=== PATIENT | male | born 1935 | race Caucasian/White ===

== ENCOUNTER → 2017-08-02 | Outpatient (CLI) | payer OTHER ==
[~2017-08-02] MED LIST: ALBUAER19 INH; AMIO200T4 PO; ASPCH81X PO; CARV12.52 PO; CHOL100027 PO; CITA10TA4 PO; CNT PO; CRG125 PO; LEVO25TA5 PO; LPT40 PO; LSX20 PO; PANT40TA PO; RANI300T PO; RQP25 PO; TIOTCAP INH; WARF1TAB PO
--- NOTE | 2017-08-03 05:58 | SPLIT NIGHT TECHNICIAN REPORT ---
[facility] Split Night Polysomnogram - Manager [employer] Report Study date: 08/02/2017 Referring Physician: Niki Duarte M.D. Name: PAMELA SILVA Savita [employer]: Paula Mccoy [facility] Date of : 1935 Height: 81 years, Height 5' 7" Sex: Male Weight: 201 lbs Age: 81 Neck Circum: 16 inches BMI: Medications: 31.48 Prilosec 20 mg, Lasix 20 mg, Coreg 25 mg, Demadex 100 mg, Celexa 10 mg, Requip 2 mg, Ventolin HFA 108 ( 90 Base), Synthroid 25 mcg, Coumadin 1 mg, Cordarone 200 mg, Vitamin D 3 2000 units, Lipitor 40 mg, Vitron-C, Anoro Ellipta 62.5-25 MCG, Tylenol 325 mg, Aspirin 81 mg Patient History 81 yr. old male here for a modified split night sleep study with ETC02. Split is to be done if AHI > 15. Patient stated he only sleeps 3-4 hours a night. According to the patient he has been awake since 0130 today. Patient complains of gasping for air, witnessed apneas and EDS. ESS14/24. Parameters Monitored NPSG: E1-M2, E2-M1, Fp1-M2, Fp2-M1, F3-M2, F4-M2, F4-M1, C3-M2, C4-M2, C4-M1, O1-M2, O2-M2, O2-M1, T3-M2, T4-M1, P3-M2, P4-M1, CHIN1, CHIN2, HR, EKG, Legs, PFLOW, SNOR, FLOW, CFLOW, Tidal Volume, THOR, ABDO, SpO2, PLTH, CPRESS, ETCO2 Wave, ETCO2, pH SLEEP SUMMARY DATA DIAGNOSTIC TREATMENT Lights Out: 9:16:09 PM NONE Lights On: 11:24:09 PM 5:30:39 AM Total Recording Time (TRT): 126.5 min. 350.5 min. Total Sleep Time (TST): 122.0 min. 317.0 min. NREM Time: 122.0 min. 266.0 min. REM Time: 0.0 min. 51.0 min. Sleep Period Time (SPT): 126.0 min. 350.5 min. Sleep Efficiency (SE): 96 % 90 % Sleep Latency: 0.5 min. NONE min. Arousal Index: 11.8 5.1 PAP Treatment Levels: 4, 5, 6, 7, 8/4, 9/5, 10/5, 11/5, 12/5, 13/5, 14/5, 15/6, 16/6, 17/7 * Optimal Pressure(s) SLEEP STAGING DATA DIAGNOSTIC TREATMENT Duration (min) TST % Duration (min) TST % Stage Wake: 4.5 min. -- 33.5 min. -- WASO: 5.5 min. -- 33.5 min. -- NREM: 122.0 min. 100 % 266.0 min. 84 % Stage N1: 12.5 min. 10 % 36.0 min. 11 % Stage N2: 75.0 min. 61 % 174.0 min. 55 % Stage N3: 34.5 min. 28 % 56.0 min. 18 % REM: 0.0 min. 0 % 51.0 min. 16 % POSITIONAL DATA Event Count Index Event Count Index Supine: 48 56 88 54.2 Supine NREM: 48 56.0 70 54.3 Supine REM: N/A N/A 18 54 Non-Supine: 18 15.3 68 18.6 Non-Supine NREM: 18 15.3 68 21.6 Non-Supine REM: N/A N/A 0 0.0 AROUSAL SUMMARY DATA: Event Count Index Event Count Index Apnea Arousals: 10 16.2 3 12.3 Hypopnea Arousals: 4 2.0 8 1.5 Snore Arousals: 2 1.0 8 1.5 PLM Arousals: 0 0.0 1 0.2 Non-Specific Arousals: 5 2.5 9 1.7 Total Arousals: 24 11.8 27 5.1 MYOCLONUS (PLM) Event Count Index Event Count Index PLM: 0 0.0 18 3.4 PLM AROUSAL: 0 0.0 1 0.2 PLM W/O AROUSAL 0 0.0 17 3.2 PLM W/RESP EVENT 0 0.0 0 0.0 MYOCLONUS (PLM) Event Count Index Event Count Index LM: 4 7.4 26 4.9 LM AROUSAL: 4 2.0 3 0.6 LM W/O AROUSAL LM W/RESP EVENT LM NON SPECIFIC 9 4.4 38 7.2 HEART RATE DATA DIAGNOSTIC TREATMENT Sleep (bpm): 63 62 REM (bpm): N/A 92 NREM (bpm): 91 93 Tachycardia Count: 0 0 Tachycardia Duration: 0.00 0 Bradycardia Count: 0 0 Bradycardia Duration: 0.00 0 DIAGNOSTIC PORTION TREATMENT PORTION RESPIRATORY DATA Event Count Index Event Count Index AHI: -- 32.4 -- 29.5 RDI: -- 32.4 -- 30 Obstructive Apnea: 2 1.0 3 0.6 Central Apnea: 18 8.8 62 11.7 Mixed Apnea: 13 6.4 0 0.0 Hypopnea: 33 16.2 91 17.2 RERA: 0 0.0 0 0.0 Total Apneas: 33 16.2 65 12.3 RESPIRATORY DATA REM NREM SLEEP REM NREM SLEEP Supine Position: Obstructive Apneas: N/A 2 2 3 0 3 Central Apneas: N/A 15 15 3 33 36 Mixed Apneas: N/A 13 13 0 0 0 Hypopneas: N/A 18 18 12 37 49 RERA N/A 0 0 0 0 0 Total Supine Events: N/A 48 48 18 70 88 Supine AHI: N/A 56.0 56 54 54.3 54.2 Supine RDI: N/A 56.0 56.0 54.0 54.3 54.2 REM NREM SLEEP REM NREM SLEEP Non-Supine Position: Obstructive Apneas: N/A 0 0 0 0 0 Central Apneas: N/A 3 3 0 26 26 Mixed Apneas: N/A 0 0 0 0 0 Hypopneas: N/A 15 15 0 42 42 RERA N/A 0 0 0 0 0 Total Supine Events: N/A 18 18 0 68 68 Supine AHI: N/A 15.3 15.3 0.0 21.6 18.6 Supine RDI: N/A 15.3 15.3 0.0 21.6 18.6 OXYGEN DESTAURATION DATA: Event Count Index Event Count Index REM Desaturations: N/A N/A 17 20.0 NREM Desaturations: 70 34.4 146 32.9 SNORE DATA DIAGNOSTIC TREATMENT Snore Time: 1.8 11:36:42 PM Snore TST%: 1 2 Snore Arousal Count: 2 8 Snore Arousal Index: 1.0 1.5 Desaturation Event Summary: Minimum %SpO2 Event Count Mean/Min/Max Duration(sec.) Desaturation Index % Time In Bed > 90 244 34.5 / 8.8 / 60.0 39.2 78.6 86 - 90 1 24.8 / 24.8 / 24.8 0.6 20.5 81 - 85 0 N/A 0.0 1.0 76 - 80 0 N/A 0.0 0.0 71 - 75 0 N/A 0.0 0.0 66 - 70 0 N/A 0.0 0.0 61 - 65 0 N/A 0.0 0.0 56 - 60 0 N/A 0.0 0.0 51 - 55 0 N/A 0.0 0.0 < 50 0 N/A 0.0 0.0 OXYGEN SATURATION DATA DIAGNOSTIC TREATMENT SpO2 Mean Sleep: 91 % 93 % SpO2 Mean REM: N/A % 92 % SpO2 Mean NREM: 91 % 93 % SpO2 Minimum Sleep: 81 % 84 % SpO2 Minimum REM: N/A % 85 % SpO2 Minimum NREM: 81 % 84 % Time Below 90% (TST): 21.8 24.2 Time Below 88% (TST): 10.0 4.8 Total REM NREM Awake <50% 0.0 min. 0.0 min. 0.0 min. 0.0 min. 51 - 60% 0.0 min. 0.0 min. 0.0 min. 0.0 min. 61 - 70% 0.0 min. 0.0 min. 0.0 min. 0.0 min. 71 - 80% 0.0 min. 0.0 min. 0.0 min. 0.0 min. 81 - 90% 101.9 min. 7.1 min. 87.7 min. 7.1 min. 91 - 100% 373.5 min. 43.9 min. 299.8 min. 29.9 min. Average 92 92 92 93 Minimum SpO2 81 85 81 81 Desaturation Event Index 30.7 20.0 33.4 23.7 # Desat. Events below 89% 101 9 85 7 Time(%) with Saturation below 89% 5.6 0.6 4.4 0.6 Time(min.) with Saturation below 89% 26.5 2.8 20.8 2.9 Recording [employer] Comments: Mr. Silva slept in the right, left, and supine positions. Cardiac arrhythmia noted throughout the study. No PLMs noted. No bruxism noted. Snoring was noted and scored as a 2 on a scale of 0 through 5. (0=no snoring, 5=snoring loud enough to be heard through a closed door or down the [address]) A 11:36 pm , Mr. Silva met specific Split-Night criteria during the diagnostic portion of this study. CPAP was initiated at +4 CMH2O room air and up-titrated to a level of + 7 CMH2O Cflex 1. At this time patient was switch to Bi-Level for central apneas. PAP initiated at an IPAP of +8 CMH2O and an EPAP of +4 CMH2O up-titrated to an optimal level of: IPAP +15 CMH2O, EPAP +6 CMH20 BiFlex with a rate of12 BPM. A medium Resmed Mirage quattro full face mask was used during the night. Mr. Silva stated, the mask wasn't too bad". The final report will be interpreted and signed by a sleep physician. The completed physician report will then be placed in the patient medical record. Therapy Event: Therapy (cm H20) 0 4 5 6 7 8/4 9/5 10/5 Total Time at Pressure (min.) 126.5 24.6 14.1 41.2 19.3 15.1 8.8 14.2 TST at Pressure (min.) 122.0 12.6 13.6 41.2 18.8 15.1 7.8 13.7 # Periods 1 1 1 1 1 1 1 1 Sleep Onset (min.) 0.5 0.0 0.0 0.0 0.0 0.0 0.0 0.0 REM Onset (min.) N/A N/A N/A N/A N/A 9.2 0.0 0.0 Sleep Efficiency % 96 51 96 100 97 100 88 96 Wakefulness (%) 3.6 48.7 3.5 0.0 2.6 0.0 11.4 3.5 Wakefulness (min.) 4.5 12.0 0.5 0.0 0.5 0.0 1.0 0.5 NREM 1 (%) 9.9 24.2 14.1 1.2 23.4 3.3 5.7 10.6 NREM 1 (min.) 12.5 6.0 2.0 0.5 4.5 0.5 0.5 1.5 NREM 2 (%) 59.3 27.1 82.3 49.0 74.0 61.1 0.0 34.3 NREM 2 (min.) 75.0 6.7 11.6 20.2 14.3 9.2 0.0 4.9 NREM 3 (%) 27.3 0.0 0.0 49.8 0.0 0.0 0.0 0.0 NREM 3 (min.) 34.5 0.0 0.0 20.5 0.0 0.0 0.0 0.0 REM (%) 0.0 0.0 0.0 0.0 0.0 35.6 82.9 51.6 REM (min.) 0.0 0.0 0.0 0.0 0.0 5.4 7.3 7.3 # Arousals 24 1 2 1 1 1 1 3 Arousal Index 11.8 4.8 8.8 1.5 3.2 4.0 7.7 13.1 # Snore 93 5 9 8 6 10 10 28 Snore Index 45.7 23.8 39.6 11.7 19.2 39.7 77.2 122.5 AHI 32.4 52.3 57.2 16.0 35.2 55.5 54.1 61.2 AHI Supine 56.0 53.8 61.8 N/A 60.4 55.5 54.1 56.4 AHI Non-Supine 15.3 0.0 53.7 16.0 6.8 N/A N/A 67.0 NREM AHI 32.4 52.3 57.2 16.0 35.2 61.6 0.0 65.9 REM AHI N/A N/A N/A N/A N/A 44.5 57.8 57.2 RDI 32.4 52.3 57.2 16.0 35.2 55.5 54.1 61.2 # Obstructive 2 0 0 0 0 0 2 1 # Central Ap 18 10 13 4 11 8 0 1 # Mixed 13 0 0 0 0 0 0 0 # Hypopneas 33 1 0 7 0 6 5 12 RERAS 0 0 0 0 0 0 0 0 Total Respiratory Events 66 11 13 11 11 14 7 14 Time Below SpO2 89.00% (min.) 14.4 0.0 0.5 0.0 0.2 1.1 1.3 1.6 Mean NREM SpO2 (%) 91 94 93 92 93 92 94 93 Mean REM SpO2 (%) N/A N/A N/A N/A N/A 91 91 92 Mean Sleep SpO2 (%) 91 94 93 92 93 92 91 92 Min NREM SpO2 (%) 81 90 87 89 88 86 94 86 Min REM SpO2 (%) N/A N/A N/A N/A N/A 86 85 85 Position Supine (min.) 51.4 12.3 5.8 0.0 9.9 15.1 7.8 7.4 Position Non-supine (min.) 70.7 0.4 7.8 41.2 8.8 0.0 0.0 6.3 LM Index Sleep 7.4 9.5 0.0 1.5 3.2 23.8 38.6 43.7 LM Index NREM 7.4 9.5 0.0 1.5 3.2 6.2 120.0 28.2 LM Index REM N/A N/A N/A N/A N/A 55.7 33.0 57.2 Mean Heart Rate (bpm) 63 63 63 61 62 61 63 65 Min Heart Rate (bpm) 49 60 60 60 59 59 59 60 Therapy (cm H20) 11/5 12/5 13/5 14/5 15/6 16/6 17/7 Total Time at Pressure (min.) 25.7 43.4 15.8 25.0 31.6 32.5 39.1 TST at Pressure (min.) 24.2 39.9 14.8 22.5 31.6 25.5 35.6 # Periods 1 1 1 1 1 1 1 Sleep Onset (min.) 0.0 0.0 0.0 0.0 0.0 0.0 0.0 REM Onset (min.) N/A N/A N/A N/A N/A 24.6 0.0 Sleep Efficiency % 94 91 93 90 100 78 91 Wakefulness (%) 5.8 8.1 6.3 10.0 0.0 21.5 9.0 Wakefulness (min.) 1.5 3.5 1.0 2.5 0.0 7.0 3.5 NREM 1 (%) 11.7 9.2 1.9 12.8 0.0 18.4 10.2 NREM 1 (min.) 3.0 4.0 0.3 3.2 0.0 6.0 4.0 NREM 2 (%) 82.5 53.9 91.8 77.2 43.3 20.0 21.8 NREM 2 (min.) 21.2 23.4 14.5 19.3 13.7 6.5 8.5 NREM 3 (%) 0.0 28.8 0.0 0.0 56.7 15.7 0.0 NREM 3 (min.) 0.0 12.5 0.0 0.0 17.9 5.1 0.0 REM (%) 0.0 0.0 0.0 0.0 0.0 24.4 59.1 REM (min.) 0.0 0.0 0.0 0.0 0.0 7.9 23.1 # Arousals 5 2 0 1 0 3 6 Arousal Index 12.4 3.0 0.0 2.7 0.0 7.1 10.1 # Snore 29 7 6 3 1 3 40 Snore Index 71.8 10.5 24.3 8.0 1.9 7.1 67.5 AHI 64.4 15.0 52.7 21.3 9.5 18.8 8.4 AHI Supine 51.0 54.0 52.7 35.1 N/A 51.8 30.5 AHI Non-Supine 66.7 3.9 N/A 20.2 9.5 3.4 7.1 NREM AHI 64.4 15.0 52.7 21.3 9.5 27.3 24.0 REM AHI N/A N/A N/A N/A N/A 0.0 0.0 RDI 64.4 15.0 52.7 21.3 9.5 18.8 8.4 # Obstructive 0 0 0 0 0 0 0 # Central Ap 13 0 0 0 0 0 2 # Mixed 0 0 0 0 0 0 0 # Hypopneas 13 10 13 8 5 8 3 RERAS 0 0 0 0 0 0 0 Total Respiratory Events 26 10 13 8 5 8 5 Time Below SpO2 89.00% (min.) 0.8 0.8 0.0 0.8 0.0 0.9 1.4 Mean NREM SpO2 (%) 93 92 92 93 93 93 93 Mean REM SpO2 (%) N/A N/A N/A N/A N/A 92 93 Mean Sleep SpO2 (%) 93 92 92 93 93 93 93 Min NREM SpO2 (%) 87 84 89 84 91 86 85 Min REM SpO2 (%) N/A N/A N/A N/A N/A 91 92 Position Supine (min.) 3.5 8.9 14.8 1.7 0.0 8.1 2.0 Position Non-supine (min.) 20.7 31.0 0.0 20.8 31.6 17.4 33.6 LM Index Sleep 2.5 4.5 0.0 10.7 0.0 11.8 10.1 LM Index NREM 2.5 4.5 0.0 10.7 0.0 10.2 0.0 LM Index REM N/A N/A N/A N/A N/A 15.1 15.6 Mean Heart Rate (bpm) 61 62 61 62 61 63 63 Min Heart Rate (bpm) 59 59 59 60 59 60 60
--- NOTE | 2017-08-03 15:46 | POLYSOMNOGRAPH REPORT ---
SPLIT NIGHT STUDY CLINICAL DATA: An 81-year-old male with a BMI of 31.5 referred by Niki Duarte for a modified split night study. He only sleeps 3-4 hours at night. He has been awake since 1:30 this morning prior to the sleep study. He awakens gasping for air with witnessed apneic episodes. His Vadito sleepiness score is 14/24. SLEEP ARCHITECTURE: For the diagnostic portion of the study, sleep period was 126 minutes. Total sleep time was 122 minutes, all non-REM sleep. Sleep latency was 0.5 minutes. Sleep efficiency was 96%. Sleep consisted of stage N1 10%, stage N2 61%, and stage N3 28%. For the treatment portion of the study, sleep period time was 350.5 minutes. Total sleep time was 317 minutes divided between 266 minutes of non-REM sleep and 51 minutes of REM sleep. Sleep onset latency was immediate. Sleep efficiency was 90%. Sleep consisted of stage N1 11%, stage N2 55%, stage N3 18%, and REM 16%. AROUSAL DATA: Prior to treatment, 24 arousals were recorded for an index of 11.8 per hour. During treatment, 27 arousals were recorded for an index of 5 per hour. PLM DATA: Prior to treatment, 9 limb movements during sleep were noted for an index of 4.4 per hour. During treatment, 38 limb movements were present for an index of 7.2 per hour. EKG: Heart rates ranged from 62 to 93 beats per minute. The patient appeared to have atrial fibrillation through the night with PVCs. RESPIRATORY DATA: Severe sleep apnea was documented prior to treatment. The AHI was 32.4. There were 2 obstructive, 18 central, and 13 mixed apneic episodes. There were 33 hypopneic episodes. The mean AHI during treatment was 29.5. There were 3 obstructive, 62 central apneic episodes and 91 hypopneic episodes. OXIMETRY DATA: Nocturnal hypoxemia was seen. Oxygen rajesh was 81% prior to treatment. Mean saturation for the treatment was 93%. TOPOGRAPHICAL SURVEYOR'S COMMENTS AND TREATMENT SUMMARY: The patient slept in the right, left, and supine positions. Snoring was mild, rated 2 on a scale of 1 through 5. At 11:36 p.m. he met split night criteria. He was started on CPAP and was titrated up to 7 cm of water pressure. At that point, he developed treatment onset central apneas/complex sleep apnea and was switched to BIPAP with a backup rate. He was initially started on BiPAP 8/4 and was eventually titrated up to an optimal pressure setting of BiPAP 17/7 with a backup rate of 12 breaths per minute. He used a medium ResMed Mirage Quattro full facemask. At his final pressure setting, he slept for 35.6 minutes with an AHI of 8.4. IMPRESSION: 1. 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 2. Atrial fibrillation, PVCs were seen throughout the night. RECOMMENDATIONS: The patient could be started on BIPAP with a backup rate. If he has an ejection fraction greater than 45% and does not tolerate BIPAP with a backup rate, ASV could be considered. Clinical correlation is needed. [facility]
== END | disposition home or self-care (01) ==
LOC: C.NEUR 20:00
PROVIDERS: ATTEND Internal Medicine
DX: G47.33 Obstructive sleep apnea (adult) (pediatric) (principal); I48.91 Unspecified atrial fibrillation

== ENCOUNTER 2017-08-16 13:37 | Inpatient (IN) | payer OTHER ==
[~2017-08-16] VITALS: Ht 170.2 cm; Wt 89.9 kg
--- NOTE | 2017-08-16 15:15 | EMERGENCY ROOM VISIT NOTE ---
History Report prepared by Jorge: Hermelinda Miller Under the Supervision of: Dr. Saman Gunn M.D. First contact with patient: 14:59 Chief Complaint: RESPIRATORY PROBLEMS Stated Complaint: CAN'T BREATHE Nursing Triage Summary: Pt presents to triage with c/o difficulty breathing. Pt states he is in a.fib. Denies dizziness or lightheadedness. Sent by Dr. Betancur. History of Present Illness The patient is an 81 year old white male with a past medical history of Afib, HTN, lung cancer, CAD, CHF, COPD, CKD, GERD, and Hyperthyroidism who presents to the ED with a cc of constant SOB that has been occurring for the past few months. He came in today because he spoke with his performance engineer who recommended he come in today. Negative nausea, vomiting, chest pain. His states he was previously seen for this in the hospital in 2012. The patient has AICD in place and denies feeling any recent shocks. He also has one stent that was placed in [place] in 2000. He also complains of some swelling in his ankles and believes he is retaining fluid. He also takes medications for cholesterol and is on Coumadin , and aspirin. He is considered to be in remission of his lung cancer, and has not had any treatment for about two years. Source of History: patient, spouse/significant other Onset: past few months Timing: constant Associated Symptoms: No chest pain, No nausea, No vomiting Note: leg swelling Review of Systems See HPI for pertinent positives and negatives. A total of ten systems were reviewed and were otherwise negative. Past Medical & Surgical Medical Problems: (1) Atrial fibrillation (2) CAD (coronary artery disease) (3) Carotid stenosis, bilateral (4) CKD (chronic kidney disease) stage 3, GFR 30-59 ml/min (5) COPD, moderate (6) CVA (cerebral vascular accident) (7) Dyslipidemia (8) GERD (gastroesophageal reflux disease) (9) HTN (hypertension) (10) Hypothyroidism (11) Implantation of cardiac pacemaker (12) Ischemic cardiomyopathy (13) Lung cancer (14) MGUS (monoclonal gammopathy of unknown significance) Surgical Problems: (1) History of appendectomy (2) History of total knee arthroplasty Family History no pertinent family history stated. Social History Smoking Status: Former Smoker Drug Use: none Marital Status: Housing Status: lives with significant other Occupation Status: retired Current/Historical Medications Scheduled Amiodarone HCl (Amiodarone HCl), 200 MG PO TID Aspirin (Aspirin Chewable), 81 MG PO QAM Atorvastatin (Lipitor), 40 MG PO DAILY Carvedilol (Coreg), 25 MG PO BIDM Cholecalciferol (Vitamin D 1000 Unit), 2,000 INTER.UNIT PO QAM Citalopram Hydrobromide (Citalopram Hydrobromide), 10 MG PO HS Furosemide (Lasix), 60 MG PO DAILY Iron-Vitamin C (Vitron-C), 1 TAB PO DAILY Levothyroxine Sodium (Levothyroxine Sodium), 25 MCG PO QAM Omeprazole (Prilosec), 20 MG PO BID Ropinirole (Requip), 2 MG PO TID Umeclidinium-Vilanterol (Anoro Ellipta 62.5-25 Mcg/INH), 1 PUFF INH DAILY Warfarin Sod (Jantoven), 2 MG PO QMON Warfarin Sod (Jantoven), 3 MG PO 6XWK Scheduled PRN Albuterol Hfa (Ventolin Hfa), 2 PUFF INH Q4 PRN for SOB/Wheezing Allergies Coded Allergies: Gluten (Verified Allergy, Intermediate, GI SYMPTOMS, 08/22/16) CELIAC DISEASE CI Pigment Blue 63 (Verified Allergy, Mild, SHORTNESS OF BREATH, 08/22/16) Naproxen (Verified Allergy, Mild, SWELLING OF HANDS, 08/22/16) Sumatriptan (Verified Allergy, Mild, SHORTNESS OF BREATH, 08/22/16) Pseudoephedrine (Verified Allergy, Unknown, MADE HIS DEFIB FIRE, 08/22/16) Physical Exam Vital Signs Date Time Temp Pulse Resp B/P (MAP) Pulse Ox O2 Delivery O2 Flow Rate FiO2 08/16/17 18:01 75 18 129/87 96 Room Air 08/16/17 17:30 80 18 157/113 99 Room Air 08/16/17 17:01 78 20 144/70 93 Room Air 08/16/17 16:00 70 14 123/71 99 Nebulizer 8.0 08/16/17 15:58 94 Room Air 08/16/17 15:53 70 08/16/17 13:47 36.3 80 22 117/71 95 Room Air Physical Exam GENERAL: Awake, alert, well-appearing, NAD HENT: Normocephalic, atraumatic. EYES: Normal conjunctiva. Sclera non-icteric. NECK: Supple. No nuchal rigidity. FROM. RESPIRATORY: CTAB, no rhonchi, crackles. Trace inspiratory and expiratory wheezing throughout. CARDIAC: RRR, no MRG ABDOMEN: Soft, NTND, BS+ MSK: No chest wall TTP. Device in his left chest. 1 to 2+ pretibial edema. NEURO: GCS 15, CN 2-12 intact, moves all 4s on command SKIN: No rash or jaundice noted. Medical Decision & Procedures ER Provider Diagnostic Interpretation: Radiology results as stated below per my review and radiologist interpretation: SINGLE VIEW CHEST CLINICAL HISTORY: Dyspnea. FINDINGS: An AP, portable, upright chest radiograph is compared to study dated 08/24/2016 and correlated with chest CT dated 05/03/2015. The examination is degraded by portable technique and patient rotation. A 3-lead cardiac AICD is unchanged in position and partially obscures the left chest. The heart is enlarged and there is atherosclerotic calcification of the thoracic aorta. The pulmonary vasculature is noncongested. A 4.7 cm opacity in the right midlung is unchanged from prior studies. This appears more confluent than on the 08/24/2016 examination. No additional foci of airspace consolidation are identified. There is no large pleural effusion or pneumothorax. The skeletal structures are osteopenic. Degenerative change is seen throughout the thoracic spine. IMPRESSION: 1. Cardiomegaly and AICD. There is no radiographic evidence of congestive failure. 2. A 4.7 cm opacity in the right midlung appears increasingly confluent as compared to previous. The appearance remains concerning for mass lesion. Follow-up with pulmonology is recommended. Electronically signed by: Amari Reyes M.D. 08/16/2017 3:52 PM Laboratory Results Test 08/16/17 15:55 08/16/17 17:00 Immature Granulocyte % (Auto) 1.1 % White Blood Count 9.04 K/uL (4.8-10.8) Red Blood Count 3.33 M/uL (4.7-6.1) Hemoglobin 10.3 g/dL (14.0-18.0) Hematocrit 31.4 % (42-52) Mean Corpuscular Volume 94.3 fL (80-100) Mean Corpuscular Hemoglobin 30.9 pg (25-34) Mean Corpuscular Hemoglobin Concent 32.8 g/dl (32-36) Platelet Count 159 K/uL (130-400) Mean Platelet Volume 10.1 fL (7.4-10.4) Neutrophils (%) (Auto) 64.3 % Lymphocytes (%) (Auto) 21.2 % Monocytes (%) (Auto) 9.3 % Eosinophils (%) (Auto) 3.7 % Basophils (%) (Auto) 0.4 % Neutrophils # (Auto) 5.81 K/uL (1.4-6.5) Lymphocytes # (Auto) 1.92 K/uL (1.2-3.4) Monocytes # (Auto) 0.84 K/uL (0.11-0.59) Eosinophils # (Auto) 0.33 K/uL (0-0.5) Basophils # (Auto) 0.04 K/uL (0-0.2) Immature Granulocyte # (Auto) 0.10 K/uL (0.00-0.02) Activated Partial Thromboplast Time 36.8 SECONDS (21.0-31.0) Partial Thromboplastin Ratio 1.4 Phosphorus Level 2.6 mg/dl (2.5-4.9) Magnesium Level 2.3 mg/dl (1.8-2.4) Total Bilirubin 0.9 mg/dl (0.2-1) Aspartate Amino Transf (AST/SGOT) 21 U/L (15-37) Alanine Aminotransferase (ALT/SGPT) 32 U/L (12-78) Alkaline Phosphatase 70 U/L (45-117) Troponin I 0.023 ng/ml (0-0.045) Pro-B-Type Natriuretic Peptide 2185 pg/ml (0-1800) Total Protein 7.2 gm/dl (6.4-8.2) Albumin 3.2 gm/dl (3.4-5.0) Globulin 4.0 gm/dl (2.5-4.0) Albumin/Globulin Ratio 0.8 (0.9-2) Urine Color YELLOW Urine Appearance CLEAR (CLEAR) Urine pH 7.0 (4.5-7.5) Urine Specific [place] 1.014 (1.000-1.030) Urine Protein NEG (NEG) Urine Glucose (UA) NEG (NEG) Urine Ketones NEG (NEG) Urine Occult Blood TRACE (NEG) Urine Nitrite NEG (NEG) Urine Bilirubin NEG (NEG) Urine Urobilinogen NEG (NEG) Urine Leukocyte Esterase NEG (NEG) Urine WBC (Auto) 1-5 /hpf (0-5) Urine RBC (Auto) 0-4 /hpf (0-4) Urine Hyaline Casts (Auto) 1-5 /lpf (0-5) Urine Epithelial Cells (Auto) 5-10 /lpf (0-5) Urine Bacteria (Auto) NEG (NEG) Laboratory results reviewed by me Medications Administered Medications (Trade) Dose Ordered Sig/Tj Route Start Time Stop Time Status Last Admin Dose Admin Albuterol/ Ipratropium (Duoneb) 3 ml ONE STAT INH 08/16/17 15:23 08/16/17 15:25 DC 08/16/17 15:57 3 ML Doxycycline Hyclate (Vibramycin Cap) 100 mg ONE ONCE PO 08/16/17 15:30 08/16/17 15:31 DC 08/16/17 15:57 100 MG ECG Indication: SOB/dyspnea Rate (beats per minute): 64 Rhythm: other (v paced ) Findings: T-wave inversion (T wave inversions in v 6, 3, AVL ), other (wide QRS , no sgarbossa criteria met ) Comparison ECG Date: August 22, 2016 Change: no significant change (fairly unchanged, formerly A-paced ) ED Course 1503: The patient was evaluated in room C12B. A complete history and physical exam was performed. 1708: I reevaluated the patient. He feels okay. 1712: Upon reexamination, the patient was resting comfortably. I discussed the test results and treatment plan with him. The patient will be evaluated for further management. Medical Decision The patient is an 81 year old white male with a past medical history of Afib, HTN, lung cancer, CAD, CHF, COPD, CKD, GERD, and Hyperthyroidism who presents to the ED with a cc of SOB that has been occurring for months. Differential diagnosis: Etiologies such as infections, reactive airway disease, pneumonia, pneumothorax , COPD, CHF, cardiac ischemia, pulmonary embolism, musculoskeletal, gastrointestinal, as well as others were entertained. Patient was seen and evaluated the bedside. Per the patient family member the patient was referred here for further evaluation of atrial fibrillation. Patient has complained of some URI type symptoms as well as a productive cough. Patient does complains mild shortness of breath. Patient states he does have a history of heart failure. Patient states his symptoms been ongoing for several weeks. Patient states that he recently had his AICD interrogated which showed possible atrial fibrillation. EKG today shows that the patient is in A. fib with a ventricularly paced rhythm. Patient is have T-wave inversions that appear chronic in nature. Patient did have blood work that was completed along with a chest x-ray. Patient also did have notable wheezing throughout on exam. Patient was given DuoNeb times as well as doxycycline instead of azithromycin for similar coverage without QT prolonging issues. Patient did have mild JYOTHI. Patient does have a baseline creatinine of 1.8 today is 2.3. BUN/creatinine is at baseline. Patient is a mildly elevated BNP but clinically the patient doesn' t look super volume overloaded. Patient does have some trace pretibial edema. Chest x-ray is read suspicious for new lung mass. Patient does have mild hypocalcemia. I did discuss the patient with the performance engineer who recommended further eval to be made NPO for possible cardioversion given persistent a fib. Therapeutic INR today. I discussed the patient the hospitalist who agreed to further evaluate and treat the patient. Medication Reconcilliation Current Medication List: was personally reviewed by me Blood Pressure Screening Patient's blood pressure: Normal blood pressure Blood pressure disposition: Did not require urgent referral Consults Time Called: 1709 Consulting Physician: Dr. Walsh, Cardiology Returned Call: [phone] He recommends admission and he will see the patient tomorrow. Additional Consults: Time Called: 1735 Consulted Physician: LUPILLO Correa Returned Call: [phone] Additional Comments: Discussed the patient's case. The patient will be evaluated for further treatment and disposition. Impression Primary Impression: Chronic systolic (congestive) heart failure Additional Impressions: Anemia COPD exacerbation JYOTHI (acute kidney injury) Scribe Attestation The scribe's documentation has been prepared under my direction and personally reviewed by me in its entirety. I confirm that the note above accurately reflects all work, treatment, procedures, and medical decision making performed by me. Departure Information Dispostion Being Evaluated By Hospitalist Referrals No Doctor, Assigned (PCP) Patient Instructions My [facility] Problem Qualifiers Additional Impressions: Anemia Anemia type: unspecified type Qualified Codes: D64.9 - Anemia, unspecified
[2017-08-16] MEDS ORDERED: ALBUT/IPRATROP 3MG/0.5MG NEB 3 ML VIAL INH STA (15:23)
[2017-08-16] MEDS ORDERED: DOXYCYCLINE HYCLATE 100 MG CAP PO ONE (15:30)
--- NOTE | 2017-08-16 15:53 | DIAGNOSTIC IMAGING REPORT ---
SINGLE VIEW CHEST CLINICAL HISTORY: Dyspnea. FINDINGS: An AP, portable, upright chest radiograph is compared to study dated 08/24/2016 and correlated with chest CT dated 05/03/2015. The examination is degraded by portable technique and patient rotation. A 3-lead cardiac AICD is unchanged in position and partially obscures the left chest. The heart is enlarged and there is atherosclerotic calcification of the thoracic aorta. The pulmonary vasculature is noncongested. A 4.7 cm opacity in the right midlung is unchanged from prior studies. This appears more confluent than on the 08/24/2016 examination. No additional foci of airspace consolidation are identified. There is no large pleural effusion or pneumothorax. The skeletal structures are osteopenic. Degenerative change is seen throughout the thoracic spine. IMPRESSION: 1. Cardiomegaly and AICD. There is no radiographic evidence of congestive failure. 2. A 4.7 cm opacity in the right midlung appears increasingly confluent as compared to previous. The appearance remains concerning for mass lesion. Follow-up with pulmonology is recommended. Electronically signed by: Amari Reyes M.D. 08/16/2017 3:52 PM Dictated Date/Time: 08/16/2017 3:49 PM
[2017-08-16] MEDS ORDERED: CRD200 PO (16:07)
[2017-08-16] MEDS ORDERED: CARV25TA PO (16:07)
[2017-08-16] MEDS ORDERED: ROPI2TAB6 PO (16:07)
[2017-08-16] MEDS ORDERED: WARF2TAB8 PO ×2 (16:07)
[2017-08-16] MEDS ORDERED: FURO-85 PO (16:07)
[2017-08-16] MEDS ORDERED: UMEC1AER INH (16:07)
[2017-08-16] MEDS ORDERED: FERRTAB18 PO (16:07)
[2017-08-16] MEDS ORDERED: VNTHFA/IN INH (16:07)
[2017-08-16] MEDS ORDERED: PRLSR20 PO (16:07)
[2017-08-16] MEDS ORDERED: LPT/40 PO (16:07)
[2017-08-16 16:09] LABS: BASO % 0.4 %; BASO ABS # 0.04 K/uL (0-0.2); COMPLETE YES; EOS % 3.7 %; HEMATOCRIT 31.4 % (42-52); IG% 1.1 %; LYMPH % 21.2 %; LYMPH ABS # 1.92 K/uL (1.2-3.4); MEAN CELL VOLUME 94.3 fL (80-100); MEAN CORPUSCULAR HEMOGLOBIN 30.9 pg (25-34); MEAN CORPUSCULAR HGB CONC 32.8 g/dl (32-36); MEAN PLATELET VOLUME 10.1 fL (7.4-10.4); MONO % 9.3 %; NEUT % 64.3 %; PLATELET COUNT 159 K/uL (130-400); RED BLOOD COUNT 3.33 M/uL (4.7-6.1); WHITE BLOOD COUNT 9.04 K/uL (4.8-10.8)
[2017-08-16 16:21] LABS: INR 2.5 (0.9-1.1); PARTIAL THROMBOPLASTIN RATIO 1.4; PROTHROMBIN TIME (PATIENT) 25.4 SECONDS (9.0-12.0)
[2017-08-16 16:28] LABS: BUN/CREATININE RATIO 10.9 (10-20); CALCIUM 8.3 mg/dl (8.5-10.1); CREATININE 2.35 mg/dl (0.60-1.40); MAGNESIUM 2.3 mg/dl (1.8-2.4); POTASSIUM 3.7 mmol/L (3.5-5.1)
[2017-08-16 16:34] LABS: ALB/GLOB RATIO 0.8 (0.9-2); PHOSPHORUS 2.6 mg/dl (2.5-4.9)
[2017-08-16 17:18] LABS: URINE APPEARANCE CLEAR (CLEAR); URINE BILIRUBIN NEG (NEG); URINE COLOR YELLOW; URINE NITRITE NEG (NEG); URINE SPECIFIC GRAVITY 1.014 (1.000-1.030); UROBILINOGEN NEG (NEG)
[2017-08-16 17:19] LABS: MANUAL MICROSCOPIC REQUIRED? NO; REVIEW REQ? NO
[2017-08-16] MEDS ORDERED: ONDANSETRON INJ 2 MG/ML 2 ML VIAL IV PRN (19:00)
[2017-08-16] MEDS ORDERED: ACETAMINOPHEN 325 MG TAB PO PRN (19:00)
[2017-08-16] MEDS ORDERED: NITROGLYCERIN 0.4 MG SL PER TAB CHARGE SL PRN (19:00)
[2017-08-16 19:12] LABS: INFLUENZA A PCR Neg for Influ A (NEG); INFLUENZA B PCR Neg for Influ B (NEG)
[2017-08-16 19:52] VITALS: BP 153/90; PULSE 73; TEMP 36.4; O2SAT 98; Ht 170.2 cm; Wt 89.9 kg
[2017-08-16] MEDS ORDERED: WARFARIN SOD 2 MG TAB PO SCH (21:00)
[2017-08-16] MEDS ORDERED: FUROSEMIDE INJ 20 MG in SYRINGE 0 ML IV ONE (21:00)
[2017-08-16] MEDS: ALBUT/IPRATROP 3MG/0.5MG NEB 3 ML VIAL INH SCH (21:23)
[2017-08-16 21:24] VITALS: PULSE 75; O2SAT 97
--- NOTE | 2017-08-16 21:44 | History and Physical ---
History & Physical Date & Time of Service: Aug 16, 2017 ~ 18:30 Chief Complaint: Shortness of Breath Primary Care Physician: Soren Loja M.D. History of Present Illness 81 year old male who presents to the ED with shortness of breath. Patient has been following closely with cardiology. He was seen in the clinic on 08/03 and was felt to be in acute CHF. His furosemide was changed to torsemide. He then was re-evaluated on 08/10 and underwent pacemaker interrogation that showed the patient was in atrial fibrillation. His amiodarone was increased and torsemide was changed back to furosemide. Patient reports no improvement in his symptoms. He reports shortness of breath with minimal exertion and sometimes at rest. He has noticed increased swelling around the ankles and abdominal distention. He reports a 4 pound weight gain in 3 days. He has orthopnea. He reports a cough productive for yellow sputum. He denies chest pain and palpitations. No lightheadedness, dizziness, diaphoresis, or syncope. No abdominal pain, nausea , vomiting, or diarrhea. He denies fever and chills. No urinary symptoms. In the ER, patient's labs and CXR are unremarkable for acute findings. Vitals are stable. He was given a DuoNeb and doxycycline. Past Medical/Surgical History Medical Problems: (1) Atrial fibrillation Status: Chronic (2) CAD (coronary artery disease) Permanent Comment: 2000 - PR, s/p angioplasty to LAD and diagonal and PCI to PDA 2011 - cath - 100% RPLB and 100% 1st diagonal Status: Chronic (3) Carotid stenosis, bilateral Status: Chronic (4) CKD (chronic kidney disease) stage 3, GFR 30-59 ml/min Status: Chronic (5) COPD, moderate Status: Chronic (6) CVA (cerebral vascular accident) Status: Chronic (7) Dyslipidemia Status: Chronic (8) GERD (gastroesophageal reflux disease) Status: Chronic (9) HTN (hypertension) Status: Chronic (10) Hypothyroidism Status: Chronic (11) Implantation of cardiac pacemaker Status: Resolved (12) Ischemic cardiomyopathy Permanent Comment: echo 08/09/17 - EF 44% Status: Chronic (13) Lung cancer Permanent Comment: s/p radiation Status: Chronic (14) MGUS (monoclonal gammopathy of unknown significance) Status: Chronic Surgical Problems: (1) History of appendectomy Status: Chronic (2) History of total knee arthroplasty Permanent Comment: R TKA Dr. Plunkett 05/05/2016 Status: Chronic Family History non contributory due to patient's advanced age Social History Smoking Status: Former Smoker Alcohol Use: none Marital Status: Housing status: lives with significant other Immunizations History of Influenza Vaccine: Yes Influenza Vaccine Date: Jul 13, 2017 History of Tetanus Vaccine?: Yes Tetanus Immunization Date: February 05, 2015 History of Pneumococcal: Yes Pneumococcal Date: Oct 02, 2014 History of Hepatitis B Vaccine: No Allergies Coded Allergies: Gluten (Verified Allergy, Intermediate, GI SYMPTOMS, 08/22/16) CELIAC DISEASE CI Pigment Blue 63 (Verified Allergy, Mild, SHORTNESS OF BREATH, 08/22/16) Naproxen (Verified Allergy, Mild, SWELLING OF HANDS, 08/22/16) Sumatriptan (Verified Allergy, Mild, SHORTNESS OF BREATH, 08/22/16) Pseudoephedrine (Verified Allergy, Unknown, MADE HIS DEFIB FIRE, 08/22/16) Home Medications Scheduled Amiodarone HCl (Amiodarone HCl), 200 MG PO TID Aspirin (Aspirin Chewable), 81 MG PO QAM Atorvastatin (Lipitor), 40 MG PO DAILY Carvedilol (Coreg), 25 MG PO BIDM Cholecalciferol (Vitamin D 1000 Unit), 2,000 INTER.UNIT PO QAM Citalopram Hydrobromide (Citalopram Hydrobromide), 10 MG PO HS Furosemide (Lasix), 60 MG PO DAILY Iron-Vitamin C (Vitron-C), 1 TAB PO DAILY Levothyroxine Sodium (Levothyroxine Sodium), 25 MCG PO QAM Omeprazole (Prilosec), 20 MG PO BID Ropinirole (Requip), 2 MG PO TID Umeclidinium-Vilanterol (Anoro Ellipta 62.5-25 Mcg/INH), 1 PUFF INH DAILY Warfarin Sod (Jantoven), 2 MG PO QMON Warfarin Sod (Jantoven), 3 MG PO 6XWK Scheduled PRN Albuterol Hfa (Ventolin Hfa), 2 PUFF INH Q4 PRN for SOB/Wheezing Review of Systems ROS per HPI, all other systems reviewed and negative Physical Exam Vital Signs Date Time Temp Pulse Resp B/P (MAP) Pulse Ox O2 Delivery O2 Flow Rate FiO2 08/16/17 19:52 36.4 73 24 153/90 98 Room Air 08/16/17 19:25 36.3 68 18 125/94 94 08/16/17 19:00 68 18 125/94 94 Room Air 08/16/17 18:01 75 18 129/87 96 Room Air 08/16/17 17:30 80 18 157/113 99 Room Air 08/16/17 17:01 78 20 144/70 93 Room Air 08/16/17 16:00 70 14 123/71 99 Nebulizer 8.0 08/16/17 15:58 94 Room Air 08/16/17 15:53 70 08/16/17 13:47 36.3 80 22 117/71 95 Room Air General Appearance: WD/WN, no apparent distress Head: normocephalic, atraumatic Eyes: normal inspection, EOMI, sclerae normal ENT: hearing grossly normal, + pertinent finding Neck: supple, no JVD, trachea midline Respiratory/Chest: no respiratory distress, + decreased breath sounds, + wheezing (expiratory throughout all lung multani) Cardiovascular: regular rate, rhythm, normal peripheral pulses, + pertinent finding Abdomen/GI: normal bowel sounds, non tender, soft, no organomegaly, + distended Extremities/Musculoskelatal: normal inspection, no calf tenderness, normal capillary refill Neurologic/Psych: no motor/sensory deficits, alert, normal mood/affect, oriented x 3 Skin: normal color, warm/dry Diagnostics Laboratory Results Results Past 24 Hours Test 08/16/17 15:55 08/16/17 17:00 08/16/17 18:19 Range/Units White Blood Count 9.04 4.8-10.8 K/uL Red Blood Count 3.33 4.7-6.1 M/uL Hemoglobin 10.3 14.0-18.0 g/dL Hematocrit 31.4 42-52 % Mean Corpuscular Volume 94.3 80-100 fL Mean Corpuscular Hemoglobin 30.9 25-34 pg Mean Corpuscular Hemoglobin Concent 32.8 32-36 g/dl Platelet Count 159 130-400 K/uL Mean Platelet Volume 10.1 7.4-10.4 fL Neutrophils (%) (Auto) 64.3 % Lymphocytes (%) (Auto) 21.2 % Monocytes (%) (Auto) 9.3 % Eosinophils (%) (Auto) 3.7 % Basophils (%) (Auto) 0.4 % Neutrophils # (Auto) 5.81 1.4-6.5 K/uL Lymphocytes # (Auto) 1.92 1.2-3.4 K/uL Monocytes # (Auto) 0.84 0.11-0.59 K/uL Eosinophils # (Auto) 0.33 0-0.5 K/uL Basophils # (Auto) 0.04 0-0.2 K/uL RDW Standard Deviation 53.6 36.4-46.3 fL RDW Coefficient of Variation 15.6 11.5-14.5 % Immature Granulocyte % (Auto) 1.1 % Immature Granulocyte # (Auto) 0.10 0.00-0.02 K/uL Prothrombin Time 25.4 9.0-12.0 SECONDS Prothromb Time International Ratio 2.5 0.9-1.1 Activated Partial Thromboplast Time 36.8 21.0-31.0 SECONDS Partial Thromboplastin Ratio 1.4 Sodium Level 135 136-145 mmol/L Potassium Level 3.7 3.5-5.1 mmol/L Chloride Level 102 98-107 mmol/L Carbon Dioxide Level 29 21-32 mmol/L Anion Gap 4.0 3-11 mmol/L Blood Urea Nitrogen 26 7-18 mg/dl Creatinine 2.35 0.60-1.40 mg/dl Est Creatinine Clear Calc Drug Dose 26.7 ml/min Estimated GFR () 29.0 Estimated GFR (Non- 25.0 BUN/Creatinine Ratio 10.9 10-20 Random Glucose 111 70-99 mg/dl Calcium Level 8.3 8.5-10.1 mg/dl Phosphorus Level 2.6 2.5-4.9 mg/dl Magnesium Level 2.3 1.8-2.4 mg/dl Total Bilirubin 0.9 0.2-1 mg/dl Aspartate Amino Transf (AST/SGOT) 21 15-37 U/L Alanine Aminotransferase (ALT/SGPT) 32 12-78 U/L Alkaline Phosphatase 70 45-117 U/L Troponin I 0.023 0-0.045 ng/ml Pro-B-Type Natriuretic Peptide 2185 0-1800 pg/ml Total Protein 7.2 6.4-8.2 gm/dl Albumin 3.2 3.4-5.0 gm/dl Globulin 4.0 2.5-4.0 gm/dl Albumin/Globulin Ratio 0.8 0.9-2 Urine Color YELLOW Urine Appearance CLEAR CLEAR Urine pH 7.0 4.5-7.5 Urine Specific [place] 1.014 1.000-1.030 Urine Protein NEG NEG Urine Glucose (UA) NEG NEG Urine Ketones NEG NEG Urine Occult Blood TRACE NEG Urine Nitrite NEG NEG Urine Bilirubin NEG NEG Urine Urobilinogen NEG NEG Urine Leukocyte Esterase NEG NEG Urine WBC (Auto) 1-5 0-5 /hpf Urine RBC (Auto) 0-4 0-4 /hpf Urine Hyaline Casts (Auto) 1-5 0-5 /lpf Urine Epithelial Cells (Auto) 5-10 0-5 /lpf Urine Bacteria (Auto) NEG NEG Influenza Type A (RT-PCR) Neg for Influ A NEG Influenza Type B (RT-PCR) Neg for Influ B NEG Diagnostic Radiology CXR IMPRESSION: 1. Cardiomegaly and AICD. There is no radiographic evidence of congestive failure. 2. A 4.7 cm opacity in the right midlung appears increasingly confluent as compared to previous. The appearance remains concerning for mass lesion. Follow-up with pulmonology is recommended. Impression Assessment and Plan SHORTNESS OF BREATH, MULTIFACTORIAL DUE TO ACUTE ON CHRONIC SYSTOLIC CHF MILD COPD EXACERBATION SYMPTOMATIC ATRIAL FIBRILLATION - admit to tele - patient presenting with increasing shortness of breath for the past several weeks; has been following with cardiology as an outpatient who has been treating the patient for acute on chronic CHF; pacemaker interrogation also showed that the patient was in atrial fibrillation most of the time so it was also thought that atrial fibrillation was contributing to patient's symptoms and cardioversion was discussed - patient also reports weight gain, ankle edema, and abdominal distention - will give patient Lasix 20mg IV x 1 tonight, reassess renal function and patient response in AM and dose further diuresis accordingly - daily weights, I/Os, low Na+ diet - echo 08/09/17 - EF 44% - case discussed with Dr Walsh by ED - NPO after midnight for possible cardioversion - on Coumadin, INR 2.5 - continue amiodarone and carvedilol - also has wheezing on exam; saturating well on room air - likely mild COPD exacerbation due to CHF however patient does report yellow sputum production - around the clock nebs, Prednisone 40mg x 5 days, empiric doxycycline CKD STAGE III - baseline creat runs in the high 1's - however most recent outpatient labs with diuresis adjustments has been running 2.2 - 2.6 - noted to be 2.3 today - continue to monitor renal function HYPOTHYROIDISM - continue levothyroxine RML LUNG OPACITY - history of lung cancer - follows with [facility] pulmonary for RUL nodule - RML lesion noted on CXR today; ? if new - pulmonary consult DVT PROPHYLAXIS - on Coumadin, INR 2.5 CODE STATUS - Patient is a full code as per my discussion with him. DISPO - In my clinical judgment this beneficiary meets acute admission criteria, established by [facility], that includes being hospitalized through two midnights. ADDENDUM: I have seen and examined the patient and agree with the assessment and plan above. [place], Advanced Directives Existing Living Will: No Existing Power of Shipping Room Helper: No VTE Prophylaxis VTE Risk Assessment Done? Y/N: Yes Risk Level: Moderate Given or contraindicated: Warfarin (Coumadin)
[2017-08-16] MEDS: AMIODARONE 200 MG TAB PO SCH (22:14)
[2017-08-16] MEDS: CITALOPRAM 20 MG TAB PO SCH (22:15)
[2017-08-16] MEDS: PANTOprazole SOD 40 MG TAB PO SCH (22:15)
[2017-08-16] MEDS: ROPINIROLE HCL 1 MG TAB PO SCH (22:16)
[2017-08-16] MEDS: DOXYCYCLINE HYCLATE 100 MG CAP PO SCH (22:17)
[2017-08-17] VITALS (15 sets, daily range): BP systolic 107–142; BP diastolic 48–80; PULSE 64–88; TEMP 36.4–36.8; O2SAT 92–98
[2017-08-17] MEDS: ALBUT/IPRATROP 3MG/0.5MG NEB 3 ML VIAL INH SCH ×4 (01:36→19:23)
[2017-08-17] MEDS: LEVOTHYROXINE 25 MCG TAB PO SCH (06:15)
[2017-08-17 07:52] LABS: HEMATOCRIT 31.6 % (42-52); MEAN CELL VOLUME 93.8 fL (80-100); MEAN CORPUSCULAR HEMOGLOBIN 31.2 pg (25-34); MEAN CORPUSCULAR HGB CONC 33.2 g/dl (32-36); MEAN PLATELET VOLUME 10.6 fL (7.4-10.4); PLATELET COUNT 152 K/uL (130-400); RED BLOOD COUNT 3.37 M/uL (4.7-6.1); WHITE BLOOD COUNT 7.66 K/uL (4.8-10.8)
[2017-08-17 07:59] LABS: INR 2.1 (0.9-1.1); PROTHROMBIN TIME (PATIENT) 21.5 SECONDS (9.0-12.0)
[2017-08-17 08:16] LABS: BUN/CREATININE RATIO 13.3 (10-20); CALCIUM 8.6 mg/dl (8.5-10.1); CREATININE 2.1 mg/dl (0.60-1.40); POTASSIUM 3.7 mmol/L (3.5-5.1)
[2017-08-17] MEDS ORDERED: NON-FORMULARY MEDICATION (Iron-Vitamin C (Vitron-C) 1 TAB) PO SCH (09:00)
[2017-08-17] MEDS: ASPIRIN 81 MG CHEW PO SCH (09:20)
[2017-08-17] MEDS: CARVEDILOL 25 MG TAB PO SCH ×2 (09:20→16:43)
[2017-08-17] MEDS: ROPINIROLE HCL 1 MG TAB PO SCH ×3 (09:21→20:57)
[2017-08-17] MEDS: AMIODARONE 200 MG TAB PO SCH ×3 (09:21→20:55)
[2017-08-17] MEDS: ATORVASTATIN 40 MG TAB PO SCH (09:21)
[2017-08-17] MEDS: DOXYCYCLINE HYCLATE 100 MG CAP PO SCH ×2 (09:21→20:55)
[2017-08-17] MEDS: PANTOprazole SOD 40 MG TAB PO SCH ×2 (09:21→20:55)
[2017-08-17] MEDS: CHOLECALCIFEROL 1000 INTER.UNIT TAB PO SCH (09:22)
[2017-08-17] MEDS ORDERED: POTASSIUM CHLORIDE 20 MEQ TABCR PO ONE (10:00)
--- NOTE | 2017-08-17 10:37 | CARDIOLOGY CONSULTATION ---
DATE OF CONSULTATION: 08/17/2017 DATE OF CONSULTATION: 08/17/2017 REFERRING: LUPILLO Correa. PRIMARY CARE PHYSICIAN: Dr. Loja. INDICATIONS: Clinical decline, class 3 heart failure, newly noted atrial fibrillation. HISTORY OF PRESENT ILLNESS: The patient is a complex 81-year-old male whose past medical history is notable for atherosclerotic coronary disease with prior myocardial infarction, LAD angioplasty and diagonal angioplasty 2000, ischemic cardiomyopathy with past ICD implantation and upgrade to biventricular pacer defibrillator 07/22/2012. 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 The patient presented now with increasing edema and shortness of breath for approximately 2-3 weeks' time, unresponsive to outpatient adjustments in medical therapies. Notes no fevers, chills or productive cough. Notes no headache or visual changes. He has been appropriately anticoagulated. Notes no recent neurologic issues, has been taking medications as prescribed. Pacer defibrillator interrogation demonstrates newly noted atrial fibrillation approximately 3 weeks duration. The patient previously had high rates of biventricular pacing now dropping into 70% rate with biventricular pacing since lapsing into atrial fibrillation. Due to worsening symptoms fluid retention greater than 4 pounds in 3 days, newly noted arrhythmia he was referred for hospitalization. Consideration for synchronized electrical cardioversion. ALLERGIES: NOTED TO BE DIPHENHYDRAMINE, PHENYLEPHRINE, TREXIMET, GLUTEN AND ALEVE. MEDICATIONS PRIOR TO HOSPITALIZATION: Amiodarone 200 mg 3 times per day, aspirin 81 mg a day, atorvastatin 40 daily, carvedilol 25 mg b.i.d., Cholecalciferol 2000 units q.a.m., citalopram 10 mg at bedtime, furosemide 60 mg p.o. daily, iron/Vitron C 1 tablet p.o. daily, levothyroxine 25 mcg q.a.m., omeprazole 20 mg b.i.d., Requip 2 mg t.i.d., warfarin 2 mg on Mondays, 3 mg all other days, Anoro Ellipta 1 puff every day. PAST MEDICAL HISTORY: In addition to above, notable for chronic obstructive lung disease, past cerebral vascular accident August 2016, dyslipidemia, gastroesophageal reflux, monoclonal gammopathy. PAST SURGICAL HISTORY: Complex and includes history of prior coronary interventions as described, history of pacer defibrillator implantation and upgrade with most recent upgrade July 2012 with device reaching low battery levels, past appendectomy and total knee arthroplasty 2016 on the right. FAMILY HISTORY: Noncontributory. SOCIAL HISTORY: The patient is a prior smoker, currently following sodium and fluid restrictions. PHYSICAL EXAMINATION: GENERAL: The patient is an age appropriate male. Denies any acute worsening. Did receive a single dose of IV furosemide last night with gentle diuresis. Weight down to 2 kilograms. HEAD, EYES, EARS, NOSE, AND THROAT EXAMINATION: Normocephalic, atraumatic. Nares without discharge. Throat was clear. NECK: Thick, no distinct jugular venous distention. LUNGS: Reveal diminished breath sounds diffusely. CARDIOVASCULAR EXAMINATION: Regular with paced rhythm. ABDOMEN: Soft with mild distention. EXTREMITIES: Reveal 1+ lower extremity edema. NEUROLOGIC: The patient is alert, answering questions appropriately. LABORATORY STUDIES: Sodium is 139, potassium is 3.7, chloride is 103, bicarb 27, BUN is 28, creatinine is 2.1. INR is 2.1. Albumin level is 3.2. Pacer defibrillator as described demonstrates atrial fibrillation with biventricular pacing with loss of AV synchrony. EKG reveals ventricular paced rhythm, rate of 82. Echocardiogram last performed on 08/09/2017 demonstrated moderate left ventricular hypertrophy with ejection fraction of 44% with large area of hypokinesis involving inferoposterior and inferoseptal chau consistent with prior studies. There is moderate mitral insufficiency, moderate left atrial enlargement with estimated systolic pulmonary artery pressure of 40 mmHg. IMPRESSION: The patient is an 81-year-old male with complex history of ischemic cardiomyopathy, chronic underlying pulmonary disease, past compensated heart failure class 3 with an implantable biventricular defibrillator, presents now noting recent clinical decline with signs and symptoms of volume overload and fluid retention despite IV and oral diuretic dosing. Has been referred for consideration for synchronized electrical cardioversion to assess if this improves functional capacity. PLAN: Keep patient n.p.o. Continue current oral medications. Will give additional supplement potassium today and attempt to refer for synchronized electrical cardioversion today. Review of all studies demonstrates chronic infiltrative process in the right lung with the patient anticipating CT scan of the chest today. On further evaluation will attempt to avoid interfering with plans for cardioversion. [facility]
--- NOTE | 2017-08-17 12:04 | DIAGNOSTIC IMAGING REPORT ---
(CHEST) THORAX WITHOUT CT DOSE: 505.28 mGy.cm CLINICAL HISTORY: 81 years-old Male with Right middle lobe mass. Increasing opacity of the right midlung seen on comparison chest radiograph TECHNIQUE: Multiaxial CT images of the chest were performed without contrast. A dose lowering technique was utilized adhering to the principles of ALARA. COMPARISON: Chest radiograph 08/16/2017, CT chest 05/03/2015. FINDINGS: No dominant thyroid nodule. Evaluation for adenopathy is limited without use of IV contrast. Mildly prominent mediastinal and hilar lymph nodes are seen. For example right peritracheal lymph node measures 1.3 x 1.0 cm. Subcortical lymph node measures 1.3 x 0.8 cm. There is mild to moderate multichamber cardiac enlargement. Left pectoral pacer is noted with leads appearing intact. Coronary arterial calcifications noted. There is moderate atherosclerosis of the aorta without aneurysm identified. Small right pleural effusion. No pneumothorax. Mild biapical pleural-parenchymal scarring. There are multiple solid and groundglass nodules bilaterally. For example, there is a 9 x 8 mm solid nodule of the right upper lobe with stranding groundglass attenuation, image 137 series 4. There is a 6 mm pleural-based solid nodule of the lingula seen on image 167 series 4 with 4 mm solid nodule of the left upper lobe seen on image 119 series 4. Groundglass nodules measuring up to 7 mm are noted bilaterally as seen on image 120 series 4 within the lingula. Mild dependent subsegmental bibasilar atelectasis. 6 mm solid nodule of the right lower lobe seen on image 241 series 4. There is an ovoid consolidation with groundglass opacities within the right upper lobe abutting the minor fissure as seen on image 123 series 4 correlating with finding seen on comparison chest radiograph, 4.5 x 2.8 cm (reversed halo sign). This is within the same location as a large consolidation on CT study 05/03/2015. There is adjacent mild pleural probable scarring. Central airways are patent. Moderate bronchial wall thickening bilaterally suggests bronchitis. No acute amount of the imaged upper abdomen. Cholelithiasis. Nonobstructing right-sided nephrolithiasis. Soft tissues are unremarkable. Bones appear intact. IMPRESSION: 1. Ovoid consolidation with central groundglass opacities involving the right upper lobe abutting the adjacent major fissure correlates with finding seen on comparison chest radiograph. This is present within the area of chronic consolidation seen on CT study 05/03/2015. Differential considerations would include congenic organizing pneumonia, sarcoidosis, atypical pneumonia or bronchogenic neoplasm. Follow-up recommended. 2. Small right pleural effusion. 3. Multifocal multilobar groundglass and solid nodules of the lungs bilaterally as above suggests infectious or inflammatory pneumonitis. Solid nodules measure up to 9 mm and groundglass nodules measure up to 7 mm. 4. Mildly prominent mediastinal adenopathy may be reactive. Please refer to below summary of Fleischner criteria recommendations for follow-up of incidental CT nodules (Torito Higginbotham, Guidelines for management of small pulmonary nodules detected on CT scans: A statement from the Fleischner Society, Radiology 237: [phone].) SOLID NODULES Solitary nodule size: <6 mm * Low risk patients: no follow-up needed * high risk patients: optional CT at 12 months Solitary nodule size: 6-8 mm * Low risk patients: follow-up at 6-12 months, then consider further follow-up at 18-24 months * high risk patients: initial follow-up CT at 6-12 months and then at 18-24 months if no change Solitary nodule size: >8 mm * either low or high risk patients - consider follow-up CT at 3 months, and/or CT-PET, and/or biopsy Multiple nodules size: <6 mm * Low risk patients: no routine follow-up * high risk patients: optional CT at 12 months Multiple nodules size: 6-8 mm * Low risk patients: follow-up at 3-6 months, then consider further follow-up at 18-24 months * high risk patients: follow-up at 3-6 months, then at 18-24 months if no change Multiple nodules size: >8 mm * Low risk patients: follow-up at 3-6 months, then consider further follow-up at 18-24 months * high risk patients: follow-up at 3-6 months, then at 18-24 months if no change Note: newly detected indeterminate nodule in persons 35 years of age or older. * Low risk patients: minimal or absent history of smoking and/or other known risk factors * high risk patients: history of smoking or of other known risk factors (e.g. first degree relative with lung cancer, or exposure to asbestos, radon, uranium) * if a nodule up to 8 mm is partly solid or is ground glass further follow-up is required after 24 months to exclude possible slow growing adenocarcinoma (CASANDRA) SUBSOLID NODULES Solitary pure ground-glass nodule * nodule size <6 mm - no CT follow-up required * nodule size >=6 mm - follow-up CT at 6-12 months, then every 2 years until 5 years Solitary part-solid nodule * nodule size <6 mm - no CT follow-up required * nodule size >=6 mm - follow-up CT at 3-6 months. If unchanged, and solid component remains <6 mm, then annual follow-up for 5 years Multiple subsolid nodules * nodule size <6 mm - follow-up CT at 3-6 months, consider further follow-up at 2 and 4 years if stable * nodule size >=6 mm - follow-up CT at 3-6 months, subsequent management based on the most suspicious nodule(s) The above report was generated using voice recognition software. It may contain grammatical, syntax or spelling errors. Electronically signed by: Eliceo Morales M.D. 08/17/2017 12:02 PM Dictated Date/Time: 08/17/2017 10:43 AM
[2017-08-17] MEDS ORDERED: PROPOFOL IV EMULSION 10 MG/ML 20 ML VIAL IV ONE (12:49)
[2017-08-17] MEDS ORDERED: LIDOCAINE HCL 2% 2 ML VIAL (20MG/ML) ONE (12:50)
--- NOTE | 2017-08-17 13:12 | Anesthesiology Progress Note ---
Anesthesia Post Op Note Date & Time Aug 17, 2017 at 13:12 Vital Signs Pain Intensity: 0 Vital Signs Past 12 Hours Date Time Temp Pulse Resp B/P (MAP) Pulse Ox O2 Delivery O2 Flow Rate FiO2 08/17/17 13:05 64 16 120/48 98 Nasal Cannula 15 08/17/17 13:00 84 16 128/57 97 Nasal Cannula 15 08/17/17 12:59 77 18 129/59 96 Nasal Cannula 15 08/17/17 12:01 36.5 87 16 115/69 (84) 95 Room Air 08/17/17 12:00 Room Air 08/17/17 08:00 94 Room Air 08/17/17 06:58 36.6 88 20 139/80 (99) 94 Room Air 08/17/17 06:27 81 16 95 Room Air 08/17/17 04:00 Room Air 08/17/17 03:54 36.8 82 22 132/70 (90) 94 Room Air 08/17/17 02:12 95 Room Air 08/17/17 01:36 80 16 95 Room Air Notes Mental Status: alert / awake / arousable, participated in evaluation Pt Amnestic to Procedure: Yes Nausea / Vomiting: adequately controlled Pain: adequately controlled Airway Patency, RR, SpO2: stable & adequate BP & HR: stable & adequate Hydration State: stable & adequate Anesthetic Complications: no major complications apparent
--- NOTE | 2017-08-17 13:55 | Pulmonary Consultation ---
History General Date of Service: Aug 17, 2017. Stated Complaint: JYOTHI HPI The patient is a 81 year old male who presents to [facility] with complaints of JYOTHI. The patient's primary care provider is Soren Loja M.D.. Mr. Silva is a 81-year-old male with past medical history of atrial fibrillation on Coumadin, hypertension, right upper lobe adenocarcinoma of lung , status post 3 rounds of radiation therapy, COPD (FEV1 unknown), CK D stage III , GERD and hypothyroidism who presents to the ER with complaints of worsening shortness of breath the last several months. Patient states that he is being followed at [facility] for COPD as well as lung cancer. He follows with Drs. Manriquez, hematology oncologist and Andre, hospice volunteer. He called chest pain coordinator who recommended that he come to the ER for further evaluation. He states symptoms started in late June. Per patient and a repeat CT of the chest was done and he was told that he had some residual scar tissue in right middle to upper lobe. He was treated with antibiotics and given a prednisone taper with some resolution of his symptoms. He was scheduled to have a repeat CT chest in September 2017. His last radiation therapy was over 2 years ago and he is considered to be in remission. Over the last few days patient has noticed that he is becoming increasing short of breath with minimal activity. His exercise tolerance is about a few steps within the house. He does admit to increased lower extremity edema and abdominal girth. He is compliant with medications and takes Lasix 60 mg daily. He denies any chest pain, orthopnea, paroxysmal nocturnal dyspnea, palpitations, lightheadedness or dizziness. He does admit to increased cough with mostly whitish productive sputum. He does endorse infrequent specks of blood within sputum. He denies any rhinitis or postnasal drip. He has GERD and takes a PPI. From a respiratory standpoint he takes ANORO ELLIPTA 62.5-25 micrograms 1 puff daily and albuterol HFA 2 puffs every 4 hours when necessary. On review of patient's outpatient chart. He has seen Dr. Welch for severe obstructive sleep apnea. On 08/02/2017 during CPAP titration, he developed central apneas that result with BiPAP 17/7 with a backup respiratory rate of 12. last echocardiogram was done on 08/09/2017 and showed moderate left ventricular hypertrophy with ejection fraction of 44%. There was a large area of hypokinesis involving inferoposterior and inferoseptal chau consistent that was seen on prior studies. There was also moderate mitral insufficiency, moderate left atrial enlargement with estimated systolic pulmonary artery pressure of 40 mmHg. Vital signs on arrival to ER showed a temperature of 36.3, pulse 80, respiratory rate 22, blood pressure 117/71 and saturating 95% on room air. Laboratory data showed white blood cell count of 9, hemoglobin of 10.3, hematocrit 31.4 and platelet count of 159. Chemistry significant for sodium 135 , BUN of 26, creatinine 2.35. ProBNP 2185. Troponin 0.023. Influenza A and B PCR negative. INR 2.5, PTT 25 and PTT 36.8. Chest x-ray of the chest shows right upper lobe lobe opacity measuring about 4.[address] of the chest done to further evaluate lesion shows that it is in the same region of previous consolidation seen on CT from April 2015. Per radiology there appears to be some probable scarring. Of note there also appears multilobar groundglass and solid nodules bilaterally. Historian: patient, spouse Onset: last week Severity: moderate Complaint Status: improved Review of Systems Constitutional: reports: as stated in HPI Eyes: reports: as stated in HPI ENT: reports: as stated in HPI Cardiovascular: reports: as stated in HPI Respiratory: reports: as stated in HPI Gastrointestinal: reports: as stated in HPI Genitourinary - Male: reports: as stated in HPI Musculoskeletal: reports: as stated in HPI Integumentary: reports: as stated in HPI Neurologic: reports: as stated in HPI Psychiatric: reports: as stated in HPI Endocrine: as stated in HPI Hematologic / Lymphatic: as stated in HPI All Other Symptoms All Other Systems: Reviewed and Negative Past Medical History Past Medical History: PAST MEDICAL HISTORY: In addition to above, notable for chronic obstructive lung disease, past cerebral vascular accident August 2016, dyslipidemia, gastroesophageal reflux, monoclonal gammopathy. Past Surgical History: Pacer defibrillator implantation and upgrade with most recent upgrade July 2012 Appendectomy Right total knee arthroplasty 2016 Family History Social History The patient is a prior smoker. Hx Tobacco Use In Past Year?: No Smoking Status: Former Smoker Marital status: Housing status: lives with significant other Immunizations History of Influenza Vaccine: Yes Influenza Vaccine Date: Jul 13, 2017 History of Tetanus Vaccine?: Yes Tetanus Immunization Date: February 05, 2015 History of Pneumococcal: Yes Pneumococcal Date: Oct 02, 2014 History of Hepatitis B Vaccine: No Allergies Coded Allergies: Gluten (Verified Allergy, Intermediate, GI SYMPTOMS, 08/22/16) CELIAC DISEASE CI Pigment Blue 63 (Verified Allergy, Mild, SHORTNESS OF BREATH, 08/22/16) Naproxen (Verified Allergy, Mild, SWELLING OF HANDS, 08/22/16) Sumatriptan (Verified Allergy, Mild, SHORTNESS OF BREATH, 08/22/16) Pseudoephedrine (Verified Allergy, Unknown, MADE HIS DEFIB FIRE, 08/22/16) Current Medications Reported Home Medications Medications Dose Route/Sig Max Daily Dose Days Date Category Dose Instructions Anoro Ellipta 62.5-25 Mcg/INH (Umeclidinium-Vilanterol) 1 Aer Aer 1 Puff INH DAILY 08/16/17 Reported Vitron-C (Iron-Vitamin C) 1 Tab Tab 1 Tab PO DAILY 08/16/17 Reported Requip (Ropinirole HCl) 2 Mg Tab 2 Mg PO TID 08/16/17 Reported Coreg (Carvedilol) 25 Mg Tab 25 Mg PO BIDM 08/16/17 Reported Prilosec (Omeprazole) 20 Mg Capcr 20 Mg PO BID 08/16/17 Reported Amiodarone HCl 200 Mg Tab 200 Mg PO TID 08/16/17 Reported Jantoven (Warfarin Sodium) 2 Mg Tab 3 Mg PO 6XWK 08/16/17 Reported TAKE 3 MG ALL DAYS BUT MON. Jantoven (Warfarin Sodium) 2 Mg Tab 2 Mg PO QMON 08/16/17 Reported Lasix (Furosemide) 20 Mg Tab 60 Mg PO DAILY 08/16/17 Reported TAKE 3, 20 MG TABS Ventolin Hfa (Albuterol) 200 Puffs/15135 Mcg Aers 2 Puff INH Q4 PRN 08/16/17 Reported Lipitor (Atorvastatin) 40 Mg Tab 40 Mg PO DAILY 08/16/17 Reported Aspirin Chewable (Aspirin) 81 Mg Chew 81 Mg PO QAM 03/21/14 Reported Vitamin D 1000 Unit (Cholecalciferol) 1,000 Unit Cap 2,000 Inter.unit PO QAM 03/21/14 Reported Levothyroxine Sodium 25 Mcg Tab 25 Mcg PO QAM 03/21/14 Reported Citalopram Hydrobromide 10 Mg Tab 10 Mg PO HS 03/21/14 Reported Physical Physical Exam Vital Signs: Date Time Temp Pulse Resp B/P (MAP) Pulse Ox O2 Delivery O2 Flow Rate FiO2 08/17/17 12:01 36.5 87 16 115/69 (84) 95 Room Air 08/17/17 12:00 Room Air 08/17/17 08:00 94 Room Air 08/17/17 06:58 36.6 88 20 139/80 (99) 94 Room Air 08/17/17 06:27 81 16 95 Room Air 08/17/17 04:00 Room Air 08/17/17 03:54 36.8 82 22 132/70 (90) 94 Room Air 08/17/17 02:12 95 Room Air 08/17/17 01:36 80 16 95 Room Air 08/17/17 00:05 Room Air 08/16/17 21:24 75 16 97 Room Air 08/16/17 19:52 36.4 73 24 153/90 98 Room Air 08/16/17 19:25 36.3 68 18 125/94 94 08/16/17 19:00 68 18 125/94 94 Room Air 08/16/17 18:01 75 18 129/87 96 Room Air 08/16/17 17:30 80 18 157/113 99 Room Air 08/16/17 17:01 78 20 144/70 93 Room Air 08/16/17 16:00 70 14 123/71 99 Nebulizer 8.0 08/16/17 15:58 94 Room Air 08/16/17 15:53 70 08/16/17 13:47 36.3 80 22 117/71 95 Room Air General Appearance: WD/WN, NO APPARENT DISTRESS Head: NORMOCEPHALIC, ATRAUMATIC Eyes: NO DISCHARGE, EOMI, SCLERAE NORMAL, CONJUNCTIVAE NORMAL ENT: NORMAL MOUTH EXAM, NORMAL THROAT EXAM Neck: NORMAL RANGE OF MOTION, NO TENDERNESS, TRACHEA MIDLINE Respiratory: other (crackles at bases) Cardiovasular: irregular rate, abnormal rhythm Abdomen: NON TENDER, NORMAL BOWEL SOUNDS, NO REBOUND Back: NORMAL INSPECTION, NO MIDLINE TENDERNESS, NO CVA TENDERNESS Upper Extremities: NO EDEMA, NO DEFORMITY, NORMAL ROM, other (no cyanosis, no clubbing) Lower Extremities: NO DEFORMITY, NORMAL ROM, other (trace edema bilateral lower extremities) Neuro: ALERT, ORIENTED x 3, NORMAL MOTOR EXAM, NORMAL SPEECH Psychiatric: NORMAL AFFECT, NO SUICIDAL IDEATION, CONTRACTS FOR SAFETY Diagnostics Labs Results Past 24 Hours Test 08/16/17 15:55 08/16/17 17:00 08/16/17 18:19 08/17/17 07:19 Range/Units White Blood Count 9.04 7.66 4.8-10.8 K/uL Red Blood Count 3.33 3.37 4.7-6.1 M/uL Hemoglobin 10.3 10.5 14.0-18.0 g/dL Hematocrit 31.4 31.6 42-52 % Mean Corpuscular Volume 94.3 93.8 80-100 fL Mean Corpuscular Hemoglobin 30.9 31.2 25-34 pg Mean Corpuscular Hemoglobin Concent 32.8 33.2 32-36 g/dl Platelet Count 159 152 130-400 K/uL Mean Platelet Volume 10.1 10.6 7.4-10.4 fL Neutrophils (%) (Auto) 64.3 % Lymphocytes (%) (Auto) 21.2 % Monocytes (%) (Auto) 9.3 % Eosinophils (%) (Auto) 3.7 % Basophils (%) (Auto) 0.4 % Neutrophils # (Auto) 5.81 1.4-6.5 K/uL Lymphocytes # (Auto) 1.92 1.2-3.4 K/uL Monocytes # (Auto) 0.84 0.11-0.59 K/uL Eosinophils # (Auto) 0.33 0-0.5 K/uL Basophils # (Auto) 0.04 0-0.2 K/uL RDW Standard Deviation 53.6 52.0 36.4-46.3 fL RDW Coefficient of Variation 15.6 15.2 11.5-14.5 % Immature Granulocyte % (Auto) 1.1 % Immature Granulocyte # (Auto) 0.10 0.00-0.02 K/uL Prothrombin Time 25.4 21.5 9.0-12.0 SECONDS Prothromb Time International Ratio 2.5 2.1 0.9-1.1 Activated Partial Thromboplast Time 36.8 21.0-31.0 SECONDS Partial Thromboplastin Ratio 1.4 Sodium Level 135 139 136-145 mmol/L Potassium Level 3.7 3.7 3.5-5.1 mmol/L Chloride Level 102 103 98-107 mmol/L Carbon Dioxide Level 29 27 21-32 mmol/L Anion Gap 4.0 9.0 3-11 mmol/L Blood Urea Nitrogen 26 28 7-18 mg/dl Creatinine 2.35 2.10 0.60-1.40 mg/dl Est Creatinine Clear Calc Drug Dose 26.7 29.3 ml/min Estimated GFR () 29.0 33.2 Estimated GFR (Non- 25.0 28.7 BUN/Creatinine Ratio 10.9 13.3 10-20 Random Glucose 111 141 70-99 mg/dl Calcium Level 8.3 8.6 8.5-10.1 mg/dl Phosphorus Level 2.6 2.5-4.9 mg/dl Magnesium Level 2.3 1.8-2.4 mg/dl Total Bilirubin 0.9 0.2-1 mg/dl Aspartate Amino Transf (AST/SGOT) 21 15-37 U/L Alanine Aminotransferase (ALT/SGPT) 32 12-78 U/L Alkaline Phosphatase 70 45-117 U/L Troponin I 0.023 0-0.045 ng/ml Pro-B-Type Natriuretic Peptide 2185 0-1800 pg/ml Total Protein 7.2 6.4-8.2 gm/dl Albumin 3.2 3.4-5.0 gm/dl Globulin 4.0 2.5-4.0 gm/dl Albumin/Globulin Ratio 0.8 0.9-2 Urine Color YELLOW Urine Appearance CLEAR CLEAR Urine pH 7.0 4.5-7.5 Urine Specific [place] 1.014 1.000-1.030 Urine Protein NEG NEG Urine Glucose (UA) NEG NEG Urine Ketones NEG NEG Urine Occult Blood TRACE NEG Urine Nitrite NEG NEG Urine Bilirubin NEG NEG Urine Urobilinogen NEG NEG Urine Leukocyte Esterase NEG NEG Urine WBC (Auto) 1-5 0-5 /hpf Urine RBC (Auto) 0-4 0-4 /hpf Urine Hyaline Casts (Auto) 1-5 0-5 /lpf Urine Epithelial Cells (Auto) 5-10 0-5 /lpf Urine Bacteria (Auto) NEG NEG Influenza Type A (RT-PCR) Neg for Influ A NEG Influenza Type B (RT-PCR) Neg for Influ B NEG Diagnostic Radiology (CHEST) THORAX WITHOUT CT DOSE: 505.28 mGy.cm CLINICAL HISTORY: 81 years-old Male with Right middle lobe mass. Increasing opacity of the right midlung seen on comparison chest radiograph TECHNIQUE: Multiaxial CT images of the chest were performed without contrast. A dose lowering technique was utilized adhering to the principles of ALARA. COMPARISON: Chest radiograph 08/16/2017, CT chest 05/03/2015. FINDINGS: No dominant thyroid nodule. Evaluation for adenopathy is limited without use of IV contrast. Mildly prominent mediastinal and hilar lymph nodes are seen. For example right peritracheal lymph node measures 1.3 x 1.0 cm. Subcortical lymph node measures 1.3 x 0.8 cm. There is mild to moderate multichamber cardiac enlargement. Left pectoral pacer is noted with leads appearing intact. Coronary arterial calcifications noted. There is moderate atherosclerosis of the aorta without aneurysm identified. Small right pleural effusion. No pneumothorax. Mild biapical pleural-parenchymal scarring. There are multiple solid and groundglass nodules bilaterally. For example, there is a 9 x 8 mm solid nodule of the right upper lobe with stranding groundglass attenuation, image 137 series 4. There is a 6 mm pleural-based solid nodule of the lingula seen on image 167 series 4 with 4 mm solid nodule of the left upper lobe seen on image 119 series 4. Groundglass nodules measuring up to 7 mm are noted bilaterally. SINGLE VIEW CHEST CLINICAL HISTORY: Dyspnea. FINDINGS: An AP, portable, upright chest radiograph is compared to study dated 08/24/2016 and correlated with chest CT dated 05/03/2015. The examination is degraded by portable technique and patient rotation. A 3-lead cardiac AICD is unchanged in position and partially obscures the left chest. The heart is enlarged and there is atherosclerotic calcification of the thoracic aorta. The pulmonary vasculature is noncongested. A 4.7 cm opacity in the right midlung is unchanged from prior studies. This appears more confluent than on the 08/24/2016 examination. No additional foci of airspace consolidation are identified. There is no large pleural effusion or pneumothorax. The skeletal structures are osteopenic. Degenerative change is seen throughout the thoracic spine. IMPRESSION: 1. Cardiomegaly and AICD. There is no radiographic evidence of congestive failure. 2. A 4.7 cm opacity in the right midlung appears increasingly confluent as compared to previous. The appearance remains concerning for mass lesion. Follow-up with pulmonology is recommended. EKG EKG from 08/17/2017 EKG with ventricular rate of 82 beats a minute QTC is 628 ms Ventricular-paced rhythm with occasional Premature ventricular complexes Vent. rate has increased BY 18 BPM Abnormal ECG Impression Assessment and Plan Multiple pulmonary nodules History of right upper lobe lung adenocarcinoma in remission Ischemic cardiomyopathy Dyspnea with cough COPD Acute on chronic kidney injury Mr. Silva is a 81-year-old male with history of right upper lobe adenocarcinoma status post radiation therapy who presents with several month history of worsening cough and shortness of breath. Patient also has extensive cardiac history. Notably has increased fluid overload and dyspnea on exertion. Likely secondary to ischemic cardiomyopathy and acute on chronic kidney injury. Chest x-ray of the chest shows right upper lobe lobe opacity measuring about 4.[address] of the chest done to further evaluate lesion shows that it is in the same region of previous consolidation seen on CT from April 2015. Per radiology there appears to be some probable scarring, likely in the same area of radiation therapy. Of note there also appears multilobar groundglass and solid nodules bilaterally. This likely represents an infectious versus inflammatory etiology. Recommendations At the current time I would recommend to treat this patient for community- acquired pneumonia with broad-spectrum antibiotics. He is currently on doxycycline which I feel should suffice as he does have a prolonged QT intervals on EKG. He is currently scheduled to undergo cardioversion with this afternoon. Continue with Anoro Ellipta 1 puff daily and Duonebs q4-6h Continue with prednisone 40 mg daily and taper. Sent sputum cultures and pro-calcitonin level. Recommend the patient have repeat CT chest in 6-8 weeks post hospital discharge for interval resolution of pulmonary nodules. Continue with coumadin for DVT ppx and anticoagulation. Lastly, obtain pulmonary and hematology/oncology records from [facility]. I appreciate the consult. Please contact me if you have any further question or concerns.
--- NOTE | 2017-08-17 14:11 | [facility] Post Operative Brief Note ---
Immediate Operative Summary Operative Date Aug 17, 2017. Pre-Operative Diagnosis Persistent symptomatic atrial fibrillation Post-Operative Diagnosis Persistent atrial fibrillation status post successful external direct-current cardioversion Procedure(s) Performed External direct-current cardioversion Surgeon Dr. Seth Conroy Oil Burner Surgeon(s) none Estimated Blood Loss none Findings Successful external direct-current cardioversion with 200 J. Specimens None Anesthesia Conscious sedation provided by anesthesiologist Complication(s) None Disposition Stained Glass Artist holding area
--- NOTE | 2017-08-17 15:35 | Progress Note ---
Medicine Progress Note Date & Time of Visit: Aug 17, 2017 at 15:34 . Subjective Cardioversion performed today. No chest pain. Occasional nonproductive cough. Dyspnea improved. No nausea or vomiting. Voiding without difficulty. . Objective Last 8 Hrs Date Time Temp Pulse Resp B/P (MAP) Pulse Ox O2 Delivery O2 Flow Rate FiO2 08/17/17 13:42 36.6 64 16 118/64 (82) 94 Room Air 08/17/17 13:30 63 16 117/44 (68) 97 Room Air 08/17/17 13:25 64 16 114/48 (70) 93 Room Air 08/17/17 13:20 62 16 114/43 (66) 96 Room Air 08/17/17 13:15 62 18 122/41 (68) 98 Nasal Cannula 15 08/17/17 13:10 63 18 107/49 (68) 97 Nasal Cannula 15 08/17/17 13:05 64 16 120/48 98 Nasal Cannula 15 08/17/17 13:00 84 16 128/57 97 Nasal Cannula 15 08/17/17 12:59 77 18 129/59 96 Nasal Cannula 15 08/17/17 12:01 36.5 87 16 115/69 (84) 95 Room Air 08/17/17 12:00 Room Air 08/17/17 08:00 94 Room Air Physical Exam: General- no distress Neck- + JVD Lungs- diffuse mild wheezing; no resp distress Heart- RRR, no gallop appreciated Abdomen- + BS, soft, nontender Extremities- 1+ pretibial edema ; no calf tenderness Skin- warm & dry Neuro- alert . Laboratory Results: Last 24 Hours Test 08/16/17 15:55 08/16/17 17:00 08/16/17 18:19 08/17/17 07:19 White Blood Count 9.04 K/uL 7.66 K/uL Red Blood Count 3.33 M/uL 3.37 M/uL Hemoglobin 10.3 g/dL 10.5 g/dL Hematocrit 31.4 % 31.6 % Mean Corpuscular Volume 94.3 fL 93.8 fL Mean Corpuscular Hemoglobin 30.9 pg 31.2 pg Mean Corpuscular Hemoglobin Concent 32.8 g/dl 33.2 g/dl Platelet Count 159 K/uL 152 K/uL Mean Platelet Volume 10.1 fL 10.6 fL Neutrophils (%) (Auto) 64.3 % Lymphocytes (%) (Auto) 21.2 % Monocytes (%) (Auto) 9.3 % Eosinophils (%) (Auto) 3.7 % Basophils (%) (Auto) 0.4 % Neutrophils # (Auto) 5.81 K/uL Lymphocytes # (Auto) 1.92 K/uL Monocytes # (Auto) 0.84 K/uL Eosinophils # (Auto) 0.33 K/uL Basophils # (Auto) 0.04 K/uL RDW Standard Deviation 53.6 fL 52.0 fL RDW Coefficient of Variation 15.6 % 15.2 % Immature Granulocyte % (Auto) 1.1 % Immature Granulocyte # (Auto) 0.10 K/uL Prothrombin Time 25.4 SECONDS 21.5 SECONDS Prothromb Time International Ratio 2.5 2.1 Activated Partial Thromboplast Time 36.8 SECONDS Partial Thromboplastin Ratio 1.4 Sodium Level 135 mmol/L 139 mmol/L Potassium Level 3.7 mmol/L 3.7 mmol/L Chloride Level 102 mmol/L 103 mmol/L Carbon Dioxide Level 29 mmol/L 27 mmol/L Anion Gap 4.0 mmol/L 9.0 mmol/L Blood Urea Nitrogen 26 mg/dl 28 mg/dl Creatinine 2.35 mg/dl 2.10 mg/dl Est Creatinine Clear Calc Drug Dose 26.7 ml/min 29.3 ml/min Estimated GFR () 29.0 33.2 Estimated GFR (Non- 25.0 28.7 BUN/Creatinine Ratio 10.9 13.3 Random Glucose 111 mg/dl 141 mg/dl Calcium Level 8.3 mg/dl 8.6 mg/dl Phosphorus Level 2.6 mg/dl Magnesium Level 2.3 mg/dl Total Bilirubin 0.9 mg/dl Aspartate Amino Transf (AST/SGOT) 21 U/L Alanine Aminotransferase (ALT/SGPT) 32 U/L Alkaline Phosphatase 70 U/L Troponin I 0.023 ng/ml Pro-B-Type Natriuretic Peptide 2185 pg/ml Total Protein 7.2 gm/dl Albumin 3.2 gm/dl Globulin 4.0 gm/dl Albumin/Globulin Ratio 0.8 Urine Color YELLOW Urine Appearance CLEAR Urine pH 7.0 Urine Specific [place] 1.014 Urine Protein NEG Urine Glucose (UA) NEG Urine Ketones NEG Urine Occult Blood TRACE Urine Nitrite NEG Urine Bilirubin NEG Urine Urobilinogen NEG Urine Leukocyte Esterase NEG Urine WBC (Auto) 1-5 /hpf Urine RBC (Auto) 0-4 /hpf Urine Hyaline Casts (Auto) 1-5 /lpf Urine Epithelial Cells (Auto) 5-10 /lpf Urine Bacteria (Auto) NEG Influenza Type A (RT-PCR) Neg for Influ A Influenza Type B (RT-PCR) Neg for Influ B Test 08/17/17 14:03 Procalcitonin < 0.05 ng/ml Thyroid Stimulating Hormone (TSH) 0.384 uIu/ml Assessment & Plan CHF Acute on chronic left ventricular systolic heart failure. Echo 08/09/17 showed segmental wall motion abnormalities with overall LVEF of 44 %. No EKTA or ARB due to CKD. Continue carvedilol. Titrate diuretics. ATRIAL FIBRILLATION May have been contributing to worsening CHF. Cardioversion performed today. Continue amiodarone, carvedilol, warfarin. CAD No anginal symptoms. Continue aspirin, carvedilol, atorvastatin. COPD Exacerbation due to possible pneumonia. Seen in consultation by Pulmonary. Doxycycline, steroids, bronchodilators recommended. POSSIBLE PNEUMONIA CT demonstrated bilateral multifocal multilobar groundglass and solid nodules. Rx for possible pneumonia with doxy. Will need pulmonary follow-up. HISTORY LUNG CA History of adenocarcinoma of lung, s/p XRT. RUL density noted on CT 2014; persistent density in same region at this time. Will need pulmonary follow-up. CKD IV Serum creatinine this morning = 2.1. Follow. VTE PROPHYLAXIS Continue warfarin. Ambulate. DISPOSITION Expected discharge to home. Family Medicine follow-up with Dr. Loja. Cardiology follow-up with Carmine Betancur PA-C. Follow-up with Pulmonary Medicine. . Current Inpatient Medications: Current Inpatient Medications Medications (Trade) Dose Ordered Sig/Tj Route Start Time Stop Time Status Last Admin Dose Admin Acetaminophen (Tylenol Tab) 650 mg Q4H PRN PO 08/16/17 19:00 09/15/17 18:59 Ondansetron HCl (Zofran Inj) 4 mg Q6H PRN IV 08/16/17 19:00 09/15/17 18:59 Nitroglycerin (Nitrostat Tab) 0.4 mg UD PRN SL 08/16/17 19:00 09/15/17 18:59 Albuterol/ Ipratropium (Duoneb) 3 ml Q6R INH 08/16/17 21:00 09/15/17 20:59 08/17/17 06:27 3 ML Prednisone (PredniSONE TAB) 40 mg DAILY PO 08/16/17 21:00 08/20/17 09:01 08/17/17 09:21 40 MG Doxycycline Hyclate (Vibramycin Cap) 100 mg BID PO 08/16/17 21:00 08/23/17 20:59 08/17/17 09:21 100 MG Amiodarone HCl (Cordarone Tab) 200 mg TID PO 08/16/17 21:00 09/15/17 20:59 08/17/17 14:08 200 MG Aspirin (Aspirin Chew) 81 mg QAM PO 08/17/17 09:00 09/16/17 08:59 08/17/17 09:20 81 MG Atorvastatin Calcium (Lipitor Tab) 40 mg DAILY PO 08/17/17 09:00 09/16/17 08:59 08/17/17 09:21 40 MG Carvedilol (Coreg Tab) 25 mg BIDM PO 08/17/17 07:30 09/16/17 07:59 08/17/17 09:20 25 MG Cholecalciferol (Vitamin D Tab) 2,000 inter.unit QAM PO 08/17/17 09:00 09/16/17 08:59 08/17/17 09:22 2,000 INTER.UNIT Levothyroxine Sodium (Synthroid Tab) 25 mcg DAILYBB PO 08/17/17 06:00 09/16/17 05:59 08/17/17 06:15 25 MCG Ropinirole HCl (Requip Tab) 2 mg TID PO 08/16/17 21:00 09/15/17 20:59 08/17/17 14:08 2 MG Warfarin Sodium (Coumadin Tab) 2 mg Mo@1600 PO 08/16/17 21:00 09/15/17 20:59 08/16/17 22:13 2 MG Warfarin Sodium (Coumadin Tab) 3 mg SuTuWeThFrSa@1600 PO 08/17/17 16:00 09/16/17 15:59 Citalopram Hydrobromide (celeXA TAB) 10 mg HS PO 08/16/17 21:00 09/15/17 20:59 08/16/17 22:15 10 MG Pantoprazole Sodium (Protonix Tab) 40 mg BID PO 08/16/17 21:00 09/15/17 20:59 08/17/17 09:21 40 MG Miscellaneous Information (Order Awaiting Action) 1 ea QS N/A 08/17/17 00:00 09/16/17 00:00
[2017-08-17] MEDS: WARFARIN SOD 3 MG TAB PO SCH (16:43)
--- NOTE | 2017-08-17 17:17 | CARDIOVERSION ---
DATE OF OPERATION: 08/17/2017 INDICATION: Persistent symptomatic atrial fibrillation. PROCEDURE: Elective external direct current cardioversion. PROCEDURAL SUMMARY: The patient was brought to the cardiac catheterization lab in the fasting state. Conscious sedation provided by the anesthesia service with propofol. Please separate report for details. Defibrillator pads were placed in anterior and posterior positions. When adequate sedation was achieved, the defibrillator was synced to the QRS complex. The defibrillator was then charged to 200 joules. A single 200-joule shock was delivered. The patient was successfully converted from atrial fibrillation to sinus rhythm and biventricular pacing. ICD interrogation post cardioversion demonstrated normal device function. The patient tolerated the procedure well. Neurologically intact post procedure. No complications. CONCLUSION: Successful external direct current cardioversion from atrial fibrillation to normal sinus rhythm with 200 joules. I attest to the content of the Intraoperative Record and any orders documented therein. Any exception s are noted below.
[2017-08-17] MEDS: CITALOPRAM 20 MG TAB PO SCH (20:55)
[2017-08-18] VITALS (12 sets, daily range): BP systolic 115–172; BP diastolic 61–75; PULSE 60–83; TEMP 36.2–36.6; O2SAT 92–97
[2017-08-18] MEDS: ALBUT/IPRATROP 3MG/0.5MG NEB 3 ML VIAL INH SCH ×4 (01:55→17:06)
[2017-08-18] MEDS: LEVOTHYROXINE 25 MCG TAB PO SCH (05:39)
[2017-08-18 05:52] LABS: INR 1.9 (0.9-1.1); PROTHROMBIN TIME (PATIENT) 20.1 SECONDS (9.0-12.0)
[2017-08-18 06:08] LABS: BUN/CREATININE RATIO 15.9 (10-20); CALCIUM 8.7 mg/dl (8.5-10.1); CREATININE 2.49 mg/dl (0.60-1.40); POTASSIUM 3.7 mmol/L (3.5-5.1)
[2017-08-18] MEDS: DOXYCYCLINE HYCLATE 100 MG CAP PO SCH ×2 (08:12→19:40)
[2017-08-18] MEDS: ATORVASTATIN 40 MG TAB PO SCH (08:12)
[2017-08-18] MEDS: CARVEDILOL 25 MG TAB PO SCH ×2 (08:12→16:04)
[2017-08-18] MEDS: AMIODARONE 200 MG TAB PO SCH ×3 (08:12→19:39)
[2017-08-18] MEDS: ASPIRIN 81 MG CHEW PO SCH (08:12)
[2017-08-18] MEDS: CHOLECALCIFEROL 1000 INTER.UNIT TAB PO SCH (08:13)
[2017-08-18] MEDS: ROPINIROLE HCL 1 MG TAB PO SCH ×3 (08:13→19:39)
[2017-08-18] MEDS ORDERED: COUGH DROP (SUGAR FREE) LOZ 24 LOZ/1 BOX ONE (08:26)
[2017-08-18] MEDS ORDERED: NURSING VERBAL MED ORDER ONE (09:00)
[2017-08-18] MEDS: PANTOprazole SOD 40 MG TAB PO SCH ×2 (09:19→19:40)
--- NOTE | 2017-08-18 11:33 | CARDIOLOGY PROGRESS NOTE ---
DATE: 08/18/2017 DATE: 08/18/2017 The patient seen and examined. Chart, medications, telemetry reviewed. SUBJECTIVE: The patient feels improved this morning. Underwent successful synchronized electrical cardioversion yesterday afternoon with return to sinus rhythm. Denies any chest pain, worsening shortness of breath, orthopnea. Notes no dizziness or lightheadedness. Has been out of bed to chair. OBJECTIVE: VITAL SIGNS: Heart rate 67, blood pressure is 145/61, O2 saturations 93% on room air. HEAD, EYES, EARS, NOSE, AND THROAT: Normocephalic, atraumatic. Nares without discharge. Throat was clear. NECK: Supple without thyromegaly or lymphadenopathy. LUNGS: Clear to auscultation with mildly diminished breath sounds. CARDIOVASCULAR: Regular with a grade 1/6 systolic murmur. There is no diastolic murmur. ABDOMEN: Soft. EXTREMITIES: Without cyanosis or clubbing. There is trivial pedal edema only. Pacer defibrillator sites without tenderness. LABORATORY DATA: Sodium is 138, potassium 3.7, chloride is 103, bicarb is 27, BUN is 40, creatinine is 2.49 and white cell count 7.6, hemoglobin is 10.5, INR is 1.9. IMPRESSION: An 81-year-old male admitted with clinical decline in the setting of known ischemic cardiomyopathy, prior biventricular pacemaker with decline in overall functional capacity and degree of biventricular pacing with lapse into atrial fibrillation. He has now undergone successful synchronized cardioversion and returned to sinus rhythm. RECOMMENDATIONS: Would resume usual prehospital medications including furosemide 60 mg per day. Continue increased dose of amiodarone at 200 mg 3 times per day and continue anticoagulation. The [facility] with patient to have lab work drawn at that time.
--- NOTE | 2017-08-18 15:32 | Progress Note ---
Medicine Progress Note Date & Time of Visit: Aug 18, 2017 at 15:32 . Subjective Feeling better this morning. Decrease cough, decreased shortness of breath. No fever. No anginal symptoms. No nausea or vomiting. No diarrhea. No urinary symptoms. Arrangements were being made for discharge to home, but more short of breath this afternoon and discharge was canceled. . Objective Last 8 Hrs Date Time Temp Pulse Resp B/P (MAP) Pulse Ox O2 Delivery O2 Flow Rate FiO2 08/18/17 12:00 Room Air 08/18/17 11:58 36.3 67 16 117/72 (87) 96 Room Air 08/18/17 11:51 73 93 08/18/17 08:00 Room Air Physical Exam: General- no distress Neck- + JVD Lungs- diffuse mild wheezing; no resp distress Heart- RRR, I/ systolic murmur LSB; no gallop appreciated Abdomen- + BS, soft, nontender Extremities- 1+ pretibial edema ; no calf tenderness Skin- warm & dry Neuro- alert . Laboratory Results: Last 24 Hours Test 08/18/17 05:26 Prothrombin Time 20.1 SECONDS Prothromb Time International Ratio 1.9 Sodium Level 138 mmol/L Potassium Level 3.7 mmol/L Chloride Level 103 mmol/L Carbon Dioxide Level 27 mmol/L Anion Gap 8.0 mmol/L Blood Urea Nitrogen 40 mg/dl Creatinine 2.49 mg/dl Est Creatinine Clear Calc Drug Dose 24.7 ml/min Estimated GFR () 27.0 Estimated GFR (Non- 23.3 BUN/Creatinine Ratio 15.9 Random Glucose 127 mg/dl Calcium Level 8.7 mg/dl Assessment & Plan CHF Acute on chronic left ventricular systolic heart failure. Echo 08/09/17 showed segmental wall motion abnormalities with overall LVEF of 44 %. No EKTA or ARB due to CKD. Continue carvedilol. Titrate diuretics. ATRIAL FIBRILLATION May have been contributing to worsening CHF. Cardioversion performed 08/17. Continue amiodarone, carvedilol, warfarin. CAD No anginal symptoms. Continue aspirin, carvedilol, atorvastatin. COPD Exacerbation due to possible pneumonia. Seen in consultation by Pulmonary. Continue doxycycline, steroids, bronchodilators. POSSIBLE PNEUMONIA CT demonstrated bilateral multifocal multilobar groundglass and solid nodules. Rx for possible pneumonia with doxy. Will need pulmonary follow-up. HISTORY LUNG CA History of adenocarcinoma of lung, s/p XRT. RUL density noted on CT 2015; persistent density in same region at this time. Will need pulmonary follow-up. SLEEP APNEA Recent outpatient sleep study demonstrated significant sleep apnea. [facility] making arrangements for BiPAP at home. CKD IV Serum creatinine this morning = 2.49. Follow. VTE PROPHYLAXIS Continue warfarin. Ambulate. DISPOSITION Expected discharge to home. Family Medicine follow-up with Dr. Loja. Cardiology follow-up with Carmine Betancur PA-C. Follow-up with Pulmonary Medicine. ADDENDUM: More dyspneic this afternoon. O2 sat 93% on RA. Chest x-ray showed some pulmonary vascular congestion. Furosemide 40 mg IV x 1 ordered. . Current Inpatient Medications: Current Inpatient Medications Medications (Trade) Dose Ordered Sig/Tj Route Start Time Stop Time Status Last Admin Dose Admin Acetaminophen (Tylenol Tab) 650 mg Q4H PRN PO 08/16/17 19:00 09/15/17 18:59 Ondansetron HCl (Zofran Inj) 4 mg Q6H PRN IV 08/16/17 19:00 09/15/17 18:59 Nitroglycerin (Nitrostat Tab) 0.4 mg UD PRN SL 08/16/17 19:00 09/15/17 18:59 Albuterol/ Ipratropium (Duoneb) 3 ml Q6R INH 08/16/17 21:00 09/15/17 20:59 08/18/17 07:15 3 ML Prednisone (PredniSONE TAB) 40 mg DAILY PO 08/16/17 21:00 08/20/17 09:01 08/18/17 08:13 40 MG Doxycycline Hyclate (Vibramycin Cap) 100 mg BID PO 08/16/17 21:00 08/23/17 20:59 08/18/17 08:12 100 MG Amiodarone HCl (Cordarone Tab) 200 mg TID PO 08/16/17 21:00 09/15/17 20:59 08/18/17 13:07 200 MG Aspirin (Aspirin Chew) 81 mg QAM PO 08/17/17 09:00 09/16/17 08:59 08/18/17 08:12 81 MG Atorvastatin Calcium (Lipitor Tab) 40 mg DAILY PO 08/17/17 09:00 09/16/17 08:59 08/18/17 08:12 40 MG Carvedilol (Coreg Tab) 25 mg BIDM PO 08/17/17 07:30 09/16/17 07:59 08/18/17 08:12 25 MG Cholecalciferol (Vitamin D Tab) 2,000 inter.unit QAM PO 08/17/17 09:00 09/16/17 08:59 08/18/17 08:13 2,000 INTER.UNIT Levothyroxine Sodium (Synthroid Tab) 25 mcg DAILYBB PO 08/17/17 06:00 09/16/17 05:59 08/18/17 05:39 25 MCG Ropinirole HCl (Requip Tab) 2 mg TID PO 08/16/17 21:00 09/15/17 20:59 08/18/17 13:07 2 MG Warfarin Sodium (Coumadin Tab) 2 mg Mo@1600 PO 08/16/17 21:00 09/15/17 20:59 08/16/17 22:13 2 MG Warfarin Sodium (Coumadin Tab) 3 mg SuTuWeThFrSa@1600 PO 08/17/17 16:00 09/16/17 15:59 08/17/17 16:43 3 MG Citalopram Hydrobromide (celeXA TAB) 10 mg HS PO 08/16/17 21:00 09/15/17 20:59 08/17/17 20:55 10 MG Pantoprazole Sodium (Protonix Tab) 40 mg BID PO 08/16/17 21:00 09/15/17 20:59 08/18/17 09:19 40 MG Miscellaneous Information (Order Awaiting Action) 1 ea QS N/A 08/17/17 00:00 09/16/17 00:00 Furosemide (Lasix Tab) 60 mg QAM PO 08/19/17 09:00 09/18/17 08:59
[2017-08-18] MEDS: WARFARIN SOD 3 MG TAB PO SCH (16:04)
--- NOTE | 2017-08-18 16:11 | DIAGNOSTIC IMAGING REPORT ---
CHEST ONE VIEW PORTABLE CLINICAL HISTORY: SOB dyspnea COMPARISON STUDY: 08/16/2017 FINDINGS: Slightly progressive consolidative change of the density right midlung. Images of prominence medial right base unchanged. Moderate stable cardiomegaly. Left lung is grossly clear. IMPRESSION: Slightly progressive consolidative change nodular density right midlung. Otherwise unchanged exam. The above report was generated using voice recognition software. It may contain grammatical, syntax or spelling errors. Electronically signed by: Carmine Aleman M.D. 08/18/2017 4:10 PM Dictated Date/Time: 08/18/2017 4:08 PM
[2017-08-18] MEDS ORDERED: FUROSEMIDE INJ 40 MG in SYRINGE 0 ML IV ONE (16:45)
--- NOTE | 2017-08-18 18:06 | Pulmonology Progress Note ---
Pulmonary Progress Note Date of Service Aug 18, 2017. Attending Dr. Javier Subjective Patient seen and examined at bedside. He status post cardioversion yesterday afternoon. He is out of bed to chair today. He was able to ambulate in the halls with assistance. He had mild dyspnea on exertion. Denied any dyspnea at rest. He denied chest pain or palpitations. Still complained of intermittent cough, chest tightness and wheezing. Objective Vital signs within the last 24 hours-MAXIMUM TEMPERATURE 36.6, blood pressure 115/62 to 145/61, pulse 60-83, respiratory rate 16-20, pulse oximetry 92-97% on 2 L nasal cannula. He is currently 800 MLS positive in the last 24 hours. Gen.: Awake alert oriented 3, no acute respiratory distress, speaking in full sentences CVS: S1-S2, regular rate and rhythm Lungs: Good air entry bilaterally, no wheezing Abdomen: mildly obese, nontender, nondistended, bowel sounds positive Extremities: No cyanosis, no clubbing, no lower extremity edema or swelling. Laboratory data reviewed. Creatinine increased today from 2.1-2.49. Pro-calcitonin level less than 0.05 Imaging reviewed and reviewed by me. CHEST ONE VIEW PORTABLE CLINICAL HISTORY: SOB dyspnea COMPARISON STUDY: 08/16/2017 FINDINGS: Slightly progressive consolidative change of the density right midlung. Images of prominence medial right base unchanged. Moderate stable cardiomegaly. Left lung is grossly clear. IMPRESSION: Slightly progressive consolidative change nodular density right midlung. Otherwise unchanged exam. Medications reviewed. Assessment & Plan Multiple pulmonary nodules History of right upper lobe lung adenocarcinoma in remission Ischemic cardiomyopathy Dyspnea with cough COPD Acute on chronic kidney injury Obstructive sleep apnea with central apnea Mr. Silva is a 81-year-old male with history of right upper lobe adenocarcinoma status post radiation therapy who presents with several month history of worsening cough and shortness of breath. Patient also has extensive cardiac history. Notably has increased fluid overload and dyspnea on exertion. Likely secondary to ischemic cardiomyopathy and acute on chronic kidney injury.Chest x- ray of the chest shows right upper lobe lobe opacity measuring about 4.[address] of the chest done to further evaluate lesion shows that it is in the same region of previous consolidation seen on CT from April 2015. Per radiology there appears to be some probable scarring, likely in the same area of radiation therapy. Of note there also appears multilobar groundglass and solid nodules bilaterally. This likely represents an infectious versus inflammatory etiology. TODAY: Patient is status post cardioversion for atrial fibrillation. He is feeling better from a respiratory standpoint. He still having occasional wheezing and chest tightness. Mild dyspnea on exertion. Recommendations Continue with empiric treatment for community-acquired pneumonia for 5-7 days. Continue with Anoro Ellipta 1 puff daily and Duonebs q4-6h Continue with prednisone 40 mg daily and taper. Recommend the patient have repeat CT chest in 6-8 weeks post hospital discharge for interval resolution of pulmonary nodules. Continue with coumadin for DVT ppx and anticoagulation. I have also ordered BiPAP 29/03 for patient to start tonight. On review of patient's outpatient record, he has central and obstructive sleep apnea. He will likely need machine prior to discharge. Discussed with Dr. Crandall. Data Medications: Current Inpatient Medications Medications (Trade) Dose Ordered Sig/Tj Route Start Time Stop Time Status Last Admin Dose Admin Acetaminophen (Tylenol Tab) 650 mg Q4H PRN PO 08/16/17 19:00 09/15/17 18:59 Ondansetron HCl (Zofran Inj) 4 mg Q6H PRN IV 08/16/17 19:00 09/15/17 18:59 Nitroglycerin (Nitrostat Tab) 0.4 mg UD PRN SL 08/16/17 19:00 09/15/17 18:59 Albuterol/ Ipratropium (Duoneb) 3 ml Q6R INH 08/16/17 21:00 09/15/17 20:59 08/18/17 17:06 3 ML Prednisone (PredniSONE TAB) 40 mg DAILY PO 08/16/17 21:00 08/20/17 09:01 08/18/17 08:13 40 MG Doxycycline Hyclate (Vibramycin Cap) 100 mg BID PO 08/16/17 21:00 08/23/17 20:59 08/18/17 08:12 100 MG Amiodarone HCl (Cordarone Tab) 200 mg TID PO 08/16/17 21:00 09/15/17 20:59 08/18/17 13:07 200 MG Aspirin (Aspirin Chew) 81 mg QAM PO 08/17/17 09:00 09/16/17 08:59 08/18/17 08:12 81 MG Atorvastatin Calcium (Lipitor Tab) 40 mg DAILY PO 08/17/17 09:00 09/16/17 08:59 08/18/17 08:12 40 MG Carvedilol (Coreg Tab) 25 mg BIDM PO 08/17/17 07:30 09/16/17 07:59 08/18/17 16:04 25 MG Cholecalciferol (Vitamin D Tab) 2,000 inter.unit QAM PO 08/17/17 09:00 09/16/17 08:59 08/18/17 08:13 2,000 INTER.UNIT Levothyroxine Sodium (Synthroid Tab) 25 mcg DAILYBB PO 08/17/17 06:00 09/16/17 05:59 08/18/17 05:39 25 MCG Ropinirole HCl (Requip Tab) 2 mg TID PO 08/16/17 21:00 09/15/17 20:59 08/18/17 13:07 2 MG Warfarin Sodium (Coumadin Tab) 2 mg Mo@1600 PO 08/16/17 21:00 09/15/17 20:59 08/16/17 22:13 2 MG Warfarin Sodium (Coumadin Tab) 3 mg SuTuWeThFrSa@1600 PO 08/17/17 16:00 09/16/17 15:59 08/18/17 16:04 3 MG Citalopram Hydrobromide (celeXA TAB) 10 mg HS PO 08/16/17 21:00 09/15/17 20:59 08/17/17 20:55 10 MG Pantoprazole Sodium (Protonix Tab) 40 mg BID PO 08/16/17 21:00 09/15/17 20:59 08/18/17 09:19 40 MG Miscellaneous Information (Order Awaiting Action) 1 ea QS N/A 08/17/17 00:00 09/16/17 00:00 Furosemide (Lasix Tab) 60 mg QAM PO 08/19/17 09:00 09/18/17 08:59 I & O: 24-Hour Column 08/19/17 08:00 Intake Total 900 ml Balance 900 ml Vital Signs: Date Time Temp Pulse Resp B/P (MAP) Pulse Ox O2 Delivery O2 Flow Rate FiO2 08/18/17 17:06 60 18 97 Nasal Cannula 2.0 08/18/17 15:52 Nasal Cannula 2.0 08/18/17 15:38 36.6 62 20 129/75 (93) 93 Room Air 08/18/17 14:15 83 16 97 Room Air 08/18/17 12:00 Room Air 08/18/17 11:58 36.3 67 16 117/72 (87) 96 Room Air 08/18/17 11:51 73 93 08/18/17 08:00 Room Air 08/18/17 07:23 36.3 67 16 145/61 (89) 92 08/18/17 07:15 64 16 93 Room Air 08/18/17 04:12 36.5 68 17 115/62 (79) 96 Room Air 08/18/17 04:00 Room Air 08/18/17 01:55 72 16 95 Room Air 08/18/17 00:00 Room Air 08/17/17 23:30 36.6 69 18 142/77 (98) 92 Room Air 08/17/17 20:00 Room Air 08/17/17 19:23 67 16 96 Room Air 08/17/17 19:23 36.5 71 16 127/71 (89) 95 Room Air Laboratory Results: Last 24 Hours Test 08/18/17 05:26 Prothrombin Time 20.1 SECONDS Prothromb Time International Ratio 1.9 Sodium Level 138 mmol/L Potassium Level 3.7 mmol/L Chloride Level 103 mmol/L Carbon Dioxide Level 27 mmol/L Anion Gap 8.0 mmol/L Blood Urea Nitrogen 40 mg/dl Creatinine 2.49 mg/dl Est Creatinine Clear Calc Drug Dose 24.7 ml/min Estimated GFR () 27.0 Estimated GFR (Non- 23.3 BUN/Creatinine Ratio 15.9 Random Glucose 127 mg/dl Calcium Level 8.7 mg/dl
[2017-08-18] MEDS: CITALOPRAM 20 MG TAB PO SCH (19:39)
[2017-08-18] MEDS: BENZONATATE 100MG CAP PO PRN (20:23)
[2017-08-18] MEDS: ALBUTEROL HFA 8 GM INHALER INH PRN (20:23)
[2017-08-19 04:00] VITALS: BP 129/65; PULSE 70; TEMP 36.6; O2SAT 93
[2017-08-19] MEDS: LEVOTHYROXINE 25 MCG TAB PO SCH (05:46)
[2017-08-19] MEDS: BENZONATATE 100MG CAP PO PRN ×2 (07:14→13:24)
[2017-08-19] MEDS: AMIODARONE 200 MG TAB PO SCH ×2 (07:15→13:23)
[2017-08-19] MEDS: PANTOprazole SOD 40 MG TAB PO SCH (07:16)
[2017-08-19] MEDS: CARVEDILOL 25 MG TAB PO SCH ×2 (07:16→15:33)
[2017-08-19] MEDS: ASPIRIN 81 MG CHEW PO SCH (07:17)
[2017-08-19] MEDS: ROPINIROLE HCL 1 MG TAB PO SCH ×2 (07:17→13:23)
[2017-08-19] MEDS: ATORVASTATIN 40 MG TAB PO SCH (07:18)
[2017-08-19] MEDS: DOXYCYCLINE HYCLATE 100 MG CAP PO SCH (07:18)
[2017-08-19] MEDS: CHOLECALCIFEROL 1000 INTER.UNIT TAB PO SCH (07:18)
[2017-08-19] MEDS: ALBUTEROL HFA 8 GM INHALER INH PRN (07:19)
[2017-08-19 07:22] LABS: INR 2.6 (0.9-1.1); PROTHROMBIN TIME (PATIENT) 26.5 SECONDS (9.0-12.0)
[2017-08-19 07:42] LABS: BUN/CREATININE RATIO 21.3 (10-20); CALCIUM 8.5 mg/dl (8.5-10.1); CREATININE 2.56 mg/dl (0.60-1.40); POTASSIUM 3.7 mmol/L (3.5-5.1)
[2017-08-19 07:51] VITALS: BP 127/75; PULSE 60; TEMP 36.4; O2SAT 93
[2017-08-19] MEDS ORDERED: FUROSEMIDE 20 MG TAB PO SCH (09:00)
[2017-08-19 11:15] VITALS: BP 136/74; PULSE 62; TEMP 36.5; O2SAT 92
--- NOTE | 2017-08-19 13:25 | CARDIOLOGY PROGRESS NOTE ---
DATE: 08/19/2017 DATE: 08/19/2017 The patient seen and examined. Chart, medications, telemetry reviewed. SUBJECTIVE: The patient remains in sinus rhythm. Continues to have chronic wheezing and shortness of breath. Did receive an additional dose of furosemide last night with mild diuresis. Exam not consistent with significant volume overload today. The patient did suffer a mechanical injury to his foot with the bathroom door this morning, otherwise is at baseline. Notes no fevers, chills or productive cough. OBJECTIVE: VITAL SIGNS: Heart rate 62 with AV sequential pacing. HEAD, EYES, EARS, NOSE, AND THROAT: Normocephalic, atraumatic. Nares without discharge. Throat was clear. NECK: Thick. There is no distinct jugular venous distention. LUNGS: Reveal scattered wheezes with forced cough. CARDIOVASCULAR: Regular, a grade 1/6 systolic murmur. ABDOMEN: Soft. EXTREMITIES: Without cyanosis or clubbing. There is a contusion to his second toe with bandaged foot. LABORATORY DATA: Sodium is 136, potassium is 3.7, chloride is 102, bicarb is 27, BUN is 54, creatinine is 2.5, glucose is 106. INR is 2.6 today. IMPRESSION: An 81-year-old male with a very complex history which includes: Severe ischemic cardiomyopathy with chronic class 3+ congestive heart failure, chronic stage IV renal insufficiency, chronic obstructive lung disease with past radiation therapy chest for adenocarcinoma presented with acute decompensated systolic heart failure superimposed on chronic heart failure secondary to lapse into atrial fibrillation and diminished biventricular pacing. He has undergone synchronized electrical cardioversion with return to sinus rhythm/AV sequential pacing. The patient's chest x-rays on serial testing and exam does not suggest acute volume overload. Would hold further IV diuretics. Plan on resuming furosemide at 40 mg per day on discharge with anticipated followup with [facility], Carmine Betancur, on 08/23/2017. The patient pending evaluation of foot injury via wound clinic.
[2017-08-19] MEDS ORDERED: LEVALBUTEROL 1.25MG/3ML NEB INH PRN (14:00)
--- NOTE | 2017-08-19 14:10 | Pulmonology Progress Note ---
Pulmonary Progress Note Date of Service Aug 19, 2017. Attending Dr. Javier Subjective Patient is feeling improved today. He continues to have cough and wheezing this morning, but overall feels that his breathing has improved. He does feel that the BiPAP greatly helped his symptoms last night. I spoke with Dr. Crandall and case management regarding this patient. He did have an outpatient sleep study completed with [facility], and they are working on getting him a BiPAP machine for at home. Labs reviewed: BUN 54 Creatinine 2.56 Chest X-Ray 08/18/17 showed slightly progressive consolidative change of the right midlung. Images viewed by me today. Medications reviewed- Continues Doxycycline, Ventolin, Tessalon Perles. Patient has not had any nebulizers today, but does have Albuterol inhaler in chart. Objective VS reviewed: Afebrile HR 62 RR 20 BP 136/74 SaO2 92% on room air General: Patient is awake, alert, cooperative, and in no acute distress. Head: Normocephalic, Atraumatic. ENT: PERRLA, No discharge, EOMI, Sclera normal Neck: Normal ROM. Trachea midline. No stridor Respiratory: Mild wheezing noted throughout b/l lungs. No respiratory distress. No accessory muscle use. Cardiovascular: Regular. Back: Normal inspection. Extremities: Normal ROM Neuro: Alert, Oriented x 3. CN II-XII grossly intact. Sensation and motor function grossly intact. Psych: Mood and affect are normal. Assessment & Plan Multiple pulmonary nodules History of right upper lobe lung adenocarcinoma in remission Ischemic cardiomyopathy Dyspnea with cough COPD Acute on chronic kidney injury Obstructive sleep apnea with central apnea Patient with hx RUL adenocarcinoma s/p radiation therapy who presented with worsening cough and SOB. His symptoms have overall improved. Cough is persistent. No increased mucus production. Patient does have an extensive cardiac history. Noted to have fluid overload and PANCHAL secondary to ischemic cardiomyopathy and acute on chronic kidney injury. He was given a dose of Lasix last night. Lasix held this AM. Creatinine mildly elevated. CT of the chest noted probable scarring of the RUL and multilobar groundglass and solid nodules- likely secondary to infection/inflammation. Patient overall is improved from a respiratory standpoint but continues to have some intermittent wheezing today. Will restart PRN Nebulizer for wheezing/ increasing cough/SOB. Otherwise, continue empiric tx for CAP for 5-7 days Continue steroid taper. Patient will need repeat CT scan of the chest in 6-8 weeks to follow ground glass and solid nodules. Continue BiPAP at night- orders are currently in progress from outpatient sleep study. Patient ultimately is OK for discharge from a pulmonary perspective once BiPAP is in place and when patient is otherwise medically cleared. Pulmonary will sign of. Please call with questions/changes. Data Medications: Current Inpatient Medications Medications (Trade) Dose Ordered Sig/Tj Route Start Time Stop Time Status Last Admin Dose Admin Acetaminophen (Tylenol Tab) 650 mg Q4H PRN PO 08/16/17 19:00 09/15/17 18:59 Ondansetron HCl (Zofran Inj) 4 mg Q6H PRN IV 08/16/17 19:00 09/15/17 18:59 Nitroglycerin (Nitrostat Tab) 0.4 mg UD PRN SL 08/16/17 19:00 09/15/17 18:59 Prednisone (PredniSONE TAB) 40 mg DAILY PO 08/16/17 21:00 08/20/17 09:01 08/19/17 07:16 40 MG Doxycycline Hyclate (Vibramycin Cap) 100 mg BID PO 08/16/17 21:00 08/23/17 20:59 08/19/17 07:18 100 MG Amiodarone HCl (Cordarone Tab) 200 mg TID PO 08/16/17 21:00 09/15/17 20:59 08/19/17 13:23 200 MG Aspirin (Aspirin Chew) 81 mg QAM PO 08/17/17 09:00 09/16/17 08:59 08/19/17 07:17 81 MG Atorvastatin Calcium (Lipitor Tab) 40 mg DAILY PO 08/17/17 09:00 09/16/17 08:59 08/19/17 07:18 40 MG Carvedilol (Coreg Tab) 25 mg BIDM PO 08/17/17 07:30 09/16/17 07:59 08/19/17 07:16 25 MG Cholecalciferol (Vitamin D Tab) 2,000 inter.unit QAM PO 08/17/17 09:00 09/16/17 08:59 08/19/17 07:18 2,000 INTER.UNIT Levothyroxine Sodium (Synthroid Tab) 25 mcg DAILYBB PO 08/17/17 06:00 09/16/17 05:59 08/19/17 05:46 25 MCG Ropinirole HCl (Requip Tab) 2 mg TID PO 08/16/17 21:00 09/15/17 20:59 08/19/17 13:23 2 MG Warfarin Sodium (Coumadin Tab) 2 mg Mo@1600 PO 08/16/17 21:00 09/15/17 20:59 08/16/17 22:13 2 MG Warfarin Sodium (Coumadin Tab) 3 mg SuTuWeThFrSa@1600 PO 08/17/17 16:00 09/16/17 15:59 08/18/17 16:04 3 MG Citalopram Hydrobromide (celeXA TAB) 10 mg HS PO 08/16/17 21:00 09/15/17 20:59 08/18/17 19:39 10 MG Pantoprazole Sodium (Protonix Tab) 40 mg BID PO 08/16/17 21:00 09/15/17 20:59 08/19/17 07:16 40 MG Miscellaneous Information (Order Awaiting Action) 1 ea QS N/A 08/17/17 00:00 09/16/17 00:00 Benzonatate (Tessalon Perles Cap) 100 mg Q6H PRN PO 08/18/17 19:30 09/17/17 19:29 08/19/17 13:24 100 MG Albuterol (Ventolin Hfa Inhaler) 2 puffs Q4 PRN INH 08/18/17 19:30 09/17/17 19:29 08/19/17 07:19 2 PUFFS Vital Signs: Date Time Temp Pulse Resp B/P (MAP) Pulse Ox O2 Delivery O2 Flow Rate FiO2 08/19/17 12:00 Room Air 08/19/17 11:15 36.5 62 20 136/74 (94) 92 08/19/17 08:00 Room Air 08/19/17 07:51 36.4 60 18 127/75 (92) 93 Room Air 08/19/17 04:00 Room Air 08/19/17 04:00 36.6 70 18 129/65 (86) 93 Room Air 08/18/17 23:59 CPAP 08/18/17 23:59 36.2 80 18 172/64 (100) CPAP 80 08/18/17 22:12 72 97 2.0 08/18/17 20:00 Nasal Cannula 2.0 08/18/17 20:00 36.5 61 22 123/71 (88) 97 Nasal Cannula 2.0 08/18/17 17:06 60 18 97 Nasal Cannula 2.0 08/18/17 15:52 Nasal Cannula 2.0 08/18/17 15:38 36.6 62 20 129/75 (93) 93 Room Air 08/18/17 14:15 83 16 97 Room Air Laboratory Results: Last 24 Hours Test 08/19/17 06:51 Prothrombin Time 26.5 SECONDS Prothromb Time International Ratio 2.6 Sodium Level 136 mmol/L Potassium Level 3.7 mmol/L Chloride Level 102 mmol/L Carbon Dioxide Level 27 mmol/L Anion Gap 8.0 mmol/L Blood Urea Nitrogen 54 mg/dl Creatinine 2.56 mg/dl Est Creatinine Clear Calc Drug Dose 24.2 ml/min Estimated GFR () 26.1 Estimated GFR (Non- 22.6 BUN/Creatinine Ratio 21.3 Random Glucose 106 mg/dl Calcium Level 8.5 mg/dl
[2017-08-19 14:29] VITALS: PULSE 60; O2SAT 96
--- NOTE | 2017-08-19 15:25 | Progress Note ---
Medicine Progress Note Date & Time of Visit: Aug 19, 2017 at 15:24 . Subjective Ongoing intermittent paroxysms of coughing. Cough congested at times, but nonproductive. Otherwise, dyspnea at baseline. No chest pain. Remains in paced rhythm. No nausea, vomiting, diarrhea. . Objective Last 8 Hrs Date Time Temp Pulse Resp B/P (MAP) Pulse Ox O2 Delivery O2 Flow Rate FiO2 08/19/17 14:29 60 16 96 Nasal Cannula 2.0 08/19/17 12:00 Room Air 08/19/17 11:15 36.5 62 20 136/74 (94) 92 08/19/17 08:00 Room Air 08/19/17 07:51 36.4 60 18 127/75 (92) 93 Room Air Physical Exam: General- no distress Neck- + JVD Lungs- diffuse mild wheezing; no respiratory distress Heart- RRR, I/ systolic murmur LSB; no gallop appreciated Abdomen- + BS, soft, nontender Extremities- 1+ pretibial edema ; no calf tenderness Skin- warm & dry Neuro- alert . Laboratory Results: Last 24 Hours Test 08/19/17 06:51 Prothrombin Time 26.5 SECONDS Prothromb Time International Ratio 2.6 Sodium Level 136 mmol/L Potassium Level 3.7 mmol/L Chloride Level 102 mmol/L Carbon Dioxide Level 27 mmol/L Anion Gap 8.0 mmol/L Blood Urea Nitrogen 54 mg/dl Creatinine 2.56 mg/dl Est Creatinine Clear Calc Drug Dose 24.2 ml/min Estimated GFR () 26.1 Estimated GFR (Non- 22.6 BUN/Creatinine Ratio 21.3 Random Glucose 106 mg/dl Calcium Level 8.5 mg/dl Assessment & Plan ATRIAL FIBRILLATION May have been contributing to worsening dyspnea. Cardioversion performed 08/17. Continue amiodarone 200 mg TID, carvedilol, warfarin. CHF Presented with increasing dyspnea. BNP was elevated, but chest films did not show any over CHF. Chronic left ventricular systolic heart failure. Echo 08/09/17 showed segmental wall motion abnormalities with overall LVEF of 44 %. No EKTA or ARB due to CKD. Renal function volume sensitive. Titrated diuretics. Discharge on furosemide 40 mg daily. Continue carvedilol. CAD No anginal symptoms. Continue aspirin, carvedilol, atorvastatin. COPD Exacerbation due to possible pneumonia. Seen in consultation by Pulmonary. Received doxycycline, steroids, bronchodilators. Discharge on doxycycline and prednisone to complete 7 day course of therapy. POSSIBLE PNEUMONIA CT demonstrated bilateral multifocal multilobar groundglass and solid nodules. Treated for possible pneumonia with doxy. Will need pulmonary follow-up. HISTORY LUNG CA History of adenocarcinoma of lung, s/p XRT. RUL density noted on CT 2014; persistent density in same region as well as multiple bilateral nodules noted on CT 08/17. Will need pulmonary follow-up. SLEEP APNEA Recent outpatient sleep study demonstrated significant sleep apnea. [facility] Sleep Medicine making arrangements for BiPAP at home. 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 Serum creatinine this morning = 2.56. Follow. VTE PROPHYLAXIS Continue warfarin. Ambulating. DISPOSITION Discharge to home. Family Medicine follow-up with Dr. Loja. Cardiology follow-up with Carmine Betancur PA-C. Pulmonary follow-up with [facility] Pulmonary Medicine and Sleep Medicine. . Current Inpatient Medications: Current Inpatient Medications Medications (Trade) Dose Ordered Sig/Tj Route Start Time Stop Time Status Last Admin Dose Admin Acetaminophen (Tylenol Tab) 650 mg Q4H PRN PO 08/16/17 19:00 09/15/17 18:59 Ondansetron HCl (Zofran Inj) 4 mg Q6H PRN IV 08/16/17 19:00 09/15/17 18:59 Nitroglycerin (Nitrostat Tab) 0.4 mg UD PRN SL 08/16/17 19:00 09/15/17 18:59 Prednisone (PredniSONE TAB) 40 mg DAILY PO 08/16/17 21:00 08/20/17 09:01 08/19/17 07:16 40 MG Doxycycline Hyclate (Vibramycin Cap) 100 mg BID PO 08/16/17 21:00 08/23/17 20:59 08/19/17 07:18 100 MG Amiodarone HCl (Cordarone Tab) 200 mg TID PO 08/16/17 21:00 09/15/17 20:59 08/19/17 13:23 200 MG Aspirin (Aspirin Chew) 81 mg QAM PO 08/17/17 09:00 09/16/17 08:59 08/19/17 07:17 81 MG Atorvastatin Calcium (Lipitor Tab) 40 mg DAILY PO 08/17/17 09:00 09/16/17 08:59 08/19/17 07:18 40 MG Carvedilol (Coreg Tab) 25 mg BIDM PO 08/17/17 07:30 09/16/17 07:59 08/19/17 07:16 25 MG Cholecalciferol (Vitamin D Tab) 2,000 inter.unit QAM PO 08/17/17 09:00 09/16/17 08:59 08/19/17 07:18 2,000 INTER.UNIT Levothyroxine Sodium (Synthroid Tab) 25 mcg DAILYBB PO 08/17/17 06:00 09/16/17 05:59 08/19/17 05:46 25 MCG Ropinirole HCl (Requip Tab) 2 mg TID PO 08/16/17 21:00 09/15/17 20:59 08/19/17 13:23 2 MG Warfarin Sodium (Coumadin Tab) 2 mg Mo@1600 PO 08/16/17 21:00 09/15/17 20:59 08/16/17 22:13 2 MG Warfarin Sodium (Coumadin Tab) 3 mg SuTuWeThFrSa@1600 PO 08/17/17 16:00 09/16/17 15:59 08/18/17 16:04 3 MG Citalopram Hydrobromide (celeXA TAB) 10 mg HS PO 08/16/17 21:00 09/15/17 20:59 08/18/17 19:39 10 MG Pantoprazole Sodium (Protonix Tab) 40 mg BID PO 08/16/17 21:00 09/15/17 20:59 08/19/17 07:16 40 MG Miscellaneous Information (Order Awaiting Action) 1 ea QS N/A 08/17/17 00:00 09/16/17 00:00 Benzonatate (Tessalon Perles Cap) 100 mg Q6H PRN PO 08/18/17 19:30 09/17/17 19:29 08/19/17 13:24 100 MG Albuterol (Ventolin Hfa Inhaler) 2 puffs Q4 PRN INH 08/18/17 19:30 09/17/17 19:29 08/19/17 07:19 2 PUFFS Levalbuterol (Xopenex 1.25MG/ 3ML Neb) 1.25 mg Q6R PRN INH 08/19/17 14:00 1/6/18 13:59 08/19/17 14:28 1.25 MG
[2017-08-19] MEDS: WARFARIN SOD 3 MG TAB PO SCH (15:33)
[2017-08-19] MEDS ORDERED: LSX20 PO (15:34)
[2017-08-19] MEDS ORDERED: RBTUDL5 PO (15:34)
[2017-08-19] MEDS ORDERED: PRED10TA PO (15:34)
[2017-08-19] MEDS ORDERED: BENZ1CAP90 PO (15:34)
[2017-08-19] MEDS ORDERED: DOXY-300 PO (15:34)
[2017-08-19 15:38] VITALS: BP 129/70; PULSE 69; TEMP 36.5; O2SAT 94
--- NOTE | 2017-08-19 15:44 | Discharge Instructions ---
Discharge Instructions Date of Service Aug 19, 2017. Admission Reason for Admission: cough, shortness of breath . Discharge Discharge Diagnosis / Problem: irregular heart beat (atrial fibrillation), possible pneumonia Discharge Goals Goal(s): Decrease discomfort, Improve disease control Activity Recommendations Activity Limitations: as noted below Lifting Limitations: gradually increase as tolerated . Instructions / Follow-Up Instructions / Follow-Up APPOINTMENTS: CARDIOLOGY 08/23/2017 3:30 PM Carmine Betancur PA-C PODIATRY Dr. Aly next week as scheduled. FAMILY MEDICINE 08/30/2017 11:20 AM Soren Loja MD [facility] As instructed. OTHER INSTRUCTIONS: New dose of furosemide is 40 mg (two 20mg pills) each morning. Take doxycycline twice a day for possible pneumonia. Take prednisone 40 mg daily for 4 days for wheezing. Take plain Robitussin 1 tsp every 6 hours as needed for chest congestion. Take benzonatate (Tessalon) every 8 hours as needed for cough. Wrap right second toe with sterile gauze dressing until healed. [facility] Sleep Medicine should be calling you about getting BiPAP set up. [facility] Pulmonary Medicine will contact you about follow-up with them. Seek medical attention if you have: * temperature above 101 * chest pain or trouble breathing * abdominal pain, nausea, vomiting * diarrhea, dark stools or bloody stools * redness or drainage of right second toe * any unanswered questions or concerns Call 911 if symptoms are severe. Call if you have any questions or problems. My cell # is [phone]. You can also reach a [facility] hospitalist on duty at [facility] 24 hours a day by calling [phone]. Please take good care of yourself. Yuan Crandall . Current Hospital Diet Patient's current hospital diet: AHA Diet (Heart Healthy), Low Sodium Diet (2gm Na) Discharge Diet Recommended Diet: AHA Diet (Heart Healthy) Procedures Procedures Performed: CT scan of chest cardioversion to correct atrial fibrillation . Pending Studies Studies pending at discharge: no Medical Emergencies . Who to Call and When: Medical Emergencies: If at any time you feel your situation is an emergency, please call 911 immediately. . Non-Emergent Contact Non-Emergency issues call your: Primary Care Provider, Spooler Operator, Hospital Doctor, Developmental Mathematics Professor . . "Provider Documentation" section prepared by Yuan Crandall. . VTE Core Measure Inpt VTE Proph given/why not?: Warfarin (Coumadin)
[2017-08-19 15:46] VITALS: BP 129/70; PULSE 69; TEMP 36.5; O2SAT 94
--- NOTE | 2017-08-20 08:48 | Discharge Summary ---
Discharge Summary Date of Service Aug 20, 2017. Discharge Summary Admission Date: Aug 16, 2017 at 18:02 Discharge Date: Aug 19, 2017 Discharge Disposition: Home with services Principal Diagnosis: atrial fibrillation, recent onset . Secondary Diagnoses/Problems: Chronic Medical Problems: (1) Atrial fibrillation Status: Chronic (2) CAD (coronary artery disease) Permanent Comment: 2000 - [place], s/p angioplasty to LAD and diagonal and PCI to PDA 2011 - cath - 100% RPLB and 100% 1st diagonal Status: Chronic (3) Carotid stenosis, bilateral Status: Chronic (4) CKD (chronic kidney disease) stage 3, GFR 30-59 ml/min Status: Chronic (5) COPD, moderate Status: Chronic (6) CVA (cerebral vascular accident) Status: Chronic (7) Dyslipidemia Status: Chronic (8) GERD (gastroesophageal reflux disease) Status: Chronic (9) HTN (hypertension) Status: Chronic (10) Hypothyroidism Status: Chronic (11) Implantation of cardiac pacemaker Status: Resolved (12) Ischemic cardiomyopathy / CHRONIC LEFT VENTRICULAR SYSTOLIC HEART FAILURE Permanent Comment: echo 08/09/17 - EF 44% Status: Chronic (13) Lung cancer Permanent Comment: s/p radiation Status: Chronic (14) MGUS (monoclonal gammopathy of unknown significance) Status: Chronic Surgical Problems: (1) History of appendectomy Status: Chronic (2) History of total knee arthroplasty Permanent Comment: R TOMER Plunkett 05/05/2016 Status: Chronic . Procedures: cardiac monitoring IV meds external DC cardioversion 08/17/17 CT CHEST 08/17/17 IMPRESSION: 1. Ovoid consolidation with central groundglass opacities involving the right upper lobe abutting the adjacent major fissure correlates with finding seen on comparison chest radiograph. This is present within the area of chronic consolidation seen on CT study 05/03/2015. Differential considerations would include congenic organizing pneumonia, sarcoidosis, atypical pneumonia or bronchogenic neoplasm. Follow-up recommended. 2. Small right pleural effusion. 3. Multifocal multilobar groundglass and solid nodules of the lungs bilaterally as above suggests infectious or inflammatory pneumonitis. Solid nodules measure up to 9 mm and groundglass nodules measure up to 7 mm. 4. Mildly prominent mediastinal adenopathy may be reactive. . Consultations: Cardiology Pulmonary Medicine . Medication Reconciliation New Medications: Benzonatate (Tessalon Perles) 200 Mg Cap 200 MG PO Q8 PRN for Cough, #30 CAP Doxycycline (Monohydrate) (Doxycycline) 100 Mg Cap 100 MG PO BID, #8 CAP Furosemide (Furosemide) 20 Mg Tab 40 MG PO DAILY, #60 TAB 5 Refills New dose 08/19/77. Take 2 pills (40 mg) daily. Guaifenesin (Robitussin) 100 Mg/5 Ml Mervat 1 TSP PO Q6H PRN for chest congestion, #1 BTL No prescription necessary. Prednisone Tab (Prednisone) 10 Mg Tab 40 MG PO DAILY, #16 TAB Take 4 pills daily until gone. Continued Medications: Albuterol Hfa (Ventolin Hfa) 200 Puffs/03419 Mcg Aers 2 PUFF INH Q4 PRN for SOB/Wheezing, #1 INHALER Amiodarone HCl (Amiodarone HCl) 200 Mg Tab 200 MG PO TID Aspirin (Aspirin Chewable) 81 Mg Chew 81 MG PO QAM, TAB Atorvastatin (Lipitor) 40 Mg Tab 40 MG PO DAILY, TAB Carvedilol (Coreg) 25 Mg Tab 25 MG PO BIDM, TAB Cholecalciferol (Vitamin D 1000 Unit) 1,000 Unit Cap 2000 INTER.UNIT PO QAM Citalopram Hydrobromide (Citalopram Hydrobromide) 10 Mg Tab 10 MG PO HS Iron-Vitamin C (Vitron-C) 1 Tab Tab 1 TAB PO DAILY Levothyroxine Sodium (Levothyroxine Sodium) 25 Mcg Tab 25 MCG PO QAM Omeprazole (Prilosec) 20 Mg Capcr 20 MG PO BID, CAP Ropinirole (Requip) 2 Mg Tab 2 MG PO TID, TAB Umeclidinium-Vilanterol (Anoro Ellipta 62.5-25 Mcg/INH) 1 Aer Aer 1 PUFF INH DAILY Warfarin Sod (Jantoven) 2 Mg Tab 2 MG PO QMON, TAB Warfarin Sod (Jantoven) 2 Mg Tab 3 MG PO 6XWK, TAB TAKE 3 MG ALL DAYS BUT MON. Discontinued Medications: Furosemide (Lasix) 20 Mg Tab 60 MG PO DAILY, TAB TAKE 3, 20 MG TABS Admission Information HPI (per Admitting provider): 81 year old male who presents to the ED with shortness of breath. Patient has been following closely with cardiology. He was seen in the clinic on 08/03 and was felt to be in acute CHF. His furosemide was changed to torsemide. He then was re-evaluated on 08/10 and underwent pacemaker interrogation that showed the patient was in atrial fibrillation. His amiodarone was increased and torsemide was changed back to furosemide. Patient reports no improvement in his symptoms. He reports shortness of breath with minimal exertion and sometimes at rest. He has noticed increased swelling around the ankles and abdominal distention. He reports a 4 pound weight gain in 3 days. He has orthopnea. He reports a cough productive for yellow sputum. He denies chest pain and palpitations. No lightheadedness, dizziness, diaphoresis, or syncope. No abdominal pain, nausea , vomiting, or diarrhea. He denies fever and chills. No urinary symptoms. In the ER, patient's labs and CXR are unremarkable for acute findings. Vitals are stable. He was given a DuoNeb and doxycycline. . Physical Exam (per Admitting): General Appearance: WD/WN, no apparent distress Head: normocephalic, atraumatic Eyes: normal inspection, EOMI, sclerae normal ENT: hearing grossly normal, + pertinent finding Neck: supple, no JVD, trachea midline Respiratory/Chest: no respiratory distress, + decreased breath sounds, + wheezing (expiratory throughout all lung multani) Cardiovascular: regular rate, rhythm, normal peripheral pulses, + pertinent finding Abdomen/GI: normal bowel sounds, non tender, soft, no organomegaly, + distended Extremities/Musculoskelatal: normal inspection, no calf tenderness, normal capillary refill Neurologic/Psych: no motor/sensory deficits, alert, normal mood/affect, oriented x 3 Skin: normal color, warm/dry Hospital Course ATRIAL FIBRILLATION Presented with increasing dyspnea and worsening functional capacity. [place] that atrial fibrillation was a contributing factor. Cardioversion performed 08/17. Continue amiodarone 200 mg TID, carvedilol, warfarin. CHF Presented with increasing dyspnea. BNP was elevated, but chest films did not show any overt CHF. Chronic left ventricular systolic heart failure. Echo 08/09/17 showed segmental wall motion abnormalities with overall LVEF of 44 %. No EKTA or ARB due to CKD. Renal function volume sensitive. Titrated diuretics. Discharge on furosemide 40 mg daily. Continue carvedilol. CAD No anginal symptoms. Continue aspirin, carvedilol, atorvastatin. COPD Exacerbation due to possible pneumonia. Seen in consultation by Pulmonary. Received doxycycline, steroids, bronchodilators. Discharge on doxycycline and prednisone to complete 7 day course of therapy. POSSIBLE PNEUMONIA CT demonstrated bilateral multifocal multilobar groundglass and solid nodules. Treated for possible pneumonia with doxy. Will need pulmonary follow-up. HISTORY LUNG CA History of adenocarcinoma of lung, s/p XRT. RUL density noted on CT 2014; persistent density in same region as well as multiple bilateral nodules noted on CT 08/17. Will need pulmonary follow-up. SLEEP APNEA Recent outpatient sleep study demonstrated significant sleep apnea. [facility] Sleep Medicine making arrangements for BiPAP at home. 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 Serum creatinine day of discharge = 2.56. Follow. AVULSION RIGHT SECOND TOENAIL Has appt with Podiatry next week. VTE PROPHYLAXIS Continue warfarin. Ambulating. DISPOSITION Discharged to home. Family Medicine follow-up with Dr. Loja. Cardiology follow-up with Carmine Betancur PA-C. Pulmonary follow-up with [facility] Pulmonary Medicine and Sleep Medicine. . Total time spent on discharge = 40 min. This includes examination of the patient, discharge planning, medication reconciliation, and communication with other providers. . Discharge Instructions Date of Service Aug 19, 2017. Admission Reason for Admission: cough, shortness of breath . Discharge Discharge Diagnosis / Problem: irregular heart beat (atrial fibrillation), possible pneumonia Discharge Goals Goal(s): Decrease discomfort, Improve disease control Activity Recommendations Activity Limitations: as noted below Lifting Limitations: gradually increase as tolerated . Instructions / Follow-Up Instructions / Follow-Up APPOINTMENTS: CARDIOLOGY 08/23/2017 3:30 PM Carmine Betancur PA-C PODIATRY Dr. Aly next week as scheduled. FAMILY MEDICINE 08/30/2017 11:20 AM Soren Loja MD [facility] As instructed. OTHER INSTRUCTIONS: New dose of furosemide is 40 mg (two 20mg pills) each morning. Take doxycycline twice a day for possible pneumonia. Take prednisone 40 mg daily for 4 days for wheezing. Take plain Robitussin 1 tsp every 6 hours as needed for chest congestion. Take benzonatate (Tessalon) every 8 hours as needed for cough. Wrap right second toe with sterile gauze dressing until healed. [facility] Sleep Medicine should be calling you about getting BiPAP set up. [facility] Pulmonary Medicine will contact you about follow-up with them. Seek medical attention if you have: * temperature above 101 * chest pain or trouble breathing * abdominal pain, nausea, vomiting * diarrhea, dark stools or bloody stools * redness or drainage of right second toe * any unanswered questions or concerns Call 911 if symptoms are severe. Call if you have any questions or problems. My cell # is [phone]. You can also reach a [facility] hospitalist on duty at [facility] 24 hours a day by calling [phone]. Please take good care of yourself. Yuan Crandall . Current Hospital Diet Patient's current hospital diet: AHA Diet (Heart Healthy), Low Sodium Diet (2gm Na) Discharge Diet Recommended Diet: AHA Diet (Heart Healthy) Procedures Procedures Performed: CT scan of chest cardioversion to correct atrial fibrillation . Pending Studies Studies pending at discharge: no Medical Emergencies . Who to Call and When: Medical Emergencies: If at any time you feel your situation is an emergency, please call 911 immediately. . Non-Emergent Contact Non-Emergency issues call your: Primary Care Provider, Paid Search Analyst, Hospital Doctor, Mine Promotor . . "Provider Documentation" section prepared by Yuan Crandall. . VTE Core Measure Inpt VTE Proph given/why not?: Warfarin (Coumadin) . Additional Copies To Carmine Betancur PA-C
== END 2017-08-19 16:55 | disposition home or self-care (01) | DRG 291 ==
LOC: C.EDB 13:38 → C.2T 18:02 → ENRESERV 18:20
PROVIDERS: ADMIT Hospitalist; ATTEND Hospitalist
PROC: 5A2204Z Restoration of Cardiac Rhythm, Single (ICD-10-PCS; principal; 2017-08-17 12:38)
DX: I13.0 Hypertensive heart and chronic kidney disease with heart failure and stage 1 through stage 4 chronic kidney disease, or unspecified chronic kidney disease (principal); I50.23 Acute on chronic systolic (congestive) heart failure; J18.9 Pneumonia, unspecified organism; N17.9 Acute kidney failure, unspecified; J44.1 Chronic obstructive pulmonary disease with (acute) exacerbation; J44.0 Chronic obstructive pulmonary disease with (acute) lower respiratory infection; N18.4 Chronic kidney disease, stage 4 (severe); R91.8 Other nonspecific abnormal finding of lung field; E83.51 Hypocalcemia; I48.91 Unspecified atrial fibrillation; I25.5 Ischemic cardiomyopathy; S91.204A Unspecified open wound of right lesser toe(s) with damage to nail, initial encounter; X58.XXXA Exposure to other specified factors, initial encounter; I25.10 Atherosclerotic heart disease of native coronary artery without angina pectoris; E03.9 Hypothyroidism, unspecified; K21.9 Gastro-esophageal reflux disease without esophagitis; E78.5 Hyperlipidemia, unspecified; D47.2 Monoclonal gammopathy; G43.909 Migraine, unspecified, not intractable, without status migrainosus; G25.81 Restless legs syndrome; G47.30 Sleep apnea, unspecified; F41.9 Anxiety disorder, unspecified; F32.9 Major depressive disorder, single episode, unspecified; I25.2 Old myocardial infarction; Z96.651 Presence of right artificial knee joint; Z95.810 Presence of automatic (implantable) cardiac defibrillator; Z95.5 Presence of coronary angioplasty implant and graft; Z85.118 Personal history of other malignant neoplasm of bronchus and lung; Z86.73 Personal history of transient ischemic attack (TIA), and cerebral infarction without residual deficits; Z87.891 Personal history of nicotine dependence; Z79.82 Long term (current) use of aspirin; Z79.01 Long term (current) use of anticoagulants; Z79.899 Other long term (current) drug therapy

== ENCOUNTER → 2017-09-30 | Outpatient (CLI) | payer OTHER ==
[~2017-09-30] MED LIST changes: -ALBUAER19 INH; -AMIO200T4 PO; +BENZ1CAP90 PO; -CARV12.52 PO; +CARV25TA PO; -CNT PO; +CRD200 PO; -CRG125 PO; +DOXY-300 PO; +FERRTAB18 PO; +LPT/40 PO; -LPT40 PO; -PANT40TA PO; +PRED10TA PO; +PRLSR20 PO; -RANI300T PO; +RBTUDL5 PO; +ROPI2TAB6 PO; -RQP25 PO; -TIOTCAP INH; +UMEC1AER INH; +VNTHFA/IN INH; -WARF1TAB PO; +WARF2TAB8 PO
--- NOTE | 2017-09-30 14:04 | DIAGNOSTIC IMAGING REPORT ---
(BARIUM SWALLOW) ESOPHAGUS CLINICAL HISTORY: COUGH, difficulty swallowing foods COMPARISON STUDY: None FLUOROSCOPY TIME: 1.3 minutes. NUMBER OF FLUOROSCOPIC IMAGES: 27 FINDINGS: The patient swallowed effervescent granules and barium without difficulty. No esophageal masses or ulcerations were visualized. There is disordered esophageal motility. IMPRESSION: 1. Disordered esophageal motility 2. No esophageal masses identified Electronically signed by: Magnus Lutz M.D. 09/30/2017 2:03 PM Dictated Date/Time: 09/30/2017 2:02 PM
--- NOTE | 2017-09-30 14:57 | SWALLOWING EVALUATION ---
HISTORY: This 82 year-old man was referred for a Barium Swallow Study and VFSS at [facility] in order to address c/o globus sensation, occasional vomiting, and solid food dysphagia. The patient has a PMH significant for CKD III, A-fib, CAD, carotid stenosis, COPD, GERD, hypertension and CVA. Currently the patient's diet level is regular. RESULTS: I attended the Barium Swallow Study in its entirety. There was no demonstration of aspiration. The patient was able to hold liquid boluses intraorally with adequate control. Swallows were timely and complete. There was no cough or overt indication of penetration or aspiration. All indicators for completion of VFSS were ruled-out. Esophageal Stage: Please see dedicated Radiology report. The patient demonstrated marked esophageal dysmotility throughout the Barium Swallow Study. There was barium retention in the proximal esophagus and the barium tablet had to be pushed through with extra drinks of water. It is difficulty to know if this is d/t esophageal spasm or if there is a structural narrowing of some kind. SUMMARY/RECOMMENDATIONS: This patient presents with no apparent oral-pharyngeal dysphagia, but does have s/s esophageal dysfunction. The following is recommended: 1. SLIPPERY diet: choose loose, moist foods; avoid dry, doughy foods; use condiments to make foods slippery; avoid icy cold beverages at meals; put medications in a carrier like pudding or apple sauce. 2. Consideration of f/u with gastroenterology for possibly having an EGD to r/o stricture A summary of the results and recommendations was discussed with the patient immediately following the study. He was also given written information on a SLIIPPERY diet. The patient verbalized understanding of the information. Thank you for referral of this patient. Please contact me at if any additional information is needed.
== END | disposition home or self-care (01) ==
LOC: C.RAD 13:07
PROVIDERS: ATTEND Internal Medicine
DX: R93.8 Abnormal findings on diagnostic imaging of other specified body structures (principal); K22.4 Dyskinesia of esophagus

== ENCOUNTER 2017-11-30 06:16 | Day surgery (SDC) | payer OTHER ==
[~2017-11-30] VITALS: Ht 170.2 cm; Wt 90.0 kg
[2017-11-30] MEDS ORDERED: BUPIVACAINE 0.5 % 5 MG/1 ML MPF 30ML VIAL ONE (06:49)
[2017-11-30] MEDS ORDERED: LIDOCAINE HCL 1% 20 ML VIAL ONE (06:49)
[2017-11-30] MEDS ORDERED: BACITRACIN 50000 UNIT VIAL ONE (06:49)
[2017-11-30 07:33] VITALS: BP 139/63; PULSE 74; TEMP 36.5; O2SAT 96; Ht 170.2 cm; Wt 90.0 kg
[2017-11-30] MEDS ORDERED: METO2.5T PO (08:00)
[2017-11-30] MEDS ORDERED: CARV12.52 PO (08:00)
[2017-11-30] MEDS ORDERED: POTA10CA28 PO (08:00)
[2017-11-30] MEDS ORDERED: ISS/10 PO (08:00)
[2017-11-30] MEDS ORDERED: AMIO200T4 PO (08:00)
--- NOTE | 2017-11-30 08:11 | Pre Sedation Assessment ---
Pre Sedation Assessment General Date of Sedation: Nov 30, 2017. Vital Signs Past 12 Hours Date Time Temp Pulse Resp B/P (MAP) Pulse Ox O2 Delivery O2 Flow Rate FiO2 11/30/17 07:33 36.5 74 16 139/63 (88) 96 Room Air Review Cardiovascular: regular rate, rhythm Lungs: lungs clear Pre-Sedation Airway Assessment Smoking Status: Never Smoker Hx of Sleep Apnea: Yes Short Thick Neck: No Thyro-mental Distance: < or =3 Finger Breadths Oral Cavity: WNL Mallampati Classification: Class II ASA Classification: Class II Procedure Planning Contraindications for Sedation: None Current Medications Reviewed: Yes Notes The planned sedation has been discussed with the patient. Informed Consent was obtained. I have identified the patient, determined the appropriateness of sedation and have assessed the patient immediately prior to the procedure. All medicine(s) and interventions are by my order.
--- NOTE | 2017-11-30 08:11 | History & Physical Bridge Note ---
H&P Re-Evaluation Bridge Note: I have examined the patient, reviewed the History & Physical and in the interval since the performance of the History & Physical I have noted the following changes of clinical significance: No changes noted
[2017-11-30] MEDS ORDERED: MIDAZOLAM HCL 5 MG/ML 1 ML VIAL ONE (08:24)
[2017-11-30] MEDS ORDERED: FENTANYL CITRATE INJ 50 MCG/1 ML 2 ML VIAL ONE (08:24)
[2017-11-30] MEDS ORDERED: CEFAZOLIN SOD 1 GM VIAL ONE (08:24)
--- NOTE | 2017-11-30 09:15 | Post Sedation Assessment ---
Post Sedation Assessment General Date of Sedation Nov 30, 2017. Vital Signs: Vital Signs Past 12 Hours Date Time Temp Pulse Resp B/P (MAP) Pulse Ox O2 Delivery O2 Flow Rate FiO2 11/30/17 09:05 Room Air 11/30/17 09:00 Room Air 11/30/17 08:55 59 16 108/52 (70) 96 Room Air 11/30/17 07:33 36.5 74 16 139/63 (88) 96 Room Air Post Procedure Recovery Score Activity: (2) Moves 4 extremities * Respiration: (2) Deep breath/cough Circulation: (2) +/-20% PreAnes Value Consciousness: (2) Fully Awake Oxygen Saturation: (2) > 92% On Room Air Post Anesthesia Score: 10 Discharge Sedation Level of Care: Fast Track Phase II Post Sedation Plan On clinical assessment, the patient appears to have tolerated the sedation without complications. Patient is recovering as anticipated. Patient will continue to be monitored by nursing and may be discharged when sedation discharge criteria are met per below protocol. Upon Completions of procedure and additional 15 minutes continue every 5 minute vital signs and the P.A.R. score; then discharge to a Phase I or Fast Track to Phase II per the following guidelines: * Discharge Patient to appropriate Phase II area if PAR is 8 or greater or return to pre- procedure baseline. The post - procedure orders will be as directed. * If PAR score is less than 8 or not return to pre-procedure baseline then patient will follow Phase I monitoring till PAR is reached for Phase II. The Phase I may be done in procedure room or may call to secure a Phase I area. * If naloxone or flumazenil are used for reversal, hold in Phase I for an additional 60 -120 minutes before discharge to Phase II. Please call the Sedation Physician to re-evaluate and complete post-note for discharge to Phase II area. Do NOT discharge from procedure sedation or Phase 1 until post- sedation evaluation note is complete by procedure /sedation MD Sedation Discharge Instructions to be given to the patient at discharge to home.
--- NOTE | 2017-11-30 09:16 | [facility] Post Operative Brief Note ---
Immediate Operative Summary Operative Date Nov 30, 2017. Pre-Operative Diagnosis biv icd at [facility], icm Post-Operative Diagnosis same Procedure(s) Performed biventricular rate responsive ICD generator change Surgeon austin bertrand Behavioral Modification Assistant Surgeon(s) none Estimated Blood Loss <5cc Findings See Below see official report Fluids (cc crystalloids) 100cc Specimens none Drains None Anesthesia Type IV Sedat Cons RN Only Disposition Accompanied Pt To Recover: yes Disposition: same day surgery
--- NOTE | 2017-11-30 09:20 | Discharge Instructions ---
Discharge Instructions Date of Service Nov 30, 2017. Visit Reason for Visit: Generator Change Discharge Discharge Diagnosis / Problem: ICD at [facility] Discharge Goals Goal(s): Improve function Activity Recommendations Activity Limitations: as noted below Lifting Limitations: no more than 10 pounds (do not lift more than 10 pounds with the left arm for 2 weeks) Driving or Machine Use: resume 1 day after discharge Anesthesia . Post Anesthesia Instructions: If you have had General Anesthesia or IV Sedation: * Do not drive today. * Resume driving when surgeon permits. * Do not make important decisions or sign legal documents today. * Call surgeon for: 1. Temperature elevations greater than 101 degrees F. 2. Uncontrollable pain. 3. Excessive bleeding. 4. Persistent nausea and vomiting. 5. Medication intolerance (nausea, vomiting or rash). * For nausea and vomiting use only clear liquids such as: tea, soda, bouillon until nausea subsides, then gradually increase diet as tolerated. * If you have any concerns or questions, call your surgeon's office. If physician is unavailable and it is an emergency, call 911 or go to the nearest emergency room. . Instructions / Follow-Up Instructions / Follow-Up ACTIVITY RECOMMENDATIONS: * Do not lift more than 10 pounds with the left arm for 2 weeks. SPECIAL CARE INSTRUCTIONS: * If bleeding occurs, apply direct pressure to area for 5 minutes. * Call your doctor if you have severe pain, fever, drainage or bleeding at site. * Keep dry for 24 hours. * Keep any scheduled doctor's appointment. * Implant Card - hand held device with website information given. SKIN IRRITATION: * You may experience some redness and/or swelling in the area where radiation was administered. If any skin irritation occurs, please contact your family physician. FOLLOW UP VISIT: Keep any scheduled doctor appointments. Diet Recommendations Recommended Home Diet: resume previous diet Procedures Procedures Performed: biventricular rate responsive ICD generator change Pending Studies Studies pending at discharge: no Medical Emergencies . Who to Call and When: Medical Emergencies: If at any time you feel your situation is an emergency, please call 911 immediately. . Non-Emergent Contact Non-Emergency issues call your: Entry Level Civil Engineer . . "Provider Documentation" section prepared by Luanne Freeman. .
[2017-11-30 09:28] VITALS: BP 119/66; PULSE 60; TEMP 36.4; O2SAT 93
[2017-11-30 09:57] VITALS: BP 119/54; PULSE 65; TEMP 36.3; O2SAT 95
--- NOTE | 2017-11-30 10:47 | OPERATIVE REPORT ---
DATE OF OPERATION: 11/30/2017 PREOPERATIVE DIAGNOSES: Bi-V implantable cardioverter defibrillator at elective replacement indicator and ischemic cardiomyopathy. POSTOPERATIVE DIAGNOSES: Same. PROCEDURE: Biventricular implantable cardiac defibrillator rate responsive generator change. SURGEON: Luanne Freeman DO WILDLIFE BIOLOGIST: None. ANESTHESIA: Monitored conscious sedation administered under my supervision by Jacob Malik. Start time 08:31 and end time 08:55, 2 mg of Versed and 50 mcg fentanyl. IV FLUIDS: 100 mL. ESTIMATED BLOOD LOSS: Less than 5 mL. COMPLICATIONS: None. CONDITION: Stable. URINE OUTPUT: Not applicable. SPECIMENS: None. FINDINGS: See below. DRAINS: None. INDICATIONS: This is an 82-year-old gentleman who has a past medical history of ischemic cardiomyopathy, for which he underwent a dual chamber ICD back in 2006 with a known recalled Riata lead, whose impedances have been stable, upgraded to a biventricular implantable cardiac defibrillator in July 2012, paroxysmal atrial fibrillation on Coumadin as well as amiodarone 200 b.i.d. with a CHADS2-VASc score of 7, chronic systolic heart failure of 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 On his most recent device check, he was found to hit [facility] on 11/12/2017 and was recommended generator change. CONSENT: Consent was obtained prior to the patient going into electrophysiology lab. The patient informed of the risks, benefits and alternatives of the procedure. The risks include, but not limited to sudden cardiac , cardiac arrhythmias, cerebrovascular accident, myocardial infarction, bleeding and infection. The patient understood these risks and agreed to do the procedure as planned. Informed consent was obtained. DESCRIPTION OF THE PROCEDURE: The patient was brought into the electrophysiology lab in a fasting state. He was connected to continuous cardiac rehabilitation program director. A timeout was performed to ensure the patient's identity and procedure correctly. The patient was prepped and draped over the left infraclavicular space in normal surgical standard fashion. Moderate conscious sedation was given throughout the procedure for the patient's comfort level. [place] precautions were maintained throughout the procedure. 20 mL of 1% lidocaine and bupivacaine mixture were given over the prior surgical incision. Incision was made over the prior surgical incision. Blunt dissection was performed down to identify the prior generator. The capsule was disrupted using iris scissors and the generator was freed from the capsule. The capsule was disrupted inferiorly and caudally to allow for new blood flow. The leads were tested intraoperatively, see below for results. The pocket was then flushed with copious amounts of bacitracin saline wash and inspected for hemostasis. The new pulse generator was then attached to the leads, making sure that the pins were in appropriate position, passed set screws and set screws were all tightened. Pulse generator was then placed in the pocket, making sure that the leads were lying flat beneath the device. Incision was closed in 3-layer fashion using 2-0 Vicryl interrupted suture, followed by 3-0 Vicryl interrupted suture, followed by a 4-0 Monocryl running stitch and Dermabond was applied. EQUIPMENT: 1. Explanted generator was a Protecta XT [id number], serial ____. DICTATION ENDS HERE. I attest to the content of the Intraoperative Record and any orders documented therein. Any exception s are noted below.
--- NOTE | 2017-11-30 12:41 | OPERATIVE REPORT ---
DATE OF OPERATION: 11/30/2017 ADDENDUM EQUIPMENTS: 1. Explanted generator Protecta XT DR [id number], serial number ____, implanted on 07/22/2012. Voltage 2.62 volts, CALL BOX WIRER on 11/12/2017. 2. New pulse generator is a Medtronic Shippteria MRI RECOVERY COORDINATOR-D SureScan, [id number], serial number [id number]. 3. Right atrial lead 5076-52 cm, serial number [id number], implanted on 08/31/2007. 4. Right ventricular lead [address] [place] Ri[address], serial number [id number], implanted on 08/31/2007. 5. Left ventricular lead 4298-88, serial number [id number], implanted on 07/22/2012. INTRAOPERATIVE TESTIN. Right atrial lead: P-waves 1.2 millivolts, impedance 428 ohms, threshold 0.7 volts at 1.1 milliamps. 2. Right ventricular lead: R-wave 11 millivolts, impedance 379 ohms, threshold 0.8 volts at 2 milliamps. 3. Left ventricular lead: Programmed LV ring to RV coil, impedance 463 ohms, threshold 0.7 volts at 1.3 milliamps. FINAL MEASUREMENTS THROUGH THE DEVICE: 1. Right atrial lead: P-wave 0.8 millivolts, impedance 380 ohms, threshold 0.75 volts at 0.4 milliseconds. 2. Right ventricular lead: R-wave 12.6 millivolts, impedance 323 ohms, threshold 1 volt at 0.4 milliseconds. 3. Left ventricular lead: LV ring to RV coil, impedance 494 ohms, threshold 1 volt at 0.4 milliseconds. 4. RV coil 54 ohms, SVC coil 73 ohms. FINAL PARAMETERS: DDDR 60/130. Right atrial amplitude 1.5 volts, pulse width 0.4 milliseconds and sensitivity 0.15 millivolts. Right ventricular amplitude 2 volts, pulse width 0.4 milliseconds, sensitivity 0.3 millivolts. Left ventricular amplitude 1.5 volts, pulse width 0.4 milliseconds. A VT monitor zone at 140 beats per minute with 28 detection intervals and a VF zone at 188 beats per minute with 24/32 detection intervals. ATP therapies for atrial arrhythmias were turned on as well. IMPRESSION: Successful generator change of a biventricular implantable rate responsive cardiac defibrillator secondary to device at elective replacement indicator and ischemic cardiomyopathy. PLAN: Monitor patient post-sedation. He can continue his home medications, not allowed to lift more than 10 pounds with the left arm for [address] He can shower tomorrow. Dictation Ends Here I attest to the content of the Intraoperative Record and any orders documented therein. Any exception s are noted below.
== END 2017-11-30 10:00 | disposition home or self-care (01) ==
LOC: C.ACU 06:16
PROVIDERS: ATTEND Internal Medicine
DX: Z45.02 Encounter for adjustment and management of automatic implantable cardiac defibrillator (principal); I25.5 Ischemic cardiomyopathy; I48.0 Paroxysmal atrial fibrillation; I50.22 Chronic systolic (congestive) heart failure; I44.7 Left bundle-branch block, unspecified; E78.5 Hyperlipidemia, unspecified; Z87.891 Personal history of nicotine dependence; Z86.73 Personal history of transient ischemic attack (TIA), and cerebral infarction without residual deficits; Z79.01 Long term (current) use of anticoagulants

== ENCOUNTER 2019-01-25 18:25 | Inpatient (IN) ==
[2019-01-25] MEDS ORDERED: ONDANSETRON INJ 2 MG/ML 2 ML VIAL IV STA (18:43)
[2019-01-25] MEDS ORDERED: MoRPHine SULFATE 4 MG/ML 1 ML CARP\\VIAL IV STA (18:43)
[2019-01-25] MEDS ORDERED: SODIUM CHLORIDE 0.9% 1000ML 1,000 ML IV ONE (18:52)
--- NOTE | 2019-01-25 19:43 | XRay Report ---
XR hip LT 2-3V w pelvis CLINICAL HISTORY: l hip pain COMPARISON: None. DISCUSSION: There are moderate osteoarthritic changes present within the left hip. No acute fractures are visualized. Moderate to advanced degenerative changes are present within the lower lumbar spine IMPRESSION: 1. Moderate osteoarthritic change. No acute fractures identified. Electronically signed by: Magnus Lutz M.D. 01/25/2019 7:42 PM
--- NOTE | 2019-01-25 19:44 | XRay Report ---
XR lumbar spine 2-3V CLINICAL HISTORY: lower back pain COMPARISON STUDY: No previous studies for comparison. FINDINGS: No acute fractures are visualized. There are moderately advanced degenerative changes at th e L3-4, L4-5, and L5-S1 levels. There is no pathologic bowel dilatation. IMPRESSION: 1. No acute fractures 2. Moderately advanced degenerative changes at the L3-4, L4-5, and L5-S1 levels. Electronically signed by: Magnus Lutz M.D. 01/25/2019 7:42 PM
[2019-01-25 20:10] LABS: Basophils # (auto) 0.01 K/uL (0-0.2); Basophils % (auto) 0.1 %; Eosinophils # (auto) 0.05 K/uL (0-0.5); Eosinophils % (auto) 0.5 %; Hematocrit (blood only) 30.7 % (42-52); Hemoglobin 10.4 g/dL (14.0-18.0); Immature Granulocytes # (auto) 0.09 K/uL (0.00-0.02); Immature Granulocytes % (auto) 0.8 %; Lymphocytes % (auto) 12.7 %; Mean Corpuscular Hgb Conc 33.9 g/dL (32-36); Mean Corpuscular Volume 91.1 fL (80-100); Mean Platelet Volume 10.1 fL (7.4-10.4); Monocytes # (auto) 1.27 K/uL (0.11-0.59); Monocytes % (auto) 11.5 %; Neutrophils # (auto) 8.19 K/uL (1.4-6.5); Neutrophils % (auto) 74.4 %; Platelet Count 127 K/uL (130-400); RDW Coefficient of Variation 15.8 % (11.5-14.5); RDW Standard Deviation 52.5 fL (36.4-46.3); Red Blood Count 3.37 M/uL (4.7-6.1); White Blood Count 11.01 K/uL (4.8-10.8)
[2019-01-25 20:22] LABS: INR 1.8 (0.9-1.1); Prothrombin Time 17.6 Seconds (9.0-12.0)
[2019-01-25 20:26] LABS: Albumin Globulin Ratio 0.7 (0.9-2); Albumin Level 2.8 gm/dl (3.4-5.0); BUN Creatinine Ratio 21.5 (10-20); Bilirubin,Total 0.7 mg/dl (0.2-1); Calcium 8.8 mg/dl (8.5-10.1); Creatinine Clr Calc Pharmacy 15.6 ml/min; Est GFR (African American) 17.8; Est GFR (Non-African American) 15.4; Globulin 4.2 gm/dl (2.5-4.0); Potassium 3.2 mmol/L (3.5-5.1)
[2019-01-25] MEDS ORDERED: MoRPHine SULFATE 10 MG/ML CARP/VIAL IV STA (21:19)
[2019-01-25] MEDS ORDERED: POTASSIUM CHLORIDE 20 MEQ TABCR PO STA (21:21)
--- NOTE | 2019-01-25 21:54 | XRay Report ---
XR chest 1V portable CLINICAL HISTORY: renal failure COMPARISON STUDY: 08/25/2018 FINDINGS: The heart is enlarged. There is a left subclavian pacer/defibrillator present. There is starr vation of the interstitium consistent with mild congestive failure/fluid overload. There is a nonspec ific 4 cm opacity within the right midlung zone. There are no significant pleural effusions [ IMPRESSION: 1. Stable indeterminate 4 cm opacity within the right midlung zone 2. Cardiomegaly and radiographic evidence of mild congestive failure/fluid overload. Electronically signed by: Magnus Lutz M.D. 01/25/2019 9:53 PM
[2019-01-25] MEDS ORDERED: ALBUMIN 25% 50 ML IV STA (22:23)
--- NOTE | 2019-01-25 22:52 | History & Physical Report ---
Date of Service January 25, 2019 Assessment & Plan (1) Acute kidney injury superimposed on chronic kidney disease: This is an 83yo M [facility] patient with a PMH of chronic atrial fibrillation (on Coumadin), CAD (s/p stent), h/o lung cancer (s/p radiation), systolic CHF, ICD placement, COPD, nocturnal hypoxemia (on BiPAP HS), lumbar disc degeneration and other medical problems listed below who presents with worsening left hip pain and abnormal lab work and was found to have an JYOTIH on CKD IV. (2) Left hip pain: (3) Sciatica: (4) Chronic atrial fibrillation: (5) On anticoagulant therapy: (6) CAD (coronary artery disease): (7) History of CVA (cerebrovascular accident): (8) HTN (hypertension): (9) Hypertension: (10) Hyperlipidemia: (11) CAD (coronary artery disease): (12) GERD (gastroesophageal reflux disease): (13) Sleep apnea treated with nocturnal BiPAP: (14) COPD, moderate: (15) Renal artery stenosis: (16) Anemia of chronic disease: (17) Restless leg syndrome: Patient seen in collaboration with Dr. Mishra. Please see addendum for plan details. History of Present Illness Chief Complaint: L hip/back pain, JYOTHI on CKD IV Primary Care Provider: Soren Loja MD This is an 83yo M [facility] patient with a PMH of chronic atrial fibrillation (on Coumadin), CAD (s/p stent), h/o lung cancer (s/p radiation), systolic CHF, ICD placement, COPD, nocturnal hypoxemia (on BiPAP HS), lumbar disc degeneration and other medical problems listed below who presents with worsening left hip pain and abnormal lab work. Patient underwent a joint injection at left hip on January 16 and pain improved for 5 days before becoming significantly worse. Describes pain at left hip and lower back as sharp and constant with radiation down the left leg with tingling. Has been taking [place] 5 mg as needed over the past few weeks which was initially prescribed for rib fractures at the beginning of January. Is still able to ambulate but it is more difficult and painful. Denies any bowel/bladder dysfunction. Denies any fever, chills, lightheadedness, headache, chest pain, palpitations, shortness of breath, nausea, vomiting, abdominal pain, dysuria or diarrhea. Has been experiencing some constipation due to narcotic use and has been taking Senokot and Colace. Of note, was recently started on Augmentin and doxycycline for olecranon bursitis of right elbow. Per family at bedside, patient has seemed fatigued with decreased appetite over the last week. In response to 12 pound weight loss in the past 2 weeks, torsemide dose was decreased to 10 mg twice daily. Was sent into ED after outpatient lab work revealed leukocytosis, elevated CRP and elevated creatinine as well as concern for septic joint. Here, patient is hemodynamically stable and afebrile. Has mild leukocytosis at 11 K, hemoglobin is 10.4 (at baseline), creatinine is 3.47 (baseline mid-2s) and CRP is 18. Lumbosacral spine x-ray without evidence of fractures, moderate to advanced degenerative disease in L3-L4, L4-L5, L5-S1. Hip/pelvis x-ray with moderate osteoarthritic changes. Allergies Allergy/AdvReac Type Severity Reaction Status Date / Time blue dye Allergy Mild SHORTNESS Verified 01/25/19 22:58 OF BREATH naproxen Allergy Mild SWELLING Verified 01/25/19 22:58 OF HANDS sumatriptan Allergy Mild SHORTNESS Verified 01/25/19 22:58 OF BREATH diphenhydramine AdvReac Intermediate MADE Verified 01/25/19 22:58 DEFIBRILLATOR FIRE pseudoephedrine AdvReac Intermediate MADE HIS Verified 01/25/19 22:58 DEFIB FIRE Home Medications Home Medications Medication Instructions Recorded Confirmed Type Arnuity Ellipta 1 inh INHALATION QAM 08/22/18 01/25/19 History albuterol sulfate 1 puff INHALATION Q6H PRN 08/22/18 01/25/19 History amiodarone 200 mg PO BID 08/22/18 01/25/19 History aspirin [Aspir-81] 81 mg PO QAM 08/22/18 01/25/19 History atorvastatin 40 mg PO QAM 08/22/18 01/25/19 History carvedilol [Coreg] 12.5 mg PO BID 08/22/18 01/25/19 History ipratropium-albuterol 3 ml INHALATION BID PRN 08/22/18 01/25/19 History isosorbide dinitrate 10 mg PO BID 08/22/18 01/25/19 History levothyroxine 12.5 mcg PO QAM 08/22/18 01/25/19 History lorazepam 1 mg PO HS 08/22/18 01/25/19 History metolazone 2.5 mg PO Q10D 08/22/18 01/25/19 History nitroglycerin [Nitrostat] 1 tab SUBLINGUAL UD PRN 08/22/18 01/25/19 History omeprazole 20 mg PO BID 08/22/18 01/25/19 History potassium chloride 20 meq PO BID 08/22/18 01/25/19 History pramipexole 0.125 mg PO BID 08/22/18 01/25/19 History torsemide 10 mg PO BID 08/22/18 01/25/19 History ropinirole 0.5 mg PO 1400 12/21/18 01/25/19 History ropinirole 2.5 mg PO HS 12/21/18 01/25/19 History acetaminophen 1,000 mg PO Q6H PRN 01/25/19 01/25/19 History amoxicillin-pot clavulanate 1 tab PO BID 01/25/19 01/25/19 History cholecalciferol (vitamin D3) 2,000 unit PO QAM 01/25/19 01/25/19 History [Vitamin D3] docusate sodium 100 mg PO BID 01/25/19 01/25/19 History doxycycline hyclate 100 mg PO BID 01/25/19 01/25/19 History hydrocodone-acetaminophen 1 tab PO Q8H 01/25/19 01/25/19 History iron,carbonyl-vitamin C [Vitron-C] 1 tab PO BID 01/25/19 01/25/19 History magnesium 500 mg PO HS 01/25/19 01/25/19 History nystatin 5 ml BUCCAL QID 01/25/19 01/25/19 History oxybutynin chloride 5 mg PO DAILY 01/25/19 01/25/19 History sennosides [Senokot] 8.6 mg PO BID PRN 01/25/19 01/25/19 History umeclidinium-vilanterol [Anoro 1 inh INHALATION QAM 01/25/19 01/25/19 History Ellipta] warfarin [Coumadin] 2 mg PO SUTUWEFRSA 01/25/19 01/25/19 History warfarin [Coumadin] 3 mg PO MOTH 01/25/19 01/25/19 History Past Med/Surg History Medical History History of CVA (cerebrovascular accident) (Chronic) Chronic atrial fibrillation (Chronic) CKD (chronic kidney disease), stage IV (Chronic) Sciatica (Chronic) Hyperlipidemia (Chronic) Hypertension (Chronic) CAD (coronary artery disease) (Chronic) ASCVD with AK 2000, angioplasty of LAD and Dx, and PCI of PDA. Resultant severe ischemic CM. History of lung cancer (Chronic) ~2014 S/P RADIATION THERAPY History of stomach cancer (Chronic) [id number]. EXCISED WITH EGD. Hypothyroidism (Chronic) GERD (gastroesophageal reflux disease) (Chronic) Ischemic cardiomyopathy (Chronic) 2/2 [place] 2000. S/P dual chamber ICD following presentation with syncope and LBBB. BiV pacer upgrade 2011, generator change 11/2017. Osteoarthritis (Chronic) Sleep apnea treated with nocturnal BiPAP (Chronic) "COMPLEX SLEEP APNEA SYNDROME" Renal artery stenosis (Chronic) Anemia of chronic disease (Chronic) On anticoagulant therapy (Chronic) Restless leg syndrome (Chronic) Carotid stenosis, bilateral (Chronic) MGUS (monoclonal gammopathy of unknown significance) (Chronic) Acute kidney injury superimposed on chronic kidney disease (Acute) Left hip pain (Acute) History of cardioversion (Resolved) Surgical History History of appendectomy (Chronic) History of total knee replacement (Chronic) RIGHT (DR. NAIR) 2016 History of implantable cardioverter-defibrillator (ICD) placement (Chronic) 2006. UNSURE OF LAST CHECKED. FOLLOWS WITH DR. UP. History of tonsillectomy (Chronic) History of cardiac cath (Resolved) 2000 WITH STENT PLACEMENT Family History Brother Family history of diabetes mellitus Social History Preferred Language: [place] Communication Ability: Effective Manager Assisted Living Required: No Beliefs That Will Affect Care: None Current Living Situation: Spouse Other Information That Helps Us Care for You: No Feels Safe at Home: Yes Safety Concerns: Feels Safe At This Time Smoking Status: Light tobacco smoker Tobacco Type: cigarettes Cigarettes Per Day: HX OF 1/2 PPD + X60 YEARS. SMOKING 3 CIGS DAILY Do You Dip or Chew Tobacco: No Second Hand Exposure: No Tobacco Cessation Education Requested by Patient: No Hx Alcohol Use: No Hx Substance Use: No Review of Systems Review of Systems: At least ten systems reviewed and negative except as noted in the HPI. Physical Exam Physical Exam: General Appearance: WD/WN, chronically ill-appearing male, in distress from acute left hip pain Head: normocephalic, atraumatic Eyes: normal inspection, PERRL, EOMI ENT: hearing grossly normal, pharynx normal (dry mucous membranes) Neck: supple, no JVD, no adenopathy Respiratory/Chest: Scattered expiratory wheezes but otherwise clear. No rales or rhonci. No respiratory distress or accessory muscle use Cardiovascular: irregular rate & rhythm, no murmur appreciated, normal peripheral pulses Abdomen/GI: normal bowel sounds, soft, non-tender to palpation Extremities/Musculoskelatal: Left hip and lumbosacral spine with TTP, pain increased with movement. No calf tenderness, normal capillary refill, no pedal edema Neurologic/Psych: alert, normal mood/affect, oriented x 3 Skin: normal color, warm/dry Results & Data Vital Signs (Past 12 Hours) Vital Signs Temp Pulse Pulse Resp BP BP Pulse Ox 01/25/19 22:00 77 18 01/25/19 21:31 79 18 141/87 H 99 01/25/19 21:30 79 19 97 01/25/19 21:01 78 15 111/94 100 01/25/19 21:00 76 18 99 01/25/19 20:31 79 18 130/75 01/25/19 20:30 76 18 99 01/25/19 20:08 71 16 97 01/25/19 20:07 72 20 103/56 L 96 01/25/19 20:00 75 20 103/56 L 97 01/25/19 19:37 82 18 01/25/19 19:00 77 18 96 01/25/19 18:55 76 21 96 01/25/19 18:49 81 78 19 105/43 L 105/43 L 97 01/25/19 18:43 96 01/25/19 18:28 36.7 C 81 20 137/86 95 Laboratory Results Short CBC 01/25/19 Range/Units 19:44 WBC 11.01 H (4.8-10.8) K/uL Hgb 10.4 L (14.0-18.0) g/dL Hct 30.7 L (42-52) % Plt Count 127 L (130-400) K/uL BMP 01/25/19 19:44 Sodium 133 L Potassium 3.2 L Chloride 96 L Carbon Dioxide 28 BUN 75 H Creatinine 3.47 H Glucose 130 H Calcium 8.8 Liver Function 01/25/19 Range/Units 19:44 Total Bilirubin 0.7 (0.2-1) mg/dl AST 22 (15-37) U/L ALT 28 (12-78) U/L Alkaline Phosphatase 69 (45-117) U/L Albumin 2.8 L (3.4-5.0) gm/dl Diagnostic Findings Lumbar spine XR: IMPRESSION: 1. No acute fractures 2. Moderately advanced degenerative changes at the L3-4, L4-5, and L5-S1 levels. Hip/pelvis XR: IMPRESSION: 1. Moderate osteoarthritic change. No acute fractures identified. Supervising Physician Co-Signing Physician Notes IM ATTENDING : Patient seen and examined. History obtained from patient, family, and records. Preceding documentation by Ms. Tracey Pascal PA-C reviewed. FINAL ASSESSMENT AND PLAN as follows : ARF on CRI, clinical dehydration Intractable left hip pain, hx left sacroiliitis status post recent outpatient SI joint injection 01/16/19 Chronic systolic heart failure secondary to ischemic cardiomyopathy EF 35 to 39% TTE October 2018 hx ICD (Patient intravascularly dry despite congestion on x-ray.) Chronic LBBB as per records CAD status post stent, PVD as per records Hypertension stable A. fib, rate controlled, INR slightly subtherapeutic CVA as per records COPD/ARMANDO as per records Hyperglycemia, likely prediabetes, hemoglobin A1c of 5.9, August 2018 Hypokalemia secondary to diuretic Rx Olecranon bursitis right, improved on outpatient antibiotic regimen Gastric cancer as per records past tobacco abuse GMF Monitor creatinine response to gentle IV hydration, hold home diuretics until creatinine at baseline Renal ultrasound, Nephrology consult if without improvement Replace potassium CT left hip, intractable pain Orthopedics consult RE intractable left hip pain Hold Coumadin for now RE possible procedure Continue outpatient doxycycline Rx for olecranon bursitis DVT prophylaxis. SCDs while Coumadin on hold if INR less than 2 Full code
--- NOTE | 2019-01-26 00:15 | Emergency Department Note ---
Entered by Eloy Curry acting as a scribe for History of Present Illness General Chief complaint: Abnormal Labs/Diagnostic Testing Stated complaint: LEFT HIP PAIN, ABNORMAL LABS Source: patient and family () Limitations: no limitations History of Present Illness Onset (ago): week(s) 1 Location: left (hip) Radiation: proximal Pain Consistency: + other (worsening) Maximum Pain Intensity: 8 Quality: + constant Relieved By: + other (staying off the hip) Associated symptoms: + denies other symptoms (redness and swelling to hip, abdominal pain); no fever/chills and no nausea/vomiting Treatments prior to arrival: other (tylenol) The patient is a 83 year old male who presents to the Emergency Room with complaints of constant and worsening left hip pain starting a week ago. The pat claudiasaravanan's states the patient was diagnosed with sciatica by Dr. Lindquist. She states the patient was given an injection in June that helped his pain. She notes the patient got another injection a couple weeks ago but notes it was not as effective this time. The patient notes he has had this type of pain once before. She states the patient has been taking Hydrocodone for the pain but states today the patient took 1000 mg Tylenol x 2 and did not take the Hydrocodone. The patient notes his pain is a little better when he is not on his left hip. He states he has been having back pain also. The patient denies fevers, abdominal pain, nausea, vomiting, recent trauma, recent falls, and redness or swelling to the left hip. The patient's states he had two cracked ribs in the last month. She notes the patient had bursitis and cellulitis in his right elbow. She states he has been taking Doxycycline and Augmentin for the elbow. She notes the patient has been seeing ZOILA Calabrese for his elbow. She notes the patient's kidney function has been bad. Home Medications Home Medications Medication Instructions Recorded Confirmed Type Arnuity Ellipta 1 inh INHALATION QAM 08/22/18 01/25/19 History albuterol sulfate 1 puff INHALATION Q6H PRN 08/22/18 01/25/19 History amiodarone 200 mg PO BID 08/22/18 01/25/19 History aspirin [Aspir-81] 81 mg PO QAM 08/22/18 01/25/19 History atorvastatin 40 mg PO QAM 08/22/18 01/25/19 History carvedilol [Coreg] 12.5 mg PO BID 08/22/18 01/25/19 History ipratropium-albuterol 3 ml INHALATION BID PRN 08/22/18 01/25/19 History isosorbide dinitrate 10 mg PO BID 08/22/18 01/25/19 History levothyroxine 12.5 mcg PO QAM 08/22/18 01/25/19 History lorazepam 1 mg PO HS 08/22/18 01/25/19 History metolazone 2.5 mg PO Q10D 08/22/18 01/25/19 History nitroglycerin [Nitrostat] 1 tab SUBLINGUAL UD PRN 08/22/18 01/25/19 History omeprazole 20 mg PO BID 08/22/18 01/25/19 History potassium chloride 20 meq PO BID 08/22/18 01/25/19 History pramipexole 0.125 mg PO BID 08/22/18 01/25/19 History torsemide 10 mg PO BID 08/22/18 01/25/19 History ropinirole 0.5 mg PO 1400 12/21/18 01/25/19 History ropinirole 2.5 mg PO HS 12/21/18 01/25/19 History acetaminophen 1,000 mg PO Q6H PRN 01/25/19 01/25/19 History amoxicillin-pot clavulanate 1 tab PO BID 01/25/19 01/25/19 History cholecalciferol (vitamin D3) 2,000 unit PO QAM 01/25/19 01/25/19 History [Vitamin D3] docusate sodium 100 mg PO BID 01/25/19 01/25/19 History doxycycline hyclate 100 mg PO BID 01/25/19 01/25/19 History hydrocodone-acetaminophen 1 tab PO Q8H 01/25/19 01/25/19 History iron,carbonyl-vitamin C [Vitron-C] 1 tab PO BID 01/25/19 01/25/19 History magnesium 500 mg PO HS 01/25/19 01/25/19 History nystatin 5 ml BUCCAL QID 01/25/19 01/25/19 History oxybutynin chloride 5 mg PO DAILY 01/25/19 01/25/19 History sennosides [Senokot] 8.6 mg PO BID PRN 01/25/19 01/25/19 History umeclidinium-vilanterol [Anoro 1 inh INHALATION QAM 01/25/19 01/25/19 History Ellipta] warfarin [Coumadin] 2 mg PO SUTUWEFRSA 01/25/19 01/25/19 History warfarin [Coumadin] 3 mg PO MOTH 01/25/19 01/25/19 History Allergies Allergy/AdvReac Type Severity Reaction Status Date / Time blue dye Allergy Mild SHORTNESS Verified 01/25/19 22:58 OF BREATH naproxen Allergy Mild SWELLING Verified 01/25/19 22:58 OF HANDS sumatriptan Allergy Mild SHORTNESS Verified 01/25/19 22:58 OF BREATH diphenhydramine AdvReac Intermediate MADE Verified 01/25/19 22:58 DEFIBRILLATOR FIRE pseudoephedrine AdvReac Intermediate MADE HIS Verified 01/25/19 22:58 DEFIB FIRE Past Med/Surg History Medical History History of CVA (cerebrovascular accident) (Chronic) Chronic atrial fibrillation (Chronic) CKD (chronic kidney disease), stage IV (Chronic) Sciatica (Chronic) Hyperlipidemia (Chronic) Hypertension (Chronic) CAD (coronary artery disease) (Chronic) ASCVD with RI 2000, angioplasty of LAD and Dx, and PCI of PDA. Resultant severe ischemic CM. History of lung cancer (Chronic) ~2014 S/P RADIATION THERAPY History of stomach cancer (Chronic) [id number]. EXCISED WITH EGD. Hypothyroidism (Chronic) GERD (gastroesophageal reflux disease) (Chronic) Ischemic cardiomyopathy (Chronic) 2/2 RI 2000. S/P dual chamber ICD following presentation with syncope and LBBB. BiV pacer upgrade 2011, generator change 11/2017. Osteoarthritis (Chronic) Sleep apnea treated with nocturnal BiPAP (Chronic) "COMPLEX SLEEP APNEA SYNDROME" Renal artery stenosis (Chronic) Anemia of chronic disease (Chronic) On anticoagulant therapy (Chronic) Restless leg syndrome (Chronic) Carotid stenosis, bilateral (Chronic) MGUS (monoclonal gammopathy of unknown significance) (Chronic) Acute kidney injury superimposed on chronic kidney disease (Acute) Left hip pain (Acute) History of cardioversion (Resolved) Surgical History History of appendectomy (Chronic) History of total knee replacement (Chronic) RIGHT (DR. NAIR) 2016 History of implantable cardioverter-defibrillator (ICD) placement (Chronic) 2007. UNSURE OF LAST CHECKED. FOLLOWS WITH DR. UP. History of tonsillectomy (Chronic) History of cardiac cath (Resolved) 2000 WITH STENT PLACEMENT Family History Brother Family history of diabetes mellitus Social History Preferred Language: Venezuelan Communication Ability: Effective Beliefs That Will Affect Care: None Current Living Situation: Spouse Feels Safe at Home: Yes Smoking Status: Current every day smoker Tobacco Type: cigarettes Cigarettes Per Day: HX OF 1/2 PPD + X60 YEARS. SMOKING 3 CIGS DAILY Second Hand Exposure: Yes Hx Alcohol Use: No Hx Substance Use: No Review of Systems See HPI for pertinent positives & negatives. and A total of 10 systems reviewed and were otherwise negative Physical Exam Vital Signs Vital Signs - 24 hr 01/25/19 18:28 01/25/19 18:43 01/25/19 18:49 Temperature 36.7 C Temperature Source Oral Sepsis Recent Fever Within 48 Hours No Sepsis New/Unexplained Change in Mental Status No Sepsis Action Taken by Nursing No Action Required Pulse Rate 81 81 Pulse Rate [Left Finger] 78 Pulse Rate from SpO2 Sensor 79 Pulse Rhythm [Left Finger] Regular Respiratory Rate 20 19 Respiratory Effort / Characteristics Non-Labored Respiratory Depth Normal Respiratory Pattern Regular Blood Pressure 137/86 105/43 L Blood Pressure [Left Arm] 105/43 L Blood Pressure Mean 103 63 Blood Pressure Mean [Left Arm] 63 Blood Pressure Position [Left Arm] Pulse Oximetry 95 96 97 Oxygen Delivery Method Room Air Room Air Room Air 01/25/19 18:55 01/25/19 19:00 01/25/19 19:37 Temperature Temperature Source Sepsis Recent Fever Within 48 Hours Sepsis New/Unexplained Change in Mental Status Sepsis Action Taken by Nursing Pulse Rate 76 77 82 Pulse Rate [Left Finger] Pulse Rate from SpO2 Sensor 77 82 Pulse Rhythm [Left Finger] Respiratory Rate 21 18 18 Respiratory Effort / Characteristics Respiratory Depth Respiratory Pattern Blood Pressure Blood Pressure [Left Arm] Blood Pressure Mean Blood Pressure Mean [Left Arm] Blood Pressure Position [Left Arm] Pulse Oximetry 96 96 Oxygen Delivery Method 01/25/19 20:00 01/25/19 20:07 01/25/19 20:08 Temperature Temperature Source Sepsis Recent Fever Within 48 Hours Sepsis New/Unexplained Change in Mental Status Sepsis Action Taken by Nursing Pulse Rate 75 72 71 Pulse Rate [Left Finger] Pulse Rate from SpO2 Sensor 71 72 Pulse Rhythm [Left Finger] Respiratory Rate 20 20 16 Respiratory Effort / Characteristics Respiratory Depth Respiratory Pattern Blood Pressure 103/56 L 103/56 L Blood Pressure [Left Arm] Blood Pressure Mean 71 71 Blood Pressure Mean [Left Arm] Blood Pressure Position [Left Arm] Pulse Oximetry 97 96 97 Oxygen Delivery Method 01/25/19 20:30 01/25/19 20:31 01/25/19 21:00 Temperature Temperature Source Sepsis Recent Fever Within 48 Hours Sepsis New/Unexplained Change in Mental Status Sepsis Action Taken by Nursing Pulse Rate 76 79 76 Pulse Rate [Left Finger] Pulse Rate from SpO2 Sensor 71 77 Pulse Rhythm [Left Finger] Respiratory Rate 18 18 18 Respiratory Effort / Characteristics Respiratory Depth Respiratory Pattern Blood Pressure 130/75 Blood Pressure [Left Arm] Blood Pressure Mean 93 Blood Pressure Mean [Left Arm] Blood Pressure Position [Left Arm] Pulse Oximetry 99 99 Oxygen Delivery Method 01/25/19 21:01 01/25/19 21:30 01/25/19 21:31 Temperature Temperature Source Sepsis Recent Fever Within 48 Hours Sepsis New/Unexplained Change in Mental Status Sepsis Action Taken by Nursing Pulse Rate 78 79 79 Pulse Rate [Left Finger] Pulse Rate from SpO2 Sensor 77 82 82 Pulse Rhythm [Left Finger] Respiratory Rate 15 19 18 Respiratory Effort / Characteristics Respiratory Depth Respiratory Pattern Blood Pressure 111/94 141/87 H Blood Pressure [Left Arm] Blood Pressure Mean 99 105 Blood Pressure Mean [Left Arm] Blood Pressure Position [Left Arm] Pulse Oximetry 100 97 99 Oxygen Delivery Method 01/25/19 22:00 01/25/19 22:30 01/25/19 22:31 Temperature Temperature Source Sepsis Recent Fever Within 48 Hours Sepsis New/Unexplained Change in Mental Status Sepsis Action Taken by Nursing Pulse Rate 77 81 78 Pulse Rate [Left Finger] Pulse Rate from SpO2 Sensor Pulse Rhythm [Left Finger] Respiratory Rate 18 14 21 Respiratory Effort / Characteristics Respiratory Depth Respiratory Pattern Blood Pressure 122/61 Blood Pressure [Left Arm] Blood Pressure Mean 81 Blood Pressure Mean [Left Arm] Blood Pressure Position [Left Arm] Pulse Oximetry Oxygen Delivery Method 01/25/19 22:59 01/25/19 23:00 01/25/19 23:01 Temperature 36.5 C Temperature Source Oral Sepsis Recent Fever Within 48 Hours Sepsis New/Unexplained Change in Mental Status Sepsis Action Taken by Nursing Pulse Rate 76 76 72 Pulse Rate [Left Finger] 76 Pulse Rate from SpO2 Sensor 75 82 Pulse Rhythm [Left Finger] Respiratory Rate 16 13 16 Respiratory Effort / Characteristics Normal for Patient Respiratory Depth Respiratory Pattern Blood Pressure 117/59 L 99/79 L Blood Pressure [Left Arm] 117/59 L Blood Pressure Mean 78 85 Blood Pressure Mean [Left Arm] 78 Blood Pressure Position [Left Arm] Pulse Oximetry 96 96 93 Oxygen Delivery Method Room Air 01/25/19 23:13 01/25/19 23:14 01/25/19 23:30 Temperature 36.5 C Temperature Source Oral Sepsis Recent Fever Within 48 Hours Sepsis New/Unexplained Change in Mental Status Sepsis Action Taken by Nursing Pulse Rate 75 80 Pulse Rate [Left Finger] 84 Pulse Rate from SpO2 Sensor 76 78 Pulse Rhythm [Left Finger] Respiratory Rate 16 10 L 11 L Respiratory Effort / Characteristics Respiratory Depth Respiratory Pattern Blood Pressure 133/53 L Blood Pressure [Left Arm] 133/53 L Blood Pressure Mean 79 Blood Pressure Mean [Left Arm] 79 Blood Pressure Position [Left Arm] Lying Pulse Oximetry 95 93 93 Oxygen Delivery Method Room Air 01/25/19 23:52 Temperature Temperature Source Sepsis Recent Fever Within 48 Hours Sepsis New/Unexplained Change in Mental Status Sepsis Action Taken by Nursing Pulse Rate 79 Pulse Rate [Left Finger] Pulse Rate from SpO2 Sensor Pulse Rhythm [Left Finger] Respiratory Rate 16 Respiratory Effort / Characteristics Respiratory Depth Respiratory Pattern Blood Pressure 117/79 Blood Pressure [Left Arm] Blood Pressure Mean Blood Pressure Mean [Left Arm] Blood Pressure Position [Left Arm] Pulse Oximetry 96 Oxygen Delivery Method Room Air GENERAL: alert, well nourished, non-toxic. Laying in bed. Significant distress. Pulling left hip in flexion. EYE EXAM: normal conjunctiva OROPHARYNX: no exudate, no erythema, lips, buccal mucosa, and tongue normal and mucous membranes are moist NECK: supple, no nuchal rigidity, no adenopathy, non-tender LUNGS: Clear to auscultation. Normal chest wall mechanics HEART: no murmurs, S1 normal and S2 normal ABDOMEN: abdomen soft, non-tender, normo-active bowel sounds, no masses, no rebound or guarding. BACK: Back is symmetrical on inspection and there is no deformity, no midline tenderness, no CVA tenderness. Lower lumbar and left paraspinal tenderness tracking through left hip and down the back of left leg. SKIN: no rashes and no bruising UPPER EXTREMITIES: upper extremities are grossly normal. Right elbow is swollen tender and erythematous with mild surrounding erythema. LOWER EXTREMITIES: No pitting edema. Flexion and extension of the hips, knees, ankles, and EHL 5/5 bilaterally. Gross sensation is intact. DPs are 2/4 margarita ateral. No significant pain with axial loading. Majority of pain with extension of hip. NEURO EXAM: Normal sensorium, cranial nerves II-XII grossly intact, normal speech, no gross weakness of arms, no gross weakness of legs. Course ED COURSE: Vital signs were reviewed and showed everything normal. The patients medical record was reviewed The above diagnostic studies were performed and reviewed. ED treatments and interventions as stated above. 1832: The patient was evaluated in room C5. A complete history and physical examination was performed. 1850: Creatinine was 3.6. 2109: I discussed the patient's case with Dr. [facility] Hospitalist. He will evaluate the patient for further management. 2114: Upon reevaluation, the patient is feeling a little better.I discussed my findings with the patient and he understands and agrees with the treatment plan. Based on the patients age, coexisting illnesses, exam and lab findings the decision to treat as an inpatient was made. The patient remained stable while under my care. The patient will be evaluated for further management. Administered Medications Discontinued Medications Sodium Chloride (Nss 1000ml) 1,000 mls @ 999 mls/hr IV .Q1H1M ONE Stop: 01/25/19 19:52 Last Infusion: 01/25/19 21:05 Dose: 0 mls/hr Documented by: [id number] Admin: 01/25/19 20:06 Dose: 999 mls/hr Documented by: [id number] Albumin Human (Albumin 25%) 50 mls @ 50 mls/hr IV NOW STA Stop: 01/25/19 23:22 Last Infusion: 01/26/19 00:00 Dose: 0 mls/hr Documented by: [id number] Admin: 01/25/19 22:58 Dose: 50 mls/hr Documented by: [id number] Morphine Sulfate (Morphine Sulfate) 4 mg IV NOW STA Stop: 01/25/19 18:44 Last Admin: 01/25/19 20:01 Dose: 4 mg Documented by: [id number] Morphine Sulfate (Morphine Sulfate) 6 mg IV NOW STA Stop: 01/25/19 21:20 Last Admin: 01/25/19 21:36 Dose: 6 mg Documented by: [id number] Ondansetron HCl (Zofran) 4 mg IV NOW STA Stop: 01/25/19 18:44 Last Admin: 01/25/19 20:00 Dose: 4 mg Documented by: [id number] Potassium Chloride (Klor-Con M20) 40 meq PO NOW STA Stop: 01/25/19 21:22 Last Admin: 01/25/19 21:37 Dose: 40 meq Documented by: [id number] Medical Decision Making Differential Diagnosis Differential diagnosis: Etiologies such as fracture, dislocation, neurovascular compromise, sciatica, compartment syndrome, soft tissue injury, as well as others were entertained. Medical Records Attestation: I reviewed the patient's medical records. Home Medications Current Medication List: was personally reviewed by me Laboratory Data Attestation: I reviewed the patient's lab results. Result diagrams: 01/25/19 19:44 01/25/19 19:44 Lab Results 01/25/19 01/25/19 01/25/19 Range/Units 19:44 19:44 19:44 WBC 11.01 H (4.8-10.8) K/uL RBC 3.37 L (4.7-6.1) M/uL Hgb 10.4 L (14.0-18.0) g/dL Hct 30.7 L (42-52) % MCV 91.1 (80-100) fL MCH 30.9 (25-34) pg MCHC 33.9 (32-36) g/dL RDW Std Deviation 52.5 H (36.4-46.3) fL RDW Coeff of Rocael 15.8 H (11.5-14.5) % Plt Count 127 L (130-400) K/uL MPV 10.1 (7.4-10.4) fL Immature Gran % (Auto) 0.8 % Neut % (Auto) 74.4 % Lymph % (Auto) 12.7 % [place] % (Auto) 11.5 % Eos % (Auto) 0.5 % Baso % (Auto) 0.1 % Immature Gran # (Auto) 0.09 H (0.00-0.02) K/uL Neut # (Auto) 8.19 H (1.4-6.5) K/uL Lymph # (Auto) 1.40 (1.2-3.4) K/uL [place] # (Auto) 1.27 H (0.11-0.59) K/uL Eos # (Auto) 0.05 (0-0.5) K/uL Baso # (Auto) 0.01 (0-0.2) K/uL PT 17.6 H (9.0-12.0) Seconds INR 1.8 H (0.9-1.1) Sodium 133 L (136-145) mmol/L Potassium 3.2 L (3.5-5.1) mmol/L Chloride 96 L (98-107) mmol/L Carbon Dioxide 28 (21-32) mmol/L Anion Gap 9.0 (3-11) BUN 75 H (7-18) mg/dl Creatinine 3.47 H (0.6-1.4) mg/dl Est Cr Clr Drug Dosing 15.6 ml/min Est GFR ( Amer) 17.8 Est GFR (Non-Af Amer) 15.4 BUN/Creatinine Ratio 21.5 H (10-20) Glucose 130 H (70-99) mg/dl Calcium 8.8 (8.5-10.1) mg/dl Magnesium (1.8-2.4) mg/dl Total Bilirubin 0.7 (0.2-1) mg/dl AST 22 (15-37) U/L ALT 28 (12-78) U/L Alkaline Phosphatase 69 (45-117) U/L C-Reactive Protein 18.00 H (0-0.29) mg/dl Total Protein 7.0 (6.4-8.2) gm/dl Albumin 2.8 L (3.4-5.0) gm/dl Globulin 4.2 H (2.5-4.0) gm/dl Albumin/Globulin Ratio 0.7 L (0.9-2) Lipase 113 (73-393) U/L Procalcitonin (0-0.5) ng/ml TSH (0.300-4.500) uIu/ml 01/25/19 01/25/19 Range/Units 19:44 21:51 WBC (4.8-10.8) K/uL RBC (4.7-6.1) M/uL Hgb (14.0-18.0) g/dL Hct (42-52) % MCV (80-100) fL MCH (25-34) pg MCHC (32-36) g/dL RDW Std Deviation (36.4-46.3) fL RDW Coeff of Rocael (11.5-14.5) % Plt Count (130-400) K/uL MPV (7.4-10.4) fL Immature Gran % (Auto) % Neut % (Auto) % Lymph % (Auto) % [place] % (Auto) % Eos % (Auto) % Baso % (Auto) % Immature Gran # (Auto) (0.00-0.02) K/uL Neut # (Auto) (1.4-6.5) K/uL Lymph # (Auto) (1.2-3.4) K/uL [place] # (Auto) (0.11-0.59) K/uL Eos # (Auto) (0-0.5) K/uL Baso # (Auto) (0-0.2) K/uL PT (9.0-12.0) Seconds INR (0.9-1.1) Sodium (136-145) mmol/L Potassium (3.5-5.1) mmol/L Chloride (98-107) mmol/L Carbon Dioxide (21-32) mmol/L Anion Gap (3-11) BUN (7-18) mg/dl Creatinine (0.6-1.4) mg/dl Est Cr Clr Drug Dosing ml/min Est GFR ( Amer) Est GFR (Non-Af Amer) BUN/Creatinine Ratio (10-20) Glucose (70-99) mg/dl Calcium (8.5-10.1) mg/dl Magnesium 3.0 H (1.8-2.4) mg/dl Total Bilirubin (0.2-1) mg/dl AST (15-37) U/L ALT (12-78) U/L Alkaline Phosphatase (45-117) U/L C-Reactive Protein (0-0.29) mg/dl Total Protein (6.4-8.2) gm/dl Albumin (3.4-5.0) gm/dl Globulin (2.5-4.0) gm/dl Albumin/Globulin Ratio (0.9-2) Lipase (73-393) U/L Procalcitonin 0.05 (0-0.5) ng/ml TSH 0.900 (0.300-4.500) uIu/ml Imaging Data Radiologist's Impression: Radiology results as stated below per my review and the radiologist's interpretation: XR hip LT 2-3V w pelvis CLINICAL HISTORY: l hip pain COMPARISON: None. DISCUSSION: There are moderate osteoarthritic changes present within the left hip. No acute fractures are visualized. Moderate to advanced degenerative changes are present within the lower lumbar spine IMPRESSION: 1. Moderate osteoarthritic change. No acute fractures identified. Electronically signed by: Magnus Lutz M.D. 01/25/2019 7:42 PM XR lumbar spine 2-3V CLINICAL HISTORY: lower back pain COMPARISON STUDY: No previous studies for comparison. FINDINGS: No acute fractures are visualized. There are moderately advanced degenerative changes at the L3-4, L4-5, and L5-S1 levels. There is no pathologic bowel dilatation. IMPRESSION: 1. No acute fractures 2. Moderately advanced degenerative changes at the L3-4, L4-5, and L5-S1 levels. Electronically signed by: Magnus Lutz M.D. 01/25/2019 7:42 PM Blood Pressure Blood Pressure Findings: Low blood pressure Blood Pressure Disposition: further management by hospitalist AMBROSE Narrative Patient is an 83-year-old male presents the ER referred in by PCP for left hip pain which is been present for the past week. He has been treated for sciatica before in the past with previous injection several months ago and then again within the past month. Pain is fairly consistent with this. He has been feeling real weak and run down. Labs show mild anemia 10. INR was slightly subtherapeutic at 1.8. BMP with a creatinine of 3.47 up from baseline which appears to be about 2.1. BUN was significantly elevated as well. Potassium slightly low 3.2. LFTs and bilirubin were unremarkable. TSH was normal. Patient was updated bedside. CRP was elevated at 18. Patient is currently on Augmentin and doxycycline. Patient was admitted to the hospitalist for JYOTHI associate with severe hip pain. He was given multiple dose of IV morphine while in the ER. Impression & Plan Acute kidney injury, Hip pain Discharge Plan Visit Data Chief Complaint: Abnormal Labs/Diagnostic Testing Stated Complaint: LEFT HIP PAIN, ABNORMAL LABS ED Provider: Jonah Navarrete Discharge Problem: Acute kidney injury, Hip pain Patient Disposition: Being Evaluated by Hospitalist Discharge Instructions Interventions: ED Discharge Assessment Last Done: 01/25/19 23:52 Forms Stand Alone Forms: My [facility] Prescriptions Prescriptions: No Action metolazone 2.5 mg Tablet 2.5 mg PO Q10D RF: 0 isosorbide dinitrate 10 mg Tablet 10 mg PO BID RF: 0 atorvastatin 40 mg Tablet 40 mg PO QAM RF: 0 potassium chloride 10 mEq Capsule, Extended Release 20 meq PO BID RF: 0 carvedilol [Coreg] 12.5 mg Tablet 12.5 mg PO BID RF: 0 ipratropium-albuterol 0.5 mg-3 mg(2.5 mg base)/3 mL Solution For Nebulization 3 ml INHALATION BID PRN (Reason: SOB) RF: 0 amiodarone 200 mg Tablet 200 mg PO BID RF: 0 torsemide 10 mg Tablet 10 mg PO BID RF: 0 aspirin [Aspir-81] 81 mg Tablet,Delayed Release (Dr/Ec) 81 mg PO QAM RF: 0 levothyroxine 25 mcg Tablet 12.5 mcg PO QAM RF: 0 pramipexole 0.125 mg Tablet 0.125 mg PO BID RF: 0 nitroglycerin [Nitrostat] 0.4 mg Tablet, Sublingual 1 tab Sublingual UD PRN (Reason: Chest Pain) RF: 0 omeprazole 20 mg Capsule,Delayed Release(Dr/Ec) 20 mg PO BID RF: 0 lorazepam 1 mg Tablet 1 mg PO HS RF: 0 albuterol sulfate 90 mcg/actuation Hfa Aerosol Inhaler 1 puff INHALATION Q6H PRN (Reason: Wheezing) RF: 0 Arnuity Ellipta 100 mcg/actuation Blister With Device 1 inh INHALATION QAM RF: 0 ropinirole 1 mg Tablet 2.5 mg PO HS RF: 0 ropinirole 1 mg Tablet 0.5 mg PO 1400 RF: 0 warfarin [Coumadin] 3 mg Tablet 3 mg PO MOTH RF: 0 warfarin [Coumadin] 2 mg Tablet 2 mg PO SUTUWEFRSA RF: 0 oxybutynin chloride 5 mg Tablet 5 mg PO DAILY RF: 0 cholecalciferol (vitamin D3) [Vitamin D3] 2,000 unit Tablet 2,000 unit PO QAM RF: 0 Vitron-C 65 mg iron- 125 mg Tablet,Delayed Release (Dr/Ec) 1 tab PO BID RF: 0 Anoro Ellipta 62.5-25 mcg/actuation Blister With Device 1 inh INHALATION QAM RF: 0 sennosides [Senokot] 8.6 mg Tablet 8.6 mg PO BID PRN (Reason: Constipation) RF: 0 hydrocodone-acetaminophen 5-325 mg Tablet 1 tab PO Q8H RF: 0 docusate sodium 100 mg Capsule 100 mg PO BID RF: 0 nystatin 100,000 unit/mL Suspension 5 ml BUCCAL QID RF: 0 doxycycline hyclate 100 mg capsule 100 mg PO BID RF: 0 amoxicillin-pot clavulanate 250-125 mg tablet 1 tab PO BID RF: 0 acetaminophen 500 mg Tablet 1,000 mg PO Q6H PRN (Reason: Pain) RF: 0 magnesium 250 mg Tablet 500 mg PO HS RF: 0 Referrals Referrals: Soren Loja MD [Primary Care Provider] - The scribe's documentation has been prepared under my direction and personally reviewed by me in its entirety. I confirm that the note above accurately reflects all work, treatment, procedures, and medical decision making performed by me.
[2019-01-26] MEDS ORDERED: POLYETHYLENE (MIRALAX) 17 GM PACK PO STA (00:28)
[2019-01-26] MEDS ORDERED: PROMETHAZINE HCL 12.5 MG in SODIUM CHLORIDE 0.9% 50 ML IV PRN (00:28)
[2019-01-26] MEDS ORDERED: LORazepam 1 MG TAB PO PRN (00:28)
[2019-01-26] MEDS ORDERED: DOXYCYCLINE HYCLATE 100 MG CAP PO SCH (00:28)
[2019-01-26] MEDS ORDERED: SODIUM CHLORIDE 0.9% 500 ML IV ONE (00:28)
[2019-01-26] MEDS ORDERED: ACETAMINOPHEN 325 MG TAB PO PRN (00:28)
[2019-01-26] MEDS: HYDROCODONE/ACETAMOPHEN 5/325MG TAB PO PRN ×3 (00:41→18:47)
[2019-01-26] MEDS: LIDOCAINE 5% 1 PATCH TD SCH ×2 (01:21→09:08)
[2019-01-26] MEDS: AMIODARONE 200 MG TAB PO SCH ×3 (01:22→21:05)
[2019-01-26] MEDS: DOCUSATE SODIUM/SENNA 50/8.6MG TAB PO SCH ×3 (01:22→21:07)
[2019-01-26] MEDS: HYDROmorphone INJ 0.5 MG/0.5 ML SYR IV PRN ×4 (01:36→23:56)
[2019-01-26 01:49] LABS: Appearance Urine Clear (Clear); Bacteria Urine Automated Negative (Negative); Bilirubin Urine Negative (Negative); Cast Urine Automated 0 /lpf (0-5); Color Urine Yellow; Epithelial Cell Urine Auto 0-5 /lpf (0-5); Glucose Urine UA Negative (Negative); Ketones Urine Negative (Negative); Leukocyte Esterase Urine Negative (Negative); Nitrite Urine Negative (Negative); Protein Urine Negative (Negative); Specific Gravity Urine 1.015 (1.000-1.030); Urobilinogen Urine Negative (Negative); WBC Urine Automated 0 /hpf (0-5); pH Urine 7.5 (4.5-7.5)
[2019-01-26] MEDS: LEVOTHYROXINE SODIUM 25 MCG TABLET PO SCH (06:00)
[2019-01-26] MEDS: ISOSORBIDE DINITRATE 10 MG TAB PO SCH ×2 (06:00→11:10)
--- NOTE | 2019-01-26 06:14 | CT Scan Report ---
CT hip LT wo con CT DOSE: 182.70 mGy.cm HISTORY: Pain L hip pain TECHNIQUE: Multiaxial CT images of the left hip were performed and reformatted in the sagittal and co luis plane without the use of contrast. A dose lowering technique was utilized adhering to the prin ciples of RADHA. COMPARISON: None. FINDINGS: Severe degenerative change left hip. No complete loss of left hip joint space. No evidence for fracture or acetabular protrusion. No evidence for dislocation. Cortical margins appear intact. IMPRESSION: Significant degenerative change left hip. The above report was generated using voice recognition software. It may contain grammatical, syntax or spelling errors. Electronically signed by: Carmine Aleman M.D. 01/26/2019 6:13 AM
[2019-01-26 07:15] LABS: Eosinophils # (auto) 0.07 K/uL (0-0.5); Eosinophils % (auto) 0.8 %; Hematocrit (blood only) 31.3 % (42-52); Hemoglobin 10.5 g/dL (14.0-18.0); Immature Granulocytes # (auto) 0.06 K/uL (0.00-0.02); Immature Granulocytes % (auto) 0.7 %; Lymphocytes # (auto) 1.46 K/uL (1.2-3.4); Lymphocytes % (auto) 16.1 %; Mean Corpuscular Hgb Conc 33.5 g/dL (32-36); Mean Corpuscular Volume 92.1 fL (80-100); Mean Platelet Volume 10.8 fL (7.4-10.4); Monocytes % (auto) 8.8 %; Neutrophils # (auto) 6.68 K/uL (1.4-6.5); Neutrophils % (auto) 73.6 %; Platelet Count 130 K/uL (130-400); RDW Coefficient of Variation 15.9 % (11.5-14.5); RDW Standard Deviation 53.3 fL (36.4-46.3); White Blood Count 9.07 K/uL (4.8-10.8)
[2019-01-26 07:24] LABS: INR 1.8 (0.9-1.1); Prothrombin Time 17.6 Seconds (9.0-12.0)
[2019-01-26 07:40] LABS: BUN Creatinine Ratio 22.9 (10-20); Calcium 8.5 mg/dl (8.5-10.1); Creatinine Clr Calc Pharmacy 19.5 ml/min; Est GFR (African American) 23.3; Est GFR (Non-African American) 20.1; Potassium 3.4 mmol/L (3.5-5.1)
[2019-01-26] MEDS ORDERED: POTASSIUM CHLORIDE 20 MEQ TABCR PO STA (07:56)
[2019-01-26] MEDS: NYSTATIN SUSP 500,000 U/5 ML UDC BUCCAL SCH ×4 (09:06→21:06)
[2019-01-26] MEDS: DOXYCYCLINE HYCLATE 100 MG CAP PO SCH ×2 (09:06→21:07)
[2019-01-26] MEDS: ANORO ELLIPTA~ORDER AWAITING ACTION SCH ×3 (09:06→23:57)
[2019-01-26] MEDS: OXYBUTYNIN CHLORIDE 5 MG TAB PO SCH (09:07)
[2019-01-26] MEDS: ASPIRIN 81 MG ECTAB PO SCH (09:07)
[2019-01-26] MEDS: PANTOprazole 40 MG TAB PO SCH ×2 (09:07→21:06)
[2019-01-26] MEDS: ATORVASTATIN 40 MG TAB PO SCH (09:07)
[2019-01-26] MEDS: CARVEDILOL 12.5 MG TAB PO SCH ×2 (09:07→21:06)
[2019-01-26] MEDS ORDERED: MAGNESIUM HYDROXIDE SUSP 30 ML UDC PO ONE (10:36)
[2019-01-26] MEDS: PRAMIPEXOLE DIHYDROCHLO 0.25 MG TAB PO SCH ×2 (13:05→19:31)
[2019-01-26] MEDS: ROPINIROLE HCL 1 MG TABLET PO SCH ×2 (13:06→21:06)
--- NOTE | 2019-01-26 13:43 | Orthopedic Consultation ---
Date of Consultation January 26, 2019 Assessment & Plan (1) SI (sacroiliac) pain: Patient's hip pain is multifactorial. It would appear clinically he is having minimal discomfort from hip DJD. Patient does have significant pain overlying the left SI joint and left lower extremity lumbar radiculopathy. Recommend pain control, steroid taper if not contraindicated, Lidoderm patch, physical therapy when medically stable. If persists may require more acute evaluation by spine team versus outpatient follow-up. No further intervention for left hip DJD at this time. It would appear intra-articular corticosteroid injection he received 1 week prior still effectively controlling his hip DJD p ain. He may follow-up as needed for his left hip DJD, . Thank you for the consultation (2) Lumbar radiculopathy, acute: (3) Degenerative joint disease (DJD) of hip: History of Present Illness Reason for Consultation: Left hip pain Attending Physician: Quincy Yoo MD History of Present Illness The patient is an 83-year-old male with significant past medical history for chronic A. fib, on Coumadin, CAD with stent, history of lung cancer status post radiation, CHF, ICD, COPD, nocturnal hypoxemia, DDD and DJD. Presented to [facility] emergency department secondary to increasing left hip pain a nd left lower back pain with radiation down the left lower extremity. He does see nonoperative spine/pain management Dr. monet who provided him an intra- articular left hip injection 1 week prior to presentation for left hip pain. He reports prior relief of 7 months from his last hip injection. His pain today he describes as posterior left hip, radiates down to his foot. Denies trauma, denies groin pain. Allergies Allergy/AdvReac Type Severity Reaction Status Date / Time blue dye Allergy Mild SHORTNESS Verified 01/25/19 22:58 OF BREATH naproxen Allergy Mild SWELLING Verified 01/25/19 22:58 OF HANDS sumatriptan Allergy Mild SHORTNESS Verified 01/25/19 22:58 OF BREATH diphenhydramine AdvReac Intermediate MADE Verified 01/25/19 22:58 DEFIBRILLATOR FIRE pseudoephedrine AdvReac Intermediate MADE HIS Verified 01/25/19 22:58 DEFIB FIRE Home Medications Home Medications Medication Instructions Recorded Confirmed Type Arnuity Ellipta 1 inh INHALATION QAM 08/22/18 01/25/19 History albuterol sulfate 1 puff INHALATION Q6H PRN 08/22/18 01/25/19 History amiodarone 200 mg PO BID 08/22/18 01/25/19 History aspirin [Aspir-81] 81 mg PO QAM 08/22/18 01/25/19 History atorvastatin 40 mg PO QAM 08/22/18 01/25/19 History carvedilol [Coreg] 12.5 mg PO BID 08/22/18 01/25/19 History ipratropium-albuterol 3 ml INHALATION BID PRN 08/22/18 01/25/19 History isosorbide dinitrate 10 mg PO BID 08/22/18 01/25/19 History levothyroxine 12.5 mcg PO QAM 08/22/18 01/25/19 History lorazepam 1 mg PO HS 08/22/18 01/25/19 History metolazone 2.5 mg PO Q10D 08/22/18 01/25/19 History nitroglycerin [Nitrostat] 1 tab SUBLINGUAL UD PRN 08/22/18 01/25/19 History omeprazole 20 mg PO BID 08/22/18 01/25/19 History potassium chloride 20 meq PO BID 08/22/18 01/25/19 History pramipexole 0.125 mg PO BID 08/22/18 01/25/19 History torsemide 10 mg PO BID 08/22/18 01/25/19 History ropinirole 0.5 mg PO 1400 12/21/18 01/25/19 History ropinirole 2.5 mg PO HS 12/21/18 01/25/19 History acetaminophen 1,000 mg PO Q6H PRN 01/25/19 01/25/19 History amoxicillin-pot clavulanate 1 tab PO BID 01/25/19 01/25/19 History cholecalciferol (vitamin D3) 2,000 unit PO QAM 01/25/19 01/25/19 History [Vitamin D3] docusate sodium 100 mg PO BID 01/25/19 01/25/19 History doxycycline hyclate 100 mg PO BID 01/25/19 01/25/19 History hydrocodone-acetaminophen 1 tab PO Q8H 01/25/19 01/25/19 History iron,carbonyl-vitamin C [Vitron-C] 1 tab PO BID 01/25/19 01/25/19 History magnesium 500 mg PO HS 01/25/19 01/25/19 History nystatin 5 ml BUCCAL QID 01/25/19 01/25/19 History oxybutynin chloride 5 mg PO DAILY 01/25/19 01/25/19 History sennosides [Senokot] 8.6 mg PO BID PRN 01/25/19 01/25/19 History umeclidinium-vilanterol [Anoro 1 inh INHALATION QAM 01/25/19 01/25/19 History Ellipta] warfarin [Coumadin] 2 mg PO SUTUWEFRSA 01/25/19 01/25/19 History warfarin [Coumadin] 3 mg PO MOTH 01/25/19 01/25/19 History Patient History Medical History History of CVA (cerebrovascular accident) (Chronic) Chronic atrial fibrillation (Chronic) CKD (chronic kidney disease), stage IV (Chronic) Sciatica (Chronic) Hyperlipidemia (Chronic) Hypertension (Chronic) CAD (coronary artery disease) (Chronic) ASCVD with DE 2000, angioplasty of LAD and Dx, and PCI of PDA. Resultant severe ischemic CM. History of lung cancer (Chronic) ~2014 S/P RADIATION THERAPY History of stomach cancer (Chronic) 5056-1416. EXCISED WITH EGD. Hypothyroidism (Chronic) GERD (gastroesophageal reflux disease) (Chronic) Ischemic cardiomyopathy (Chronic) 2/2 DE 2000. S/P dual chamber ICD following presentation with syncope and LBBB. BiV pacer upgrade 2011, generator change 11/2017. Osteoarthritis (Chronic) Sleep apnea treated with nocturnal BiPAP (Chronic) "COMPLEX SLEEP APNEA SYNDROME" Renal artery stenosis (Chronic) Anemia of chronic disease (Chronic) On anticoagulant therapy (Chronic) Restless leg syndrome (Chronic) Carotid stenosis, bilateral (Chronic) MGUS (monoclonal gammopathy of unknown significance) (Chronic) Acute kidney injury superimposed on chronic kidney disease (Acute) Left hip pain (Acute) History of cardioversion (Resolved) Surgical History History of appendectomy (Chronic) History of total knee replacement (Chronic) RIGHT (DR. NAIR) 2016 History of implantable cardioverter-defibrillator (ICD) placement (Chronic) 2006. UNSURE OF LAST CHECKED. FOLLOWS WITH DR. UP. History of tonsillectomy (Chronic) History of cardiac cath (Resolved) 2000 WITH STENT PLACEMENT Family History Brother Family history of diabetes mellitus Social History Preferred Language: Greenlandic Communication Ability: Effective Manager Critical Care Required: No Beliefs That Will Affect Care: None Current Living Situation: Spouse Other Information That Helps Us Care for You: No Feels Safe at Home: Yes Safety Concerns: Feels Safe At This Time Smoking Status: Light tobacco smoker Tobacco Type: cigarettes Cigarettes Per Day: HX OF 1/2 PPD + X60 YEARS. SMOKING 3 CIGS DAILY Do You Dip or Chew Tobacco: No Second Hand Exposure: No Tobacco Cessation Education Requested by Patient: No Hx Alcohol Use: No Hx Substance Use: No Review of Systems Review of Systems: All systems reviewed & are unremarkable except as noted in HPI & below Constitutional: as per Subjective / HPI Physical Exam Physical Exam: LLE NVSI +EHL/FHL/TA/GS SILT grossly, +2 DP pulse, compartments soft NT, limited ROM left hip, +pain posterior with flexion and ext rot. +straight leg raise, +TTP L SI joint. Constitutional: WD/WN, vitals as above Results & Data Vital Signs (Past 12 Hours) Vital Signs Temp Pulse Resp BP Pulse Ox 01/26/19 11:53 36.5 C 76 18 118/74 91 01/26/19 07:13 36.4 C L 77 16 100/61 93 Diagnostic Findings XR hip LT 2-3V w pelvis CLINICAL HISTORY: l hip pain COMPARISON: None. DISCUSSION: There are moderate osteoarthritic changes present within the left hip. No acute fractures are visualized. Moderate to advanced degenerative changes are present within the lower lumbar spine IMPRESSION: 1. Moderate osteoarthritic change. No acute fractures identified. XR lumbar spine 2-3V CLINICAL HISTORY: lower back pain COMPARISON STUDY: No previous studies for comparison. FINDINGS: No acute fractures are visualized. There are moderately advanced degenerative changes at the L3-4, L4-5, and L5-S1 levels. There is no pathologic bowel dilatation. IMPRESSION: 1. No acute fractures 2. Moderately advanced degenerative changes at the L3-4, L4-5, and L5-S1 levels. CT hip LT wo con CT DOSE: 182.70 mGy.cm HISTORY: Pain L hip pain TECHNIQUE: Multiaxial CT images of the left hip were performed and reformatted in the sagittal and coronal plane without the use of contrast. A dose lowering technique was utilized adhering to the principles of ALARA. COMPARISON: None. FINDINGS: Severe degenerative change left hip. No complete loss of left hip joint space. No evidence for fracture or acetabular protrusion. No evidence for dislocation. Cortical margins appear intact. IMPRESSION: Significant degenerative change left hip.
--- NOTE | 2019-01-26 16:49 | Hospitalist Progress Note ---
Date of Service January 26, 2019 Assessment & Plan (1) Acute kidney injury superimposed on chronic kidney disease: This is an 83yo M [facility] patient with a PMH of chronic atrial fibrillation (on Coumadin), CAD (s/p stent), h/o lung cancer (s/p radiation), systolic CHF, ICD placement, COPD, nocturnal hypoxemia (on BiPAP HS), lumbar disc degeneration and other medical problems listed below who presents with worsening left hip pain and abnormal lab work and was found to have an JYOTHI on CKD IV. Acute kidney injury on Chronic Kidney disease stage IV -creatinine has trended down from 3.47 to 2.78 -will continue gentle IV fluids Hypokalemia -admission potassium 3.2, follow up potassium levels is 3.4 -continue to give additional potassium supplements, trend potassium levels sacroiliac pain with acute Lumbar radiculopathy and Degenerative joint disease (DJD) of hip -hx left sacroiliitis status post recent outpatient SI joint injection 01/16/19 -Moderately advanced degenerative changes at the L3-4, L4-5, and L5-S1 levels on lumbar X ray -Significant degenerative change left hip on CT scan - No further intervention for left hip DJD at this time as per orthopedics -pain control, continue Lidoderm patch, patient was able to do some activities with physical and occupation therapy which recommended inpatient physical rehabiltation due to pain and general decrease of function compared to baseline, pain management consult requested Chronic systolic heart failure secondary to ischemic cardiomyopathy EF 35 to 39% TTE October 2018 has ICD Chronic LBBB as per records CAD status post stent, PVD as per records -continue aspirin, atorvastatin, carvedilol, isosorbide dinitrate Hypertension stable -carvedilol, isosorbide dinitrate Atrial fibrillation -has pacemaker -heart rate controlled, INR slightly subtherapeutic at 1.8 -would continue to hold coumadin for now until certain that there are no surgical of epidura inteventions Olecranon bursitis right -Continue outpatient doxycycline Rx for olecranon bursitis History of stroke in the past -patient reports some residual right upper extremity weakness COPD/ARMANDO as per records past tobacco use -continue home dose Ellipta History of Gastric cancer in the past -patient reports stomach surgery in the past -has constipation lately; will give bowel regimen DVT prophylaxis. SCDs for now Full code Subjective Patient with lower back pain that is worse near left buttock and feels like the pain is deep. pain goes down the left leg. Patient was able to do some activities with physical and occupation therapy which recommended inpatient physical rehabiltation due to pain and general decrease of function compared to baseline. patient seen and examined laying on the bed. denies fever. denies headache or dizziness. denies chest pain or shortness or abdomen pain. Physical Exam Constitutional: well developed Eyes: PERRL, conjunctivae normal, anicteric sclerae EOM intact bilaterally ENMT: external ear and nose normal, oropharynx normal Respiratory: normal respiratory effort, lungs clear to auscultation Cardiovascular: Rate/Rhythm: regular rate Gastrointestinal (Abdomen): normal bowel sounds, soft, nontender, no hepatosplenomegaly Musculoskeletal: Head/Neck/Chest: normocephalic and head atraumatic Extremities: extremities normal to inspection Hip: + hip abnormal to inpsection (left hip/buttock pain that goes down the left leg) Neurologic: PERRL, EOMI, accommodation nl, no face palsy, no dysarthria Psychiatric: A+Ox3, euthymic affect Results & Data Vital Signs (Past 12 Hours) Vital Signs Temp Pulse Resp BP Pulse Ox 01/26/19 14:19 36.8 C 81 16 128/75 97 01/26/19 11:53 36.5 C 76 18 118/74 91 01/26/19 07:13 36.4 C L 77 16 100/61 93
[2019-01-26] MEDS: SODIUM CHLORIDE 0.9% 1000ML 1,000 ML IV SCH (17:34)
[2019-01-26] MEDS: POTASSIUM CHLORIDE 10 MEQ TABCR PO SCH (17:34)
[2019-01-27] MEDS: HYDROCODONE/ACETAMOPHEN 5/325MG TAB PO PRN ×4 (02:30→19:53)
[2019-01-27] MEDS: LEVOTHYROXINE SODIUM 25 MCG TABLET PO SCH (05:42)
[2019-01-27] MEDS: SODIUM CHLORIDE 0.9% 1000ML 1,000 ML IV SCH (05:44)
[2019-01-27] MEDS: HYDROmorphone INJ 0.5 MG/0.5 ML SYR IV PRN ×2 (05:47→09:36)
[2019-01-27 06:23] LABS: INR 1.6 (0.9-1.1); Prothrombin Time 16.1 Seconds (9.0-12.0)
[2019-01-27 06:58] LABS: BUN Creatinine Ratio 20.4 (10-20); Calcium 8.5 mg/dl (8.5-10.1); Creatinine Clr Calc Pharmacy 21.8 ml/min; Est GFR (African American) 26.8; Est GFR (Non-African American) 23.1; Magnesium 2.9 mg/dl (1.8-2.4); Potassium 4.2 mmol/L (3.5-5.1)
[2019-01-27] MEDS ORDERED: methylPREDNISolone 4 MG TAB, 6 DAY TAPER PO SCH (08:00)
[2019-01-27] MEDS: ISOSORBIDE DINITRATE 10 MG TAB PO SCH ×2 (08:17→13:03)
[2019-01-27] MEDS: methylPREDNISolone 4 MG TAB PO SCH ×4 (08:17→19:55)
[2019-01-27] MEDS: ANORO ELLIPTA~ORDER AWAITING ACTION SCH (08:22)
[2019-01-27] MEDS: AMIODARONE 200 MG TAB PO SCH ×2 (08:22→19:54)
[2019-01-27] MEDS: OXYBUTYNIN CHLORIDE 5 MG TAB PO SCH (08:23)
[2019-01-27] MEDS: CARVEDILOL 12.5 MG TAB PO SCH ×2 (08:23→19:54)
[2019-01-27] MEDS: ASPIRIN 81 MG ECTAB PO SCH (08:24)
[2019-01-27] MEDS: POTASSIUM CHLORIDE 10 MEQ TABCR PO SCH (08:25)
[2019-01-27] MEDS: ATORVASTATIN 40 MG TAB PO SCH (08:25)
[2019-01-27] MEDS: DOCUSATE SODIUM/SENNA 50/8.6MG TAB PO SCH ×2 (08:26→19:57)
[2019-01-27] MEDS: PANTOprazole 40 MG TAB PO SCH ×2 (08:26→19:57)
[2019-01-27] MEDS: DOXYCYCLINE HYCLATE 100 MG CAP PO SCH ×2 (08:27→19:58)
[2019-01-27] MEDS: DICLOFENAC SOD 1% GEL 100 GM TUBE EXT SCH ×3 (08:29→20:13)
[2019-01-27] MEDS: NYSTATIN SUSP 500,000 U/5 ML UDC BUCCAL SCH ×4 (08:33→19:55)
--- NOTE | 2019-01-27 09:17 | Pain Management Consultation ---
Date of Consultation January 27, 2019 Assessment & Plan (1) SI (sacroiliac) pain: 1. Patient with evidence of left SI joint pain based on physical exam findings as well as reported history of significant reduction of pain for short duration status post a reported left SI joint injection. Diagnostic outcome of prior injections appears to indicate his pain is SI joint driven. He is not a candidate for radio frequency ablation of the left SI joint location due to his ICD. Patient is a poor candidate for any current interventional treatments due to his recent history of reported olecranon bursitis on antibiotic therapy. 2. Will discontinue Lidoderm patch and initiate Voltaren gel applied to the left SI joint location 3 times daily 3. Will initiate a Medrol Dosepak 4. Patient may continue with hydrocodone for as needed breakthrough pain Present on Admission?: Yes (2) Degenerative joint disease (DJD) of hip: Present on Admission?: Yes (3) Lumbar radicular pain: Present on Admission?: Yes (4) History of implantable cardioverter-defibrillator (ICD) placement: Present on Admission?: Yes History of Present Illness Reason for Consultation: Intractable low back pain Attending Physician: Quincy Yoo MD History of Present Illness Mr. Silva is an 83-year-old white male who was admitted due to intractable left lumbosacral pain extending towards the gluteal and hip region. The patient reports history of chronic pain over the past 1 year in this location. Patient has been followed by Dr. Lindquist in the outpatient setting who recently performed an injection which sounded to be like an SI joint injection last week. The patient reported significant relief of his typical pain for 5-6 days only with gradual recurrence. Patient presented to the emergency department due to intractable pain in his location and difficulty ambulating due to increased pain. He describes the pain as aching and sharp in the left lumbosacral region with occasional radiation in the lateral left leg to the ankle. His pain is 80% axial and 20% in the left leg. Patient denies a known injury or a fall. He denies right lower extremity radicular pain symptoms. Patient denies any bowel or bladder incontinence or saddle anesthesias. The patient did report some imaging of his lumbar spine in the outpatient setting within the past few months. The patient denies any bowel or bladder incontinence or saddle anesthesias. Patient reports the hydrocodone is moderately effective at diminishing his pain. He is tolerating the medication without notable side effects. Patient denies chronic use of opiate therapy in the outpatient setting. Plan of care discussed with Dr. Vasques. Pain Assessment Full Body Front + Back: 1. Left lumbosacral/SI joint region 2. Left lateral leg in an L5 distribution Pain scale - at its best (0-10): 3 Pain scale - at its worst (0-10): 8 Allergies Allergy/AdvReac Type Severity Reaction Status Date / Time blue dye Allergy Mild SHORTNESS Verified 01/25/19 22:58 OF BREATH naproxen Allergy Mild SWELLING Verified 01/25/19 22:58 OF HANDS sumatriptan Allergy Mild SHORTNESS Verified 01/25/19 22:58 OF BREATH diphenhydramine AdvReac Intermediate MADE Verified 01/25/19 22:58 DEFIBRILLATOR FIRE pseudoephedrine AdvReac Intermediate MADE HIS Verified 01/25/19 22:58 DEFIB FIRE Home Medications Home Medications Medication Instructions Recorded Confirmed Type Arnuity Ellipta 1 inh INHALATION QAM 08/22/18 01/25/19 History albuterol sulfate 1 puff INHALATION Q6H PRN 08/22/18 01/25/19 History amiodarone 200 mg PO BID 08/22/18 01/25/19 History aspirin [Aspir-81] 81 mg PO QAM 08/22/18 01/25/19 History atorvastatin 40 mg PO QAM 08/22/18 01/25/19 History carvedilol [Coreg] 12.5 mg PO BID 08/22/18 01/25/19 History ipratropium-albuterol 3 ml INHALATION BID PRN 08/22/18 01/25/19 History isosorbide dinitrate 10 mg PO BID 08/22/18 01/25/19 History levothyroxine 12.5 mcg PO QAM 08/22/18 01/25/19 History lorazepam 1 mg PO HS 08/22/18 01/25/19 History metolazone 2.5 mg PO Q10D 08/22/18 01/25/19 History nitroglycerin [Nitrostat] 1 tab SUBLINGUAL UD PRN 08/22/18 01/25/19 History omeprazole 20 mg PO BID 08/22/18 01/25/19 History potassium chloride 20 meq PO BID 08/22/18 01/25/19 History pramipexole 0.125 mg PO BID 08/22/18 01/25/19 History torsemide 10 mg PO BID 08/22/18 01/25/19 History ropinirole 0.5 mg PO 1400 12/21/18 01/25/19 History ropinirole 2.5 mg PO HS 12/21/18 01/25/19 History acetaminophen 1,000 mg PO Q6H PRN 01/25/19 01/25/19 History amoxicillin-pot clavulanate 1 tab PO BID 01/25/19 01/25/19 History cholecalciferol (vitamin D3) 2,000 unit PO QAM 01/25/19 01/25/19 History [Vitamin D3] docusate sodium 100 mg PO BID 01/25/19 01/25/19 History doxycycline hyclate 100 mg PO BID 01/25/19 01/25/19 History hydrocodone-acetaminophen 1 tab PO Q8H 01/25/19 01/25/19 History iron,carbonyl-vitamin C [Vitron-C] 1 tab PO BID 01/25/19 01/25/19 History magnesium 500 mg PO HS 01/25/19 01/25/19 History nystatin 5 ml BUCCAL QID 01/25/19 01/25/19 History oxybutynin chloride 5 mg PO DAILY 01/25/19 01/25/19 History sennosides [Senokot] 8.6 mg PO BID PRN 01/25/19 01/25/19 History umeclidinium-vilanterol [Anoro 1 inh INHALATION QAM 01/25/19 01/25/19 History Ellipta] warfarin [Coumadin] 2 mg PO SUTUWEFRSA 01/25/19 01/25/19 History warfarin [Coumadin] 3 mg PO MOTH 01/25/19 01/25/19 History Pain History Pain Intensity Pain scale - at its best (0-10): 3 Pain scale - at its worst (0-10): 8 Patient History Medical History History of cardioversion (Resolved) Acute kidney injury superimposed on chronic kidney disease (Acute) Left hip pain (Acute) History of CVA (cerebrovascular accident) (Chronic) Chronic atrial fibrillation (Chronic) CKD (chronic kidney disease), stage IV (Chronic) Sciatica (Chronic) Hyperlipidemia (Chronic) Hypertension (Chronic) CAD (coronary artery disease) (Chronic) ASCVD with RI 2000, angioplasty of LAD and Dx, and PCI of PDA. Resultant severe ischemic CM. History of lung cancer (Chronic) ~2014 S/P RADIATION THERAPY History of stomach cancer (Chronic) [id number]. EXCISED WITH EGD. Hypothyroidism (Chronic) GERD (gastroesophageal reflux disease) (Chronic) Ischemic cardiomyopathy (Chronic) 2/2 RI 2000. S/P dual chamber ICD following presentation with syncope and LBBB. BiV pacer upgrade 2011, generator change 11/2017. Osteoarthritis (Chronic) Sleep apnea treated with nocturnal BiPAP (Chronic) "COMPLEX SLEEP APNEA SYNDROME" Renal artery stenosis (Chronic) Anemia of chronic disease (Chronic) On anticoagulant therapy (Chronic) Restless leg syndrome (Chronic) Carotid stenosis, bilateral (Chronic) MGUS (monoclonal gammopathy of unknown significance) (Chronic) Surgical History History of cardiac cath (Resolved) 2000 WITH STENT PLACEMENT History of appendectomy (Chronic) History of total knee replacement (Chronic) RIGHT (DR. NAIR) 2016 History of implantable cardioverter-defibrillator (ICD) placement (Chronic) 2006. UNSURE OF LAST CHECKED. FOLLOWS WITH DR. UP. 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 SMOKING 3 CIGS DAILY Do You Dip or Chew Tobacco: No Second Hand Exposure: No Tobacco Cessation Education Requested by Patient: No Hx Alcohol Use: No Hx Substance Use: No Physical Exam Physical Exam: General: Patient lying quietly in exam room in no acute distress. Speech and thought process appropriate. Mood and affect appropriate. Cognition intact. Head: Normocephalic and atraumatic. ENT: No evidence of nasal or oral mucosal lesions. Mucous membranes are moist. Eyes: Pupils equal round reactive to light. Neck: Supple without adenopathy and full range of motion. Abdomen: Soft and nondistended. No organomegaly. Bowel sounds active. Back/spine: Loss of lumbar lordosis. Patient able to logroll towards his left for physical examination. Lidoderm patch in place in the left lumbosacral region. Patient is nontender over the midline to palpation or percussion. There is no focal facet joint tenderness provocative testing. Nontender in the paravertebral, quadratus and form gluteal musculature. Patient is tender to direct palpation of the left SI joint to provocative testing and nontender on the right. Lower extremities: SLR negative bilaterally. Strength testing 5/5 with dorsiflexion, plantarflexion and hip flexion/extension. Sensation was intact without focal deficit. Left hip minimally tender with internal and external rotation with limited range of motion. Neurologic: Cranial nerves grossly intact. Ambulatory function not witnessed. Results Diagnostic Review CT: non enhanced and reports reviewed CT Findings: [place], [place] [phone] CT Scan Report Patient: PAMELA SILVA Date: 01/25/19 MR#: [id number]: [address] Acct ID:[id number]: Date: 1935[facility] Zip: [place] [address] Age: 83Location: 4E Sex: M Room/Bed: [facility] Att Phy: Quincy Yoo M.D.Diagnosis: ARF Ivon Phy: Soren Loja, MDService Date: 01/25/19 Fam Phy: Interpreting Phy: Carmine Aleman MD Admit Phy: Leonidas Mishra M.D. Ordering Phy: Leonidas Mishra M.D. cc: ~ CT hip LT wo con CT DOSE: 182.70 mGy.cm HISTORY: Pain L hip pain TECHNIQUE: Multiaxial CT images of the left hip were performed and reformatted in the sagittal and coronal plane without the use of contrast. A dose lowering technique was utilized adhering to the principles of ALARA. COMPARISON: None. FINDINGS: Severe degenerative change left hip. No complete loss of left hip joint space. No evidence for fracture or acetabular protrusion. No evidence for dislocation. Cortical margins appear intact. IMPRESSION: Significant degenerative change left hip. The above report was generated using voice recognition software. It may contain grammatical, syntax or spelling errors. Electronically signed by: Carmine Aleman M.D. 01/26/2019 6:13 AM Dictated: 01/26/19608 Transcribed: 01/26/19608 Radiology: reports reviewed Radiology Findings: [facility], [place] [phone] XRay Report Patient: PAMELA SILVA Date: 01/25/19 MR#: [id number]: [address] Acct ID:[id number]: Date: [address] [place] [address] Zip: [place] [address] Age: 83Location: ED Sex: M Room/Bed: Att Phy: Diagnosis: LEFT HIP PAIN, ABNORMAL LABS Ivon Phy: Soren Loja MDService Date: 01/25/19 Fam Phy: Interpreting Phy: Magnus Lutz MD Admit Phy: Ordering Phy: Jonah Navarrete, cc: ~ XR lumbar spine 2-3V CLINICAL HISTORY: lower back pain COMPARISON STUDY: No previous studies for comparison. FINDINGS: No acute fractures are visualized. There are moderately advanced degenerative changes at the L3-4, L4-5, and L5-S1 levels. There is no pathologic bowel dilatation. IMPRESSION: 1. No acute fractures 2. Moderately advanced degenerative changes at the L3-4, L4-5, and L5-S1 levels. Electronically signed by: Magnus Lutz M.D. 01/25/2019 7:42 PM Dictated: 01/25/191941 Transcribed: 01/25/191941 [facility], [place] [phone] XRay Report Patient: PAMELA SILVA Date: 01/25/19 MR#: [id number]: [address] Acct ID:[id number]: Date: 1935[facility] Zip: [place] [address] Age: 83Location: ED Sex: M Room/Bed: Att Phy: Diagnosis: LEFT HIP PAIN, ABNORMAL LABS Ivon Phy: Soren Loja, MDService Date: 01/25/19 [facility] Phy: Interpreting Phy: Magnus Lutz MD Admit Phy: Ordering Phy: Jonah Navarrete, DO cc: ~ XR hip LT 2-3V w pelvis CLINICAL HISTORY: l hip pain COMPARISON: None. DISCUSSION: There are moderate osteoarthritic changes present within the left hip. No acute fractures are visualized. Moderate to advanced degenerative changes are present within the lower lumbar spine IMPRESSION: 1. Moderate osteoarthritic change. No acute fractures identified. Electronically signed by: Magnus Lutz M.D. 01/25/2019 7:42 PM Dictated: 01/25/191940 Transcribed: 01/25/191940 Review of System Constitutional: Negative for fever, chills, sweats Eyes: Negative for eye pain, photophobia, drainage Ear, nose, mouth, throat: Negative for ear pain, nasal congestion, mouth lesions, change in voice Respiratory: Negative for wheezing, sputum production Cardiovascular: Negative for chest pain, palpitations, calf pain Gastrointestinal: Negative for abdominal pain, belching, bloating Genitourinary: Negative for dysuria, urinary incontinence, urinary urgency Musculoskeletal: Negative for deformities Integumentary: Negative for nail changes, skin yellowing, pruritus Neurological: Negative for abnormal speech, seizure type activity
[2019-01-27] MEDS ORDERED: ALBUTEROL HFA 8 GM INHALER INH PRN (09:44)
[2019-01-27] MEDS: FLUTICASONE/SALMETEROL 100/50 (ADVAIR) 14 PUFF/1 INHALER INH SCH ×2 (10:08→19:56)
[2019-01-27] MEDS: TIOTROPIUM BROMIDE 5 PUFF/90 MCG INH INH SCH (10:09)
[2019-01-27] MEDS ORDERED: FUROSEMIDE 40 MG in SYRINGE 0 ML IV ONE (10:15)
--- NOTE | 2019-01-27 10:47 | Hospitalist Progress Note ---
Date of Service January 27, 2019 Assessment & Plan (1) Acute kidney injury superimposed on chronic kidney disease: This is an 83yo M [facility] patient with a PMH of chronic atrial fibrillation (on Coumadin), CAD (s/p stent), h/o lung cancer (s/p radiation), systolic CHF, ICD placement, COPD, nocturnal hypoxemia (on BiPAP HS), lumbar disc degeneration and other medical problems listed below who presents with worsening left hip pain and abnormal lab work and was found to have an JYOTHI on CKD IV. Acute kidney injury on Chronic Kidney disease stage IV -creatinine has trended down from 3.47 to 2.78 by 01/26/19 while on IV fluids -was continue on IV fluids and creatinine downtrended to 2.48. however patient more subjective short of breath and IV fluids stopped on 01/27/19 and patient given Lasix IV 40 mg x 1 Hypokalemia -admission potassium 3.2, follow up potassium levels is 3.4 by 01/26/19, and additional potassium supplements were given -by 01/27/19 serum potassium normalized to 4.2 sacroiliac pain with acute Lumbar radiculopathy and Degenerative joint disease (DJD) of hip -hx left sacroiliitis status post recent outpatient SI joint injection 01/16/19 -Moderately advanced degenerative changes at the L3-4, L4-5, and L5-S1 levels on lumbar X ray -Significant degenerative change left hip on CT scan - No further intervention for left hip DJD at this time as per orthopedics -01/26/19 patient was able to do some activities with physical and occupation therapy which recommended inpatient physical rehabiltation due to pain and general decrease of function compared to baseline -01/27/19 pain management consult discontinue Lidoderm patch and initiate Voltaren gel applied to the left SI joint location 3 times daily, initiate a Medrol Dosepak, continue with hydrocodone for as needed breakthrough pain Chronic systolic heart failure secondary to ischemic cardiomyopathy EF 35 to 39% TTE October 2018 has ICD Chronic LBBB as per records CAD status post stent, PVD as per records -continue aspirin, atorvastatin, carvedilol, isosorbide dinitrate -home dose torsemide was held due to JYOTHI, 40 mg IV Lasix x1 given on 01/27/19, and will get chest X ray Hypertension stable -carvedilol, isosorbide dinitrate Atrial fibrillation -has pacemaker -heart rate controlled -resume coumadin as 3 mg daily starting on 01/27/19 as there are no surgical interventions by orthopedics or any steroid injections by pain management Olecranon bursitis right -Continue outpatient doxycycline Rx for olecranon bursitis History of stroke in the past -patient reports some residual right upper extremity weakness COPD/ARMANDO as per records past tobacco use -continue home dose Ellipta 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 resume coumadin as 3 mg daily starting on 01/27/19 Full code Subjective Patient more subjective short of breath today. and nurse had patient on nasal cannula. patient sitting up in chair and able to lean forward for lung exam. patient with some mild swelling of left ankle. Patient denies chest pain. no abdomen pain. no vomiting. patient continues to have low back pain Physical Exam Constitutional: well developed Eyes: PERRL, conjunctivae normal, anicteric sclerae EOM intact bilaterally ENMT: external ear and nose normal, oropharynx normal Respiratory: normal respiratory effort, lungs clear to auscultation Cardiovascular: Rate/Rhythm: regular rate Gastrointestinal (Abdomen): normal bowel sounds, soft, nontender, no hepatosplenomegaly Musculoskeletal: Head/Neck/Chest: normocephalic and head atraumatic Extremities: extremities normal to inspection Hip: + hip abnormal to inpsection (left hip/buttock pain that goes down the left leg) Ankle: + ankle abnormal to inspection (mild left ankle edema) Neurologic: PERRL, EOMI, accommodation nl, no face palsy, no dysarthria Psychiatric: A+Ox3, euthymic affect Results & Data Vital Signs (Past 12 Hours) Vital Signs Temp Pulse Resp BP Pulse Ox 01/27/19 07:00 36.5 C 70 20 111/68 91 01/26/19 23:15 36.8 C 82 20 132/73 92
--- NOTE | 2019-01-27 11:20 | XRay Report ---
XR chest 2V routine CLINICAL HISTORY: shortness of breath. right rib pain COMPARISON STUDY: 01/25/2019 FINDINGS: The heart is enlarged. There is a left subclavian pacer/defibrillator present. There is asy mmetric interstitial thickening right greater than left. There are trace pleural effusions. There is a stable indeterminate 3.5 cm right upper lung zone opacity[. There is a right fourth rib fracture. I n retrospect this was visualized on the prior study. There is no pneumothorax IMPRESSION: 1. Subtle asymmetric interstitial edema with trace bilateral pleural effusions 2. Stable indeterminate 3.5 cm right midlung zone opacity 3. Right fourth rib fracture. No pneumothorax identified. Electronically signed by: Magnus Lutz M.D. 01/27/2019 11:19 AM
[2019-01-27] MEDS: LIDOCAINE 5% 1 PATCH TD SCH (13:07)
[2019-01-27] MEDS: PRAMIPEXOLE DIHYDROCHLO 0.25 MG TAB PO SCH ×2 (14:40→20:07)
[2019-01-27] MEDS: ROPINIROLE HCL 1 MG TABLET PO SCH ×3 (14:41→20:06)
[2019-01-27] MEDS: WARFARIN SOD 3 MG TAB PO SCH (17:40)
[2019-01-28] MEDS: LEVOTHYROXINE SODIUM 25 MCG TABLET PO SCH (05:36)
[2019-01-28] MEDS: ISOSORBIDE DINITRATE 10 MG TAB PO SCH ×2 (05:37→12:02)
[2019-01-28] MEDS: methylPREDNISolone 4 MG TAB PO SCH ×3 (05:38→18:02)
[2019-01-28 06:13] LABS: INR 1.5 (0.9-1.1); Prothrombin Time 14.7 Seconds (9.0-12.0)
[2019-01-28 06:37] LABS: BUN Creatinine Ratio 21.4 (10-20); Calcium 8.6 mg/dl (8.5-10.1); Creatinine Clr Calc Pharmacy 18.7 ml/min; Est GFR (African American) 22.3; Est GFR (Non-African American) 19.2; Potassium 4.4 mmol/L (3.5-5.1)
--- NOTE | 2019-01-28 07:44 | Hospitalist Progress Note ---
Date of Service January 28, 2019 Assessment & Plan (1) Acute kidney injury superimposed on chronic kidney disease: This is an 83yo M [facility] patient with a PMH of chronic atrial fibrillation (on Coumadin), CAD (s/p stent), h/o lung cancer (s/p radiation), systolic CHF, ICD placement, COPD, nocturnal hypoxemia (on BiPAP HS), lumbar disc degeneration and other medical problems listed below who presents with worsening left hip pain and abnormal lab work and was found to have an JYOTHI on CKD IV. Acute kidney injury on Chronic Kidney disease stage IV -creatinine has trended down from 3.47 to 2.78 by 01/26/19 while on IV fluids -was continue on IV fluids and creatinine downtrended to 2.48. however patient more subjective short of breath and IV fluids stopped on 01/27/19 and patient given Lasix IV 40 mg x 1 -creatinine is 2.89 on 01/28/19 and patient appears euvolemic and will hold the diuretics Chronic systolic heart failure secondary to ischemic cardiomyopathy EF 35 to 39% TTE October 2018 has ICD Chronic LBBB as per records CAD status post stent, PVD as per records -continue aspirin, atorvastatin, carvedilol, isosorbide dinitrate -home dose torsemide was held due to JYOTHI, 40 mg IV Lasix x1 given on 01/27/19 -01/28/19: appears generally euvolemic and will hold diuretics at this time because of JYOTHI Hypokalemia -admission potassium 3.2 on admission and patient had potassium supplements on this admission -hypokalemia has resolved sacroiliac pain with acute Lumbar radiculopathy and Degenerative joint disease (DJD) of hip -hx left sacroiliitis status post recent outpatient SI joint injection 01/16/19 -Moderately advanced degenerative changes at the L3-4, L4-5, and L5-S1 levels on lumbar X ray -Significant degenerative change left hip on CT scan - No further intervention for left hip DJD at this time as per orthopedics -01/26/19 patient was able to do some activities with physical and occupation therapy which recommended inpatient physical rehabiltation due to pain and general decrease of function compared to baseline -01/27/19 pain management consult discontinue Lidoderm patch and initiate Voltaren gel applied to the left SI joint location 3 times daily, initiate a Medrol Dosepak, continue with hydrocodone for as needed breakthrough pain Right Rib Fracture of fourth rib -give incentive spirometry and pain control medications History of Lung cancer in the past stable infiltrate of upper lobe of right lung present on imaging -patient had radiation to right upper lung -this has led to stable infiltrate of upper lobe of right lung present on imaging seen in the past on CT and PET scans -CXR 01/27/19 stable 3.5 centimeter right upper lung opacity COPD/ARMANDO as per records -past tobacco use -continue home dose Ellipta Hypertension stable -carvedilol, isosorbide dinitrate Atrial fibrillation -has ICD -heart rate controlled -resumed coumadin as 3 mg daily starting on 01/27/19 as there are no surgical interventions by orthopedics or any steroid injections by pain management Olecranon bursitis of right elbow -Continue outpatient doxycycline Rx for olecranon bursitis History of stroke in the past -patient reports some residual right upper extremity weakness 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 continue coumadin as 3 mg daily starting on 01/27/19 Full code Disposition: awaiting placement to physical therapy center or penitentiary facility for inpatient physical rehabilitation Subjective Patient breathing on room air. Incentive spirometry at bedside. Patient reports that yesterday he was able to walk with nurse to the bathroom. Have been in the bed since night time. Patient reports that the back and leg pain has improved with current pain medications but still some sensation of numbness down the left leg. minimal left ankle edema. patient denies shortness of breath. No chest pain. rib cage with no pain. no vomiting. no fever. no dizziness. no lightheadedness Physical Exam Constitutional: well developed Eyes: PERRL, conjunctivae normal, anicteric sclerae EOM intact bilaterally ENMT: external ear and nose normal, oropharynx normal Respiratory: normal respiratory effort, lungs clear to auscultation Cardiovascular: Rate/Rhythm: regular rate Gastrointestinal (Abdomen): normal bowel sounds, soft, nontender, no hepatosplenomegaly Musculoskeletal: Head/Neck/Chest: normocephalic and head atraumatic Extremities: extremities normal to inspection Hip: + hip abnormal to inpsection (left hip/buttock pain that goes down the left leg improving) Ankle: + ankle abnormal to inspection (mild left ankle edema) Neurologic: PERRL, EOMI, accommodation nl, no face palsy, no dysarthria Psychiatric: A+Ox3, euthymic affect Results & Data Vital Signs (Past 12 Hours) Vital Signs Temp Pulse Pulse Resp BP BP Pulse Ox 01/28/19 07:31 36.4 C L 64 20 120/62 97 01/27/19 23:40 36.3 C L 63 20 98/61 L 96
[2019-01-28] MEDS: FLUTICASONE/SALMETEROL 100/50 (ADVAIR) 14 PUFF/1 INHALER INH SCH ×2 (08:52→20:21)
[2019-01-28] MEDS: AMIODARONE 200 MG TAB PO SCH ×2 (08:57→20:12)
[2019-01-28] MEDS: CARVEDILOL 12.5 MG TAB PO SCH ×2 (08:58→20:12)
[2019-01-28] MEDS: OXYBUTYNIN CHLORIDE 5 MG TAB PO SCH (08:58)
[2019-01-28] MEDS: ASPIRIN 81 MG ECTAB PO SCH (08:59)
[2019-01-28] MEDS: POTASSIUM CHLORIDE 10 MEQ TABCR PO SCH (08:59)
[2019-01-28] MEDS: ATORVASTATIN 40 MG TAB PO SCH (08:59)
[2019-01-28] MEDS: PANTOprazole 40 MG TAB PO SCH ×2 (09:00→20:14)
[2019-01-28] MEDS: DOCUSATE SODIUM/SENNA 50/8.6MG TAB PO SCH ×2 (09:00→20:16)
[2019-01-28] MEDS: TIOTROPIUM BROMIDE 5 PUFF/90 MCG INH INH SCH (09:00)
[2019-01-28] MEDS: DOXYCYCLINE HYCLATE 100 MG CAP PO SCH ×2 (09:01→20:15)
[2019-01-28] MEDS: HYDROCODONE/ACETAMOPHEN 5/325MG TAB PO PRN ×2 (09:01→19:26)
[2019-01-28] MEDS: POLYETHYLENE (MIRALAX) 17 GM PACK PO PRN (09:02)
[2019-01-28] MEDS: LIDOCAINE 5% 1 PATCH TD SCH (09:04)
[2019-01-28] MEDS: NYSTATIN SUSP 500,000 U/5 ML UDC BUCCAL SCH ×4 (09:06→20:12)
[2019-01-28] MEDS: DICLOFENAC SOD 1% GEL 100 GM TUBE EXT SCH ×3 (10:00→20:16)
[2019-01-28] MEDS: HYDROmorphone INJ 0.5 MG/0.5 ML SYR IV PRN (11:23)
[2019-01-28] MEDS: PRAMIPEXOLE DIHYDROCHLO 0.25 MG TAB PO SCH ×2 (13:32→20:21)
[2019-01-28] MEDS: WARFARIN SOD 3 MG TAB PO SCH (18:00)
[2019-01-28] MEDS: ROPINIROLE HCL 1 MG TABLET PO SCH (20:14)
[2019-01-28] MEDS ORDERED: methylPREDNISolone 4 MG TAB PO SCH (21:00)
[2019-01-29] MEDS: HYDROCODONE/ACETAMOPHEN 5/325MG TAB PO PRN (02:41)
[2019-01-29] MEDS: HYDROmorphone INJ 0.5 MG/0.5 ML SYR IV PRN (05:23)
[2019-01-29] MEDS: methylPREDNISolone 4 MG TAB PO SCH ×4 (05:26→20:37)
[2019-01-29] MEDS: LEVOTHYROXINE SODIUM 25 MCG TABLET PO SCH (05:26)
[2019-01-29] MEDS: ISOSORBIDE DINITRATE 10 MG TAB PO SCH ×2 (05:27→12:29)
[2019-01-29 06:26] LABS: INR 1.7 (0.9-1.1); Prothrombin Time 16.5 Seconds (9.0-12.0)
[2019-01-29 06:34] LABS: BUN Creatinine Ratio 24.6 (10-20); Calcium 8.6 mg/dl (8.5-10.1); Creatinine Clr Calc Pharmacy 18.7 ml/min; Est GFR (African American) 22.2; Est GFR (Non-African American) 19.1; Potassium 4.9 mmol/L (3.5-5.1)
[2019-01-29] MEDS: AMIODARONE 200 MG TAB PO SCH ×2 (09:10→20:37)
[2019-01-29] MEDS: FLUTICASONE/SALMETEROL 100/50 (ADVAIR) 14 PUFF/1 INHALER INH SCH ×2 (09:10→20:37)
[2019-01-29] MEDS: CARVEDILOL 12.5 MG TAB PO SCH ×2 (09:10→20:37)
[2019-01-29] MEDS: ASPIRIN 81 MG ECTAB PO SCH (09:11)
[2019-01-29] MEDS: OXYBUTYNIN CHLORIDE 5 MG TAB PO SCH (09:11)
[2019-01-29] MEDS: POTASSIUM CHLORIDE 10 MEQ TABCR PO SCH (09:12)
[2019-01-29] MEDS: ATORVASTATIN 40 MG TAB PO SCH (09:12)
[2019-01-29] MEDS: TIOTROPIUM BROMIDE 5 PUFF/90 MCG INH INH SCH (09:13)
[2019-01-29] MEDS: DOCUSATE SODIUM/SENNA 50/8.6MG TAB PO SCH ×2 (09:13→17:47)
[2019-01-29] MEDS: PANTOprazole 40 MG TAB PO SCH ×2 (09:13→20:36)
[2019-01-29] MEDS: DOXYCYCLINE HYCLATE 100 MG CAP PO SCH ×2 (09:15→20:36)
[2019-01-29] MEDS: LIDOCAINE 5% 1 PATCH TD SCH (09:16)
[2019-01-29] MEDS: NYSTATIN SUSP 500,000 U/5 ML UDC BUCCAL SCH ×4 (09:19→20:37)
[2019-01-29] MEDS: DICLOFENAC SOD 1% GEL 100 GM TUBE EXT SCH ×3 (09:20→20:38)
[2019-01-29] MEDS: POLYETHYLENE (MIRALAX) 17 GM PACK PO PRN (09:26)
[2019-01-29] MEDS ORDERED: ALBUT/IPRATROP 3MG/0.5MG NEB 3 ML VIAL NEB STA (11:45)
[2019-01-29] MEDS ORDERED: LACTULOSE SYRUP 30 GM/45 ML UDP PO STA (11:54)
--- NOTE | 2019-01-29 12:15 | Hospitalist Progress Note ---
Date of Service January 29, 2019 Assessment & Plan (1) Acute kidney injury superimposed on chronic kidney disease: This is an 83yo M [facility] patient with a PMH of chronic atrial fibrillation (on Coumadin), CAD (s/p stent), h/o lung cancer (s/p radiation), systolic CHF, ICD placement, COPD, nocturnal hypoxemia (on BiPAP HS), lumbar disc degeneration and other medical problems listed below who presents with worsening left hip pain and abnormal lab work and was found to have an JYOTHI on CKD IV. Acute kidney injury on Chronic Kidney disease stage IV -creatinine has trended down from 3.47 to 2.78 by 01/26/19 while on IV fluids -was continue on IV fluids and creatinine downtrended to 2.48. however patient more subjective short of breath and IV fluids stopped on 01/27/19 and patient given Lasix IV 40 mg x 1 -creatinine is 2.89 on 01/28/19 and patient appears euvolemic and will hold the diuretics -01/29/19: creatinine is 2.9; 40mg Lasix IV because of more pre-tibial edema and some shortness of breath Chronic systolic heart failure secondary to ischemic cardiomyopathy EF 35 to 39% TTE October 2018 has ICD Chronic LBBB as per records CAD status post stent, PVD as per records -continue aspirin, atorvastatin, carvedilol, isosorbide dinitrate -home dose torsemide was held due to JYOTHI, 40 mg IV Lasix x1 given on 01/27/19 -01/28/19: appears generally euvolemic and will hold diuretics at this time because of JYOTHI -01/29/19: 40mg Lasix IV because of more pre-tibial edema and some shortness of breath Hypokalemia -admission potassium 3.2 on admission and patient had potassium supplements on this admission -hypokalemia has resolved sacroiliac pain with acute Lumbar radiculopathy and Degenerative joint disease (DJD) of hip -hx left sacroiliitis status post recent outpatient SI joint injection 01/16/19 -Moderately advanced degenerative changes at the L3-4, L4-5, and L5-S1 levels on lumbar X ray -Significant degenerative change left hip on CT scan - No further intervention for left hip DJD at this time as per orthopedics -01/26/19 patient was able to do some activities with physical and occupation therapy which recommended inpatient physical rehabiltation due to pain and general decrease of function compared to baseline -01/27/19 pain management consult discontinue Lidoderm patch and initiate Voltaren gel applied to the left SI joint location 3 times daily, initiate a Medrol Dosepak, continue with hydrocodone for as needed breakthrough pain -awaiting placement to physical therapy center or snf facility for inpatient physical rehabilitation Right Rib Fracture of fourth rib -incentive spirometry and pain control medications History of Lung cancer in the past stable infiltrate of upper lobe of right lung present on imaging -patient had radiation to right upper lung -this has led to stable infiltrate of upper lobe of right lung present on imaging seen in the past on CT and PET scans -CXR 01/27/19 stable 3.5 centimeter right upper lung opacity COPD/ARMANDO as per records -past tobacco use -change home dose inhaler to scheduled duonebs starting 01/29/19 Hypertension stable -carvedilol, isosorbide dinitrate Atrial fibrillation -has ICD -heart rate controlled -resumed coumadin as 3 mg daily starting on 01/27/19 as there are no surgical interventions by orthopedics or any steroid injections by pain management Olecranon bursitis of right elbow -Continue outpatient doxycycline Rx for olecranon bursitis History of stroke in the past -patient reports some residual right upper extremity weakness 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 continue coumadin as 3 mg daily starting on 01/27/19 Full code Disposition: awaiting placement to physical therapy center or snf facility for inpatient physical rehabilitation Subjective Patient on nasal cannula. patient not breathing as comfortably as he was yesterday. as per nurse, patient having intermittent shortness of breath. there are some pretibial edema but lung exam generally normal. no chest pain. no abdomen pain. no dizziness. no headache Physical Exam Constitutional: well developed Eyes: PERRL, conjunctivae normal, anicteric sclerae EOM intact bilaterally ENMT: external ear and nose normal, oropharynx normal Respiratory: normal respiratory effort, lungs clear to auscultation Cardiovascular: Rate/Rhythm: regular rate Gastrointestinal (Abdomen): normal bowel sounds, soft, nontender, no hepatosplenomegaly Musculoskeletal: Head/Neck/Chest: normocephalic and head atraumatic Extremities: + lower extremity abnormal to inspection (bilateral pre-tibial edema) Neurologic: PERRL, EOMI, accommodation nl, no face palsy, no dysarthria Psychiatric: A+Ox3, euthymic affect Results & Data Vital Signs (Past 12 Hours) Vital Signs Temp Pulse Resp BP Pulse Ox 01/29/19 07:30 36.3 C L 65 16 116/72 98
[2019-01-29] MEDS ORDERED: FUROSEMIDE 40 MG in SYRINGE 0 ML IV ONE (12:30)
[2019-01-29] MEDS: ALBUT/IPRATROP 3MG/0.5MG NEB 3 ML VIAL NEB SCH ×2 (13:18→18:59)
[2019-01-29] MEDS: ROPINIROLE HCL 1 MG TABLET PO SCH ×2 (14:05→20:44)
[2019-01-29] MEDS: PRAMIPEXOLE DIHYDROCHLO 0.25 MG TAB PO SCH ×2 (14:05→19:21)
[2019-01-29] MEDS: WARFARIN SOD 3 MG TAB PO SCH (15:36)
[2019-01-30] MEDS: ALBUT/IPRATROP 3MG/0.5MG NEB 3 ML VIAL NEB SCH ×3 (02:03→13:39)
[2019-01-30] MEDS: ISOSORBIDE DINITRATE 10 MG TAB PO SCH ×2 (06:01→12:02)
[2019-01-30] MEDS: methylPREDNISolone 4 MG TAB PO SCH ×2 (06:01→12:03)
[2019-01-30] MEDS: LEVOTHYROXINE SODIUM 25 MCG TABLET PO SCH (06:02)
[2019-01-30 06:25] LABS: INR 2.1 (0.9-1.1); Prothrombin Time 20.8 Seconds (9.0-12.0)
[2019-01-30 06:47] LABS: BUN Creatinine Ratio 24.8 (10-20); Calcium 8.7 mg/dl (8.5-10.1); Creatinine Clr Calc Pharmacy 20.4 ml/min; Est GFR (African American) 24.7; Est GFR (Non-African American) 21.3
[2019-01-30] MEDS: FLUTICASONE/SALMETEROL 100/50 (ADVAIR) 14 PUFF/1 INHALER INH SCH (07:43)
[2019-01-30] MEDS: CARVEDILOL 12.5 MG TAB PO SCH (07:44)
[2019-01-30] MEDS: ASPIRIN 81 MG ECTAB PO SCH (07:44)
[2019-01-30] MEDS: OXYBUTYNIN CHLORIDE 5 MG TAB PO SCH (07:44)
[2019-01-30] MEDS: AMIODARONE 200 MG TAB PO SCH (07:44)
[2019-01-30] MEDS: DOXYCYCLINE HYCLATE 100 MG CAP PO SCH (07:45)
[2019-01-30] MEDS: ATORVASTATIN 40 MG TAB PO SCH (07:45)
[2019-01-30] MEDS: DOCUSATE SODIUM/SENNA 50/8.6MG TAB PO SCH (07:45)
[2019-01-30] MEDS: DICLOFENAC SOD 1% GEL 100 GM TUBE EXT SCH ×2 (07:45→14:05)
[2019-01-30] MEDS: NYSTATIN SUSP 500,000 U/5 ML UDC BUCCAL SCH ×2 (07:45→12:03)
[2019-01-30] MEDS: PANTOprazole 40 MG TAB PO SCH (07:45)
[2019-01-30] MEDS: LIDOCAINE 5% 1 PATCH TD SCH (07:46)
[2019-01-30] MEDS ORDERED: TORSEMIDE 10 MG TAB PO SCH (10:45)
--- NOTE | 2019-01-30 11:37 | Hospitalist Progress Note ---
Date of Service January 30, 2019 Assessment & Plan (1) Acute kidney injury superimposed on chronic kidney disease: This is an 83yo M [facility] patient with a PMH of chronic atrial fibrillation (on Coumadin), CAD (s/p stent), h/o lung cancer (s/p radiation), systolic CHF, ICD placement, COPD, nocturnal hypoxemia (on BiPAP HS), lumbar disc degeneration and other medical problems listed below who presents with worsening left hip pain and abnormal lab work and was found to have an JYOTHI on CKD IV. Acute kidney injury on Chronic Kidney disease stage IV -creatinine has trended down from 3.47 to 2.78 by 01/26/19 while on IV fluids -was continue on IV fluids and creatinine downtrended to 2.48. however patient more subjective short of breath and IV fluids stopped on 01/27/19 and patient given Lasix IV 40 mg x 1 -creatinine is 2.89 on 01/28/19 and patient appears euvolemic and will hold the diuretics -01/29/19: creatinine is 2.9; 40mg Lasix IV because of more pre-tibial edema and some shortness of breath -01/30/19: creatinine is 2.65, resume torsemide as 10 mg daily for now Chronic systolic heart failure secondary to ischemic cardiomyopathy EF 35 to 39% TTE October 2018 has ICD Chronic LBBB as per records CAD status post stent, PVD as per records -continue aspirin, atorvastatin, carvedilol, isosorbide dinitrate -home dose torsemide was held due to JYOTHI, 40 mg IV Lasix x1 given on 01/27/19 -01/28/19: appears generally euvolemic and will hold diuretics at this time because of JYOTHI -01/29/19: 40mg Lasix IV because of more pre-tibial edema and some shortness of breath -01/30/19: creatinine is 2.65, resume torsemide as 10 mg daily for now Hypokalemia -admission potassium 3.2 on admission and patient had potassium supplements on this admission -hypokalemia has resolved sacroiliac pain with acute Lumbar radiculopathy and Degenerative joint disease (DJD) of hip -hx left sacroiliitis status post recent outpatient SI joint injection 01/16/19 -Moderately advanced degenerative changes at the L3-4, L4-5, and L5-S1 levels on lumbar X ray -Significant degenerative change left hip on CT scan - No further intervention for left hip DJD at this time as per orthopedics -01/26/19 patient was able to do some activities with physical and occupation therapy which recommended inpatient physical rehabiltation due to pain and general decrease of function compared to baseline -01/27/19 pain management consult discontinue Lidoderm patch and initiate Voltaren gel applied to the left SI joint location 3 times daily, initiate a Medrol Dosepak, continue with hydrocodone for as needed breakthrough pain -awaiting placement to physical therapy center or detention facility for inpatient physical rehabilitation Right Rib Fracture of fourth rib -incentive spirometry and pain control medications History of Lung cancer in the past stable infiltrate of upper lobe of right lung present on imaging -patient had radiation to right upper lung -this has led to stable infiltrate of upper lobe of right lung present on imaging seen in the past on CT and PET scans -CXR 01/27/19 stable 3.5 centimeter right upper lung opacity COPD/ARMANDO as per records -past tobacco use -change home dose inhaler to duonebs starting 01/29/19 -will resume patients home inhalers when ready for discharge Hypertension stable -carvedilol, isosorbide dinitrate Atrial fibrillation -has ICD -heart rate controlled -resumed coumadin as 3 mg daily starting on 01/27/19 as there are no surgical interventions by orthopedics or any steroid injections by pain management -INR is 2.1 on 01/30/19, will resume coumadin dosing as per home dose scheduling which is 2 mg every Wednesday/Wednesday/Wednesday/Wednesday/Wednesday and 3mg daily on every Wednesday and -[facility] cardiology Dr. 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 on coumadin Full code Disposition: awaiting placement to physical therapy center or detention facility for inpatient physical rehabilitation Subjective Patient breathing on room air today. he did not need the nasal cannula since this morning. he reports he is ambulating more. Patient reports buttock and hip pain are better. denies chest pain. no palpitations. no headache. no dizziness Physical Exam Constitutional: well developed Eyes: PERRL, conjunctivae normal, anicteric sclerae EOM intact bilaterally ENMT: external ear and nose normal, oropharynx normal Respiratory: normal respiratory effort, lungs clear to auscultation Cardiovascular: Rate/Rhythm: regular rate Gastrointestinal (Abdomen): normal bowel sounds, soft, nontender, no hepatosplenomegaly Musculoskeletal: Head/Neck/Chest: normocephalic and head atraumatic Extremities: + lower extremity abnormal to inspection (bilateral pre-tibial edema) Neurologic: PERRL, EOMI, accommodation nl, no face palsy, no dysarthria Psychiatric: A+Ox3, euthymic affect Results & Data Vital Signs (Past 12 Hours) Vital Signs Temp Pulse Pulse Resp BP Pulse Ox 01/30/19 07:36 73 18 99 01/30/19 07:00 36.4 C L 72 20 131/84 99 01/30/19 02:03 72 16 98
[2019-01-30] MEDS: PRAMIPEXOLE DIHYDROCHLO 0.25 MG TAB PO SCH (14:04)
[2019-01-30] MEDS: ROPINIROLE HCL 1 MG TABLET PO SCH (14:05)
--- NOTE | 2019-01-30 15:36 | Discharge Summary ---
Date of Service January 30, 2019 Admission HPI Per Admitting Provider This is an 83yo M [facility] patient with a PMH of chronic atrial fibrillation (on Coumadin), CAD (s/p stent), h/o lung cancer (s/p radiation), systolic CHF, ICD placement, COPD, nocturnal hypoxemia (on BiPAP HS), lumbar disc degeneration and other medical problems listed below who presents with worsening left hip pain and abnormal lab work. Patient underwent a joint injection at left hip on January 16 and pain improved for 5 days before becoming significantly worse. Describes pain at left hip and lower back as sharp and constant with radiation down the left leg with tingling. Has been taking [place] 5 mg as needed over the past few weeks which was initially prescribed for rib fractures at the beginning of January. Is still able to ambulate but it is more difficult and painful. Denies any bowel/bladder dysfunction. Denies any fever, chills, lightheadedness, headache, chest pain, palpitations, shortness of breath, nausea, vomiting, abdominal pain, dysuria or diarrhea. Has been experiencing some constipation due to narcotic use and has been taking Senokot and Colace. Of note, was recently started on Augmentin and doxycycline for olecranon bursitis of right elbow. Per family at bedside, patient has seemed fatigued with decreased appetite over the last week. In response to 12 pound weight loss in the past 2 weeks, torsemide dose was decreased to 10 mg twice daily. Was sent into ED after outpatient lab work revealed leukocytosis, elevated CRP and elevated creatinine as well as concern for septic joint. Here, patient is hemodynamically stable and afebrile. Has mild leukocytosis at 11 K, hemoglobin is 10.4 (at baseline), creatinine is 3.47 (baseline mid-2s) and CRP is 18. Lumbosacral spine x-ray without evidence of fractures, moderate to advanced degenerative disease in L3-L4, L4-L5, L5-S1. Hip/pelvis x-ray with moderate osteoarthritic changes. Admission Exam Per Admitting Provider General Appearance: WD/WN, chronically ill-appearing male, in distress from acute left hip pain Head: normocephalic, atraumatic Eyes: normal inspection, PERRL, EOMI ENT: hearing grossly normal, pharynx normal (dry mucous membranes) Neck: supple, no JVD, no adenopathy Respiratory/Chest: Scattered expiratory wheezes but otherwise clear. No rales or rhonci. No respiratory distress or accessory muscle use Cardiovascular: irregular rate & rhythm, no murmur appreciated, normal peripheral pulses Abdomen/GI: normal bowel sounds, soft, non-tender to palpation Extremities/Musculoskelatal: Left hip and lumbosacral spine with TTP, pain increased with movement. No calf tenderness, normal capillary refill, no pedal edema Neurologic/Psych: alert, normal mood/affect, oriented x 3 Skin: normal color, warm/dry Principal Diagnosis Acute kidney injury on Chronic Kidney disease stage IV; sacroiliac pain with acute Lumbar radiculopathy and Degenerative joint disease (DJD) of hip; Chronic systolic heart failure, chronic obstructive pulmonary disease, Right Olecranon bursitis, Right Rib Fracture of fourth rib; stable infiltrate of upper lobe of right lung present on imaging; Atrial fibrillation, has ICD Discharge Exam Constitutional well developed Eyes PERRL, conjunctivae normal, anicteric sclerae EOM intact bilaterally ENMT external ear and nose normal, oropharynx normal Respiratory normal respiratory effort, lungs clear to auscultation Cardiovascular Rate/Rhythm: regular rate Gastrointestinal (Abdomen) normal bowel sounds, soft, nontender, no hepatosplenomegaly Musculoskeletal Head/Neck/Chest: normocephalic and head atraumatic Extremities: + lower extremity abnormal to inspection (bilateral pre-tibial edema) Neurologic PERRL, EOMI, accommodation nl, no face palsy, no dysarthria Psychiatric A+Ox3, euthymic affect Discharge Data Allergies Allergy/AdvReac Type Severity Reaction Status Date / Time blue dye Allergy Mild SHORTNESS Verified 01/25/19 22:58 OF BREATH naproxen Allergy Mild SWELLING Verified 01/25/19 22:58 OF HANDS sumatriptan Allergy Mild SHORTNESS Verified 01/25/19 22:58 OF BREATH diphenhydramine AdvReac Intermediate MADE Verified 01/25/19 22:58 DEFIBRILLATOR FIRE pseudoephedrine AdvReac Intermediate MADE HIS Verified 01/25/19 22:58 DEFIB FIRE Consultations 01/26/19 00:28 Consult Case Management - Discharge Planning Routine Consult Orthopedic Surgery Routine 01/26/19 10:38 Consult Pain Management Routine Ordered Studies 01/25/19 22:58 CT hip LT wo con Urgent Hospital Course (1) Acute kidney injury superimposed on chronic kidney disease: This is an 83yo M [facility] patient with a PMH of chronic atrial fibrillation (on Coumadin), CAD (s/p stent), h/o lung cancer (s/p radiation), systolic CHF, ICD placement, COPD, nocturnal hypoxemia (on BiPAP HS), lumbar disc degeneration and other medical problems listed below who presents with wor sening left hip pain and abnormal lab work and was found to have an JYOTHI on CKD IV. Acute kidney injury on Chronic Kidney disease stage IV -creatinine has trended down from 3.47 to 2.78 by 01/26/19 while on IV fluids -was continue on IV fluids and creatinine downtrended to 2.48. however patient more subjective short of breath and IV fluids stopped on 01/27/19 and patient given Lasix IV 40 mg x 1 -creatinine is 2.89 on 01/28/19 and patient appears euvolemic and will hold the diuretics -01/29/19: creatinine is 2.9; 40mg Lasix IV because of more pre-tibial edema and some shortness of breath -01/30/19: creatinine is 2.65, resume torsemide as 10 mg daily for now Chronic systolic heart failure secondary to ischemic cardiomyopathy EF 35 to 39% TTE October 2018 has ICD Chronic LBBB as per records CAD status post stent, PVD as per records -continue aspirin, atorvastatin, carvedilol, isosorbide dinitrate -home dose torsemide was held due to JYOTHI, 40 mg IV Lasix x1 given on 01/27/19 -01/28/19: appears generally euvolemic and will hold diuretics at this time because of JYOTHI -01/29/19: 40mg Lasix IV because of more pre-tibial edema and some shortness of breath -01/30/19: creatinine is 2.65, resume torsemide as 10 mg daily for now Hypokalemia -admission potassium 3.2 on admission and patient had potassium supplements on this admission -hypokalemia has resolved sacroiliac pain with acute Lumbar radiculopathy and Degenerative joint disease (DJD) of hip -hx left sacroiliitis status post recent outpatient SI joint injection 01/16/19 -Moderately advanced degenerative changes at the L3-4, L4-5, and L5-S1 levels on lumbar X ray -Significant degenerative change left hip on CT scan - No further intervention for left hip DJD at this time as per orthopedics -01/26/19 patient was able to do some activities with physical and occupation therapy which recommended inpatient physical rehabiltation due to pain and general decrease of function compared to baseline -01/27/19 pain management consult discontinue Lidoderm patch and initiate Voltaren gel applied to the left SI joint location 3 times daily, initiate a Medrol Dosepak, continue with hydrocodone for as needed breakthrough pain -awaiting placement to physical therapy center or group home facility for inpatient physical rehabilitation Right Rib Fracture of fourth rib -incentive spirometry and pain control medications History of Lung cancer in the past stable infiltrate of upper lobe of right lung present on imaging -patient had radiation to right upper lung -this has led to stable infiltrate of upper lobe of right lung present on imaging seen in the past on CT and PET scans -CXR 01/27/19 stable 3.5 centimeter right upper lung opacity COPD/ARMANDO as per records -past tobacco use -change home dose inhaler to duonebs starting 01/29/19 -will resume patients home inhalers when ready for discharge Hypertension stable -carvedilol, isosorbide dinitrate Atrial fibrillation -has ICD -heart rate controlled -resumed coumadin as 3 mg daily starting on 01/27/19 as there are no surgical interventions by orthopedics or any steroid injections by pain management -INR is 2.1 on 01/30/19, will resume coumadin dosing as per home dose scheduling which is 2 mg every Wednesday/Wednesday/Wednesday/Wednesday/Wednesday and 3mg daily on every Wednesday and -[facility] cardiology Dr. 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 on coumadin Full code Discharge Instructions Discharge to [facility] for physical therapy rehabilitation [place] PDMP was checked and patient last had hydrocodone-acetaminophen for 10 day supply last filled on 01/16/19 Because patient going to the physical rehabilitation a prescription is made for 3 day supply of hydrocodone-acetaminophen every 4 hours as needed for pain (18 tablets total) Patient also on methylprednisone taper which which first be given as 4 mg TID on day 1 at the physical therapy center, then 4 mg BID on day 2, then 4 mg once on day 3, then stop. Patient may continue having diclofenac applied TID to affected painful areas of left hip and left thigh Patient should take doxycycline 100 mg twice a day for 2 more days to complete treatment for the Olecranon bursitis of right elbow Patient will also need to have INR checked in 3 days because of being on coumadin [facility] cardiology service will follow up in the future to consider cardioversion of the atrial fibrillation for which patient is on coumadin for Patient should take reduced torsemide as 10 mg daily to prevent acute kidney injury. Patient will need basic metabolic panel and serum magnesium test in 7 days Total Time Total Time Spent Total Time Spent (In Minutes): 40 minutes Total Time Includes: Examination of the Patient, Discharge Planning, Medication Reconciliation and Communication With Other Providers Discharge Plan Discharge Items Patient Disposition: Transfer Inpatient Rehab Fac Reason For Visit: ARF Discharge Diagnosis: Acute kidney injury on Chronic Kidney disease stage IV; sacroiliac pain with acute Lumbar radiculopathy and Degenerative joint disease (DJD) of hip; Chronic systolic heart failure, chronic obstructive pulmonary disease, Right Olecranon bursitis, Right Rib Fracture of fourth rib; stable infiltrate of upper lobe of right lung present on imaging; Atrial fibrillation, has ICD Condition: Good Discharge Goals: Improve disease control and Improve function Activity: Resume your previous activity Non-emergency contact: Primary Care Provider Call non-emergency contact if: you have any medication questions Follow-up/Referrals: Soren Loja MD [Primary Care Provider] - Diet: Heart Healthy Diet Texture: Dental soft (bite-sized) Addtl Provider Instructions: Discharge to [facility] for physical therapy rehabilitation [place] PDMP was checked and patient last had hydrocodone-acetaminophen for 10 day supply last filled on 01/16/19 Because patient going to the physical rehabilitation a prescription is made for 3 day supply of hydrocodone-acetaminophen every 4 hours as needed for pain (18 tablets total) Patient also on methylprednisone taper which which first be given as 4 mg TID on day 1 at the physical therapy center, then 4 mg BID on day 2, then 4 mg once on day 3, then stop. Patient may continue having diclofenac applied TID to affected painful areas of left hip and left thigh Patient should take doxycycline 100 mg twice a day for 2 more days to complete treatment for the Olecranon bursitis of right elbow Patient will also need to have INR checked in 3 days because of being on coumadin [facility] cardiology service will follow up in the future to consider cardioversion of the atrial fibrillation for which patient is on coumadin for Patient should take reduced torsemide as 10 mg daily to prevent acute kidney injury. Patient will need basic metabolic panel and serum magnesium test in 7 days Prescriptions: New doxycycline hyclate 100 mg Capsule 100 mg PO BID 2 Days Qty: 4 RF: 0 torsemide 10 mg Tablet 10 mg PO QAM 30 Days Qty: 30 RF: 0 hydrocodone-acetaminophen 5-325 mg tablet 1 tab PO Q4H PRN (Reason: pain) 3 Days Qty: 18 RF: 0 methylprednisolone 4 mg Tablet 4 mg PO DIRECTED 3 Days Qty: 9 RF: 0 diclofenac sodium [Voltaren] 1 % Gel 1 applic EXT TID 10 Days Qty: 50 RF: 0 Continued isosorbide dinitrate 10 mg Tablet 10 mg PO BID RF: 0 atorvastatin 40 mg Tablet 40 mg PO QAM RF: 0 potassium chloride 10 mEq Capsule, Extended Release 20 meq PO BID RF: 0 carvedilol [Coreg] 12.5 mg Tablet 12.5 mg PO BID RF: 0 ipratropium-albuterol 0.5 mg-3 mg(2.5 mg base)/3 mL Solution For Nebulization 3 ml INHALATION BID PRN (Reason: SOB) RF: 0 amiodarone 200 mg Tablet 200 mg PO BID RF: 0 aspirin [Aspir-81] 81 mg Tablet,Delayed Release (Dr/Ec) 81 mg PO QAM RF: 0 levothyroxine 25 mcg Tablet 12.5 mcg PO QAM RF: 0 pramipexole 0.125 mg Tablet 0.125 mg PO BID RF: 0 nitroglycerin [Nitrostat] 0.4 mg Tablet, Sublingual 1 tab Sublingual UD PRN (Reason: Chest Pain) RF: 0 omeprazole 20 mg Capsule,Delayed Release(Dr/Ec) 20 mg PO BID RF: 0 albuterol sulfate 90 mcg/actuation Hfa Aerosol Inhaler 1 puff INHALATION Q6H PRN (Reason: Wheezing) RF: 0 Arnuity Ellipta 100 mcg/actuation Blister With Device 1 inh INHALATION QAM RF: 0 ropinirole 1 mg Tablet 2.5 mg PO HS RF: 0 ropinirole 1 mg Tablet 0.5 mg PO 1400 RF: 0 warfarin [Coumadin] 3 mg Tablet 3 mg PO MOTH RF: 0 warfarin [Coumadin] 2 mg Tablet 2 mg PO SUTUWEFRSA RF: 0 oxybutynin chloride 5 mg Tablet 5 mg PO DAILY RF: 0 cholecalciferol (vitamin D3) [Vitamin D3] 2,000 unit Tablet 2,000 unit PO QAM RF: 0 Vitron-C 65 mg iron- 125 mg Tablet,Delayed Release (Dr/Ec) 1 tab PO BID RF: 0 Anoro Ellipta 62.5-25 mcg/actuation Blister With Device 1 inh INHALATION QAM RF: 0 sennosides [Senokot] 8.6 mg Tablet 8.6 mg PO BID PRN (Reason: Constipation) RF: 0 docusate sodium 100 mg Capsule 100 mg PO BID RF: 0 nystatin 100,000 unit/mL Suspension 5 ml BUCCAL QID RF: 0 acetaminophen 500 mg Tablet 1,000 mg PO Q6H PRN (Reason: Pain) RF: 0 magnesium 250 mg Tablet 500 mg PO HS RF: 0 Discontinued metolazone 2.5 mg Tablet 2.5 mg PO Q10D RF: 0 torsemide 10 mg Tablet 10 mg PO BID RF: 0 lorazepam 1 mg Tablet 1 mg PO HS RF: 0 hydrocodone-acetaminophen 5-325 mg Tablet 1 tab PO Q8H RF: 0 doxycycline hyclate 100 mg capsule 100 mg PO BID RF: 0 amoxicillin-pot clavulanate 250-125 mg tablet 1 tab PO BID RF: 0 Stand-Alone Forms: [facility] Discharge Orders: Discharge Order (Routine); Ordered 01/30/19 Ordered By: Quincy Yoo Skilled Items Patient informed of condition?: Yes DNR: No Discharge Level of Care: Acute rehab Communicable Disease: No Discharge Prognosis: Stable Admission Data Admit Date/Time: 01/25/19 23:06 Attending Provider: Quincy Yoo Admit Provider: Leonidas Mishra Primary Care Provider: Soren Loja Other Providers: Darien Silva ; Watson Lemon ; Suresh Poole ; Jessica Maradiaga Thomas J ; Maria Spain ; Dutch Roth ; Carmine Lindsey ; Ashvin Canchola ; Carmine Navarro ; Rajesh White. ; Ashvin Love ; Seth Lucas ; Juan Jose Pugh ; Delfino Fox ; James Lacy ; Jai Luis ; Duran Grider ; Ronaldo Fox ; Maria Alcantara ; Nathan Jones ; Julien Esparza ; Anthony Cruz ; Yuan Hernandez ; Sammie Millan Service: Medical Other Interventions: Discharge Summary Assessment (RN) Last Done: 01/30/19 15:20
[2019-01-30] MEDS ORDERED: WARFARIN SOD 3 MG TAB PO SCH ×2 (16:00)
[2019-01-31] MEDS ORDERED: methylPREDNISolone 4 MG TAB PO SCH (07:00)
[2019-01-31] MEDS ORDERED: WARFARIN SOD 2 MG TAB PO SCH (16:00)
[2019-02-01] MEDS ORDERED: methylPREDNISolone 4 MG TAB PO SCH (07:00)
== END 2019-01-30 16:20 | DRG 683 ==
LOC: ED 18:25 → 4E 23:06
DX: Z92.3 Personal history of irradiation; M47.27 Other spondylosis with radiculopathy, lumbosacral region; Z95.810 Presence of automatic (implantable) cardiac defibrillator; E03.9 Hypothyroidism, unspecified; N17.9 Acute kidney failure, unspecified; K21.9 Gastro-esophageal reflux disease without esophagitis; Z51.81 Encounter for therapeutic drug level monitoring; Z79.82 Long term (current) use of aspirin; I69.331 Monoplegia of upper limb following cerebral infarction affecting right dominant side; I25.10 Atherosclerotic heart disease of native coronary artery without angina pectoris; I13.0 Hypertensive heart and chronic kidney disease with heart failure and stage 1 through stage 4 chronic kidney disease, or unspecified chronic kidney disease; I48.2 Chronic atrial fibrillation; Z88.8 Allergy status to other drugs, medicaments and biological substances; Z79.899 Other long term (current) drug therapy; M16.12 Unilateral primary osteoarthritis, left hip; M46.1 Sacroiliitis, not elsewhere classified; Z85.028 Personal history of other malignant neoplasm of stomach; N18.4 Chronic kidney disease, stage 4 (severe); M70.21 Olecranon bursitis, right elbow; E87.6 Hypokalemia; I25.5 Ischemic cardiomyopathy; Z95.5 Presence of coronary angioplasty implant and graft; Z85.118 Personal history of other malignant neoplasm of bronchus and lung; M47.26 Other spondylosis with radiculopathy, lumbar region; Z88.5 Allergy status to narcotic agent; X58.XXXA Exposure to other specified factors, initial encounter; K59.00 Constipation, unspecified; Z91.048 Other nonmedicinal substance allergy status; S22.31XA Fracture of one rib, right side, initial encounter for closed fracture; G47.33 Obstructive sleep apnea (adult) (pediatric); G25.81 Restless legs syndrome; I50.22 Chronic systolic (congestive) heart failure; E78.5 Hyperlipidemia, unspecified; F17.210 Nicotine dependence, cigarettes, uncomplicated; D63.1 Anemia in chronic kidney disease; Z79.01 Long term (current) use of anticoagulants; R91.8 Other nonspecific abnormal finding of lung field; J44.9 Chronic obstructive pulmonary disease, unspecified

== ENCOUNTER 2019-02-26 06:23 | Inpatient (IN) ==
[2019-02-26] MEDS ORDERED: ALBUTEROL 0.083% NEBU SOLN 3 ML VIAL NEB STA (06:36)
--- NOTE | 2019-02-26 06:54 | Emergency Department Note ---
Entered by Meche Cazares acting as a scribe for History of Present Illness General Chief complaint: Shortness of Breath/Dyspnea Stated complaint: SHORT OF BREATH Time Seen by Provider: 02/26/19 06:30 Source: patient, family () and EMS Mode of arrival: EMS History of Present Illness Onset (ago): hour(s) (this morning) Location: chest Pain Consistency: + other (persistent) Quality: + other (shortness of breat) Relieved By: not by medication (Duoneb, magnesium sulfate) Exacerbated By: + movement (standing) Associated symptoms: + chest pain (mild); no fever/chills The patient is a 83 year old male that is presenting to the Emergency Room with complaints of persistent shortness of breath that started this morning at an unknown time. The patient was brought to the Emergency Room via EMS who provided part of the history. EMS reports that the patient was found sitting on a chair unable to breath. EMS states that he was found to have diminished breath sounds bilaterally. EMS notes that the patient's symptoms worsened with standing and that he started to wheeze while being transported to the ambulance. EMS reports that he was given two treatments of Duoneb as well as 125 mg-Solumedrol and Magnesium sulfate. EMS notes that the patient's symptoms appeared to improve slightly with treatment, but the patient denies any improvement in his symptoms. The patient reports some mild constant chest pain. He denies any fever or recent illness. The patient's states that the patient was in the hospital 6 weeks ago. EMS notes that the patient has a history of COPD and is a current every day smoker. EMS states that the patient has a history of atrial fibrillation and is currently taking Coumadin. Home Medications Home Medications Medication Instructions Recorded Confirmed Type amiodarone 200 mg PO BID 08/22/18 02/26/19 History aspirin [Aspir-81] 81 mg PO QAM 08/22/18 02/26/19 History carvedilol [Coreg] 12.5 mg PO BID 08/22/18 02/26/19 History isosorbide dinitrate 10 mg PO BID 08/22/18 02/26/19 History levothyroxine 12.5 mcg PO QAM 08/22/18 02/26/19 History nitroglycerin [Nitrostat] 1 tab SUBLINGUAL UD PRN 08/22/18 02/26/19 History omeprazole 20 mg PO BID 08/22/18 02/26/19 History potassium chloride 10 meq PO BID 08/22/18 02/26/19 History Vitron-C 1 tab PO BID 01/25/19 02/26/19 History magnesium 500 mg PO HS 01/25/19 02/26/19 History torsemide 10 mg PO QAM 30 Days #30 tab 01/30/19 02/26/19 Rx acetaminophen [Tylenol] 650 mg PO Q4 PRN 01/31/19 02/26/19 History cholecalciferol (vitamin D3) 2,000 unit PO DAILY 01/31/19 02/26/19 History [Vitamin D3] ropinirole 0.5 mg PO DAILY 01/31/19 02/26/19 History ropinirole 2.5 mg PO HS 01/31/19 02/26/19 History allopurinol 200 mg PO DAILY 02/26/19 02/26/19 History aadynxgrbkn-aabaqhuon-yyzsgoih 1 inh INHALATION DAILY 02/26/19 02/26/19 History [Trelegy Ellipta] hydrocodone-acetaminophen 1 tab PO Q4 PRN 02/26/19 02/26/19 History warfarin 2 mg PO 4XWK 02/26/19 02/26/19 History warfarin 3 mg PO 3XWK 02/26/19 02/26/19 History Allergies Allergy/AdvReac Type Severity Reaction Status Date / Time blue dye Allergy Mild SHORTNESS Verified 01/31/19 14:41 OF BREATH naproxen Allergy Mild SWELLING Verified 02/26/19 07:12 OF HANDS sumatriptan Allergy Mild SHORTNESS Verified 02/26/19 07:12 OF BREATH diphenhydramine AdvReac Intermediate MADE Verified 02/26/19 07:12 DEFIBRILLATOR FIRE pseudoephedrine AdvReac Intermediate MADE HIS Verified 01/31/19 14:41 DEFIB FIRE Past Med/Surg History Medical History History of cardioversion (Resolved) Acute kidney injury superimposed on chronic kidney disease (Acute) Left hip pain (Acute) History of CVA (cerebrovascular accident) (Chronic) Chronic atrial fibrillation (Chronic) CKD (chronic kidney disease), stage IV (Chronic) Sciatica (Chronic) Hyperlipidemia (Chronic) Hypertension (Chronic) CAD (coronary artery disease) (Chronic) ASCVD with [place] 2000, angioplasty of LAD and Dx, and PCI of PDA. Resultant severe ischemic CM. History of lung cancer (Chronic) ~2014 S/P RADIATION THERAPY History of stomach cancer (Chronic) [id number]. EXCISED WITH EGD. Hypothyroidism (Chronic) GERD (gastroesophageal reflux disease) (Chronic) Ischemic cardiomyopathy (Chronic) 2/2 [place] 2000. S/P dual chamber ICD following presentation with syncope and LBBB. BiV pacer upgrade 2011, generator change 11/2017. Osteoarthritis (Chronic) Sleep apnea treated with nocturnal BiPAP (Chronic) "COMPLEX SLEEP APNEA SYNDROME" Renal artery stenosis (Chronic) Anemia of chronic disease (Chronic) On anticoagulant therapy (Chronic) Restless leg syndrome (Chronic) Carotid stenosis, bilateral (Chronic) MGUS (monoclonal gammopathy of unknown significance) (Chronic) Surgical History History of cardiac cath (Resolved) 2000 WITH STENT PLACEMENT History of appendectomy (Chronic) History of total knee replacement (Chronic) RIGHT (DR. NAIR) 2016 History of implantable cardioverter-defibrillator (ICD) placement (Chronic) 2006. UNSURE OF LAST CHECKED. FOLLOWS WITH DR. UP. History of tonsillectomy (Chronic) History of esophagogastroduodenoscopy (EGD) Family History Brother Family history of diabetes mellitus Social History Preferred Language: Belarusian Communication Ability: Effective Beliefs That Will Affect Care: None Current Living Situation: Spouse Current Living Situation Comment: CURRENTLY AT [facility] Other Information That Helps Us Care for You: No Feels Safe at Home: Yes Safety Concerns: Feels Safe At This Time Smoking Status: Current every day smoker Tobacco Type: cigarettes Cigarettes Per Day: 10 Second Hand Exposure: No Hx Alcohol Use: No Hx Substance Use: No Review of Systems See HPI for pertinent positives & negatives. and A total of 10 systems reviewed and were otherwise negative Physical Exam Vital Signs Vital Signs - 24 hr 02/26/19 06:27 02/26/19 06:28 02/26/19 06:29 Temperature 36.5 C Temperature Source Oral Sepsis Recent Fever Within 48 Hours No Sepsis New/Unexplained Change in Mental Status No Sepsis Action Taken by Nursing No Action Required Pulse Rate 75 75 67 Pulse Rate [Apical] Pulse Rate from SpO2 Sensor 72 68 Pulse Rhythm [Apical] Respiratory Rate 27 H 32 H 27 H Respiratory Effort / Characteristics Accessory Muscle Use Short of Breath SOB on Exertion Respiratory Depth Respiratory Pattern Blood Pressure 138/71 138/71 Blood Pressure [Left Arm] Blood Pressure Mean 93 93 Blood Pressure Mean [Left Arm] Blood Pressure Position Semi-fowlers Pulse Oximetry 98 97 97 Oxygen Delivery Method BiPAP Non-rebreather BiPAP Oxygen Flow Rate 15 Fraction of Inspired Oxygen 28 SaO2/FiO2 Ratio 02/26/19 06:30 02/26/19 06:36 02/26/19 06:37 Temperature Temperature Source Sepsis Recent Fever Within 48 Hours Sepsis New/Unexplained Change in Mental Status Sepsis Action Taken by Nursing Pulse Rate 77 Pulse Rate [Apical] Pulse Rate from SpO2 Sensor 76 Pulse Rhythm [Apical] Respiratory Rate 25 H Respiratory Effort / Characteristics Respiratory Depth Respiratory Pattern Blood Pressure Blood Pressure [Left Arm] Blood Pressure Mean Blood Pressure Mean [Left Arm] Blood Pressure Position Pulse Oximetry 95 97 Oxygen Delivery Method BiPAP BiPAP Oxygen Flow Rate Fraction of Inspired Oxygen 28 SaO2/FiO2 Ratio 02/26/19 06:52 02/26/19 06:53 02/26/19 06:58 Temperature Temperature Source Sepsis Recent Fever Within 48 Hours Sepsis New/Unexplained Change in Mental Status Sepsis Action Taken by Nursing Pulse Rate 76 73 Pulse Rate [Apical] 68 73 Pulse Rate from SpO2 Sensor 74 Pulse Rhythm [Apical] Respiratory Rate 26 H 30 H 31 H Respiratory Effort / Characteristics Spontaneous Labored Short of Breath Respiratory Depth Respiratory Pattern Tachypnea Blood Pressure 117/72 Blood Pressure [Left Arm] 117/72 Blood Pressure Mean 87 Blood Pressure Mean [Left Arm] 87 Blood Pressure Position Pulse Oximetry 97 97 97 Oxygen Delivery Method BiPAP BiPAP Oxygen Flow Rate Fraction of Inspired Oxygen 28 38 SaO2/FiO2 Ratio 346 02/26/19 07:00 02/26/19 07:01 02/26/19 07:02 Temperature Temperature Source Sepsis Recent Fever Within 48 Hours Sepsis New/Unexplained Change in Mental Status Sepsis Action Taken by Nursing Pulse Rate 69 64 73 Pulse Rate [Apical] Pulse Rate from SpO2 Sensor 67 65 75 Pulse Rhythm [Apical] Respiratory Rate 25 H 26 H 26 H Respiratory Effort / Characteristics Respiratory Depth Respiratory Pattern Blood Pressure 110/67 Blood Pressure [Left Arm] Blood Pressure Mean 81 Blood Pressure Mean [Left Arm] Blood Pressure Position Pulse Oximetry 97 98 98 Oxygen Delivery Method Oxygen Flow Rate Fraction of Inspired Oxygen SaO2/FiO2 Ratio 02/26/19 07:30 02/26/19 08:00 02/26/19 08:01 Temperature Temperature Source Sepsis Recent Fever Within 48 Hours Sepsis New/Unexplained Change in Mental Status Sepsis Action Taken by Nursing Pulse Rate 66 69 63 Pulse Rate [Apical] Pulse Rate from SpO2 Sensor 68 73 65 Pulse Rhythm [Apical] Respiratory Rate 24 20 26 H Respiratory Effort / Characteristics Respiratory Depth Respiratory Pattern Blood Pressure 126/77 119/76 Blood Pressure [Left Arm] Blood Pressure Mean 93 90 Blood Pressure Mean [Left Arm] Blood Pressure Position Pulse Oximetry 98 97 97 Oxygen Delivery Method Oxygen Flow Rate Fraction of Inspired Oxygen SaO2/FiO2 Ratio 02/26/19 08:02 02/26/19 08:30 02/26/19 08:31 Temperature Temperature Source Sepsis Recent Fever Within 48 Hours Sepsis New/Unexplained Change in Mental Status Sepsis Action Taken by Nursing Pulse Rate 68 66 68 Pulse Rate [Apical] Pulse Rate from SpO2 Sensor 66 64 68 Pulse Rhythm [Apical] Respiratory Rate 26 H 24 24 Respiratory Effort / Characteristics Respiratory Depth Respiratory Pattern Blood Pressure 125/74 Blood Pressure [Left Arm] Blood Pressure Mean 91 Blood Pressure Mean [Left Arm] Blood Pressure Position Pulse Oximetry 97 97 95 Oxygen Delivery Method Oxygen Flow Rate Fraction of Inspired Oxygen SaO2/FiO2 Ratio 02/26/19 08:46 02/26/19 08:59 Temperature Temperature Source Sepsis Recent Fever Within 48 Hours Sepsis New/Unexplained Change in Mental Status Sepsis Action Taken by Nursing Pulse Rate Pulse Rate [Apical] 74 Pulse Rate from SpO2 Sensor Pulse Rhythm [Apical] Regular Respiratory Rate 23 Respiratory Effort / Characteristics Short of Breath SOB on Exertion Respiratory Depth Deep Respiratory Pattern Tachypnea Blood Pressure Blood Pressure [Left Arm] 127/87 Blood Pressure Mean Blood Pressure Mean [Left Arm] 100 Blood Pressure Position Pulse Oximetry 97 Oxygen Delivery Method BiPAP BiPAP Oxygen Flow Rate Fraction of Inspired Oxygen 38 SaO2/FiO2 Ratio General: Chronically-ill appearing older male in no acute distress. Mildly tachypnic. Not diaphoretic. Hard of hearing. HEENT: Normal cephalic atraumatic. Pupils are equal round and reactive to light. Extraocular movements are intact. Oropharynx is pink with moist mucous membranes. No swelling of the mouth lips or tongue. Neck: Supple with a midline trachea. No meningeal signs or stiffness, no JVD or bruits. No Stridor. Chest: Diminished bilaterally. Heart: regular rate and rhythm. Abdomen: Soft nontender, nondistended without rebound guarding or rigidity. Extremities: No cyanosis clubbing or edema. No calf tenderness or asymmetry. 1+ lower extremity edema. Spine/Back. Non tender to palpation. No CVA tenderness Skin: Good turgor without rashes. Neurologic exam: Cranial nerves two through 12 are intact. Motor and sensation are intact and symmetrical throughout. Course 0630:The patient was evaluated in room A01. A complete history and physical examination was performed. 0649: I revisited the patient who is currently waiting on the results of his x- ray. He appears to be improving with treatment. 0710: I reevaluated the patient at this time. The patient is feeling comfortable and is no longer tachypnic. His vitals have improved. 0738: I discussed the patients case with Eliza Reese, who will evaluate the patient for further management and care. 0745: Upon reevaluation, the patient is resting comfortably. I discussed laboratory and radiographic results with the patient. He verbalized agreement of the treatment plan. The patient will be evaluated for further management and care. Consultations Consultation #1: I discussed the patients case with Eliza Reese, who will evaluate the patient for further management and care. Time: 07:38 Administered Medications Discontinued Medications Albuterol (Ventolin 0.083% 2.5mg/3ml) 10 mg NEB NOW STA Stop: 02/26/19 06:37 Last Admin: 02/26/19 06:42 Dose: 10 mg Documented by: [id number] Furosemide (Lasix) 40 mg IV NOW STA Stop: 02/26/19 07:05 Last Admin: 02/26/19 07:11 Dose: 40 mg Documented by: [id number] Medical Decision Making Differential Diagnosis Differential diagnosis includes: Etiologies such as COPD, CHF, pneumonia, cardiac disease, infection, electrolyte or metabolic abnormalities as well as others were entertained. Medical Records Attestation: I reviewed the patient's medical records. Home Medications Current Medication List: was personally reviewed by me Laboratory Data Attestation: I reviewed the patient's lab results. Result diagrams: 02/26/19 07:05 02/26/19 07:05 Lab Results 02/26/19 02/26/1902/26/19 Range/Units 07:05 07:05 07:05 WBC 7.33 (4.8-10.8) K/uL RBC 3.38 L (4.7-6.1) M/uL Hgb 10.0 L (14.0-18.0) g/dL Hct 31.6 L (42-52) % MCV 93.5 (80-100) fL MCH 29.6 (25-34) pg MCHC 31.6 L (32-36) g/dL RDW Std Deviation 60.1 H (36.4-46.3) fL RDW Coeff of Rocael 17.7 H (11.5-14.5) % Plt Count 175 (130-400) K/uL MPV 10.0 (7.4-10.4) fL Immature Gran % (Auto) 1.8 % Neut % (Auto) 72.6 % Lymph % (Auto) 14.9 % [place] % (Auto) 8.6 % Eos % (Auto) 1.8 % Baso % (Auto) 0.3 % Immature Gran # (Auto) 0.13 H (0.00-0.02) K/uL Neut # (Auto) 5.33 (1.4-6.5) K/uL Lymph # (Auto) 1.09 L (1.2-3.4) K/uL [place] # (Auto) 0.63 H (0.11-0.59) K/uL Eos # (Auto) 0.13 (0-0.5) K/uL Baso # (Auto) 0.02 (0-0.2) K/uL PT 24.7 H (9.0-12.0) Seconds INR 2.6 H (0.9-1.1) APTT 35.3 H (21.0-31.0) Seconds PTT Ratio 1.3 Sodium 144 (136-145) mmol/L Potassium 4.7 (3.5-5.1) mmol/L Chloride 110 H (98-107) mmol/L Carbon Dioxide 25 (21-32) mmol/L Anion Gap 8.0 (3-11) BUN 28 H (7-18) mg/dl Creatinine 2.00 H (0.6-1.4) mg/dl Est Cr Clr Drug Dosing Not Reportable Est GFR ( Amer) 34.7 Est GFR (Non-Af Amer) 30.0 BUN/Creatinine Ratio 14.1 (10-20) Glucose 122 H (70-99) mg/dl Calcium 8.4 L (8.5-10.1) mg/dl Magnesium (1.8-2.4) mg/dl Total Bilirubin 0.6 (0.2-1) mg/dl AST 34 (15-37) U/L ALT 50 (12-78) U/L Alkaline Phosphatase 118 H (45-117) U/L Troponin I 0.023 (0-0.045) ng/ml NT-Pro-B Natriuret Pep 2661 H (0-1800) pg/ml Total Protein 6.5 (6.4-8.2) gm/dl Albumin 3.0 L (3.4-5.0) gm/dl Globulin 3.5 (2.5-4.0) gm/dl Albumin/Globulin Ratio 0.8 L (0.9-2) Lipase 141 (73-393) U/L 02/26/19 Range/Units 07:05 WBC (4.8-10.8) K/uL RBC (4.7-6.1) M/uL Hgb (14.0-18.0) g/dL Hct (42-52) % MCV (80-100) fL MCH (25-34) pg MCHC (32-36) g/dL RDW Std Deviation (36.4-46.3) fL RDW Coeff of Rocael (11.5-14.5) % Plt Count (130-400) K/uL MPV (7.4-10.4) fL Immature Gran % (Auto) % Neut % (Auto) % Lymph % (Auto) % [place] % (Auto) % Eos % (Auto) % Baso % (Auto) % Immature Gran # (Auto) (0.00-0.02) K/uL Neut # (Auto) (1.4-6.5) K/uL Lymph # (Auto) (1.2-3.4) K/uL [place] # (Auto) (0.11-0.59) K/uL Eos # (Auto) (0-0.5) K/uL Baso # (Auto) (0-0.2) K/uL PT (9.0-12.0) Seconds INR (0.9-1.1) APTT (21.0-31.0) Seconds PTT Ratio Sodium (136-145) mmol/L Potassium (3.5-5.1) mmol/L Chloride (98-107) mmol/L Carbon Dioxide (21-32) mmol/L Anion Gap (3-11) BUN (7-18) mg/dl Creatinine (0.6-1.4) mg/dl Est Cr Clr Drug Dosing Est GFR ( Amer) Est GFR (Non-Af Amer) BUN/Creatinine Ratio (10-20) Glucose (70-99) mg/dl Calcium (8.5-10.1) mg/dl Magnesium 3.4 H (1.8-2.4) mg/dl Total Bilirubin (0.2-1) mg/dl AST (15-37) U/L ALT (12-78) U/L Alkaline Phosphatase (45-117) U/L Troponin I (0-0.045) ng/ml NT-Pro-B Natriuret Pep (0-1800) pg/ml Total Protein (6.4-8.2) gm/dl Albumin (3.4-5.0) gm/dl Globulin (2.5-4.0) gm/dl Albumin/Globulin Ratio (0.9-2) Lipase (73-393) U/L Imaging Data Radiologist's Impression: Radiology results as stated below per my review and the radiologist's interpretation: XR chest 1V portable CLINICAL HISTORY: Chest Pain COMPARISON STUDY: Chest radiograph January 27, 2019. FINDINGS: A left subclavian biventricular pacer/AICD remains in place. A 4.6 cm right midlung opacity is unchanged. This is indeterminate. There is no pneumothorax. There are trace bilateral pleural effusions. Cardiomegaly is unchanged. Interstitial thickening has increased. There is mild right lower opacity. IMPRESSION: 1. Interval increase in pulmonary edema. 2. No change in an indeterminate 4.6 cm right midlung opacity. 3. Trace bilateral pleural effusions. 4. Mild right lower lung opacity. Electronically signed by: Sherwin Douglas M.D. 02/26/2019 6:57 AM ECG Data Attestation: I personally reviewed and interpreted this ECG as follows: Indication: SOB/dyspnea Rate (beats per minute): 77 Rhythm: other (ventricularly-paced rhythm) Findings: + other (poor baseline) and + paced rhythm (ventricular); no ST depression, no ST elevation and no acute ischemic change Comparison ECG Date: from (01/26/2019) Change: no significant change Blood Pressure Blood Pressure Findings: Normal blood pressure MDM Narrative This patient comes in as described above. He was placed in room A1. He has a history of COPD as well as CHF and other medical problems comes in after becoming short of breath. He did not come in by ambulance. On route they did establish an IV and started him on BiPAP as well as gave him IV Solu-Medrol and IV mag. He still feels short of breath however he is much less tachypneic than he was. He does not appear to be in any significant distress. His blood pressure and pulse are stable and he is afebrile. Has had no recent illness to suggest pneumonia/sepsis. I have reviewed his old records and he was in the hospital a month ago and had renal insufficiency/failure. Blood work was obtained I did order an hour-long DuoNeb. Chest x-ray and EKG was obtained as well. EKG shows a paced rhythm without any definite ischemic changes. Chest x- ray does suggest some congestive heart failure changes as well. In light of this I did order Lasix 40 mg IV. His kidney function actually looks better with a creatinine 2.0 than when he was discharged. His BNP was elevated furthers supporting CHF. His troponin was not significant elevated. He has no significant ocular metabolic abnormalities. With these measures he is doing a lot better and seems very comfortable now. I do think he needs to be admitted/observe for further treatment and evaluation of his shortness of breath/CHF/COPD. I have consulted the [facility] hospitalist to see him in the ER for these measures Impression & Plan Respiratory failure, CHF (congestive heart failure), COPD (chronic obstructive pulmonary disease) Critical Care Time Critical Care Time: Yes Total Critical Care Time: 35 I have personally spent 35 minutes of critical care time in the direct management of this patient. This includes bedside care, interpretation of diagnostic studies, and testing, discussion with consultants, patient, and family members, and other required patient management activities. This 35 minutes is in excess of all separately billable procedures. Discharge Plan Visit Data Chief Complaint: Shortness of Breath/Dyspnea Stated Complaint: SHORT OF BREATH ED Provider: Macho Vidal Discharge Problem: Respiratory failure, CHF (congestive heart failure), COPD (chronic obstructive pulmonary disease) Patient Disposition: Being Evaluated by Hospitalist Forms Stand Alone Forms: [facility] Prescriptions Prescriptions: No Action isosorbide dinitrate 10 mg Tablet 10 mg PO BID RF: 0 potassium chloride 10 mEq Capsule, Extended Release 10 meq PO BID RF: 0 carvedilol [Coreg] 12.5 mg Tablet 12.5 mg PO BID RF: 0 amiodarone 200 mg Tablet 200 mg PO BID RF: 0 aspirin [Aspir-81] 81 mg Tablet,Delayed Release (Dr/Ec) 81 mg PO QAM RF: 0 levothyroxine 25 mcg Tablet 12.5 mcg PO QAM RF: 0 nitroglycerin [Nitrostat] 0.4 mg Tablet, Sublingual 1 tab Sublingual UD PRN (Reason: Chest Pain) RF: 0 omeprazole 20 mg Capsule,Delayed Release(Dr/Ec) 20 mg PO BID RF: 0 ropinirole 0.5 mg Tablet 0.5 mg PO DAILY RF: 0 ropinirole 5 mg Tablet 2.5 mg PO HS RF: 0 cholecalciferol (vitamin D3) [Vitamin D3] 2,000 unit Tablet 2,000 unit PO DAILY RF: 0 acetaminophen [Tylenol] 325 mg Tablet 650 mg PO Q4 PRN (Reason: Fever Or Pain) RF: 0 Vitron-C 65 mg iron- 125 mg Tablet,Delayed Release (Dr/Ec) 1 tab PO BID RF: 0 magnesium 250 mg Tablet 500 mg PO HS RF: 0 torsemide 10 mg Tablet 10 mg PO QAM 30 Days Qty: 30 RF: 0 allopurinol 100 mg tablet 200 mg PO DAILY RF: 0 warfarin 1 mg tablet 3 mg PO 3XWK RF: 0 warfarin 1 mg tablet 2 mg PO 4XWK RF: 0 hydrocodone-acetaminophen 5-325 mg tablet 1 tab PO Q4 PRN (Reason: Pain) RF: 0 Trelegy Ellipta 100-62.5-25 mcg Blister With Device 1 inh INHALATION DAILY RF: 0 Referrals Referrals: Soren Loja MD [Primary Care Provider] - Discharge Problem: Respiratory failure Qualifiers: Chronicity: acute on chronic Respiratory failure complication: unspecified whet her with hypoxia or hypercapnia Qualified Code(s): J96.20 - Acute and chronic respiratory failure, unspecified whether with hypoxia or hypercapnia CHF (congestive heart failure) Qualifiers: Heart failure type: unspecified Heart failure chronicity: unspecified Qualified Code(s): I50.9 - Heart failure, unspecified COPD (chronic obstructive pulmonary disease) Qualifiers: COPD type: COPD with acute exacerbation Qualified Code(s): J44.1 - Chronic obstructive pulmonary disease with (acute) exacerbation The scribe's documentation has been prepared under my direction and personally reviewed by me in its entirety. I confirm that the note above accurately reflect s all work, treatment, procedures, and medical decision making performed by me.
--- NOTE | 2019-02-26 06:58 | XRay Report ---
XR chest 1V portable CLINICAL HISTORY: Chest Pain COMPARISON STUDY: Chest radiograph January 27, 2019. FINDINGS: A left subclavian biventricular pacer/AICD remains in place. A 4.6 cm right midlung opacity is unchanged. This is indeterminate. There is no pneumothorax. There are trace bilateral pleural eff usions. Cardiomegaly is unchanged. Interstitial thickening has increased. There is mild right lower o pacity. IMPRESSION: 1. Interval increase in pulmonary edema. 2. No change in an indeterminate 4.6 cm right midlung opacity. 3. Trace bilateral pleural effusions. 4. Mild right lower lung opacity. Electronically signed by: Sherwin Douglas M.D. 02/26/2019 6:57 AM
[2019-02-26] MEDS ORDERED: FUROSEMIDE 40 MG/4 ML VIAL IV STA (07:04)
[2019-02-26 07:18] LABS: Basophils # (auto) 0.02 K/uL (0-0.2); Basophils % (auto) 0.3 %; Eosinophils # (auto) 0.13 K/uL (0-0.5); Eosinophils % (auto) 1.8 %; Hematocrit (blood only) 31.6 % (42-52); Immature Granulocytes # (auto) 0.13 K/uL (0.00-0.02); Immature Granulocytes % (auto) 1.8 %; Lymphocytes # (auto) 1.09 K/uL (1.2-3.4); Lymphocytes % (auto) 14.9 %; Mean Corpuscular Hgb Conc 31.6 g/dL (32-36); Mean Corpuscular Volume 93.5 fL (80-100); Monocytes # (auto) 0.63 K/uL (0.11-0.59); Monocytes % (auto) 8.6 %; Neutrophils # (auto) 5.33 K/uL (1.4-6.5); Neutrophils % (auto) 72.6 %; Platelet Count 175 K/uL (130-400); RDW Coefficient of Variation 17.7 % (11.5-14.5); RDW Standard Deviation 60.1 fL (36.4-46.3); Red Blood Count 3.38 M/uL (4.7-6.1); White Blood Count 7.33 K/uL (4.8-10.8)
[2019-02-26 07:33] LABS: INR 2.6 (0.9-1.1); Partial Thromboplastin Ratio 1.3; Partial Thromboplastin Time 35.3 Seconds (21.0-31.0); Prothrombin Time 24.7 Seconds (9.0-12.0)
[2019-02-26 07:34] LABS: Alanine Aminotransferase 50 U/L (12-78); Aspartate Aminotransferase 34 U/L (15-37); BUN Creatinine Ratio 14.1 (10-20); Blood Urea Nitrogen 28 mg/dl (7-18); Calcium 8.4 mg/dl (8.5-10.1); Carbon Dioxide 25 mmol/L (21-32); Chloride 110 mmol/L (98-107); Est GFR (African American) 34.7; Glucose 122 mg/dl (70-99); Potassium 4.7 mmol/L (3.5-5.1); Sodium 144 mmol/L (136-145)
[2019-02-26 07:39] LABS: Albumin Globulin Ratio 0.8 (0.9-2); Alkaline Phosphatase 118 U/L (45-117); Bilirubin,Total 0.6 mg/dl (0.2-1); Globulin 3.5 gm/dl (2.5-4.0); NT Pro B Type Natriuretic Pept 2661 pg/ml (0-1800); Total Protein 6.5 gm/dl (6.4-8.2); Troponin I 0.023 ng/ml (0-0.045)
--- NOTE | 2019-02-26 09:16 | History & Physical Report ---
Date of Service February 26, 2019 Assessment & Plan (1) Acute systolic CHF (congestive heart failure), NYHA class 3: With shortness of breath, respiratory failure, due to decompensation of chronic CHF, systolic dysfunction with baseline NYHA class III: Shortness of breath with minimum activity Resents with worsening of symptoms, chest x-ray shows progression of pulmonary edema, elevated proBNP Symptom improved with IV Lasix and BiPAP Recent echo: November 01, 2018: Left ventricle cavity size is normal. There is a large sized septal, inferior, posterior and lateral wall motion abnormality with mild hypokinesis to a kinases of the segments. There is a small sized inferior scar. The septal motion is abnormal consistent with right ventricular pacemaker. Qualitative LV ejection fraction 35-39% (moderately reduced) There is mild to moderate mitral insufficiency Patient will be admitted to PCU, Continue home dose of torsemide 10 mg p.o. daily Ordered for daily weight, intake output check Cardiology eval requested Decision for repeat echocardiogram/continued IV Lasix therapy deferred to cardiology CHEST HEAVINESS/SHORTNESS OF BREATH Secondary to above: Symptom resolved after diuresis BiPAP treatment No evidence of angina Initial troponin negative, continue to follow serial troponin level Present on Admission?: Yes (2) Acute on chronic respiratory failure with hypoxemia: Secondary to above: Acute decompensation of systolic CHF At baseline patient is shortness of breath on minimal activity, secondary to COPD severe ischemic cardiomyopathy On BiPAP at night Symptom improved after supplemental oxygen and diuresis in ER Prior to discharge home patient will be ordered to stay pulse oximetry test for evaluation for home oxygen requirement Present on Admission?: Yes (3) COPD (chronic obstructive pulmonary disease): Baseline chronic COPD, history of smoking No evidence of exacerbation, no audible wheeze IV steroids not ordered, Continue nebulizer treatment (4) Chronic atrial fibrillation: History of chronic A. fib, Patient was scheduled for a cardiology follow-up at [facility] tomorrow 02/27/2019 There was a plan for DC cardioversion end of this month after being on therapeutic anticoagulation for more than 4 weeks As per coagulation clinic documents: Patient's INR has been therapeutic since 01/30/2019 Cardiology consulted Patient remains in rate controlled A. fib Continue on amiodarone and Coreg Continue on Coumadin, INR 2.6 (5) On anticoagulant therapy: Chronic anticoagulation with Coumadin, INR therapeutic (6) CKD (chronic kidney disease), stage IV: Renal function stable, with approximately baseline creatinine level Monitor BMP closely as patient will require additional diuretic therapy for decompensated CHF Avoid NSAIDs, contrast studies (7) Anemia of chronic disease: Due to stage IV CKD Hemoglobin stable/at baseline (8) History of CVA (cerebrovascular accident): Continue on aspirin/statin (9) Sleep apnea treated with nocturnal BiPAP: Follows with pulmonology at [facility] Utilizes BiPAP at night Patient will need to be assessed for home oxygen requirement prior to discharge from hospital (10) History of implantable cardioverter-defibrillator (ICD) placement: Device interrogation on 02/02/2019: Demonstrated ongoing atrial fibrillation with biventricular pacing Battery longevity is 6.8-year (11) Ischemic cardiomyopathy: Secondary to prior PR Severe ischemic cardiomyopathy with systolic dysfunction: Echo reported as above EF 35-39% With large sized septal/inferior/posterior and lateral wall motion abnormality with mild hypokinesis to akinesis of the segment (12) Hypothyroidism: Continue levothyroxine TSH level within normal limit Patient will need periodic TSH level check (on amiodarone 200 mg twice daily) (13) History of lung cancer: 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 Lugo at [facility] Cardiology follow-up with Carmine Betancur PA-C at [facility] History of Present Illness Chief Complaint: Shortness of breath Primary Care Provider: Soren Loja MD This is a 83-year-old male with a very complex past medical history of severe coronary artery disease previous PR, status post angioplasty of LAD, severe ischemic cardiomyopathy with echo 35%, status post dual-chamber AICD placement, stage IV CKD, carotid arteries disease, prior history of CVA, adenocarcinoma of lung status post radiation, obstructive sleep apnea, on BiPAP at night, history of restless leg syndrome Patient was recently admitted to [facility] from 01/26/2019 to 01/30/2019, discharged to [facility]. Patient had most 2 weeks stay at rehab, was discharged home. During last admission: Patient's diuretics: Torsemide dose was decreased to 10 mg p.o. daily For the past 1 week patient noted to have increased fatigue, dyspnea on exertion, shortness of breath with minimum activity Last night woke up severely short of breath, chest heaviness, utilize nebulizer treatment, and on 5 PM symptoms got progressively worse, Came to [facility] ER On arrival to ER patient was found to be in significant respiratory distress, BiPAP was placed, chest x-ray shows progression of pulmonary congestion compared to 4 weeks prior chest x-ray 40 mg IV Lasix was given, nebulizer treatment, patient placed on BiPAP During my time of interview patient's was much more comfortable, denies of any chest heaviness, remains on BiPAP, Vitals stable, No reported fever or chills, has chronic cough with whitish mucoid sputum No report of GI symptom: Nausea vomiting or diarrhea Has chronic shoulder and back pain, stable, no worsening of symptoms Patient has chronic orthopnea, sleeps on recliner Patient will be admitted to PCU/telemetry for decompensated CHF with underlying severe ischemic cardiomyopathy with systolic dysfunction Allergies Allergy/AdvReac Type Severity Reaction Status Date / Time blue dye Allergy Mild SHORTNESS Verified 01/31/19 14:41 OF BREATH naproxen Allergy Mild SWELLING Verified 02/26/19 07:12 OF HANDS sumatriptan Allergy Mild SHORTNESS Verified 02/26/19 07:12 OF BREATH diphenhydramine AdvReac Intermediate MADE Verified 02/26/19 07:12 DEFIBRILLATOR FIRE pseudoephedrine AdvReac Intermediate MADE HIS Verified 01/31/19 14:41 DEFIB FIRE Home Medications Home Medications Medication Instructions Recorded Confirmed Type amiodarone 200 mg PO BID 08/22/18 02/26/19 History aspirin [Aspir-81] 81 mg PO QAM 08/22/18 02/26/19 History carvedilol [Coreg] 12.5 mg PO BID 08/22/18 02/26/19 History isosorbide dinitrate 10 mg PO BID 08/22/18 02/26/19 History levothyroxine 12.5 mcg PO QAM 08/22/18 02/26/19 History nitroglycerin [Nitrostat] 1 tab SUBLINGUAL UD PRN 08/22/18 02/26/19 History omeprazole 20 mg PO BID 08/22/18 02/26/19 History potassium chloride 10 meq PO BID 08/22/18 02/26/19 History Vitron-C 1 tab PO BID 01/25/19 02/26/19 History magnesium 500 mg PO HS 01/25/19 02/26/19 History torsemide 10 mg PO QAM 30 Days #30 tab 01/30/19 02/26/19 Rx acetaminophen [Tylenol] 650 mg PO Q4 PRN 01/31/19 02/26/19 History cholecalciferol (vitamin D3) 2,000 unit PO DAILY 01/31/19 02/26/19 History [Vitamin D3] ropinirole 0.5 mg PO DAILY 01/31/19 02/26/19 History ropinirole 2.5 mg PO HS 01/31/19 02/26/19 History allopurinol 200 mg PO DAILY 02/26/19 02/26/19 History rqrqddwlvoi-gokrlimyu-cbtfnstp 1 inh INHALATION DAILY 02/26/19 02/26/19 History [Trelegy Ellipta] hydrocodone-acetaminophen 1 tab PO Q4 PRN 02/26/19 02/26/19 History warfarin 2 mg PO 4XWK 02/26/19 02/26/19 History warfarin 3 mg PO 3XWK 02/26/19 02/26/19 History Past Med/Surg History Medical History History of cardioversion (Resolved) Acute kidney injury superimposed on chronic kidney disease (Acute) Left hip pain (Acute) History of CVA (cerebrovascular accident) (Chronic) Chronic atrial fibrillation (Chronic) CKD (chronic kidney disease), stage IV (Chronic) Sciatica (Chronic) Hyperlipidemia (Chronic) Hypertension (Chronic) CAD (coronary artery disease) (Chronic) ASCVD with PR 2000, angioplasty of LAD and Dx, and PCI of PDA. Resultant severe ischemic CM. History of lung cancer (Chronic) ~2014 S/P RADIATION THERAPY History of stomach cancer (Chronic) [id number]. EXCISED WITH EGD. Hypothyroidism (Chronic) GERD (gastroesophageal reflux disease) (Chronic) Ischemic cardiomyopathy (Chronic) 2/2 PR 2000. S/P dual chamber ICD following presentation with syncope and LBBB. BiV pacer upgrade 2011, generator change 11/2017. Osteoarthritis (Chronic) Sleep apnea treated with nocturnal BiPAP (Chronic) "COMPLEX SLEEP APNEA SYNDROME" Renal artery stenosis (Chronic) Anemia of chronic disease (Chronic) On anticoagulant therapy (Chronic) Restless leg syndrome (Chronic) Carotid stenosis, bilateral (Chronic) MGUS (monoclonal gammopathy of unknown significance) (Chronic) Surgical History History of cardiac cath (Resolved) 2000 WITH STENT PLACEMENT History of appendectomy (Chronic) History of total knee replacement (Chronic) RIGHT (DR. NAIR) 2016 History of implantable cardioverter-defibrillator (ICD) placement (Chronic) 2006. UNSURE OF LAST CHECKED. FOLLOWS WITH DR. UP. History of tonsillectomy (Chronic) History of esophagogastroduodenoscopy (EGD) Family History Brother Family history of diabetes mellitus Social History Preferred Language: Spanish Communication Ability: Effective Beliefs That Will Affect Care: None Current Living Situation: Spouse Current Living Situation Comment: CURRENTLY AT [facility] Other Information That Helps Us Care for You: No Feels Safe at Home: Yes Safety Concerns: Feels Safe At This Time Smoking Status: Current every day smoker Tobacco Type: cigarettes Cigarettes Per Day: 10 Second Hand Exposure: No Hx Alcohol Use: No Hx Substance Use: No Review of Systems Review of Systems: All systems reviewed & are unremarkable except as noted in HPI & below Constitutional: + fatigue, + weakness and + problem reported (Increasing shortness of breath, dyspnea on exertion); no fever and no chills Eyes: no problem reported Ear, Nose, Mouth, Throat: no problem reported Respiratory: as per Subjective / HPI, + cough, + dyspnea on exertion and + sputum production (Yellowish white sputum: Chronic) Cardiovascular: as per Subjective / HPI, + chest pain (Chest heaviness secondary to shortness of breath), + dyspnea at rest and + orthopnea Gastrointestinal: no problem reported Genitourinary: no problem reported Musculoskeletal: + joint pain (Chronic shoulder and hip joint pain) Neurologic: no problem reported Physical Exam Constitutional: WD/WN, vitals as above well developed On BiPAP, not in apparent distress Eyes: PERRL, conjunctivae normal, anicteric sclerae ENMT: external ear and nose normal, oropharynx normal Remains on BiPAP, Neck: trachea midline, no thyromegaly Respiratory: normal respiratory effort and + cough; no respiratory distress Auscultation: + crackles (Bibasilar) Cardiovascular: Vessels: no JVD Irregularly irregular, bilateral +1 pedal edema JVD Gastrointestinal (Abdomen): normal bowel sounds, soft, nontender, no hepatosplenomegaly Inspection/Auscultation: abdomen normal to inspection Musculoskeletal: no cyanosis or clubbing, extremities motor strength 5/5 Skin: no rashes, warm and dry Neurologic: PERRL, EOMI, accommodation nl, no face palsy, no dysarthria Psychiatric: A+Ox3, euthymic affect Results & Data Vital Signs (Past 12 Hours) Vital Signs Temp Pulse Pulse Resp BP BP Pulse Ox 02/26/19 08:59 74 23 127/87 97 02/26/19 08:31 68 24 125/74 95 02/26/19 08:30 66 24 97 02/26/19 08:02 68 26 H 97 02/26/19 08:01 63 26 H 119/76 97 02/26/19 08:00 69 20 97 02/26/19 07:30 66 24 126/77 98 02/26/19 07:02 73 26 H 98 02/26/19 07:01 64 26 H 110/67 98 02/26/19 07:00 69 25 H 97 02/26/19 06:58 73 73 31 H 97 02/26/19 06:53 68 30 H 117/72 97 02/26/19 06:52 76 26 H 117/72 97 02/26/19 06:37 97 02/26/19 06:30 77 25 H 95 02/26/19 06:29 67 27 H 97 02/26/19 06:28 36.5 C 75 32 H 138/71 97 02/26/19 06:27 75 27 H 138/71 98 Laboratory Results IMPORTANT PERTINENT LABS Normal white count INR 2.6 Creatinine 2 (approximate baseline) Initial troponin negative proBNP 2661 TSH 0.789 Diagnostic Findings XR chest 1V portable CLINICAL HISTORY: Chest Pain COMPARISON STUDY: Chest radiograph January 27, 2019. FINDINGS: A left subclavian biventricular pacer/AICD remains in place. A 4.6 cm right midlung opacity is unchanged. This is indeterminate. There is no pneumothorax. There are trace bilateral pleural effusions. Cardiomegaly is unchanged. Interstitial thickening has increased. There is mild right lower opacity. IMPRESSION: 1. Interval increase in pulmonary edema. 2. No change in an indeterminate 4.6 cm right midlung opacity. 3. Trace bilateral pleural effusions. 4. Mild right lower lung opacity. Medications Administered 40 mg IV Lasix x1 in ER Nebulizer treatment Code Status & VTE Plan Code Status CODE STATUS: Full code, discussed with patient (1) COPD (chronic obstructive pulmonary disease) COPD type: COPD with acute exacerbation Qualified Code(s): J44.1 - Chronic obstructive pulmonary disease with (acute) exacerbation (2) Hypothyroidism Hypothyroidism type: unspecified Qualified Code(s): E03.9 - Hypothyroidism, unspecified (3) Hypertension Hypertension type: essential hypertension Qualified Code(s): I10 - Essential (primary) hypertension (4) Hyperlipidemia Hyperlipidemia type: unspecified Qualified Code(s): E78.5 - Hyperlipidemia, unspecified
[2019-02-26] MEDS ORDERED: HYDROCODONE/ACETAMOPHEN 5/325MG TAB PO PRN (09:17)
[2019-02-26] MEDS ORDERED: ACETAMINOPHEN 325 MG TAB PO PRN ×2 (09:17→10:20)
[2019-02-26] MEDS ORDERED: NITROGLYCERIN SL 0.4 MG/TAB TAB SL PRN ×2 (09:17→10:20)
[2019-02-26] MEDS ORDERED: MAGNESIUM HYDROXIDE SUSP 30 ML UDC PO PRN (10:20)
[2019-02-26] MEDS ORDERED: POLYETHYLENE (MIRALAX) 17 GM PACK PO PRN (10:20)
[2019-02-26] MEDS ORDERED: ALUMINUM/MAGNESIUM SUSP 30 ML UDC PO PRN (10:20)
[2019-02-26] MEDS: IPRATROPIUM BROMIDE NEB SOLN 0.02% 2.5 ML VIAL INH SCH ×3 (11:11→19:16)
[2019-02-26] MEDS: LEVALBUTEROL 1.25MG/0.5ML NEB INH SCH ×3 (11:11→19:16)
[2019-02-26] MEDS: CARVEDILOL 12.5 MG TAB PO SCH ×2 (11:46→20:42)
[2019-02-26] MEDS: ASPIRIN 81 MG ECTAB PO SCH (11:47)
[2019-02-26] MEDS: POTASSIUM CHLORIDE 10 MEQ TABCR PO SCH ×2 (11:47→20:43)
[2019-02-26] MEDS: PANTOprazole 40 MG TAB PO SCH ×2 (11:48→20:44)
[2019-02-26] MEDS: CHOLECALCIFEROL 1,000 UNITS TAB PO SCH (11:48)
[2019-02-26] MEDS: LEVOTHYROXINE SODIUM 25 MCG TABLET PO SCH (11:48)
[2019-02-26] MEDS: ISOSORBIDE DINITRATE 10 MG TAB PO SCH (11:49)
[2019-02-26] MEDS: AMIODARONE 200 MG TAB PO SCH ×3 (11:50→20:42)
[2019-02-26] MEDS ORDERED: XOPENEX/ATROVENT 1.25mg/0.5MG NEB COMBO NEB SCH (12:00)
[2019-02-26] MEDS: ROPINIROLE HCL 0.25 MG TABLET PO SCH (13:55)
[2019-02-26] MEDS ORDERED: FUROSEMIDE 20 MG in SYRINGE 0 ML IV ONE (14:30)
[2019-02-26] MEDS ORDERED: methylPREDNISolone 40 MG in SYRINGE 0 ML IV STA (14:32)
--- NOTE | 2019-02-26 14:34 | Hospitalist Progress Note ---
Date of Service February 26, 2019 Subjective ATTENDING ADDENDUM: Patient was reevaluated on the floor at room 222 Reason for visit,: Continued respiratory distress Patient is off BiPAP, on 2 L oxygen via nasal cannula, with adequate oxygen saturation Audible wheeze noted Patient mentions he feels better since admission but still have chest heaviness, shortness of breath Last nebulizer treatment was approximately 4 hours ago, ordered for repeat neb Ordered for 40 mg of IV Hbfk-Erunsb-hccpvvrv COPD exacerbation triggered by decompensated CHF 20 mg IV Lasix x1 ordered (patient given total 60 mg IV Lasix: 40 mg in ER + 20 mg in PCU) Repeat lab: BMP ordered for a.clarita Bolanos MD Results & Data Vital Signs (Past 12 Hours) Vital Signs Temp Pulse Pulse Resp BP BP Pulse Ox 02/26/19 11:32 22 129/75 100 02/26/19 11:22 84 24 98 02/26/19 11:11 85 24 98 02/26/19 10:00 36.3 C L 72 65 16 125/83 98 02/26/19 08:59 74 23 127/87 97 02/26/19 08:31 68 24 125/74 95 02/26/19 08:30 66 24 97 02/26/19 08:02 68 26 H 97 02/26/19 08:01 63 26 H 119/76 97 02/26/19 08:00 69 20 97 02/26/19 07:30 66 24 126/77 98 02/26/19 07:02 73 26 H 98 02/26/19 07:01 64 26 H 110/67 98 02/26/19 07:00 69 25 H 97 02/26/19 06:58 73 73 31 H 97 02/26/19 06:53 68 30 H 117/72 97 02/26/19 06:52 76 26 H 117/72 97 02/26/19 06:37 97 02/26/19 06:30 77 25 H 95 02/26/19 06:29 67 27 H 97 02/26/19 06:28 36.5 C 75 32 H 138/71 97 02/26/19 06:27 75 27 H 138/71 98
[2019-02-26] MEDS: WARFARIN SOD 3 MG TAB PO SCH (15:50)
[2019-02-26] MEDS: ROPINIROLE HCL 5 MG TABLET PO SCH (20:44)
[2019-02-26] MEDS: methylPREDNISolone 40 MG in SYRINGE 0 ML IV SCH (20:45)
[2019-02-27] MEDS: IPRATROPIUM BROMIDE NEB SOLN 0.02% 2.5 ML VIAL INH SCH ×7 (00:03→23:14)
[2019-02-27] MEDS: LEVALBUTEROL 1.25MG/0.5ML NEB INH SCH ×7 (00:03→23:14)
[2019-02-27] MEDS: methylPREDNISolone 40 MG in SYRINGE 0 ML IV SCH ×3 (05:26→20:39)
[2019-02-27] MEDS: LEVOTHYROXINE SODIUM 25 MCG TABLET PO SCH (05:26)
[2019-02-27 07:29] LABS: Hematocrit (blood only) 33.1 % (42-52); Hemoglobin 10.6 g/dL (14.0-18.0); Mean Corpuscular Volume 93.5 fL (80-100); Mean Platelet Volume 10.5 fL (7.4-10.4); Platelet Count 173 K/uL (130-400); RDW Coefficient of Variation 17.5 % (11.5-14.5); RDW Standard Deviation 59.8 fL (36.4-46.3); Red Blood Count 3.54 M/uL (4.7-6.1); White Blood Count 7.19 K/uL (4.8-10.8)
[2019-02-27 07:52] LABS: INR 2.2 (0.9-1.1); Prothrombin Time 21.4 Seconds (9.0-12.0)
[2019-02-27 07:53] LABS: BUN Creatinine Ratio 16.4 (10-20); Blood Urea Nitrogen 35 mg/dl (7-18); Calcium 8.7 mg/dl (8.5-10.1); Carbon Dioxide 26 mmol/L (21-32); Chloride 109 mmol/L (98-107); Est GFR (Non-African American) 27.6; Glucose 157 mg/dl (70-99); Magnesium 3.4 mg/dl (1.8-2.4); Potassium 4.8 mmol/L (3.5-5.1); Sodium 142 mmol/L (136-145)
[2019-02-27] MEDS: ISOSORBIDE DINITRATE 10 MG TAB PO SCH ×2 (08:37→12:27)
[2019-02-27] MEDS: PANTOprazole 40 MG TAB PO SCH ×2 (08:37→20:38)
[2019-02-27] MEDS: CARVEDILOL 12.5 MG TAB PO SCH ×2 (08:37→20:38)
[2019-02-27] MEDS: AMIODARONE 200 MG TAB PO SCH ×2 (08:37→20:38)
[2019-02-27] MEDS: ASPIRIN 81 MG ECTAB PO SCH (08:37)
[2019-02-27] MEDS: CHOLECALCIFEROL 1,000 UNITS TAB PO SCH (08:39)
[2019-02-27] MEDS: POTASSIUM CHLORIDE 10 MEQ TABCR PO SCH ×2 (08:39→20:38)
[2019-02-27] MEDS: ALLOPURINOL 100 MG TAB PO SCH (08:39)
[2019-02-27] MEDS: TORSEMIDE 10 MG TAB PO SCH (08:39)
--- NOTE | 2019-02-27 11:01 | Cardiology Consultation ---
Date of Consultation February 27, 2019 Assessment & Plan (1) Acute systolic CHF (congestive heart failure), NYHA class 3: Mild interval improvement since admission with one dose IV furosemide. Recommend repeat dose today of furosemide 20 mg IV. Monitor renal funciton and electrolytes closely. Compared to admission in January 2019, he is up approx 9 kg. Hold home dose torsemide for now. Fluid restriction of 1500 ml Monitor I+O's (2) Acute on chronic respiratory failure with hypoxemia: Continue BIPAP/supplemental O2 and IV steroids. Underlying COPD likely contributing factor. (3) Persistent atrial fibrillation: Patient has persistent afib since January 2019 resulting in reduced BIV pacing and likely CHF exacerbation. INR therapeutic since 01/30. Continue coumadin, amiodarone and carvedilol. Once respiratory status improves, consider DCCV during this admission. (4) Status post biventricular pacemaker: Supervising Physician Co-Signing Physician Notes Patient seen and examined at the bedside. Reports progressive dyspnea on exertion prior to admission. Weight is up approximately 9 kg. Denies chest pain. Patient had appointment in office today to schedule cardioversion for recurrent atrial fibrillation. Denies palpitations. No lightheadedness, dizziness, syncope, near syncope. PE: VSS, Irregular rhythm. No murmur. Lungs: Diminished breath sounds bilateral, no rales, rhonchi, or wheeze. Extremities: Trace bilateral pedal edema. Abdomen: Mild distention. A/P: Agree with above PA-C history, physical exam, assessment and plan. Patient received additional dose of IV diuretic therapy today with close attention to renal function and fluid balance given history of chronic renal insufficiency. Tentative plans for external direct-current cardioversion prior to discharge. Briefly discussed potential for AV node ablation in the future secondary to history of biventricular pacemaker. All questions answered satisfaction both patient and his . History of Present Illness Reason for Consultation: CHF; Persistent atrial fibrillation Requesting Physician: Dr. Bolanos Attending Physician: Dr. Seth Brito History of Present Illness Patient is a very complex 83-year-old male, well known to [facility], who presented to [facility] with worsening SOB, hypoxia, consistent with combined acute on chronic systolic heart failure exacerbation along with COPD exacerbation. He was treated with one dose IV Lasix in the ER and BIPAP initiated. Negative cardiac enzymes. He was also dosed with IV steroids. EKG demonstrates ventricular paced rhythm. Telemetry findings consistent with underlying afib and intermittent ventricular pacing. In January 2019, patient was found to have recurrent atrial fibrillation with subsequent reduced BIV pacing. He had been scheduled for CV on 02/03, but this was cancelled due to subtherapeutic INR. INR has been therapeutic since 01/30. Patient reports good response to one dose IV furosemide with 1.4 L output and interval improvement in dyspnea. Still notes significant dyspnea with minimal ambulation to the restroom this AM. Feels his abdomen is firm and bloated. No significant edema. No chest pain. No dizziness, syncope or near syncope. Compared with prior admission records, weight is up approx 9 kg since January 2019. Problem List: 1. ASCVD and previous [place], angioplasty of the LAD and diagonal, and PCI of the PDA in 2000. Resultant severe ischemic cardiomyopathy. 2. Status post dual chamber ICD implantation following presentation with syncope and a LBBB. Functional status was previously NYHA Class I-II and thus no Bi-V device was implanted. Procedures performed at [facility]. 3. Change in functional status lead to the abnormal nuclear stress testing and ultimately 06/06/2012 cardiac catheterization which demonstrated obstructive branch vessel coronary artery disease including a 100% RPLB stenosis and a 100% first diagonal branch stenosis. Left ventricular end diastolic pressure was noted to be moderately elevated. 4. Status post biventricular pacemaker upgrade at [facility] on 07/22/2012 5. Status post November 30, [address] Freeman 6. Hospitalization at [facility] in May 2013 with shortness of breath, new onset symptomatic atrial fibrillation with a RVR with resultant acute decompensated biventricular CHF exacerbation. Oral amiodarone and Coumadin anticoagulation initiated at that time. Post discharge he spontaneously converted back to since rhythm with device interrogation revealing increased biventricular pacing, resultant improvement in symptoms. 7. 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 8. Carotid occlusive disease, followed by Vascular - managed medically. 9. Emphysema. 10. Adenocarcinoma of the lung status post radiation. 11. December 2017 EGD, gastric nodule - adenocarcinoma. 12. Severe complex sleep apnea, BiPAP therapy 13. Restless leg syndrome 14. Lumbar disc disease 15. Hypertension 16. Hyperlipidemia 17. Stage IV chronic kidney disease 18. Migraine headaches 19. Positional vertigo. Allergies Allergy/AdvReac Type Severity Reaction Status Date / Time blue dye Allergy Mild SHORTNESS Verified 01/31/19 14:41 OF BREATH naproxen Allergy Mild SWELLING Verified 02/26/19 07:12 OF HANDS sumatriptan Allergy Mild SHORTNESS Verified 02/26/19 07:12 OF BREATH diphenhydramine AdvReac Intermediate MADE Verified 02/26/19 07:12 DEFIBRILLATOR FIRE pseudoephedrine AdvReac Intermediate MADE HIS Verified 01/31/19 14:41 DEFIB FIRE Home Medications Home Medications Medication Instructions Recorded Confirmed Type amiodarone 200 mg PO BID 08/22/18 02/26/19 History aspirin [Aspir-81] 81 mg PO QAM 08/22/18 02/26/19 History carvedilol [Coreg] 12.5 mg PO BID 08/22/18 02/26/19 History isosorbide dinitrate 10 mg PO BID 08/22/18 02/26/19 History levothyroxine 12.5 mcg PO QAM 08/22/18 02/26/19 History nitroglycerin [Nitrostat] 1 tab SUBLINGUAL UD PRN 08/22/18 02/26/19 History omeprazole 20 mg PO BID 08/22/18 02/26/19 History potassium chloride 10 meq PO BID 08/22/18 02/26/19 History Vitron-C 1 tab PO BID 01/25/19 02/26/19 History magnesium 500 mg PO HS 01/25/19 02/26/19 History torsemide 10 mg PO QAM 30 Days #30 tab 01/30/19 02/26/19 Rx acetaminophen [Tylenol] 650 mg PO Q4 PRN 01/31/19 02/26/19 History cholecalciferol (vitamin D3) 2,000 unit PO DAILY 01/31/19 02/26/19 History [Vitamin D3] ropinirole 0.5 mg PO DAILY 01/31/19 02/26/19 History ropinirole 2.5 mg PO HS 01/31/19 02/26/19 History allopurinol 200 mg PO DAILY 02/26/19 02/26/19 History yjsllzxcwad-grgkmurfz-zgkvqqzj 1 inh INHALATION DAILY 02/26/19 02/26/19 History [Trelegy Ellipta] hydrocodone-acetaminophen 1 tab PO Q4 PRN 02/26/19 02/26/19 History warfarin 2 mg PO 4XWK 02/26/19 02/26/19 History warfarin 3 mg PO 3XWK 02/26/19 02/26/19 History Patient History Medical History History of cardioversion (Resolved) Acute kidney injury superimposed on chronic kidney disease (Acute) Left hip pain (Acute) History of CVA (cerebrovascular accident) (Chronic) Chronic atrial fibrillation (Chronic) CKD (chronic kidney disease), stage IV (Chronic) Sciatica (Chronic) Hyperlipidemia (Chronic) Hypertension (Chronic) CAD (coronary artery disease) (Chronic) ASCVD with [place] 2000, angioplasty of LAD and Dx, and PCI of PDA. Resultant severe ischemic CM. History of lung cancer (Chronic) ~2014 S/P RADIATION THERAPY History of stomach cancer (Chronic) [id number]. EXCISED WITH EGD. Hypothyroidism (Chronic) GERD (gastroesophageal reflux disease) (Chronic) Ischemic cardiomyopathy (Chronic) 2/ [place] 2000. S/P dual chamber ICD following presentation with syncope and LBBB. BiV pacer upgrade 2011, generator change 11/2017. Osteoarthritis (Chronic) Sleep apnea treated with nocturnal BiPAP (Chronic) "COMPLEX SLEEP APNEA SYNDROME" Renal artery stenosis (Chronic) Anemia of chronic disease (Chronic) On anticoagulant therapy (Chronic) Restless leg syndrome (Chronic) Carotid stenosis, bilateral (Chronic) MGUS (monoclonal gammopathy of unknown significance) (Chronic) Surgical History History of cardiac cath (Resolved) 2000 WITH STENT PLACEMENT History of appendectomy (Chronic) History of total knee replacement (Chronic) RIGHT (DR. NAIR) 2016 History of implantable cardioverter-defibrillator (ICD) placement (Chronic) 2006. UNSURE OF LAST CHECKED. FOLLOWS WITH DR. UP. History of tonsillectomy (Chronic) History of esophagogastroduodenoscopy (EGD) Family History Brother Family history of diabetes mellitus Social History Preferred Language: Uzbek Communication Ability: Effective Beliefs That Will Affect Care: None Current Living Situation: Spouse Current Living Situation Comment: CURRENTLY AT [facility] Other Information That Helps Us Care for You: No Feels Safe at Home: Yes Safety Concerns: Feels Safe At This Time Smoking Status: Current every day smoker Tobacco Type: cigarettes Cigarettes Per Day: 10 Second Hand Exposure: No Hx Alcohol Use: No Hx Substance Use: No Review of Systems Review of Systems: All systems reviewed & are unremarkable except as noted in HPI & below Physical Exam Constitutional: WD/WN, vitals as above + ill appearing (Conversational dyspnea noted) and average body habitus Eyes: PERRL, conjunctivae normal, anicteric sclerae Neck: trachea midline, no thyromegaly Respiratory: Auscultation: + diminished lung sounds (bases bilaterally. Reduced lung sounds R>L) and + rales (left > right) Cardiovascular: Rate/Rhythm: + irregularly irregular Heart Sounds: no murmur Extremities: no edema Gastrointestinal (Abdomen): Inspection/Auscultation: + abdomen distended Musculoskeletal: no cyanosis or clubbing, extremities motor strength 5/5 Neurologic: PERRL, EOMI, accommodation nl, no face palsy, no dysarthria Psychiatric: A+Ox3, euthymic affect Results & Data Vital Signs (Past 12 Hours) Vital Signs Temp Pulse Pulse Resp BP Pulse Ox Pulse Ox 02/27/19 10:22 96 02/27/19 07:23 87 20 99 02/27/19 07:22 84 20 99 02/27/19 07:08 36.9 C 68 16 125/79 98 02/27/19 03:17 75 17 96 02/27/19 03:16 75 20 96 02/27/19 03:01 36.9 C 71 18 112/72 98 02/27/19 00:08 70 20 95 02/27/19 00:03 70 20 95 02/27/19 00:00 36.8 C 68 16 121/83 98 Pulse Ox 02/27/19 10:22 99 02/27/19 07:23 02/27/19 07:22 02/27/19 07:08 02/27/19 03:17 02/27/19 03:16 02/27/19 03:01 02/27/19 00:08 02/27/19 00:03 02/27/19 00:00 Laboratory Results 02/27/19 02/27/19 02/27/19 Range/Units 07:09 07:09 07:09 WBC 7.19 (4.8-10.8) K/uL RBC 3.54 L (4.7-6.1) M/uL Hgb 10.6 L (14.0-18.0) g/dL Hct 33.1 L (42-52) % MCV 93.5 (80-100) fL MCH 29.9 (25-34) pg MCHC 32.0 (32-36) g/dL RDW Std Deviation 59.8 H (36.4-46.3) fL RDW Coeff of Rocael 17.5 H (11.5-14.5) % Plt Count 173 (130-400) K/uL MPV 10.5 H (7.4-10.4) fL PT 21.4 H INR 2.2 H Sodium 142 (136-145) mmol/L Potassium 4.8 (3.5-5.1) mmol/L Chloride 109 H (98-107) mmol/L Carbon Dioxide 26 (21-32) mmol/L Anion Gap 7.0 (3-11) BUN 35 H (7-18) mg/dl Creatinine 2.14 H (0.6-1.4) mg/dl Est Cr Clr Drug Dosing Not Reportable Est GFR ( Amer) 32.0 Est GFR (Non-Af Amer) 27.6 BUN/Creatinine Ratio 16.4 (10-20) Glucose 157 H (70-99) mg/dl Calcium 8.7 (8.5-10.1) mg/dl Magnesium 3.4 H (1.8-2.4) mg/dl Troponin I (0-0.045) ng/ml 02/27/19 02/27/19 02/26/19 Range/Units 06:30 00:17 18:46 WBC (4.8-10.8) K/uL RBC (4.7-6.1) M/uL Hgb (14.0-18.0) g/dL Hct (42-52) % MCV (80-100) fL MCH (25-34) pg MCHC (32-36) g/dL RDW Std Deviation (36.4-46.3) fL RDW Coeff of Rocael (11.5-14.5) % Plt Count (130-400) K/uL MPV (7.4-10.4) fL PT Cancelled INR Cancelled Sodium (136-145) mmol/L Potassium (3.5-5.1) mmol/L Chloride (98-107) mmol/L Carbon Dioxide (21-32) mmol/L Anion Gap (3-11) BUN (7-18) mg/dl Creatinine (0.6-1.4) mg/dl Est Cr Clr Drug Dosing Est GFR ( Amer) Est GFR (Non-Af Amer) BUN/Creatinine Ratio (10-20) Glucose (70-99) mg/dl Calcium (8.5-10.1) mg/dl Magnesium (1.8-2.4) mg/dl Troponin I < 0.015 < 0.015 (0-0.045) ng/ml 02/26/19 Range/Units 13:06 WBC (4.8-10.8) K/uL RBC (4.7-6.1) M/uL Hgb (14.0-18.0) g/dL Hct (42-52) % MCV (80-100) fL MCH (25-34) pg MCHC (32-36) g/dL RDW Std Deviation (36.4-46.3) fL RDW Coeff of Rocael (11.5-14.5) % Plt Count (130-400) K/uL MPV (7.4-10.4) fL PT INR Sodium (136-145) mmol/L Potassium (3.5-5.1) mmol/L Chloride (98-107) mmol/L Carbon Dioxide (21-32) mmol/L Anion Gap (3-11) BUN (7-18) mg/dl Creatinine (0.6-1.4) mg/dl Est Cr Clr Drug Dosing Est GFR ( Amer) Est GFR (Non-Af Amer) BUN/Creatinine Ratio (10-20) Glucose (70-99) mg/dl Calcium (8.5-10.1) mg/dl Magnesium (1.8-2.4) mg/dl Troponin I 0.022 (0-0.045) ng/ml Diagnostic Findings Chest Xray: IMPRESSION: 1. Interval increase in pulmonary edema. 2. No change in an indeterminate 4.6 cm right midlung opacity. 3. Trace bilateral pleural effusions. 4. Mild right lower lung opacity. telemetry reviewed: intermittent ventricular pacing, with underlying atrial fibrillation EKG reviewed from 02/27/19: Ventricular-paced rhythm
[2019-02-27] MEDS: FUROSEMIDE 20 MG TAB PO SCH (12:27)
[2019-02-27] MEDS: ROPINIROLE HCL 0.25 MG TABLET PO SCH (15:59)
[2019-02-27] MEDS ORDERED: WARFARIN SOD 2 MG TAB PO SCH (16:00)
--- NOTE | 2019-02-27 17:55 | Hospitalist Progress Note ---
Date of Service February 27, 2019 Assessment & Plan (1) Acute systolic CHF (congestive heart failure), NYHA class 3: With shortness of breath, respiratory failure, due to decompensation of chronic CHF, systolic dysfunction with baseline NYHA class III: Shortness of breath with minimum activity Resents with worsening of symptoms, chest x-ray shows progression of pulmonary edema, elevated proBNP Symptom improved with IV Lasix and BiPAP Recent echo: November 01, 2018: Left ventricle cavity size is normal. There is a large sized septal, inferior, posterior and lateral wall motion abnormality with mild hypokinesis to a kinases of the segments. There is a small sized inferior scar. The septal motion is abnormal consistent with right ventricular pacemaker. Qualitative LV ejection fraction 35-39% (moderately reduced) There is mild to moderate mitral insufficiency Admitted with worsening shortness of breath/acute respiratory failure with volume overload Symptom improved after IV diuresis, required BiPAP in the ER, now transitioned to nasal cannula Appreciate input from cardiology, recommend continue IV Lasix with close monitoring of renal function CHEST HEAVINESS/SHORTNESS OF BREATH Secondary to above: Symptom resolved after diuresis Serial cardiac markers negative, echo shows no new motion abnormality (2) Acute on chronic respiratory failure with hypoxemia: Secondary to above: Acute decompensation of systolic CHF At baseline patient is shortness of breath on minimal activity, secondary to COPD severe ischemic cardiomyopathy On BiPAP at night ordered Symptom improved after supplemental oxygen and diuresis Patient started with IV steroids for COPD exacerbation, Medically improved, will transition to p.o. steroids today (3) COPD (chronic obstructive pulmonary disease): Baseline chronic COPD, history of smoking Developed COPD exacerbation with audible wheeze, Improved with IV steroids, nebulizer treatment Will transition to oral prednisone (4) Chronic atrial fibrillation: History of chronic A. fib, There was a plan for DC cardioversion end of this month after being on therapeutic anticoagulation for more than 4 weeks As per coagulation clinic documents: Patient's INR has been therapeutic since 01/30/2019 Cardiology consulted Patient remains in rate controlled A. fib Continue on amiodarone and Coreg Appreciate input from cardiology Plan to DC cardioversion this admission as patient's respiratory status improves (5) On anticoagulant therapy: Chronic anticoagulation with Coumadin, INR therapeutic (6) CKD (chronic kidney disease), stage IV: Renal function stable, with approximately baseline creatinine level Monitor BMP closely due to diuretic therapy for decompensated CHF Avoid NSAIDs, contrast studies (7) Anemia of chronic disease: Due to stage IV CKD Hemoglobin stable/at baseline (8) History of CVA (cerebrovascular accident): Continue on aspirin/statin (9) Sleep apnea treated with nocturnal BiPAP: Follows with pulmonology at [facility] Utilizes BiPAP at night Patient will need to be assessed for home oxygen requirement prior to discharge from hospital (10) History of implantable cardioverter-defibrillator (ICD) placement: Device interrogation on 02/02/2019: Demonstrated ongoing atrial fibrillation with biventricular pacing Battery longevity is 6.8-year (11) Ischemic cardiomyopathy: Secondary to prior CA Severe ischemic cardiomyopathy with systolic dysfunction: Echo reported as above EF 35-39% With large sized septal/inferior/posterior and lateral wall motion abnormality with mild hypokinesis to akinesis of the segment Repeat echocardiogram: (12) Hypothyroidism: Continue levothyroxine TSH level within normal limit Patient will need periodic TSH level check (on amiodarone 200 mg twice daily) (13) History of lung cancer: History of 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 Chronic right upper lobe pulmonary nodule (14) CAD (coronary artery disease): (15) Hypertension: Essential hypertension with blood pressure goal less than 140/90 Patient is continue with Coreg Isosorbide dinitrate (16) Hyperlipidemia: On atorvastatin CODE STATUS: Discussed with patient Full code DVT prophylaxis: On Coumadin Disposition: Lives at home with , Ordered for PT OT evaluation Social service consult for discharge planning Family medicine follow-up with Dr. Lugo at [facility] Cardiology follow-up with Carmine Betancur PA-C at [facility] Subjective Breathing much improved, no cough, no chest heaviness No audible wheeze, denies of any shortness of breath at rest, has baseline orthopnea No fever or chills, patient reports a feeling much better today Physical Exam Constitutional: WD/WN, vitals as above well developed Eyes: PERRL, conjunctivae normal, anicteric sclerae ENMT: external ear and nose normal, oropharynx normal Neck: trachea midline, no thyromegaly Respiratory: normal respiratory effort and + cough; no respiratory distress Auscultation: + crackles (Bibasilar) Cardiovascular: Vessels: no JVD Gastrointestinal (Abdomen): normal bowel sounds, soft, nontender, no hepatosplenomegaly Inspection/Auscultation: abdomen normal to inspection Musculoskeletal: no cyanosis or clubbing, extremities motor strength 5/5 Skin: no rashes, warm and dry Neurologic: PERRL, EOMI, accommodation nl, no face palsy, no dysarthria Psychiatric: A+Ox3, euthymic affect Results & Data Vital Signs (Past 12 Hours) Vital Signs Temp Pulse Pulse Resp BP Pulse Ox Pulse Ox 02/27/19 15:33 36.5 C 74 19 114/62 98 02/27/19 15:31 74 16 98 02/27/19 12:32 80 18 95 02/27/19 11:00 37.0 C 72 26 H 134/78 99 02/27/19 10:53 98 02/27/19 10:22 96 02/27/19 07:23 87 20 99 02/27/19 07:22 84 20 99 02/27/19 07:08 36.9 C 68 16 125/79 98 Pulse Ox 02/27/19 15:33 02/27/19 15:31 02/27/19 12:32 02/27/19 11:00 02/27/19 10:53 02/27/19 10:22 99 02/27/19 07:23 02/27/19 07:22 02/27/19 07:08 (1) Hyperlipidemia Hyperlipidemia type: unspecified Qualified Code(s): E78.5 - Hyperlipidemia, unspecified (2) Hypothyroidism Hypothyroidism type: unspecified Qualified Code(s): E03.9 - Hypothyroidism, unspecified (3) COPD (chronic obstructive pulmonary disease) COPD type: COPD with acute exacerbation Qualified Code(s): J44.1 - Chronic obstructive pulmonary disease with (acute) exacerbation (4) Hypertension Hypertension type: essential hypertension Qualified Code(s): I10 - Essential (primary) hypertension
[2019-02-27] MEDS: MAGNESIUM OXIDE 400 MG TAB PO SCH (20:38)
[2019-02-27] MEDS: ROPINIROLE HCL 5 MG TABLET PO SCH (20:39)
[2019-02-28] MEDS: LEVALBUTEROL 1.25MG/0.5ML NEB INH SCH ×6 (03:02→23:07)
[2019-02-28] MEDS: IPRATROPIUM BROMIDE NEB SOLN 0.02% 2.5 ML VIAL INH SCH ×6 (03:02→23:07)
[2019-02-28] MEDS: LEVOTHYROXINE SODIUM 25 MCG TABLET PO SCH (05:37)
[2019-02-28] MEDS: methylPREDNISolone 40 MG in SYRINGE 0 ML IV SCH (05:38)
[2019-02-28] MEDS: ISOSORBIDE DINITRATE 10 MG TAB PO SCH ×2 (06:20→12:17)
[2019-02-28 06:34] LABS: INR 2.9 (0.9-1.1); Prothrombin Time 27.6 Seconds (9.0-12.0)
[2019-02-28 06:57] LABS: BUN Creatinine Ratio 20.9 (10-20); Blood Urea Nitrogen 51 mg/dl (7-18); Calcium 8.4 mg/dl (8.5-10.1); Carbon Dioxide 24 mmol/L (21-32); Chloride 104 mmol/L (98-107); Est GFR (African American) 27.2; Est GFR (Non-African American) 23.5; Glucose 162 mg/dl (70-99); Potassium 5.2 mmol/L (3.5-5.1); Sodium 136 mmol/L (136-145)
[2019-02-28] MEDS: AMIODARONE 200 MG TAB PO SCH ×2 (08:19→20:31)
[2019-02-28] MEDS: ALLOPURINOL 100 MG TAB PO SCH (08:20)
[2019-02-28] MEDS: CHOLECALCIFEROL 1,000 UNITS TAB PO SCH (08:20)
[2019-02-28] MEDS: FUROSEMIDE 20 MG TAB PO SCH (08:21)
[2019-02-28] MEDS: PANTOprazole 40 MG TAB PO SCH ×2 (08:21→20:30)
[2019-02-28] MEDS: ASPIRIN 81 MG ECTAB PO SCH (08:21)
[2019-02-28] MEDS: POTASSIUM CHLORIDE 10 MEQ TABCR PO SCH (08:21)
[2019-02-28] MEDS: CARVEDILOL 12.5 MG TAB PO SCH ×2 (08:22→20:31)
[2019-02-28] MEDS: ALBUTEROL HFA 8 GM INHALER INH PRN (08:26)
[2019-02-28] MEDS: predniSONE 50 MG TAB PO SCH (09:55)
--- NOTE | 2019-02-28 10:51 | Cardiology Progress Note ---
Date of Service February 28, 2019 Assessment & Plan (1) Acute systolic CHF (congestive heart failure), NYHA class 3: Mild interval improvement since admission with one dose IV furosemide. Recommend repeat dose today of furosemide 20 mg IV. Monitor renal funciton and electrolytes closely. Compared to admission in January 2019, he is up approx 9 kg. We will give additional furosemide today Hold potassium supplement (2) Acute on chronic respiratory failure with hypoxemia: Continue BIPAP/supplemental O2 and IV steroids. Underlying COPD likely contributing factor. (3) Persistent atrial fibrillation: Patient has persistent afib since January 2019 resulting in reduced BIV pacing and likely CHF exacerbation. INR therapeutic since 01/30. Continue coumadin, amiodarone and carvedilol. Once respiratory status improves, consider DCCV during this admission. (4) Status post biventricular pacemaker: Subjective Breathing slowly improving, still dyspneic with minimal exertion Renal function worsened overnight but near usual baseline No chest pains or discomfort Mild diuresis since admission weight down approximately 1 kg Telemetry atrial fibrillation with occasional ventricular pacing Physical Exam Constitutional: + ill appearing Eyes: PERRL, conjunctivae normal, anicteric sclerae ENMT: external ear and nose normal, oropharynx normal Neck: trachea midline, no thyromegaly Respiratory: Auscultation: + diminished lung sounds and + rales (Few basilar) Cardiovascular: Rate/Rhythm: + irregularly irregular Heart Sounds: no cardiac rub Extremities: + edema (2+ bilateral) Chest (Breasts): Chest: + pacemaker Gastrointestinal (Abdomen): Mild distention soft Results & Data Vital Signs (Past 12 Hours) Vital Signs Temp Pulse Pulse Resp BP Pulse Ox 02/28/19 10:04 70 02/28/19 07:19 36.4 C L 80 24 122/78 98 02/28/19 07:03 78 16 97 02/28/19 04:08 36.7 C 75 16 131/83 97 02/28/19 03:04 98 H 20 95 02/28/19 00:25 70 02/27/19 23:34 36.9 C 74 16 109/71 98 02/27/19 23:15 76 22 98 Laboratory Results Laboratory Results - last 24 hr 02/28/19 02/28/19 06:03 06:03 PT 27.6 H INR 2.9 H Sodium 136 Potassium 5.2 H Chloride 104 Carbon Dioxide 24 Anion Gap 8.0 BUN 51 H Creatinine 2.45 H D Est Cr Clr Drug Dosing Not Reportable Est GFR ( Amer) 27.2 Est GFR (Non-Af Amer) 23.5 BUN/Creatinine Ratio 20.9 H Glucose 162 H Calcium 8.4 L
[2019-02-28] MEDS ORDERED: FUROSEMIDE 20 MG in SYRINGE 0 ML IV ONE (11:15)
[2019-02-28] MEDS: WARFARIN SOD 3 MG TAB PO SCH (15:21)
[2019-02-28] MEDS: ROPINIROLE HCL 0.25 MG TABLET PO SCH (15:21)
--- NOTE | 2019-02-28 16:12 | Hospitalist Progress Note ---
Date of Service February 28, 2019 Assessment & Plan (1) Acute systolic CHF (congestive heart failure), NYHA class 3: Presented with shortness of breath, respiratory failure, due to decompensation of chronic CHF, systolic dysfunction with baseline NYHA class III: Shortness of breath with minimum activity , chest x-ray shows progression of pulmonary edema, elevated proBNP Symptom improved with IV Lasix and BiPAP Recent echo: November 01, 2018: Left ventricle cavity size is normal. There is a large sized septal, inferior, posterior and lateral wall motion abnormality with mild hypokinesis to a kinases of the segments. There is a small sized inferior scar. The septal motion is abnormal consistent with right ventricular pacemaker. Qualitative LV ejection fraction 35-39% (moderately reduced) There is mild to moderate mitral insufficiency Admitted with worsening shortness of breath/acute respiratory failure with volume overload Symptom improved after IV diuresis, required BiPAP in the ER, now transitioned to nasal cannula Appreciate input from cardiology, recommend continue Lasix with close monitoring of renal function CHEST HEAVINESS/SHORTNESS OF BREATH Secondary to above: Symptom resolved after diuresis Serial cardiac markers negative, echo shows no new motion abnormality (2) Acute on chronic respiratory failure with hypoxemia: Secondary to above: Acute decompensation of systolic CHF At baseline patient is shortness of breath on minimal activity, secondary to COPD severe ischemic cardiomyopathy On BiPAP at night ordered Symptom improved after supplemental oxygen and diuresis Patient started with IV steroids for COPD exacerbation, Medically improved, will transition to p.o. steroids Will need to step exercise prior to discharge to assess home oxygen requirement (3) COPD (chronic obstructive pulmonary disease): Baseline chronic COPD, history of smoking Developed COPD exacerbation with audible wheeze, Improved with IV steroids, nebulizer treatment Transition to oral prednisone 40 mg daily total 5 days (4) Chronic atrial fibrillation: History of chronic A. fib, There was a plan for DC cardioversion end of this month after being on therapeutic anticoagulation for more than 4 weeks As per coagulation clinic documents: Patient's INR has been therapeutic since 01/30/2019 Cardiology consulted Patient remains in rate controlled A. fib Continue on amiodarone and Coreg Appreciate input from cardiology Plan to DC cardioversion this admission as patient's respiratory status improves (5) On anticoagulant therapy: Chronic anticoagulation with Coumadin, INR therapeutic (6) CKD (chronic kidney disease), stage IV: Renal function stable, with approximately baseline creatinine level Monitor BMP closely due to diuretic therapy for decompensated CHF Avoid NSAIDs, contrast studies (7) Anemia of chronic disease: Due to stage IV CKD Hemoglobin stable/at baseline (8) History of CVA (cerebrovascular accident): Continue on aspirin/statin (9) Sleep apnea treated with nocturnal BiPAP: Follows with pulmonology at [facility] Utilizes BiPAP at night Patient will need to be assessed for home oxygen requirement prior to discharge from hospital (10) History of implantable cardioverter-defibrillator (ICD) placement: Device interrogation on 02/02/2019: Demonstrated ongoing atrial fibrillation with biventricular pacing Battery longevity is 6.8-year (11) Ischemic cardiomyopathy: Secondary to prior PA Severe ischemic cardiomyopathy with systolic dysfunction: Echo reported as above EF 35-39% With large sized septal/inferior/posterior and lateral wall motion abnormality with mild hypokinesis to akinesis of the segment Repeat echocardiogram: (12) Hypothyroidism: Continue levothyroxine TSH level within normal limit Patient will need periodic TSH level check (on amiodarone 200 mg twice daily) (13) History of lung cancer: History of 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 Chronic right upper lobe pulmonary nodule (14) CAD (coronary artery disease): (15) Hypertension: Essential hypertension with blood pressure goal less than 140/90 Patient is continue with Coreg Isosorbide dinitrate (16) Hyperlipidemia: On atorvastatin CODE STATUS: Discussed with patient Full code DVT prophylaxis: On Coumadin Disposition: Lives at home with , Ordered for PT OT evaluation Social service consult for discharge planning Family medicine follow-up with Dr. Lugo at [facility] Cardiology follow-up with Carmine Betancur PA-C at [facility] Subjective Denies of any orthopnea, 2 L oxygen via nasal cannula (was not on home O2) No chest pains or discomfort Very dyspneic with minimal exertion/sitting up in bed No cough Fever or chills Physical Exam Constitutional: WD/WN, vitals as above well developed Eyes: PERRL, conjunctivae normal, anicteric sclerae ENMT: external ear and nose normal, oropharynx normal Neck: trachea midline, no thyromegaly Respiratory: + respiratory distress and + labored breathing Auscultation: + crackles (Bibasilar) and + wheezes Cardiovascular: Vessels: no JVD Gastrointestinal (Abdomen): normal bowel sounds, soft, nontender, no hepatosplenomegaly Inspection/Auscultation: abdomen normal to inspection Musculoskeletal: no cyanosis or clubbing, extremities motor strength 5/5 Skin: no rashes, warm and dry Neurologic: PERRL, EOMI, accommodation nl, no face palsy, no dysarthria Psychiatric: A+Ox3, euthymic affect Results & Data Vital Signs (Past 12 Hours) Vital Signs Temp Pulse Pulse Resp BP BP Pulse Ox 02/28/19 15:49 36.6 C 72 18 123/77 97 02/28/19 15:09 98 H 18 96 02/28/19 11:40 96 02/28/19 11:30 36.4 C L 70 20 128/80 98 02/28/19 11:13 70 18 97 02/28/19 10:04 70 02/28/19 07:19 36.4 C L 80 24 122/78 98 02/28/19 07:03 78 16 97 (1) Hyperlipidemia Hyperlipidemia type: unspecified Qualified Code(s): E78.5 - Hyperlipidemia, unspecified (2) Hypothyroidism Hypothyroidism type: unspecified Qualified Code(s): E03.9 - Hypothyroidism, unspecified (3) COPD (chronic obstructive pulmonary disease) COPD type: COPD with acute exacerbation Qualified Code(s): J44.1 - Chronic obstructive pulmonary disease with (acute) exacerbation (4) Hypertension Hypertension type: essential hypertension Qualified Code(s): I10 - Essential (primary) hypertension
[2019-02-28] MEDS: ROPINIROLE HCL 5 MG TABLET PO SCH (20:30)
[2019-02-28] MEDS: MAGNESIUM OXIDE 400 MG TAB PO SCH (20:31)
[2019-03-01] MEDS: LEVALBUTEROL 1.25MG/0.5ML NEB INH SCH ×6 (03:12→22:57)
[2019-03-01] MEDS: IPRATROPIUM BROMIDE NEB SOLN 0.02% 2.5 ML VIAL INH SCH ×6 (03:12→22:57)
[2019-03-01] MEDS: LEVOTHYROXINE SODIUM 25 MCG TABLET PO SCH (05:47)
[2019-03-01] MEDS: ISOSORBIDE DINITRATE 10 MG TAB PO SCH ×2 (05:48→11:46)
[2019-03-01 06:07] LABS: INR 3.3 (0.9-1.1); Prothrombin Time 30.9 Seconds (9.0-12.0)
[2019-03-01 06:37] LABS: BUN Creatinine Ratio 21.4 (10-20); Blood Urea Nitrogen 54 mg/dl (7-18); Calcium 8.1 mg/dl (8.5-10.1); Carbon Dioxide 25 mmol/L (21-32); Chloride 101 mmol/L (98-107); Est GFR (Non-African American) 22.5; Glucose 154 mg/dl (70-99); Sodium 133 mmol/L (136-145)
[2019-03-01 07:11] LABS: Potassium 5.1 mmol/L (3.5-5.1)
[2019-03-01 07:13] LABS: Magnesium 3.1 mg/dl (1.8-2.4)
--- NOTE | 2019-03-01 08:05 | Hospitalist Progress Note ---
Date of Service March 01, 2019 Assessment & Plan (1) Acute systolic CHF (congestive heart failure), NYHA class 3: ACUTE ON CHRONIC CHF, SYSTOLIC / DIASTOLIC Presented with shortness of breath, respiratory failure, due to decompensation of chronic CHF, systolic dysfunction with baseline NYHA class III, CXR showed progression of edema Clinically improving -S/P BIPAP --> Now on oxygen 2 L -IV Lasix x 1 dose on admission--> IV lasix 20 mg on 02/28 --> IV lasix 20 mg x 1 dose today -Recent echo: November 01, 2018: LV cavity size is normal. There is a large sized septal, inferior, posterior and lateral wall motion abnormality with mild hypokinesis to a kinases of the segments. There is a small sized inferior scar. The septal motion is abnormal consistent with right ventricular pacemaker. Qualitative LV ejection fraction 35-39% (moderately reduced). Mild to moderate mitral insufficiency -Appreciate input from cardiology, recommend continue Lasix with close monitoring of renal function CHEST HEAVINESS/SHORTNESS OF BREATH Secondary to above: Symptom resolved after diuresis -Serial cardiac markers negative, echo shows no new motion abnormality (2) Acute on chronic respiratory failure with hypoxemia: ACUTE ON CHRONIC HYPOXIC RESPIRATORY FAILURE Secondary to above: Acute decompensation of systolic CHF At baseline patient is shortness of breath on minimal activity, secondary to COPD, severe ischemic cardiomyopathy -BIPAP q HS (as at home) --> On oxygen 2 L -Symptom improved after supplemental oxygen and diuresis -Patient started with IV steroids for COPD exacerbation as well -Will need to step exercise prior to discharge to assess home oxygen requirement (3) COPD (chronic obstructive pulmonary disease): COPD Baseline chronic COPD with history of smoking -Developed COPD exacerbation with audible wheeze -Improved with IV steroids, nebulizer treatment -Transitioned to oral prednisone 50 mg daily total 5 days (4) Chronic atrial fibrillation: CHRONIC ATRIAL FIBRILLATION There was a plan for DC cardioversion end of this month after being on therapeutic anticoagulation for more than 4 weeks As per coagulation clinic documents: Patient's INR has been therapeutic since 01/30/2019 -Patient remains in rate controlled A. fib -Continue on amiodarone and Coreg -Plan to DC cardioversion tomorrow AM -Discussed with cardiology (5) On anticoagulant therapy: CHRONIC ANTICOAGULATION WITH COUMADIN INR THERAPEUTIC- Hold coumadin today (6) CKD (chronic kidney disease), stage IV: CKD IV Renal function stable, with approximately baseline creatinine level -Monitor BMP closely due to diuretic therapy for decompensated CHF -Avoid NSAIDs, contrast studies (7) Anemia of chronic disease: ANEMIA OF CHRONIC DISEASE Due to stage IV CKD -Hemoglobin stable/at baseline (8) History of CVA (cerebrovascular accident): HX OF CVA -Continue on aspirin/statin (9) Sleep apnea treated with nocturnal BiPAP: ARMANDO Follows with pulmonology at [facility] -Utilizes BiPAP at night -Patient will need to be assessed for home oxygen requirement prior to discharge from hospital (10) History of implantable cardioverter-defibrillator (ICD) placement: HX OF ICD IN SITU hx of Device interrogation on 02/02/2019: Demonstrated ongoing atrial fibrillation with biventricular pacing Battery longevity is 6.8-year (11) Ischemic cardiomyopathy: ISCHEMIC CARDIOMYOPATHY Severe ischemic cardiomyopathy with systolic dysfunction: Echo reported as above EF 35-39% With large sized septal/inferior/posterior and lateral wall motion abnormality with mild hypokinesis to akinesis of the segment (12) Hypothyroidism: HYPOTHYROIDISM -Continue levothyroxine -TSH level within normal limit -Patient will need periodic TSH level check (on amiodarone 200 mg twice daily) (13) History of lung cancer: HX OF LUNG CARCINOMA History of 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 Chronic right upper lobe pulmonary nodule (14) CAD (coronary artery disease): (15) Hypertension: HX OF CAD HYPERTENSION Essential hypertension with blood pressure goal less than 140/90 -Patient is continue with Coreg, Isosorbide dinitrate (16) Hyperlipidemia: HYPERLIPIDEMIA -Continue with statin CODE STATUS: Discussed with patient Full code DVT prophylaxis: On Coumadin Disposition: For cardioversion in AM Lives at home with PT/OT recommends return home Social service consult for discharge planning Family medicine follow-up with Dr. Lugo at [facility] Cardiology follow-up with Carmine Betancur PA-C at [facility] Subjective Patient feels a little better. Shortness of breath/wheezing still present. No chest pain, palpitations, fever, chills. Does have cough + Telemetry monitoratrial fibrillation + On 2 L oxygen Physical Exam Physical Exam: GENERAL- AAOX3, No acute distress LUNGS- Air entry bilaterally decrease. Wheezing present + HEART-irregularly irregular rhythm. No murmurs ABDOMEN- Soft, non tender, non distended, Bowel sounds heard. EXTREMITIES- Good peripheral pulses, no edema Results & Data Vital Signs (Past 12 Hours) Vital Signs Temp Pulse Pulse Resp BP Pulse Ox 03/01/19 06:59 71 18 96 03/01/19 06:49 36.4 C L 18 144/87 H 97 03/01/19 03:13 64 18 96 03/01/19 02:47 36.9 C 79 16 147/83 H 97 02/28/19 23:45 36.5 C 73 16 134/81 99 02/28/19 23:09 76 76 22 96 (1) Hyperlipidemia Hyperlipidemia type: unspecified Qualified Code(s): E78.5 - Hyperlipidemia, unspecified (2) Hypothyroidism Hypothyroidism type: unspecified Qualified Code(s): E03.9 - Hypothyroidism, unspecified (3) COPD (chronic obstructive pulmonary disease) COPD type: COPD with acute exacerbation Qualified Code(s): J44.1 - Chronic obstructive pulmonary disease with (acute) exacerbation (4) Hypertension Hypertension type: essential hypertension Qualified Code(s): I10 - Essential (primary) hypertension
[2019-03-01] MEDS: CARVEDILOL 12.5 MG TAB PO SCH ×2 (09:14→20:13)
[2019-03-01] MEDS: ASPIRIN 81 MG ECTAB PO SCH (09:15)
[2019-03-01] MEDS: CHOLECALCIFEROL 1,000 UNITS TAB PO SCH (09:15)
[2019-03-01] MEDS: predniSONE 50 MG TAB PO SCH (09:16)
[2019-03-01] MEDS: FUROSEMIDE 20 MG TAB PO SCH (09:16)
[2019-03-01] MEDS: AMIODARONE 200 MG TAB PO SCH ×2 (09:17→20:13)
[2019-03-01] MEDS: ALLOPURINOL 100 MG TAB PO SCH (09:17)
[2019-03-01] MEDS: PANTOprazole 40 MG TAB PO SCH ×2 (09:17→20:13)
--- NOTE | 2019-03-01 10:57 | Cardiology Progress Note ---
Date of Service March 01, 2019 Assessment & Plan (1) Acute systolic CHF (congestive heart failure), NYHA class 3: Mild interval improvement since admission Recommend repeat dose today of furosemide 20 mg IV. Monitor renal funciton and electrolytes closely. (2) Acute on chronic respiratory failure with hypoxemia: Continue BIPAP/supplemental O2 and IV steroids. Underlying COPD likely contributing factor. (3) Persistent atrial fibrillation: Patient has persistent afib since January 2019 resulting in reduced BIV pacing and likely CHF exacerbation. INR therapeutic since 01/30. Continue coumadin, amiodarone and carvedilol. Patient scheduled for synchronized electrical cardioversion in a.m., n.p.o. after midnight (4) Status post biventricular pacemaker: Subjective Slightly less dyspneic today. No dizziness or lightheadedness. No productive cough wheezing with forced inspiration Physical Exam Constitutional: no acute distress Eyes: PERRL, conjunctivae normal, anicteric sclerae ENMT: external ear and nose normal, oropharynx normal Neck: trachea midline, no thyromegaly Respiratory: Auscultation: + diminished lung sounds and + rales (Few basilar) Cardiovascular: Rate/Rhythm: + irregularly irregular Heart Sounds: no cardiac rub Extremities: + edema (2+ bilateral) Chest (Breasts): Chest: + pacemaker Results & Data Vital Signs (Past 12 Hours) Vital Signs Temp Pulse Pulse Resp BP Pulse Ox 03/01/19 08:00 83 03/01/19 06:59 71 18 96 03/01/19 06:49 36.4 C L 18 144/87 H 97 03/01/19 03:13 64 18 96 03/01/19 02:47 36.9 C 79 16 147/83 H 97 02/28/19 23:45 36.5 C 73 16 134/81 99 02/28/19 23:09 76 76 22 96 Laboratory Results Laboratory Results - last 24 hr 03/01/19 03/01/19 03/01/19 05:32 05:32 06:44 PT 30.9 H INR 3.3 H Sodium 133 L Potassium 5.1 Chloride 101 Carbon Dioxide 25 Anion Gap 7.0 BUN 54 H Creatinine 2.54 H Est Cr Clr Drug Dosing Not Reportable Est GFR ( Amer) 26.0 Est GFR (Non-Af Amer) 22.5 BUN/Creatinine Ratio 21.4 H Glucose 154 H Calcium 8.1 L Magnesium 3.1 H
[2019-03-01] MEDS ORDERED: FUROSEMIDE 20 MG in SYRINGE 0 ML IV ONE (11:05)
[2019-03-01] MEDS: ROPINIROLE HCL 0.25 MG TABLET PO SCH (13:55)
[2019-03-01] MEDS: ROPINIROLE HCL 5 MG TABLET PO SCH (20:14)
[2019-03-01] MEDS: MAGNESIUM OXIDE 400 MG TAB PO SCH (20:14)
--- NOTE | 2019-03-01 23:56 | Anesthesiology Consultation ---
Date of Service March 01, 2019 Assessment & Plan (1) Encounter for pre-operative examination: Chart Review Chart Review: Acceptable Risk for Surgery and Patient NOT seen in Pre Admission Testing Consults Requested none History Surgery Operation Date: 03/02/19 07:45 Proposed Procedures p Cardioversion Percussion Instructor with Anesthesia - Bryan Walsh MD Height/Weight Weight: 89 kg Allergies Allergy/AdvReac Type Severity Reaction Status Date / Time blue dye Allergy Mild SHORTNESS Verified 01/31/19 14:41 OF BREATH naproxen Allergy Mild SWELLING Verified 02/26/19 07:12 OF HANDS sumatriptan Allergy Mild SHORTNESS Verified 02/26/19 07:12 OF BREATH diphenhydramine AdvReac Intermediate MADE Verified 02/26/19 07:12 DEFIBRILLATOR FIRE pseudoephedrine AdvReac Intermediate MADE HIS Verified 01/31/19 14:41 DEFIB FIRE Medications Home Medications Medication Instructions Recorded Confirmed Last Taken amiodarone 200 mg PO BID 08/22/18 02/26/19 12/28/18 07:00 aspirin [Aspir-81] 81 mg PO QAM 08/22/18 02/26/19 01/25/19 carvedilol [Coreg] 12.5 mg PO BID 08/22/18 02/26/19 01/25/19 isosorbide dinitrate 10 mg PO BID 08/22/18 02/26/19 12/28/18 07:00 levothyroxine 12.5 mcg PO QAM 08/22/18 02/26/19 01/25/19 nitroglycerin [Nitrostat] 1 tab SUBLINGUAL UD PRN 08/22/18 02/26/19 Unknown omeprazole 20 mg PO BID 08/22/18 02/26/19 01/25/19 potassium chloride 10 meq PO BID 08/22/18 02/26/19 01/25/19 Vitron-C 1 tab PO BID 01/25/19 02/26/19 01/25/19 magnesium 500 mg PO HS 01/25/19 02/26/19 01/24/19 acetaminophen [Tylenol] 650 mg PO Q4 PRN 01/31/19 02/26/19 Unknown cholecalciferol (vitamin D3) 2,000 unit PO DAILY 01/31/19 02/26/19 Unknown [Vitamin D3] ropinirole 0.5 mg PO DAILY 01/31/19 02/26/19 Unknown ropinirole 2.5 mg PO HS 01/31/19 02/26/19 Unknown allopurinol 200 mg PO DAILY 02/26/19 02/26/19 Unknown [id number]-[id number] 1 inh INHALATION DAILY 02/26/19 02/26/19 Unknown [Trelegy Ellipta] hydrocodone-acetaminophen 1 tab PO Q4 PRN 02/26/19 02/26/19 Unknown warfarin 2 mg PO 4XWK 02/26/19 02/26/19 Unknown warfarin 3 mg PO 3XWK 02/26/19 02/26/19 Unknown Active Medications Generic Name Dose Route Start Last Admin Trade Name Freq PRN Reason Stop Dose Admin Albuterol 2 puffs 02/26/19 15:06 02/28/19 08:26 Ventolin Hfa INH 03/28/19 15:05 2 puffs Q4 PRN Administration wheeze/sob Allopurinol 200 mg 02/27/19 09:00 03/01/19 09:17 Zyloprim PO 03/29/19 08:59 200 mg DAILY ARNULFO Administration Amiodarone HCl 200 mg 02/26/19 10:30 03/01/19 20:13 Cordarone PO 03/28/19 10:29 200 mg BID ARNULFO Administration Aspirin 81 mg 02/26/19 09:30 03/01/19 09:15 Ecotrin Ectab PO 03/28/19 09:29 81 mg QAM ARNULFO Administration Carvedilol 12.5 mg 02/26/19 09:30 03/01/19 20:13 Coreg PO 03/28/19 09:29 12.5 mg BID ARNULFO Administration Furosemide 20 mg 02/27/19 12:00 03/01/19 09:16 Lasix PO 03/29/19 11:59 20 mg QAM ARNULFO Administration Ipratropium [place] 0.5 mg 02/26/19 12:00 03/02/19 07:17 Atrovent 0.02% 0.5mg/2.5ml INH 03/28/19 11:59 Not Given Q4R ARNULFO Isosorbide Dinitrate 10 mg 02/26/19 12:00 03/01/19 11:46 Isordil PO 03/28/19 11:59 10 mg BID@0700,1200 ARNULFO Administration Levalbuterol HCl 1.25 mg 02/26/19 12:00 03/02/19 07:18 Xopenex 1.25mg/0.5ml Neb INH 03/28/19 11:59 Not Given Q4R ARNULFO Levothyroxine Sodium 12.5 mcg 02/26/19 09:30 03/02/19 06:11 Synthroid PO 03/28/19 09:29 12.5 mcg DAILYBB ARNULFO Administration Magnesium Oxide 400 mg 02/27/19 21:00 03/01/19 20:14 Mag-Ox PO 03/29/19 20:59 400 mg HS ARNULFO Administration Miscellaneous 1 ea 02/26/19 16:00 03/02/19 02:08 Order Awaiting Action N/A 03/28/19 15:59 Not Given QS ARNULFO Miscellaneous 1 ea 02/26/19 16:00 03/01/19 09:13 Order Awaiting Action N/A 03/28/19 15:59 Not Given DAILY ARNULFO Pantoprazole Sodium 40 mg 02/26/19 09:30 03/01/19 20:13 Protonix PO 03/28/19 09:29 40 mg BID ARNULFO Administration Potassium Chloride 10 meq 02/26/19 09:30 02/28/19 08:21 Klor-Con M10 PO 03/28/19 09:29 10 meq BID ARNULFO Administration Prednisone 50 mg 02/28/19 09:00 03/01/19 09:16 Prednisone PO 03/30/19 08:59 50 mg DAILY ARNULFO Administration Ropinirole HCl 0.5 mg 02/26/19 14:00 03/01/19 13:55 Requip PO 03/28/19 13:59 0.5 mg DAILY@1400 ARNULFO Administration Ropinirole HCl 2.5 mg 02/26/19 21:00 03/01/19 20:14 Requip PO 03/28/19 20:59 2.5 mg HS ARNULFO Administration Torsemide 10 mg 02/27/19 09:00 02/27/19 08:39 Demadex PO 03/29/19 08:59 10 mg QAM ARNULFO Administration Vitamin D 2,000 units 02/26/19 09:30 03/01/19 09:15 Vitamin D3 PO 03/28/19 09:29 2,000 units DAILY ARNULFO Administration Warfarin Sodium 2 mg 02/27/19 16:00 02/27/19 16:00 Coumadin PO 03/29/19 15:59 2 mg [id number] [facility] Administration Warfarin Sodium 3 mg 02/26/19 16:00 02/28/19 15:21 Coumadin PO 03/28/19 15:59 3 mg [id number] [facility] Administration Past Medical History Medical History Acute on chronic respiratory failure with hypoxemia BiPAP now weaned to [place] oxygen. Acute kidney injury superimposed on chronic kidney disease (Acute) Left hip pain (Acute) History of CVA (cerebrovascular accident) (Chronic) Chronic atrial fibrillation (Chronic) CKD (chronic kidney disease), stage IV (Chronic) Sciatica (Chronic) Hyperlipidemia (Chronic) Hypertension (Chronic) CAD (coronary artery disease) (Chronic) ASCVD with MN 2000, angioplasty of LAD and Dx, and PCI of PDA. Resultant severe ischemic CM. History of lung cancer (Chronic) ~2014 S/P RADIATION THERAPY History of stomach cancer (Chronic) 5025-1053. EXCISED WITH EGD. Hypothyroidism (Chronic) GERD (gastroesophageal reflux disease) (Chronic) Ischemic cardiomyopathy (Chronic) 2/2 MN 2000. S/P dual chamber ICD following presentation with syncope and LBBB. BiV pacer upgrade 2011, generator change 11/2017. Osteoarthritis (Chronic) Sleep apnea treated with nocturnal BiPAP (Chronic) "COMPLEX SLEEP APNEA SYNDROME" Renal artery stenosis (Chronic) Anemia of chronic disease (Chronic) On anticoagulant therapy (Chronic) Restless leg syndrome (Chronic) Carotid stenosis, bilateral (Chronic) MGUS (monoclonal gammopathy of unknown significance) (Chronic) COPD (chronic obstructive pulmonary disease) COPD exacerbation currently. On 50mg PO prednisone. Systolic heart failure NYHA Class 3. Per cardiology 03/01/2019 symptoms slowly improving with diuresis Past Family History Family History Brother Family history of diabetes mellitus Past Surgical History Surgical History Status post biventricular pacemaker History of cardiac cath (Resolved) 2000 WITH STENT PLACEMENT History of cardioversion (Resolved) History of appendectomy (Chronic) History of total knee replacement (Chronic) RIGHT (DR. NAIR) 2016 History of implantable cardioverter-defibrillator (ICD) placement (Chronic) 2006. UNSURE OF LAST CHECKED. FOLLOWS WITH DR. UP. History of tonsillectomy (Chronic) History of esophagogastroduodenoscopy (EGD) 12/28/2018. propofol/ketamine. no issues. Social History Smoking Status: Current every day smoker tobacco type: cigarettes Smoking cigarettes per day: 10 Hx Alcohol Use: No Hx Substance Use: No substance use type: does not use Physical Exam Vital Signs Last Vital Signs Temp 36.6 C 03/02/19 07:00 Pulse 74 03/02/19 07:00 Resp 18 03/02/19 07:00 BP 137/87 03/02/19 07:00 Pulse Ox 90 03/02/19 07:00 Testing Laboratory Results 02/27/19 07:09 03/01/19 06:44 PT 30.9 Seconds (9.0-12.0) H 03/01/19 05:32 INR 3.3 (0.9-1.1) H 03/01/19 05:32 APTT 35.3 Seconds (21.0-31.0) H 02/26/19 07:05 Electrocardiogram Date: 02/28/19 HR 72 Ventricular-paced rhythm Abnormal ECG When compared with ECG of 27-FEB-2019 06:46, Vent. rate has increased BY 2 BPM Confirmed by Rob Mcclelland ([id number]) on 02/28/2019 7:24:49 PM Chest X-Ray Date: 02/26/19 XR chest 1V portable CLINICAL HISTORY: Chest Pain COMPARISON STUDY: Chest radiograph January 27, 2019. FINDINGS: A left subclavian biventricular pacer/AICD remains in place. A 4.6 cm right midlung opacity is unchanged. This is indeterminate. There is no pneumothorax. There are trace bilateral pleural effusions. Cardiomegaly is unchanged. Interstitial thickening has increased. There is mild right lower opacity. IMPRESSION: 1. Interval increase in pulmonary edema. 2. No change in an indeterminate 4.6 cm right midlung opacity. 3. Trace bilateral pleural effusions. 4. Mild right lower lung opacity. Echocardiogram November 01, 2018: LV cavity size is normal. There is a large sized septal, inferior, posterior and lateral wall motion abnormality with mild hypokinesis to a kinases of the segments. There is a small sized inferior scar. The septal motion is abnormal consistent with right ventricular pacemaker. Qualitative LV ejection fraction 35-39% (moderately reduced). Mild to moderate mitral insufficiency
[2019-03-02] MEDS: IPRATROPIUM BROMIDE NEB SOLN 0.02% 2.5 ML VIAL INH SCH ×6 (03:15→23:37)
[2019-03-02] MEDS: LEVALBUTEROL 1.25MG/0.5ML NEB INH SCH ×6 (03:15→23:36)
[2019-03-02] MEDS: LEVOTHYROXINE SODIUM 25 MCG TABLET PO SCH (06:11)
[2019-03-02] MEDS ORDERED: PROPOFOL IV EMULSION 10 MG/ML 20 ML VIAL IV ONE (07:10)
[2019-03-02] MEDS ORDERED: LIDOCAINE HCL 2% MPF (LOCAL) 5 ML VIAL INFIL ONE (07:10)
--- NOTE | 2019-03-02 07:47 | Cardioversion ---
Date of Service March 02, 2019 Electrical Cardioversion Rpt Electrical Cardioversion Report Patient seen and examined, procedure and risks explained in detail the patient informed consent obtained. Patient was sedated via anesthesia consultation with continuous heart rate blood pressure and oxygen saturation monitoring. Synchronized biphasic electrical cardioversion was performed 175 and 200 J with successful conversion to atrial and biventricular pacing. Post procedure patient aroused having tolerated well Plan continue medical therapy treatment underlying pulmonary and cardiac issues
--- NOTE | 2019-03-02 08:05 | Anesthesiology Progress Note ---
Date of Service March 02, 2019 Anesthesia Post Procedure Vital Signs Vital Signs: Temp Pulse Pulse Resp BP BP Pulse Ox 03/02/19 07:00 36.6 C 74 18 137/87 90 03/02/19 03:54 36.3 C L 79 21 135/82 97 03/02/19 03:16 83 20 94 03/02/19 02:15 74 03/01/19 23:26 36.7 C 68 21 121/80 97 03/01/19 23:09 74 18 97 03/01/19 22:58 71 18 98 03/01/19 19:38 36.3 C L 68 19 132/74 97 03/01/19 18:59 91 H 18 96 03/01/19 15:33 36.3 C L 80 21 121/73 96 03/01/19 15:26 96 03/01/19 14:52 67 18 92 03/01/19 11:31 67 16 95 03/01/19 11:29 127/76 03/01/19 11:17 36.3 C L 82 18 116/73 97 Pain Intensity Back: Pain Intensity: 0 Transfer of Care Handoff Completed per policy Notes Mental Status: alert / awake / arousable and participated in evaluation Nausea / Vomiting: adequately controlled Pain: adequately controlled Airway Patency, RR, SpO2: stable & adequate BP & HR: stable & adequate Hydration State: stable & adequate Anesthetic Complications: no major complications apparent and Pt Satisfied with anesthetic care
[2019-03-02 08:22] LABS: Hematocrit (blood only) 32.1 % (42-52); Hemoglobin 10.3 g/dL (14.0-18.0); Mean Corpuscular Hgb Conc 32.1 g/dL (32-36); Mean Corpuscular Volume 93.3 fL (80-100); Mean Platelet Volume 10.4 fL (7.4-10.4); Nucleated RBC # (auto) 0.04 K/uL (0-0); Nucleated RBC % (auto) 0.4 %; Platelet Count 179 K/uL (130-400); RDW Coefficient of Variation 17.7 % (11.5-14.5); RDW Standard Deviation 60.1 fL (36.4-46.3); Red Blood Count 3.44 M/uL (4.7-6.1); White Blood Count 10.57 K/uL (4.8-10.8)
[2019-03-02 08:33] LABS: INR 3.2 (0.9-1.1); Prothrombin Time 29.8 Seconds (9.0-12.0)
[2019-03-02 08:59] LABS: BUN Creatinine Ratio 26.3 (10-20); Calcium 8.2 mg/dl (8.5-10.1); Creatinine Clr Calc Pharmacy 26.6 ml/min; Est GFR (African American) 28.9; Est GFR (Non-African American) 24.9; Magnesium 3.1 mg/dl (1.8-2.4); Potassium 4.7 mmol/L (3.5-5.1)
[2019-03-02] MEDS: ALBUTEROL HFA 8 GM INHALER INH PRN (09:19)
[2019-03-02] MEDS: ISOSORBIDE DINITRATE 10 MG TAB PO SCH ×2 (09:20→11:30)
[2019-03-02] MEDS: AMIODARONE 200 MG TAB PO SCH ×2 (09:21→20:26)
[2019-03-02] MEDS: predniSONE 50 MG TAB PO SCH (09:21)
[2019-03-02] MEDS: ASPIRIN 81 MG ECTAB PO SCH (09:21)
[2019-03-02] MEDS: FUROSEMIDE 20 MG TAB PO SCH (09:21)
[2019-03-02] MEDS: CARVEDILOL 12.5 MG TAB PO SCH ×2 (09:22→20:26)
[2019-03-02] MEDS: CHOLECALCIFEROL 1,000 UNITS TAB PO SCH (09:22)
[2019-03-02] MEDS: ALLOPURINOL 100 MG TAB PO SCH (09:22)
[2019-03-02] MEDS: PANTOprazole 40 MG TAB PO SCH ×2 (09:22→20:27)
--- NOTE | 2019-03-02 10:42 | Cardiology Progress Note ---
Date of Service March 02, 2019 Assessment & Plan (1) Acute systolic CHF (congestive heart failure), NYHA class 3: Continued improvement with improved renal function today. Will resume oral diuretics (2) Acute on chronic respiratory failure with hypoxemia: Continue BIPAP/supplemental O2 and IV steroids. Underlying COPD likely contributing factor. (3) Persistent atrial fibrillation: Patient has had persistent afib since January 2019 resulting in reduced BIV pacing and likely CHF exacerbation. INR therapeutic since 01/30. Patient underwent synchronized electrical cardioversion this morning with succ essful return to sinus rhythm/AV sequential pacing Continue coumadin, amiodarone and carvedilol. (4) Status post biventricular pacemaker: Subjective Patient seen and examined, chart medications telemetry reviewed. He underwent synchronized electrical cardioversion earlier today with successful return to sinus/AV sequential pacing. Patient breathing better overnight no dizziness or lightheadedness has continued to manifest diuresis. No chest pains or discomfort Physical Exam Constitutional: Chronically ill-appearing though no acute distress Eyes: PERRL, conjunctivae normal, anicteric sclerae ENMT: external ear and nose normal, oropharynx normal Neck: trachea midline, no thyromegaly Respiratory: Auscultation: + diminished lung sounds and + wheezes (Scattered wheezes with forced cough) Cardiovascular: Rate/Rhythm: regular rate and regular rhythm Heart Sounds: no gallop Palpation: no heave Extremities: + edema (Trace to 1+) Chest (Breasts): Chest: + pacemaker (No irritation or tenderness) Gastrointestinal (Abdomen): normal bowel sounds, soft, nontender, no hepatosplenomegaly Results & Data Vital Signs (Past 12 Hours) Vital Signs Temp Pulse Pulse Resp BP BP Pulse Ox 03/02/19 08:05 61 18 125/79 99 03/02/19 07:00 36.6 C 74 18 137/87 90 03/02/19 03:54 36.3 C L 79 21 135/82 97 03/02/19 03:16 83 20 94 03/02/19 02:15 74 03/01/19 23:26 36.7 C 68 21 121/80 97 03/01/19 23:09 74 18 97 03/01/19 22:58 71 18 98 Laboratory Results Laboratory Results - last 24 hr 03/02/19 03/02/19 03/02/19 08:04 08:04 08:04 WBC 10.57 RBC 3.44 L Hgb 10.3 L Hct 32.1 L MCV 93.3 MCH 29.9 MCHC 32.1 RDW Std Deviation 60.1 H RDW Coeff of Rocael 17.7 H Plt Count 179 MPV 10.4 Absolute Nucleated RBC 0.04 H Nucleated RBC % (auto) 0.4 PT 29.8 H INR 3.2 H Sodium 138 Potassium 4.7 Chloride 105 Carbon Dioxide 26 Anion Gap 7.0 BUN 61 H Creatinine 2.33 H Est Cr Clr Drug Dosing 26.6 Est GFR ( Amer) 28.9 Est GFR (Non-Af Amer) 24.9 BUN/Creatinine Ratio 26.3 H Glucose 141 H Calcium 8.2 L Magnesium 3.1 H Specimen Hemolysis
--- NOTE | 2019-03-02 12:47 | Hospitalist Progress Note ---
Date of Service March 02, 2019 Assessment & Plan (1) Acute systolic CHF (congestive heart failure), NYHA class 3: ACUTE ON CHRONIC CHF, SYSTOLIC / DIASTOLIC Presented with shortness of breath, respiratory failure, due to decompensation of chronic CHF, systolic dysfunction with baseline NYHA class III, CXR showed progression of edema Clinically improving -S/P BIPAP --> Now on oxygen 2-3 L -Received multiple doses of IV Lasix --> now transitioned to PO Torsemide 10 mg per cardiology (No diuretics at home) -Recent echo: November 01, 2018: LV cavity size is normal. There is a large sized septal, inferior, posterior and lateral wall motion abnormality with mild hypokinesis to a kinases of the segments. There is a small sized inferior scar. The septal motion is abnormal consistent with right ventricular pacemaker. Qualitative LV ejection fraction 35-39% (moderately reduced). Mild to moderate mitral insufficiency -Appreciate input from cardiology, recommend continue Lasix with close monitoring of renal function CHEST HEAVINESS/SHORTNESS OF BREATH Secondary to above: Symptom resolved after diuresis -Serial cardiac markers negative, echo shows no new motion abnormality (2) Acute on chronic respiratory failure with hypoxemia: ACUTE ON CHRONIC HYPOXIC RESPIRATORY FAILURE Secondary to above: Acute decompensation of systolic CHF At baseline patient is shortness of breath on minimal activity, secondary to COPD, severe ischemic cardiomyopathy -BIPAP q HS (as at home) --> On oxygen 2-3 L -Symptom improved after supplemental oxygen and diuresis -Patient started with IV steroids for COPD exacerbation as well as has wheezing--> Transitioned to PO steroids. -Will need to step exercise prior to discharge to assess home oxygen requirement (3) COPD (chronic obstructive pulmonary disease): COPD Baseline chronic COPD with history of smoking -Developed COPD exacerbation with audible wheeze -Nebs QID and PRN -IV steroids Transitioned to oral prednisone 50 mg daily total 5 days- Day 3 (4) Chronic atrial fibrillation: CHRONIC ATRIAL FIBRILLATION There was a plan for DC cardioversion end of this month after being on therapeutic anticoagulation for more than 4 weeks As per coagulation clinic documents: Patient's INR has been therapeutic since 01/30/2019 -S/P synchronized electric cardioversion with successful conversion to sinus rhythm/AV sequential pacing today -Continue on amiodarone and Coreg -Cardiology on board (5) On anticoagulant therapy: CHRONIC ANTICOAGULATION WITH COUMADIN INR - 3.2--> Hold coumadin (6) CKD (chronic kidney disease), stage IV: CKD IV Renal function stable, with approximately baseline creatinine level -Monitor BMP closely due to diuretic therapy for decompensated CHF -Avoid NSAIDs, contrast studies (7) Anemia of chronic disease: ANEMIA OF CHRONIC DISEASE Due to stage IV CKD -Hemoglobin stable/at baseline (8) History of CVA (cerebrovascular accident): HX OF CVA -Continue on aspirin/statin (9) Sleep apnea treated with nocturnal BiPAP: ARMANDO Follows with pulmonology at [facility] -Utilizes BiPAP at night -Patient will need to be assessed for home oxygen requirement prior to discharge from hospital (10) History of implantable cardioverter-defibrillator (ICD) placement: HX OF ICD IN [facility] hx of Device interrogation on 02/02/2019: Demonstrated ongoing atrial fibrillation with biventricular pacing Battery longevity is 6.8-year (11) Ischemic cardiomyopathy: ISCHEMIC CARDIOMYOPATHY Severe ischemic cardiomyopathy with systolic dysfunction: Echo reported as above EF 35-39% With large sized septal/inferior/posterior and lateral wall motion abnormality with mild hypokinesis to akinesis of the segment (12) Hypothyroidism: HYPOTHYROIDISM -Continue levothyroxine -TSH level within normal limit -Patient will need periodic TSH level check (on amiodarone 200 mg twice daily) (13) History of lung cancer: HX OF LUNG CARCINOMA 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 Lugo at [facility] Cardiology follow-up with Carmine Betancur PA-C at [facility] Subjective Patient is status post elective cardioversion this morning with successful return to sinus rhythm/AV sequential pacing. Patient does have wheezing. Denies any chest tightness. Overall cough, sputum production is improved. No fever, chills, nausea, vomiting Telemetry monitorsinus rhythm/paced Physical Exam Physical Exam: GENERAL- AAOX3, No acute distress LUNGS- Air entry bilaterally decrease. Wheezing present + HEART-irregularly irregular rhythm. No murmurs ABDOMEN- Soft, non tender, non distended, Bowel sounds heard. EXTREMITIES- Good peripheral pulses, no edema Results & Data Vital Signs (Past 12 Hours) Vital Signs Temp Pulse Pulse Resp BP BP Pulse Ox 03/02/19 11:31 36.3 C L 60 18 131/62 99 03/02/19 11:05 58 L 16 98 03/02/19 10:57 36.4 C L 60 20 132/76 98 03/02/19 08:05 61 18 125/79 99 03/02/19 07:00 36.6 C 74 18 137/87 90 03/02/19 03:54 36.3 C L 79 21 135/82 97 03/02/19 03:16 83 20 94 03/02/19 02:15 74 (1) COPD (chronic obstructive pulmonary disease) COPD type: COPD with acute exacerbation Qualified Code(s): J44.1 - Chronic obstructive pulmonary disease with (acute) exacerbation (2) Hypothyroidism Hypothyroidism type: unspecified Qualified Code(s): E03.9 - Hypothyroidism, unspecified (3) Hypertension Hypertension type: essential hypertension Qualified Code(s): I10 - Essential (primary) hypertension (4) Hyperlipidemia Hyperlipidemia type: unspecified Qualified Code(s): E78.5 - Hyperlipidemia, unspecified
[2019-03-02] MEDS: ROPINIROLE HCL 0.25 MG TABLET PO SCH (14:08)
[2019-03-02] MEDS: ROPINIROLE HCL 5 MG TABLET PO SCH (20:28)
[2019-03-02] MEDS: MAGNESIUM OXIDE 400 MG TAB PO SCH (20:29)
[2019-03-03] MEDS: IPRATROPIUM BROMIDE NEB SOLN 0.02% 2.5 ML VIAL INH SCH ×6 (03:08→23:05)
[2019-03-03] MEDS: LEVALBUTEROL 1.25MG/0.5ML NEB INH SCH ×6 (03:08→23:05)
[2019-03-03] MEDS: LEVOTHYROXINE SODIUM 25 MCG TABLET PO SCH (06:20)
[2019-03-03 07:06] LABS: INR 2.6 (0.9-1.1); Prothrombin Time 24.8 Seconds (9.0-12.0)
[2019-03-03 07:31] LABS: Creatinine Clr Calc Pharmacy 27.7 ml/min; Est GFR (African American) 30.6; Est GFR (Non-African American) 26.4; Potassium 4.3 mmol/L (3.5-5.1)
[2019-03-03] MEDS: CHOLECALCIFEROL 1,000 UNITS TAB PO SCH (09:21)
[2019-03-03] MEDS: ALLOPURINOL 100 MG TAB PO SCH (09:21)
[2019-03-03] MEDS: TORSEMIDE 10 MG TAB PO SCH (09:21)
[2019-03-03] MEDS: PANTOprazole 40 MG TAB PO SCH ×2 (09:21→20:55)
[2019-03-03] MEDS: predniSONE 50 MG TAB PO SCH (09:21)
[2019-03-03] MEDS: ASPIRIN 81 MG ECTAB PO SCH (09:22)
[2019-03-03] MEDS: CARVEDILOL 12.5 MG TAB PO SCH ×2 (09:22→20:55)
[2019-03-03] MEDS: AMIODARONE 200 MG TAB PO SCH ×2 (09:22→20:55)
[2019-03-03] MEDS: ISOSORBIDE DINITRATE 10 MG TAB PO SCH ×2 (09:23→13:54)
[2019-03-03] MEDS: ALBUTEROL HFA 8 GM INHALER INH PRN (09:23)
[2019-03-03] MEDS ORDERED: FUROSEMIDE 20 MG in SYRINGE 0 ML IV ONE (10:30)
--- NOTE | 2019-03-03 10:30 | Anesthesiology Progress Note ---
Date of Service March 03, 2019 Anesthesia Post Procedure Vital Signs Vital Signs: Temp Pulse Pulse Resp BP BP Pulse Ox 03/03/19 10:20 98 03/03/19 07:26 36.3 C L 60 18 143/80 H 96 03/03/19 07:05 60 18 96 03/03/19 04:00 36.4 C L 59 L 19 138/79 94 03/03/19 03:08 63 20 94 03/03/19 01:10 61 03/02/19 23:54 67 94 03/02/19 23:37 65 18 93 03/02/19 23:14 36.5 C 63 18 146/80 H 97 03/02/19 19:34 67 20 96 03/02/19 19:22 36.3 C L 63 23 148/75 H 97 03/02/19 16:07 36.3 C L 60 23 132/83 94 03/02/19 16:00 60 03/02/19 15:03 67 16 95 03/02/19 14:00 93 03/02/19 13:45 97 03/02/19 11:31 36.3 C L 60 18 131/62 99 03/02/19 11:05 58 L 16 98 03/02/19 10:57 36.4 C L 60 20 132/76 98 Pain Intensity Back: Pain Intensity: 0 Notes Mental Status: alert / awake / arousable and participated in evaluation Patient Amnestic to Procedure: Yes Nausea / Vomiting: adequately controlled Pain: adequately controlled Airway Patency, RR, SpO2: stable & adequate BP & HR: stable & adequate Hydration State: stable & adequate Anesthetic Complications: no major complications apparent
--- NOTE | 2019-03-03 11:11 | Hospitalist Progress Note ---
Date of Service March 03, 2019 Assessment & Plan (1) Acute on chronic respiratory failure with hypoxemia: ACUTE ON CHRONIC HYPOXIC RESPIRATORY FAILURE Secondary to above: Acute decompensation of systolic CHF At baseline patient is shortness of breath on minimal activity, secondary to COPD, severe ischemic cardiomyopathy -BIPAP q HS (as at home) --> On oxygen 2-3 L -Continues to have significant wheezing ---> Continue with duo - nebs q 4 hours -Patient started with IV steroids for COPD exacerbation as well as has wheezing--> Transitioned to PO steroids. -Will need to step exercise prior to discharge to assess home oxygen requirement -Will order CXR given persistent hypoxia, wheezing (2) Acute systolic CHF (congestive heart failure), NYHA class 3: ACUTE ON CHRONIC CHF, SYSTOLIC / DIASTOLIC Presented with shortness of breath, respiratory failure, due to decompensation of chronic CHF, systolic dysfunction with baseline NYHA class III, CXR showed progression of edema Clinically improving -S/P BIPAP --> Now on oxygen 2-3 L -Received multiple doses of IV Lasix --> now transitioned to PO Torsemide 10 mg per cardiology (No diuretics at home) -Recent echo: November 01, 2018: LV cavity size is normal. There is a large sized septal, inferior, posterior and lateral wall motion abnormality with mild hypokinesis to a kinases of the segments. There is a small sized inferior scar. The septal motion is abnormal consistent with right ventricular pacemaker. Qualitative LV ejection fraction 35-39% (moderately reduced). Mild to moderate mitral insufficiency -Appreciate input from cardiology, recommend continue Lasix with close monitoring of renal function CHEST HEAVINESS/SHORTNESS OF BREATH Secondary to above: Symptom resolved after diuresis -Serial cardiac markers negative, echo shows no new motion abnormality (3) COPD (chronic obstructive pulmonary disease): COPD EXACERBATION Baseline chronic COPD with history of smoking. SOB with minimal exacerbation- progressively worsening for past few months -Developed COPD exacerbation with audible wheeze -Nebs q 4 hours and PRN -IV steroids Transitioned to oral prednisone 50 mg daily total 5 days- Day 4 (4) Chronic atrial fibrillation: CHRONIC ATRIAL FIBRILLATION There was a plan for DC cardioversion end of this month after being on therapeutic anticoagulation for more than 4 weeks As per coagulation clinic documents: Patient's INR has been therapeutic since 01/30/2019 -S/P synchronized electric cardioversion with successful conversion to sinus rhythm/AV sequential pacing today -Continue on amiodarone and Coreg -Cardiology on board (5) On anticoagulant therapy: CHRONIC ANTICOAGULATION WITH COUMADIN INR - 3.2--> Hold coumadin (6) CKD (chronic kidney disease), stage IV: CKD IV Renal function stable, with approximately baseline creatinine level -Monitor BMP closely due to diuretic therapy for decompensated CHF -Avoid NSAIDs, contrast studies (7) Anemia of chronic disease: ANEMIA OF CHRONIC DISEASE Due to stage IV CKD -Hemoglobin stable/at baseline (8) History of CVA (cerebrovascular accident): HX OF CVA -Continue on aspirin/statin (9) Sleep apnea treated with nocturnal BiPAP: ARMANDO Follows with pulmonology at [facility] -Utilizes BiPAP at night -Patient will need to be assessed for home oxygen requirement prior to discharge from hospital (10) History of implantable cardioverter-defibrillator (ICD) placement: HX OF ICD IN [facility] hx of Device interrogation on 02/02/2019: Demonstrated ongoing atrial fibrillation with biventricular pacing Battery longevity is 6.8-year (11) Ischemic cardiomyopathy: ISCHEMIC CARDIOMYOPATHY Severe ischemic cardiomyopathy with systolic dysfunction: Echo reported as above EF 35-39% With large sized septal/inferior/posterior and lateral wall motion abnormality with mild hypokinesis to akinesis of the segment (12) Hypothyroidism: HYPOTHYROIDISM -Continue levothyroxine -TSH level within normal limit -Patient will need periodic TSH level check (on amiodarone 200 mg twice daily) (13) History of lung cancer: HX OF LUNG CARCINOMA 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 Lugo at [facility] Cardiology follow-up with Carmine Betancur PA-C at [facility] Subjective Patient continues to have audible wheezing. Does complain of some shortness of breath. Overall cough, sputum production has improved. No fever, chills, nausea, vomiting Telemetry monitorsinus rhythm/paced Physical Exam Physical Exam: GENERAL- AAOX3, No acute distress LUNGS- Air entry bilaterally decrease. Wheezing present + ; PACEMAKER + HEART-irregularly irregular rhythm. No murmurs ABDOMEN- Soft, non tender, non distended, Bowel sounds heard. EXTREMITIES- Good peripheral pulses, no edema Results & Data Vital Signs (Past 12 Hours) Vital Signs Temp Pulse Pulse Resp BP BP Pulse Ox 03/03/19 10:20 98 03/03/19 07:26 36.3 C L 60 18 143/80 H 96 03/03/19 07:05 60 18 96 03/03/19 04:00 36.4 C L 59 L 19 138/79 94 03/03/19 03:08 63 20 94 03/03/19 01:10 61 03/02/19 23:54 67 94 03/02/19 23:37 65 18 93 03/02/19 23:14 36.5 C 63 18 146/80 H 97 (1) COPD (chronic obstructive pulmonary disease) COPD type: COPD with acute exacerbation Qualified Code(s): J44.1 - Chronic obstructive pulmonary disease with (acute) exacerbation (2) Hypothyroidism Hypothyroidism type: unspecified Qualified Code(s): E03.9 - Hypothyroidism, unspecified (3) Hypertension Hypertension type: essential hypertension Qualified Code(s): I10 - Essential (primary) hypertension (4) Hyperlipidemia Hyperlipidemia type: unspecified Qualified Code(s): E78.5 - Hyperlipidemia, unspecified
--- NOTE | 2019-03-03 11:33 | XRay Report ---
XR chest 1V portable CLINICAL HISTORY: persistent hypoxia, wheezing and follow up chf dyspnea COMPARISON STUDY: 02/26/2019 FINDINGS: Mild stable cardiomegaly. Permanent bipolar cardiac pacemaker unchanged in position. Findings of improved pulmonary edema. Persistent nodular density right midlung unchanged. Diaphragms remain smooth. IMPRESSION: Improving pulmonary edema. The above report was generated using voice recognition software. It may contain grammatical, syntax or spelling errors. Electronically signed by: Carmine Aleman M.D. 03/03/2019 11:32 AM
--- NOTE | 2019-03-03 13:12 | Cardiology Progress Note ---
Date of Service March 03, 2019 Assessment & Plan (1) Acute systolic CHF (congestive heart failure), NYHA class 3: Renal function continues to per improve however ongoing dyspnea with minimal activity noted. He received torsemide 10 mg this morning, which is his regular home dose. Will give 1 additional furosemide 20 mg IV dose this morning to aid with ongoing diuresis. (2) Acute on chronic respiratory failure with hypoxemia: Continue BIPAP/supplemental O2 and IV steroids. Underlying COPD likely contributing factor. (3) Persistent atrial fibrillation: Patient has had persistent afib since January 2019 resulting in reduced BIV pacing and likely CHF exacerbation. INR therapeutic since 01/30. Patient underwent synchronized electrical cardioversion yesterday morning with successful return to sinus rhythm/AV sequential pacing Continue coumadin, amiodarone and carvedilol. (4) Status post biventricular pacemaker: Supervising Physician Co-Signing Physician Notes Patient was seen and examined personally. Has demonstrated gradual improvement. Remains in sinus/AV sequential pacing with biventricular pacing 100%. Still dyspneic with minimal activity or exertion and wheezing still present. Continues to demonstrate gradual diuresis with good renal tolerance today. As above we will give additional IV furosemide today, continue oral Demadex Subjective Patient continues to complain of significant dyspnea with minimal exertion and conversational dyspnea noted today. He has audible wheezing on exam. Edema improved. Creatinine trending down. No chest pain, cough or fever. No significant orthopnea. Telemetry monitorsinus rhythm/paced Review of Systems Review of Systems: All systems reviewed & are unremarkable except as noted in HPI & below Physical Exam Constitutional: WD/WN, vitals as above + ill appearing (Conversational dyspnea noted) Eyes: PERRL, conjunctivae normal, anicteric sclerae Neck: trachea midline, no thyromegaly Respiratory: Auscultation: + diminished lung sounds (bases bilaterally. Reduced lung sounds R>L) and + wheezes Cardiovascular: Rate/Rhythm: regular rate and regular rhythm Heart Sounds: no murmur Extremities: no edema Gastrointestinal (Abdomen): Inspection/Auscultation: + abdomen distended Musculoskeletal: no cyanosis or clubbing, extremities motor strength 5/5 Neurologic: PERRL, EOMI, accommodation nl, no face palsy, no dysarthria Psychiatric: A+Ox3, euthymic affect Results & Data Vital Signs (Past 12 Hours) Vital Signs Temp Pulse Resp BP Pulse Ox 03/03/19 11:39 36.4 C L 61 18 137/73 97 03/03/19 11:04 70 18 98 03/03/19 10:20 98 03/03/19 07:26 36.3 C L 60 18 143/80 H 96 03/03/19 07:05 60 18 96 03/03/19 04:00 36.4 C L 59 L 19 138/79 94 03/03/19 03:08 63 20 94
[2019-03-03] MEDS: ROPINIROLE HCL 0.25 MG TABLET PO SCH (13:54)
[2019-03-03] MEDS: WARFARIN SOD 2 MG TAB PO SCH (16:27)
[2019-03-03] MEDS: MAGNESIUM OXIDE 400 MG TAB PO SCH (20:55)
[2019-03-03] MEDS: ROPINIROLE HCL 5 MG TABLET PO SCH (20:59)
[2019-03-04] MEDS: LEVALBUTEROL 1.25MG/0.5ML NEB INH SCH ×6 (04:08→23:22)
[2019-03-04] MEDS: IPRATROPIUM BROMIDE NEB SOLN 0.02% 2.5 ML VIAL INH SCH ×6 (04:09→23:22)
[2019-03-04] MEDS: LEVOTHYROXINE SODIUM 25 MCG TABLET PO SCH (05:55)
[2019-03-04] MEDS: ISOSORBIDE DINITRATE 10 MG TAB PO SCH ×2 (06:39→11:53)
[2019-03-04 07:41] LABS: Basophils # (auto) 0.01 K/uL (0-0.2); Basophils % (auto) 0.1 %; Eosinophils # (auto) 0.01 K/uL (0-0.5); Eosinophils % (auto) 0.1 %; Hematocrit (blood only) 32.4 % (42-52); Hemoglobin 10.5 g/dL (14.0-18.0); Immature Granulocytes # (auto) 0.46 K/uL (0.00-0.02); Lymphocytes # (auto) 1.23 K/uL (1.2-3.4); Lymphocytes % (auto) 10.7 %; Mean Corpuscular Hgb Conc 32.4 g/dL (32-36); Mean Corpuscular Volume 92.8 fL (80-100); Mean Platelet Volume 10.8 fL (7.4-10.4); Monocytes # (auto) 1.26 K/uL (0.11-0.59); Neutrophils # (auto) 8.53 K/uL (1.4-6.5); Neutrophils % (auto) 74.1 %; Platelet Count 182 K/uL (130-400); RDW Coefficient of Variation 17.8 % (11.5-14.5); RDW Standard Deviation 60.4 fL (36.4-46.3); Red Blood Count 3.49 M/uL (4.7-6.1)
[2019-03-04 07:51] LABS: INR 2.4 (0.9-1.1); Prothrombin Time 22.9 Seconds (9.0-12.0)
[2019-03-04 08:17] LABS: BUN Creatinine Ratio 26.1 (10-20); Calcium 8.4 mg/dl (8.5-10.1); Creatinine Clr Calc Pharmacy 26.4 ml/min; Est GFR (African American) 32.4; Est GFR (Non-African American) 27.9
[2019-03-04] MEDS: CARVEDILOL 12.5 MG TAB PO SCH ×2 (08:50→20:12)
[2019-03-04] MEDS: AMIODARONE 200 MG TAB PO SCH ×2 (08:50→20:12)
[2019-03-04] MEDS: ASPIRIN 81 MG ECTAB PO SCH (08:51)
[2019-03-04] MEDS: PANTOprazole 40 MG TAB PO SCH ×2 (08:51→20:12)
[2019-03-04] MEDS: predniSONE 50 MG TAB PO SCH (08:51)
[2019-03-04] MEDS: TORSEMIDE 10 MG TAB PO SCH (08:51)
[2019-03-04] MEDS: ALLOPURINOL 100 MG TAB PO SCH (08:52)
[2019-03-04] MEDS: CHOLECALCIFEROL 1,000 UNITS TAB PO SCH (08:52)
--- NOTE | 2019-03-04 10:24 | Hospitalist Progress Note ---
Date of Service March 04, 2019 Assessment & Plan (1) Acute on chronic respiratory failure with hypoxemia: ACUTE ON CHRONIC HYPOXIC RESPIRATORY FAILURE Secondary to above: Acute decompensation of systolic CHF At baseline patient is shortness of breath on minimal activity, secondary to COPD, severe ischemic cardiomyopathy Clinically improving -BIPAP q HS (as at home) --> On oxygen 2 L now -Patient started with IV steroids for COPD exacerbation as well as has wheezi ng--> Transitioned to PO steroids. -Will need to step exercise prior to discharge to assess home oxygen requirement -Repeat CXR- Improving pulmonary edema (2) Acute systolic CHF (congestive heart failure), NYHA class 3: ACUTE ON CHRONIC CHF, SYSTOLIC / DIASTOLIC Presented with shortness of breath, respiratory failure, due to decompensation of chronic CHF, systolic dysfunction with baseline NYHA class III, CXR showed progression of edema Clinically improving -S/P BIPAP --> Now on oxygen 2-3 L -Received multiple doses of IV Lasix . Last one yesterday --> transitioned to PO Torsemide 10 mg per cardiology (No diuretics at home) -Recent echo: November 01, 2018: LV cavity size is normal. There is a large sized septal, inferior, posterior and lateral wall motion abnormality with mild hypokinesis to a kinases of the segments. There is a small sized inferior scar. The septal motion is abnormal consistent with right ventricular pacemaker. Qualitative LV ejection fraction 35-39% (moderately reduced). Mild to moderate mitral insufficiency -Appreciate input from cardiology, recommend continue Lasix with close monitoring of renal function CHEST HEAVINESS/SHORTNESS OF BREATH Secondary to above: Symptom resolved after diuresis -Serial cardiac markers negative, echo shows no new motion abnormality (3) COPD (chronic obstructive pulmonary disease): COPD EXACERBATION Baseline chronic COPD with history of smoking. SOB with minimal exacerbation- progressively worsening for past few months -Developed COPD exacerbation with audible wheeze -Nebs q 4 hours and PRN -IV steroids Transitioned to oral prednisone 50 mg daily total 5 days- Day 5 (4) Chronic atrial fibrillation: CHRONIC ATRIAL FIBRILLATION There was a plan for DC cardioversion end of this month after being on therapeutic anticoagulation for more than 4 weeks As per coagulation clinic documents: Patient's INR has been therapeutic since 01/30/2019 -S/P synchronized electric cardioversion with successful conversion to sinus rhythm/AV sequential pacing today -Continue on amiodarone and Coreg -Cardiology on board (5) On anticoagulant therapy: CHRONIC ANTICOAGULATION WITH COUMADIN Held coumadin for supratherapeutic INR. Restarted Coumadin - now INR is therapeutic (6) CKD (chronic kidney disease), stage IV: CKD IV Renal function stable, with approximately baseline creatinine level (Baseline: 2.5-2.9) -Creatinine improved with diuresis -Avoid NSAIDs, contrast studies (7) Anemia of chronic disease: ANEMIA OF CHRONIC DISEASE Due to stage IV CKD -Hemoglobin stable/at baseline (8) History of CVA (cerebrovascular accident): HX OF CVA -Continue on aspirin/statin (9) Sleep apnea treated with nocturnal BiPAP: ARMANDO Follows with pulmonology at [facility] -Utilizes BiPAP at night -Patient will need to be assessed for home oxygen requirement prior to discharge from hospital (10) History of implantable cardioverter-defibrillator (ICD) placement: HX OF ICD IN [facility]IT[facility] hx of Device interrogation on 02/02/2019: Demonstrated ongoing atrial fibrillation with biventricular pacing Battery longevity is 6.8-year (11) Ischemic cardiomyopathy: ISCHEMIC CARDIOMYOPATHY Severe ischemic cardiomyopathy with systolic dysfunction: Echo reported as above EF 35-39% With large sized septal/inferior/posterior and lateral wall motion abnormality with mild hypokinesis to akinesis of the segment (12) Hypothyroidism: HYPOTHYROIDISM -Continue levothyroxine -TSH level within normal limit -Patient will need periodic TSH level check (on amiodarone 200 mg twice daily) (13) History of lung cancer: HX OF LUNG CARCINOMA 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 Lugo at [facility] Cardiology follow-up with Carmine Betancur PA-C at [facility] Subjective Patient is feeling better today. Shortness of breath/wheezing has improved. Received IV Lasix 20 mg 1 more dose yesterday. Tolerating ambulation little better No chest pain, cough or fever. No significant orthopnea. Telemetry monitorsinus rhythm/paced in 60s Physical Exam Physical Exam: GENERAL- AAOX3, No acute distress LUNGS- Air entry bilaterally decrease. Rales +; No wheezing ; PACEMAKER + HEART-irregularly irregular rhythm. No murmurs ABDOMEN- Soft, non tender, non distended, Bowel sounds heard. EXTREMITIES- Good peripheral pulses, no edema Results & Data Vital Signs (Past 12 Hours) Vital Signs Temp Pulse Pulse Pulse Resp BP BP 03/04/19 07:43 36.5 C 60 18 139/72 03/04/19 07:06 68 18 03/04/19 04:19 72 21 03/04/19 04:09 72 21 03/04/19 03:39 36.5 C 63 20 125/81 03/03/19 23:49 36.6 C 64 20 135/67 03/03/19 23:06 62 22 03/03/19 22:34 61 21 Pulse Ox 03/04/19 07:43 94 03/04/19 07:06 94 03/04/19 04:19 98 03/04/19 04:09 98 03/04/19 03:39 97 03/03/19 23:49 98 03/03/19 23:06 98 03/03/19 22:34 97 (1) COPD (chronic obstructive pulmonary disease) COPD type: COPD with acute exacerbation Qualified Code(s): J44.1 - Chronic obstructive pulmonary disease with (acute) exacerbation (2) Hypothyroidism Hypothyroidism type: unspecified Qualified Code(s): E03.9 - Hypothyroidism, unspecified (3) Hypertension Hypertension type: essential hypertension Qualified Code(s): I10 - Essential (primary) hypertension (4) Hyperlipidemia Hyperlipidemia type: unspecified Qualified Code(s): E78.5 - Hyperlipidemia, unspecified
--- NOTE | 2019-03-04 10:51 | Cardiology Progress Note ---
Date of Service March 04, 2019 Assessment & Plan (1) Acute systolic CHF (congestive heart failure), NYHA class 3: Patient improved today after diuresis last night. Suspect return to biventricular pacing has aided functional capacity and diuresis. Renal function improving as well (2) Acute on chronic respiratory failure with hypoxemia: Continue BIPAP/supplemental O2 and IV steroids. Underlying COPD likely contributing factor. (3) Persistent atrial fibrillation: Remains in atrial pacing/sinus rhythm after synchronized electrical cardioversion on 03/02 (4) Status post biventricular pacemaker: Subjective Patient is feeling better today. Shortness of breath/wheezing has improved. Received IV Lasix 20 mg 1 more dose yesterday. Generous diuresis overnight with patient noting substantial improvement this morning. No chest pains or discomfort. No dizziness or lightheadedness Remains in sinus/atrial pacing with biventricular pacing Renal function improved with diuresis Physical Exam Eyes: PERRL, conjunctivae normal, anicteric sclerae ENMT: external ear and nose normal, oropharynx normal Neck: trachea midline, no thyromegaly Respiratory: no respiratory distress Auscultation: + diminished lung sounds Lung exam mostly clear today. Cardiovascular: Rate/Rhythm: regular rate and regular rhythm Heart Sounds: no gallop Palpation: no heave Extremities: + edema (Trace to 1+) Chest (Breasts): Chest: + pacemaker (No irritation or tenderness) Gastrointestinal (Abdomen): normal bowel sounds, soft, nontender, no hepatosplenomegaly Results & Data Vital Signs (Past 12 Hours) Vital Signs Temp Pulse Pulse Pulse Resp BP BP 03/04/19 07:43 36.5 C 60 18 139/72 03/04/19 07:06 68 18 03/04/19 04:19 72 21 03/04/19 04:09 72 21 03/04/19 03:39 36.5 C 63 20 125/81 03/03/19 23:49 36.6 C 64 20 135/67 03/03/19 23:06 62 22 Pulse Ox 03/04/19 07:43 94 03/04/19 07:06 94 03/04/19 04:19 98 03/04/19 04:09 98 03/04/19 03:39 97 03/03/19 23:49 98 03/03/19 23:06 98 Laboratory Results Laboratory Results - last 24 hr 03/04/19 03/04/19 03/04/19 06:33 06:33 06:33 WBC 11.50 H RBC 3.49 L Hgb 10.5 L Hct 32.4 L MCV 92.8 MCH 30.1 MCHC 32.4 RDW Std Deviation 60.4 H RDW Coeff of Rocael 17.8 H Plt Count 182 MPV 10.8 H Immature Gran % (Auto) 4.0 Neut % (Auto) 74.1 Lymph % (Auto) 10.7 Cavalier % (Auto) 11.0 Eos % (Auto) 0.1 Baso % (Auto) 0.1 Immature Gran # (Auto) 0.46 H Neut # (Auto) 8.53 H Lymph # (Auto) 1.23 Cavalier # (Auto) 1.26 H Eos # (Auto) 0.01 Baso # (Auto) 0.01 PT 22.9 H INR 2.4 H Sodium 140 Potassium 4.0 Chloride 105 Carbon Dioxide 28 Anion Gap 7.0 BUN 55 H Creatinine 2.12 H Est Cr Clr Drug Dosing 26.4 Est GFR ( Amer) 32.4 Est GFR (Non-Af Amer) 27.9 BUN/Creatinine Ratio 26.1 H Glucose 115 H Calcium 8.4 L
[2019-03-04] MEDS: ROPINIROLE HCL 0.25 MG TABLET PO SCH (14:16)
[2019-03-04] MEDS: WARFARIN SOD 2 MG TAB PO SCH (16:28)
[2019-03-04] MEDS ORDERED: COUGH DROP (SUGAR FREE) LOZ 24 LOZ/1 BOX BUCCAL STA (16:47)
[2019-03-04] MEDS: NYSTATIN SUSP 500,000 U/5 ML UDC PO SCH ×2 (19:26→21:27)
[2019-03-04] MEDS: ROPINIROLE HCL 5 MG TABLET PO SCH (20:12)
[2019-03-04] MEDS: MAGNESIUM OXIDE 400 MG TAB PO SCH (20:12)
[2019-03-05] MEDS: LEVALBUTEROL 1.25MG/0.5ML NEB INH SCH ×3 (03:45→11:06)
[2019-03-05] MEDS: IPRATROPIUM BROMIDE NEB SOLN 0.02% 2.5 ML VIAL INH SCH ×3 (03:48→11:07)
[2019-03-05] MEDS: LEVOTHYROXINE SODIUM 25 MCG TABLET PO SCH (06:18)
[2019-03-05 06:35] LABS: INR 2.3 (0.9-1.1); Prothrombin Time 21.8 Seconds (9.0-12.0)
[2019-03-05] MEDS: ISOSORBIDE DINITRATE 10 MG TAB PO SCH ×2 (07:56→11:49)
[2019-03-05] MEDS: AMIODARONE 200 MG TAB PO SCH (07:57)
[2019-03-05] MEDS: CARVEDILOL 12.5 MG TAB PO SCH (07:57)
[2019-03-05] MEDS: TORSEMIDE 10 MG TAB PO SCH (07:58)
[2019-03-05] MEDS: NYSTATIN SUSP 500,000 U/5 ML UDC PO SCH ×2 (07:58→11:50)
[2019-03-05] MEDS: ASPIRIN 81 MG ECTAB PO SCH (07:58)
[2019-03-05] MEDS: PANTOprazole 40 MG TAB PO SCH (07:59)
[2019-03-05] MEDS: predniSONE 50 MG TAB PO SCH (07:59)
[2019-03-05] MEDS: CHOLECALCIFEROL 1,000 UNITS TAB PO SCH (08:00)
[2019-03-05] MEDS: ALLOPURINOL 100 MG TAB PO SCH (08:00)
--- NOTE | 2019-03-05 11:12 | Hospitalist Progress Note ---
Date of Service March 05, 2019 Assessment & Plan (1) Acute on chronic respiratory failure with hypoxemia: ACUTE ON CHRONIC HYPOXIC RESPIRATORY FAILURE - Resolved Secondary to above: Acute decompensation of systolic CHF At baseline patient has shortness of breath on minimal activity, secondary to COPD, severe ischemic cardiomyopathy -BIPAP q HS (as at home) --> On oxygen 2 L --> SaO2 94-95% on RA and on ambulation -Patient started with IV steroids for COPD exacerbation as well as has wheezing--> Transitioned to PO steroids--> taper. -Repeat CXR on 03/04/19 - Improving pulmonary edema (2) Acute systolic CHF (congestive heart failure), NYHA class 3: ACUTE ON CHRONIC CHF, SYSTOLIC / DIASTOLIC Presented with shortness of breath, respiratory failure, due to decompensation of chronic CHF, systolic dysfunction with baseline NYHA class III, CXR showed progression of edema Clinically improved, near baseline -S/P BIPAP --> Oxygen 2-3 L --> SaO2 94-95% on RA and on ambulation -Received multiple doses of IV Lasix . Last one 03/03 --> Transitioned to PO Torsemide 10 mg per cardiology (No diuretics at home)--. Discharge plan: Torsemide 20 mg MWF, 10 mg TuThSaSun -Recent echo: November 01, 2018: LV cavity size is normal. There is a large sized septal, inferior, posterior and lateral wall motion abnormality with mild hypokinesis to a kinases of the segments. There is a small sized inferior scar. The septal motion is abnormal consistent with right ventricular pacemaker. Qualitative LV ejection fraction 35-39% (moderately reduced). Mild to moderate mitral insufficiency -Appreciate input from cardiology, recommend continue Lasix with close monitoring of renal function CHEST HEAVINESS/SHORTNESS OF BREATH Secondary to above: Symptom resolved after diuresis -Serial cardiac markers negative, echo shows no new motion abnormality (3) Ischemic cardiomyopathy: ISCHEMIC CARDIOMYOPATHY Severe ischemic cardiomyopathy with systolic dysfunction: Echo reported as above EF 35-39% With large sized septal/inferior/posterior and lateral wall motion abnormality with mild hypokinesis to akinesis of the segment -Diuretics as above (4) COPD (chronic obstructive pulmonary disease): COPD EXACERBATION Baseline chronic COPD with history of smoking. SOB with minimal exacerbation- progressively worsening for past few months -Developed COPD exacerbation with audible wheeze -Nebs q 4 hours and PRN -IV steroids Transitioned to oral prednisone 50 mg daily total 5 days (5) Chronic atrial fibrillation: CHRONIC ATRIAL FIBRILLATION There was a plan for DC cardioversion end of this month after being on therapeutic anticoagulation for more than 4 weeks As per coagulation clinic documents: Patient's INR has been therapeutic since 01/30/2019 -S/P synchronized electric cardioversion with successful conversion to sinus rhythm/AV sequential pacing today -Continue on amiodarone and Coreg -Cardiology on board- discussed discharge plan with cardiology (6) On anticoagulant therapy: CHRONIC ANTICOAGULATION WITH COUMADIN Held coumadin for supratherapeutic INR. Restarted Coumadin - now INR is therapeutic (7) CKD (chronic kidney disease), stage IV: CKD IV Renal function stable, with approximately baseline creatinine level (Baseline: 2.5-2.9) -Creatinine improved with diuresis -Avoid NSAIDs, contrast studies (8) Anemia of chronic disease: ANEMIA OF CHRONIC DISEASE Due to stage IV CKD -Hemoglobin stable/at baseline (9) History of CVA (cerebrovascular accident): HX OF CVA -Continue on aspirin/statin (10) Sleep apnea treated with nocturnal BiPAP: ARMANDO Follows with pulmonology at [facility] -Utilizes BiPAP at night -Did not qualify for oxygen at rest or on ambulation (11) History of implantable cardioverter-defibrillator (ICD) placement: HX OF ICD IN [facility]IT[facility] hx of Device interrogation on 02/02/2019: Demonstrated ongoing atrial fibrillation with biventricular pacing Battery longevity is 6.8-year (12) History of lung cancer: HX OF LUNG CARCINOMA History of 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 Chronic right upper lobe pulmonary nodule (13) CAD (coronary artery disease): (14) Hypertension: HX OF CAD HYPERTENSION Essential hypertension with blood pressure goal less than 140/90 -Patient is continue with Coreg, Isosorbide dinitrate (15) Oral thrush: Nystatin QID started on 03/04/19 x 14 day course (16) Hypothyroidism: HYPOTHYROIDISM -Continue levothyroxine -TSH level within normal limit -Patient will need periodic TSH level check (on amiodarone 200 mg twice daily) (17) Hyperlipidemia: HYPERLIPIDEMIA -Continue with statin CODE STATUS: Discussed with patient Full code DVT prophylaxis: On Coumadin Disposition: Lives at home with PT/OT recommends return home Updated by bedside Eager to be discharged. Okay to discharge home today Family medicine follow-up with Dr. Lugo at [facility] Cardiology follow-up with Carmine Betancur PA-C at [facility] Subjective Patient is feeling better today and eager to be discharged. Shortness of breath is now near baseline. Wheezing has resolved. Tolerating ambulation back and forth bathroom. Does have baseline SOB with minimal activity. No chest pains or discomfort. No dizziness or lightheadedness C/o Oral thrush + Telemonitor- Remains in sinus/atrial pacing with biventricular pacing Weight gain of 6 lbs overnight- likely an error. Overall feeling better. Physical Exam Physical Exam: GENERAL- AAOX3, No acute distress HEENT- Oral thrush + LUNGS- Air entry bilaterally decrease. Rales improved ; No wheezing ; PACEMAKER + HEART-irregularly irregular rhythm. No murmurs ABDOMEN- Soft, non tender, non distended, Bowel sounds heard. EXTREMITIES- Bilateral edema + Results & Data Vital Signs (Past 12 Hours) Vital Signs Temp Pulse Pulse Pulse Resp BP Pulse Ox 03/05/19 08:39 95 03/05/19 07:21 59 L 20 99 03/05/19 06:54 36.5 C 63 16 144/80 H 98 03/05/19 03:48 62 20 96 03/05/19 03:31 36.5 C 67 20 136/75 98 03/04/19 23:30 61 17 98 03/04/19 23:29 61 17 98 03/04/19 23:18 36.6 C 61 20 134/73 98 (1) COPD (chronic obstructive pulmonary disease) COPD type: COPD with acute exacerbation Qualified Code(s): J44.1 - Chronic obstructive pulmonary disease with (acute) exacerbation (2) Hypothyroidism Hypothyroidism type: unspecified Qualified Code(s): E03.9 - Hypothyroidism, unspecified (3) Hypertension Hypertension type: essential hypertension Qualified Code(s): I10 - Essential (primary) hypertension (4) Hyperlipidemia Hyperlipidemia type: unspecified Qualified Code(s): E78.5 - Hyperlipidemia, unspecified
--- NOTE | 2019-03-05 11:45 | Discharge Summary ---
Date of Service March 05, 2019 Admission HPI Per Admitting Provider This is a 83-year-old male with a very complex past medical history of severe coronary artery disease previous NC, status post angioplasty of LAD, severe ischemic cardiomyopathy with echo 35%, status post dual-chamber AICD placement, stage IV CKD, carotid arteries disease, prior history of CVA, adenocarcinoma of lung status post radiation, obstructive sleep apnea, on BiPAP at night, history of restless leg syndrome Patient was recently admitted to [facility] from 01/26/2019 to 01/30/2019, discharged to [facility]. Patient had most 2 weeks stay at rehab, was discharged home. During last admission: Patient's diuretics: Torsemide dose was decreased to 10 mg p.o. daily For the past 1 week patient noted to have increased fatigue, dyspnea on exertion, shortness of breath with minimum activity Last night woke up severely short of breath, chest heaviness, utilize nebulizer treatment, and on 5 PM symptoms got progressively worse, Came to [facility] ER On arrival to ER patient was found to be in significant respiratory distress, BiPAP was placed, chest x-ray shows progression of pulmonary congestion compared to 4 weeks prior chest x-ray 40 mg IV Lasix was given, nebulizer treatment, patient placed on BiPAP During my time of interview patient's was much more comfortable, denies of any chest heaviness, remains on BiPAP, Vitals stable, No reported fever or chills, has chronic cough with whitish mucoid sputum No report of GI symptom: Nausea vomiting or diarrhea Has chronic shoulder and back pain, stable, no worsening of symptoms Patient has chronic orthopnea, sleeps on recliner Patient will be admitted to PCU/telemetry for decompensated CHF with underlying severe ischemic cardiomyopathy with systolic dysfunction Principal Diagnosis 1. Acute on chronic hypoxic respiratory failure, resolved 2. Acute on chronic congestive heart failurecombinedsystolic/diastolic 3. COPD exacerbation 4. Atrial fibrillation with rapid ventricular rate status post cardioversion 5. Oral thrush Secondary diagnoses on discharge 1. Ischemic Cardiomyopathy 2. Hx of CAD 3. Hx of lung carcinoma 4. HTN 5. Hx of CVA 6. CKD IV 7. Anemia of chronic disease 8. ARMANDO Discharge Exam GENERAL- AAOX3, No acute distress HEENT- Oral thrush + LUNGS- Air entry bilaterally decrease. Rales improved ; No wheezing ; PACEMAKER + HEART-irregularly irregular rhythm. No murmurs ABDOMEN- Soft, non tender, non distended, Bowel sounds heard. EXTREMITIES- Bilateral edema + Discharge Data Allergies Allergy/AdvReac Type Severity Reaction Status Date / Time blue dye Allergy Mild SHORTNESS Verified 01/31/19 14:41 OF BREATH naproxen Allergy Mild SWELLING Verified 02/26/19 07:12 OF HANDS sumatriptan Allergy Mild SHORTNESS Verified 02/26/19 07:12 OF BREATH diphenhydramine AdvReac Intermediate MADE Verified 02/26/19 07:12 DEFIBRILLATOR FIRE pseudoephedrine AdvReac Intermediate MADE HIS Verified 01/31/19 14:41 DEFIB FIRE Consultations 02/26/19 07:41 ED Decision to Admit Stat 02/26/19 10:20 Consult Cardiology Routine Consult Case Management - Discharge Planning Routine 03/01/19 10:53 Consult Anesthesiology Routine Procedures Performed Operation Date: 03/02/19 07:45 Actual Procedures p Cardioversion - Bryan Walsh MD Hospital Course (1) Acute on chronic respiratory failure with hypoxemia: ACUTE ON CHRONIC HYPOXIC RESPIRATORY FAILURE - Resolved Secondary to above: Acute decompensation of systolic CHF At baseline patient has shortness of breath on minimal activity, secondary to COPD, severe ischemic cardiomyopathy -BIPAP q HS (as at home) --> On oxygen 2 L --> SaO2 94-95% on RA and on ambulation -Patient started with IV steroids for COPD exacerbation as well as has wheezing--> Transitioned to PO steroids--> taper. -Repeat CXR on 03/04/19 - Improving pulmonary edema (2) Acute systolic CHF (congestive heart failure), NYHA class 3: ACUTE ON CHRONIC CHF, SYSTOLIC / DIASTOLIC Presented with shortness of breath, respiratory failure, due to decompensation of chronic CHF, systolic dysfunction with baseline NYHA class III, CXR showed progression of edema Clinically improved, near baseline -S/P BIPAP --> Oxygen 2-3 L --> SaO2 94-95% on RA and on ambulation -Received multiple doses of IV Lasix . Last one 03/03 --> Transitioned to PO Torsemide 10 mg per cardiology (No diuretics at home)--. Discharge plan: Torsemide 20 mg MWF, 10 mg TuThSaSun -Recent echo: November 01, 2018: LV cavity size is normal. There is a large sized septal, inferior, posterior and lateral wall motion abnormality with mild hypokinesis to a kinases of the segments. There is a small sized inferior scar. The septal motion is abnormal consistent with right ventricular pacemaker. Qualitative LV ejection fraction 35-39% (moderately reduced). Mild to moderate mitral insufficiency -Appreciate input from cardiology, recommend continue Lasix with close monitoring of renal function CHEST HEAVINESS/SHORTNESS OF BREATH Secondary to above: Symptom resolved after diuresis -Serial cardiac markers negative, echo shows no new motion abnormality (3) Ischemic cardiomyopathy: ISCHEMIC CARDIOMYOPATHY Severe ischemic cardiomyopathy with systolic dysfunction: Echo reported as above EF 35-39% With large sized septal/inferior/posterior and lateral wall motion abnormality with mild hypokinesis to akinesis of the segment -Diuretics as above (4) COPD (chronic obstructive pulmonary disease): COPD EXACERBATION Baseline chronic COPD with history of smoking. SOB with minimal exacerbation- progressively worsening for past few months -Developed COPD exacerbation with audible wheeze -Nebs q 4 hours and PRN -IV steroids Transitioned to oral prednisone 50 mg daily total 5 days (5) Chronic atrial fibrillation: CHRONIC ATRIAL FIBRILLATION There was a plan for DC cardioversion end of this month after being on therapeutic anticoagulation for more than 4 weeks As per coagulation clinic documents: Patient's INR has been therapeutic since 01/30/2019 -S/P synchronized electric cardioversion with successful conversion to sinus rhythm/AV sequential pacing today -Continue on amiodarone and Coreg -Cardiology on board- discussed discharge plan with cardiology (6) On anticoagulant therapy: CHRONIC ANTICOAGULATION WITH COUMADIN Held coumadin for supratherapeutic INR. Restarted Coumadin - now INR is therapeutic (7) CKD (chronic kidney disease), stage IV: CKD IV Renal function stable, with approximately baseline creatinine level (Baseline: 2.5-2.9) -Creatinine improved with diuresis -Avoid NSAIDs, contrast studies (8) Anemia of chronic disease: ANEMIA OF CHRONIC DISEASE Due to stage IV CKD -Hemoglobin stable/at baseline (9) History of CVA (cerebrovascular accident): HX OF CVA -Continue on aspirin/statin (10) Sleep apnea treated with nocturnal BiPAP: ARMANDO Follows with pulmonology at [facility] -Utilizes BiPAP at night -Did not qualify for oxygen at rest or on ambulation (11) History of implantable cardioverter-defibrillator (ICD) placement: HX OF ICD IN SITU hx of Device interrogation on 02/02/2019: Demonstrated ongoing atrial fibrillation with biventricular pacing Battery longevity is 6.8-year (12) History of lung cancer: HX OF LUNG CARCINOMA History of 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 Chronic right upper lobe pulmonary nodule (13) CAD (coronary artery disease): (14) Hypertension: HX OF CAD HYPERTENSION Essential hypertension with blood pressure goal less than 140/90 -Patient is continue with Coreg, Isosorbide dinitrate (15) Oral thrush: Nystatin QID started on 03/04/19 x 14 day course (16) Hypothyroidism: HYPOTHYROIDISM -Continue levothyroxine -TSH level within normal limit -Patient will need periodic TSH level check (on amiodarone 200 mg twice daily) (17) Hyperlipidemia: HYPERLIPIDEMIA -Continue with statin CODE STATUS: Discussed with patient Full code DVT prophylaxis: On Coumadin Disposition: Lives at home with PT/OT recommends return home Updated by bedside Eager to be discharged. Okay to discharge home today Family medicine follow-up with Dr. Lugo at [facility] Cardiology follow-up with Carmine Betancur PA-C at [facility] Total Time Total Time Spent Total Time Spent (In Minutes): 40 minutes Discharge Plan Discharge Items Patient Disposition: Home - Home Health Services Reason For Visit: SOB, CHF Discharge Diagnosis: 1. Acute on chronic hypoxic respiratory failure 2. Acute on chronic congestive heart failure, systolic/diastolic 3. Atrial fibrillation status post cardioversion Discharge Goals: Decrease discomfort Activity: Resume your previous activity Non-emergency contact: Primary Care Provider Call non-emergency contact if: your symptoms worsen Follow-up/Referrals: Soren Loja MD [Primary Care Provider] - (Will call for appt date/time within 7 days as scheduling office closed today) Diet: Heart Healthy Fluids: 1500ml (6 cups) Addtl Provider Instructions: You were admitted to the hospital for acute on chronic congestive heart failure which was treated with IV diuretics. You underwent cardioversion for atrial fibrillation on 03/01/2019 You do not qualify or require oxygen on discharge. Continue with BiPAP at night as prior to admission You completed 5-day treatment of steroids. No more steroids to be given on discharge MEDICATION CHANGES: 1. Medication change - Torsemide 20 mg - Wed, Wed, Wed, 10 mg - , , Wed, Wednesday . Prior home dosing- Torsemide 10 mg daily 2. Continue with prior to home dosing of coumadin from today evening 3. New medication- Nystatin four times a day for oral thrush as instructed Call your Primary Care doctor if any of the following symptoms or problems start or get worse: * Shortness of breath or difficulty breathing * Wake up at night short of breath * Chest pain * Cough * Swelling of your hands, feet, or legs * More fatigued or tired with your normal activity * Palpitations - sudden fast heart beats WEIGHT * Weigh yourself every morning after using the bathroom. * Use the same scale. * Wear the same amount of clothing. * Write your weight down on a chart. * Call your Primary Care doctor if you gain more than 2-3 pounds in 1-2 days. MEDICATIONS * Use this discharge instruction sheet for medication instructions. * Take your medications at the time your doctor ordered. * Do not skip a dose of your medicines. * If you miss a dose of medicine, take it as soon as possible, but DO NOT DOUBLE A DOSE. * Read your medicine information when you get home. * Know all of the side effects of your medicine. If in doubt, ask your pharmacist * Call your Primary Care doctor's office if you have any side effects. * Be sure all of your doctors know what medicine and herbs you take (including cold, flu, and herbal medicine). Take the following with you to your follow-up doctor appointments: * Weight Chart * Medication List * List of questions Do not drink excessive alcohol, beer or wine. Prescriptions: New nystatin 100,000 unit/mL Suspension 10 ml PO QID 12 Days Qty: 480 RF: 0 torsemide 10 mg Tablet 10 mg PO UD Qty: 60 RF: 0 Continued isosorbide dinitrate 10 mg Tablet 10 mg PO BID RF: 0 potassium chloride 10 mEq Capsule, Extended Release 10 meq PO BID RF: 0 carvedilol [Coreg] 12.5 mg Tablet 12.5 mg PO BID RF: 0 amiodarone 200 mg Tablet 200 mg PO BID RF: 0 aspirin [Aspir-81] 81 mg Tablet,Delayed Release (Dr/Ec) 81 mg PO QAM RF: 0 levothyroxine 25 mcg Tablet 12.5 mcg PO QAM RF: 0 nitroglycerin [Nitrostat] 0.4 mg Tablet, Sublingual 1 tab Sublingual UD PRN (Reason: Chest Pain) RF: 0 omeprazole 20 mg Capsule,Delayed Release(Dr/Ec) 20 mg PO BID RF: 0 ropinirole 0.5 mg Tablet 0.5 mg PO DAILY RF: 0 ropinirole 5 mg Tablet 2.5 mg PO HS RF: 0 cholecalciferol (vitamin D3) [Vitamin D3] 2,000 unit Tablet 2,000 unit PO DAILY RF: 0 acetaminophen [Tylenol] 325 mg Tablet 650 mg PO Q4 PRN (Reason: Fever Or Pain) RF: 0 Vitron-C 65 mg iron- 125 mg Tablet,Delayed Release (Dr/Ec) 1 tab PO BID RF: 0 magnesium 250 mg Tablet 500 mg PO HS RF: 0 allopurinol 100 mg tablet 200 mg PO DAILY RF: 0 warfarin 1 mg tablet 3 mg PO 3XWK RF: 0 warfarin 1 mg tablet 2 mg PO 4XWK RF: 0 hydrocodone-acetaminophen 5-325 mg tablet 1 tab PO Q4 PRN (Reason: Pain) RF: 0 Trelegy Ellipta 100-62.5-25 mcg Blister With Device 1 inh INHALATION DAILY RF: 0 Stand-Alone Forms: [facility]/Other Patient Handouts: Tips Using Less Salt, Choices Low Salt, Diet Low Salt Dc Discharge Orders: Discharge Order (Routine); Ordered 03/05/19 Ordered By: Jewels Curry Admission Data Admit Date/Time: 02/26/19 08:54 Attending Provider: Jewels Curry Admit Provider: Bere Bolanos Primary Care Provider: Soren Loja Other Providers: Bere Bolanos ; Anthony Denis ; David Andrade ; Bryan Walsh ; Italo Brito ; Seth Akers ; Carmine Betancur ; Lynnette العلي ; Luanne Freeman ; Jay Vasques Service: Telemetry
[2019-03-05] MEDS ORDERED: TORSEMIDE 10 MG TAB PO ONE (12:00)
--- NOTE | 2019-03-05 12:24 | Cardiology Progress Note ---
Date of Service March 05, 2019 Assessment & Plan (1) Acute systolic CHF (congestive heart failure), NYHA class 3: Patient improved since admission with improving renal function as well. Agree with discharged home today with increased dosing of torsemide to 10 mg alternating with 20 mg every other day Close clinical follow-up expected post discharge (2) Acute on chronic respiratory failure with hypoxemia: Continue BIPAP/supplemental O2 and IV steroids. Underlying COPD likely contributing factor. (3) Persistent atrial fibrillation: Remains in atrial pacing/sinus rhythm after synchronized electrical cardioversion on 03/02 (4) Status post biventricular pacemaker: Subjective Patient is feeling better today and eager to be discharged. Shortness of breath is now near baseline. Wheezing has resolved. Tolerating ambulation back and forth bathroom. Does have baseline SOB with minimal activity. No chest pains or discomfort. No dizziness or lightheadedness Patient persistently in biventricular pacing as hoped. Continues gradual diuresis despite fluctuation in weight Physical Exam Eyes: PERRL, conjunctivae normal, anicteric sclerae ENMT: external ear and nose normal, oropharynx normal Neck: trachea midline, no thyromegaly Respiratory: no respiratory distress Auscultation: + diminished lung sounds Cardiovascular: Rate/Rhythm: regular rate and regular rhythm Heart Sounds: no gallop Palpation: no heave Extremities: + edema (Trace to 1+) Chest (Breasts): Chest: + pacemaker (No irritation or tenderness) Gastrointestinal (Abdomen): normal bowel sounds, soft, nontender, no hepatosplenomegaly Results & Data Vital Signs (Past 12 Hours) Vital Signs Temp Pulse Pulse Resp BP BP Pulse Ox 03/05/19 12:13 36.4 C L 61 59 L 17 128/75 131/80 93 03/05/19 11:57 36.4 C L 59 L 17 131/80 93 03/05/19 11:07 59 L 18 95 03/05/19 08:39 95 03/05/19 07:21 59 L 20 99 03/05/19 06:54 36.5 C 63 16 144/80 H 98 03/05/19 03:48 62 20 96 03/05/19 03:31 36.5 C 67 20 136/75 98
== END 2019-03-05 13:24 | disposition home health service (06) | DRG 291 ==
LOC: ED 06:23 → SUATTDRO 08:54 → 2S 08:54

== ENCOUNTER 2019-05-24 21:42 | Inpatient (IN) ==
[2019-05-24 22:54] LABS: Basophils # (auto) 0.03 K/uL (0-0.2); Basophils % (auto) 0.3 %; Eosinophils # (auto) 0.29 K/uL (0-0.5); Eosinophils % (auto) 3.1 %; Hematocrit (blood only) 33.3 % (42-52); Hemoglobin 10.7 g/dL (14.0-18.0); Immature Granulocytes # (auto) 0.04 K/uL (0.00-0.02); Immature Granulocytes % (auto) 0.4 %; Lymphocytes # (auto) 1.52 K/uL (1.2-3.4); Lymphocytes % (auto) 16.4 %; Mean Corpuscular Hemoglobin 30.7 pg (25-34); Mean Corpuscular Hgb Conc 32.1 g/dL (32-36); Mean Corpuscular Volume 95.7 fL (80-100); Mean Platelet Volume 9.8 fL (7.4-10.4); Monocytes # (auto) 0.72 K/uL (0.11-0.59); Monocytes % (auto) 7.8 %; Neutrophils # (auto) 6.68 K/uL (1.4-6.5); Platelet Count 165 K/uL (130-400); RDW Coefficient of Variation 18.1 % (11.5-14.5); RDW Standard Deviation 62.9 fL (36.4-46.3); Red Blood Count 3.48 M/uL (4.7-6.1); White Blood Count 9.28 K/uL (4.8-10.8)
--- NOTE | 2019-05-24 22:58 | XRay Report ---
XR chest 1V portable CLINICAL HISTORY: 83 years-old Male presenting with Chest Pain. TECHNIQUE: Portable upright AP view of the chest was obtained. COMPARISON: 03/03/2019. FINDINGS: Left subclavian implanted cardiac defibrillator with leads in the right atrium, coronary sinus, right ventricular apex. Atherosclerosis of the aortic arch. Main pulmonary artery appears enlarged. Cardia c silhouette moderately enlarged as on prior. Mild pulmonary vascular prominence. Patchy mid to basil ar opacities similar to prior exam on the right though possibly increased in the retrocardiac region on the left. No large effusion or pneumothorax. Degenerative changes of the thoracic spine. Upper abd omen normal. IMPRESSION: 1. Stable to slight increase in mid to basilar patchy bilateral pulmonary infiltrates, which could r epresent edema or multifocal pneumonia. 2. Cardiomegaly and volume overload persists. 3. Pulmonary artery hypertension. Electronically signed by: Jai Nascimento M.D. 05/24/2019 10:56 PM
[2019-05-24 23:06] LABS: Partial Thromboplastin Ratio 1.2; Partial Thromboplastin Time 33.7 Seconds (21.0-31.0); Prothrombin Time 19.8 Seconds (9.0-12.0)
[2019-05-24 23:12] LABS: Alanine Aminotransferase 67 U/L (12-78); Albumin Level 3.5 gm/dl (3.4-5.0); Aspartate Aminotransferase 43 U/L (15-37); BUN Creatinine Ratio 13.1 (10-20); Blood Urea Nitrogen 33 mg/dl (7-18); Calcium 8.8 mg/dl (8.5-10.1); Carbon Dioxide 29 mmol/L (21-32); Chloride 104 mmol/L (98-107); Est GFR (Non-African American) 22.5; Glucose 118 mg/dl (70-99); Potassium 3.5 mmol/L (3.5-5.1); Sodium 143 mmol/L (136-145)
[2019-05-24] MEDS ORDERED: FUROSEMIDE 40 MG/4 ML VIAL IV STA (23:13)
[2019-05-24] MEDS ORDERED: ASPIRIN CHEW 324 MG PO STA (23:13)
[2019-05-24 23:17] LABS: Alkaline Phosphatase 105 U/L (45-117); Bilirubin,Total 0.6 mg/dl (0.2-1); Globulin 3.6 gm/dl (2.5-4.0); Total Protein 7.1 gm/dl (6.4-8.2); Troponin I < 0.015 ng/ml (0-0.045)
[2019-05-25] MEDS ORDERED: POTASSIUM CHLORIDE 20 MEQ TABCR PO STA (01:19)
[2019-05-25] MEDS ORDERED: FUROSEMIDE 20 MG in SYRINGE 0 ML IV ONE (01:19)
--- NOTE | 2019-05-25 01:32 | History & Physical Report ---
Date of Service May 25, 2019 Assessment & Plan (1) CHF (congestive heart failure): Decompensated CHF Chronic systolic heart failure secondary to ischemic cardiomyopathy EF 35 to 39% TTE October 2018 hx ICD Chronic LBBB CAD status post stent, PVD as per records Hypertension stable A. fib status post cardioversion status post PPM, paced rhythm, INR therapeutic hx CVA as per records COPD/ARMANDO on CPAP, pulmonary status at baseline Hyperglycemia, likely prediabetes, hemoglobin A1c of 5.9, August 2018 CRI, creatinine at baseline Chronic anemia secondary to CKD, hemoglobin at baseline gastric cancer as per records past tobacco abuse PCU Diuretic Rx, monitor renal function Strict I/Os, daily weights, CHF education, continue 1.5 L fluid restriction at home Cardiology consult RE decompensated heart failure Update hemoglobin A1c DVT prophylaxis. Coumadin INR goal between 2 and 3 Full code History of Present Illness Chief Complaint: Shortness of breath Primary Care Provider: Soren Loja MD History obtained from patient, family, and records. Medical history significant for chronic systolic HF 2 to ischemic cardiomyopathy EF 35 to 39% TTE, 2018), hx ICD, chronic LBBB, CAD status post stent, hx PVD as per records, HTN. A. fib status post cardioversion sp PPM on Coumadin, hx CVA,COPD/ARMANDO on CPAP, CRI (baseline creatinine 2-3), chronic anemia (baseline hemoglobin of 10), gastric cancer as per records, past tobacco abuse. Recent confinement February 2019 for decompensated heart failure. This afternoon patient noted substernal heaviness with shortness of breath, chronic dry cough symptoms. Weight gain the last week necessitating extra diuretic Rx. Legs noted to be more swollen. Denies flulike symptoms. Patient compliant with 48 oz daily fluid restriction. Denies NSAID intake, dietary indiscretion. Patient received Lasix at the ER for CHF. 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, lives with Allergies Allergy/AdvReac Type Severity Reaction Status Date / Time blue dye Allergy Mild SHORTNESS Verified 05/24/19 23:35 OF BREATH naproxen Allergy Mild SWELLING Verified 05/24/19 23:35 OF HANDS sumatriptan Allergy Mild SHORTNESS Verified 05/24/19 23:35 OF BREATH diphenhydramine AdvReac Intermediate MADE Verified 05/24/19 23:35 DEFIBRILLATOR FIRE pseudoephedrine AdvReac Intermediate MADE HIS Verified 05/24/19 23:35 DEFIB FIRE Home Medications Home Medications Medication Instructions Recorded Confirmed Type amiodarone 200 mg PO BID 08/22/18 05/24/19 History aspirin [Aspir-81] 81 mg PO QAM 08/22/18 05/24/19 History carvedilol [Coreg] 12.5 mg PO BID 08/22/18 05/24/19 History isosorbide dinitrate 10 mg PO BID 08/22/18 05/24/19 History levothyroxine 12.5 mcg PO QAM 08/22/18 05/24/19 History nitroglycerin [Nitrostat] 1 tab SUBLINGUAL UD PRN 08/22/18 05/24/19 History omeprazole 20 mg PO AMHS 08/22/18 05/24/19 History potassium chloride 10 meq PO BID 08/22/18 05/24/19 History Vitron-C 1 tab PO BID 01/25/19 05/24/19 History magnesium 500 mg PO HS 01/25/19 05/24/19 History cholecalciferol (vitamin D3) 2,000 unit PO QAM 01/31/19 05/24/19 History [Vitamin D3] Trelegy Ellipta 1 inh INHALATION QAM 02/26/19 05/24/19 History hydrocodone-acetaminophen 1 tab PO Q4 PRN 02/26/19 05/24/19 History acetaminophen [Tylenol Extra 1,000 mg PO Q6H PRN 05/08/19 05/24/19 History Strength] colchicine 0.3 mg PO DAILY PRN 05/08/19 05/24/19 History gabapentin 100 mg PO QDL 05/08/19 05/24/19 History meclizine 12.5 mg PO TID PRN 05/08/19 05/24/19 History ondansetron 4 mg PO Q8H PRN 05/08/19 05/24/19 History sucralfate [Carafate] 1 g PO BID 05/08/19 05/24/19 History allopurinol 300 mg PO DAILY 05/24/19 05/24/19 History atorvastatin 40 mg PO QPM 05/24/19 05/24/19 History cholecalciferol (vitamin D3) 2,000 unit PO DAILY 05/24/19 05/24/19 History [Vitamin D3] [id number] 1 inh INHALATION DAILY 05/24/19 05/24/19 History [Trelegy Ellipta] gabapentin 200 mg PO HS 05/24/19 05/24/19 History ipratropium-albuterol 3 ml INHALATION Q6 PRN 05/24/19 05/24/19 History ropinirole 2 mg PO HS 05/24/19 05/24/19 History torsemide 10 mg PO 4XWK 05/24/19 05/24/19 History torsemide 20 mg PO 3XWK 05/24/19 05/24/19 History warfarin 2 mg PO 3XWK 05/24/19 05/24/19 History warfarin 3 mg PO 4XWK 05/24/19 05/24/19 History Past Med/Surg History Medical History Acute on chronic respiratory failure with hypoxemia BiPAP now weaned to [place] oxygen. Acute kidney injury superimposed on chronic kidney disease (Acute) Left hip pain (Acute) History of CVA (cerebrovascular accident) (Chronic) 2016 S/P TKA Chronic atrial fibrillation (Chronic) CKD (chronic kidney disease), stage IV (Chronic) F/U DR STEPHENSON? Sciatica (Chronic) Hyperlipidemia (Chronic) Hypertension (Chronic) CAD (coronary artery disease) (Chronic) ASCVD with [place] 2000, angioplasty of LAD and Dx, and PCI of PDA. Resultant severe ischemic CM. History of lung cancer (Chronic) ~2014 S/P RADIATION THERAPY History of stomach cancer (Chronic) [id number]. EXCISED WITH EGD. Hypothyroidism (Chronic) GERD (gastroesophageal reflux disease) (Chronic) Ischemic cardiomyopathy (Chronic) 2/2 [place] 2000. S/P dual chamber ICD following presentation with syncope and LBBB. BiV pacer upgrade 2011, generator change 11/2017. Osteoarthritis (Chronic) Sleep apnea treated with nocturnal BiPAP (Chronic) "COMPLEX SLEEP APNEA SYNDROME"-2L/MIN WITH BIPAP HS Renal artery stenosis (Chronic) Anemia of chronic disease (Chronic) On anticoagulant therapy (Chronic) Restless leg syndrome (Chronic) Carotid stenosis, bilateral (Chronic) MGUS (monoclonal gammopathy of unknown significance) (Chronic) COPD (chronic obstructive pulmonary disease) COPD exacerbation currently. On 50mg PO prednisone. SOB (shortness of breath) on exertion Systolic heart failure NYHA Class 3. Per cardiology 03/01/2019 symptoms slowly improving with diuresis Surgical History Status post biventricular pacemaker History of cardiac cath (Resolved) 2000 WITH STENT PLACEMENT History of cardioversion (Resolved) History of appendectomy (Chronic) History of total knee replacement (Chronic) RIGHT (DR. NAIR) 2016 History of implantable cardioverter-defibrillator (ICD) placement (Chronic) 2006-LAST CHECK 03/2019?-F/U FIDEL MILLERARDO History of tonsillectomy (Chronic) History of colonoscopy History of esophagogastroduodenoscopy (EGD) 12/28/2018. propofol/ketamine. no issues. 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 Beliefs That Will Affect Care: None Current Living Situation: Spouse Current Living Situation Comment: CURRENTLY AT [facility] Feels Safe at Home: Yes Safety Concerns: Feels Safe At This Time Smoking Status: Light tobacco smoker Tobacco Type: cigarettes ; Cigarettes Per Day: USED TO SMOKE 1 PPD X 50 YRS-DOWN TO 3 CIGS A DAY ; Second Hand Exposure: No ; Hx Alcohol Use: No Hx Substance Use: No Review of Systems Review of Systems: As per HPI, all 10 systems reviewed, all other ROS negative Physical Exam Physical Exam: GENERAL: Comfortable, slightly anxious, slightly hard of hearing, pleasant, no respiratory distress, occasional dry cough noted SKIN: Pallor, warm HEENT: Alopecia, pale palpebral conjunctivae, no ptosis, dry buccal mucosa NECK : Supple, no tenderness CHEST : Decreased breath sounds, bibasilar crackles, no tenderness HEART : RRR, systolic murmur ABDOMEN: Some distention, nontender EXTREMITIES : Bilateral LE swelling, no LE tenderness, no other conspicuous deformities noted NEUROLOGIC : Coherent, no facial asymmetry, slightly hard of hearing, gait and stance not assessed Results & Data Vital Signs (Past 12 Hours) Vital Signs Temp Pulse Pulse Resp BP BP Pulse Ox 05/25/19 01:00 72 18 125/63 95 05/24/19 23:43 68 22 121/58 L 96 05/24/19 22:50 95 05/24/19 21:46 36.4 C L 74 28 H 135/63 98 Laboratory Results Laboratory Results WBC 9.28 K/uL (4.8-10.8) 05/24/19 22:45 RBC 3.48 M/uL (4.7-6.1) L 05/24/19 22:45 Hgb 10.7 g/dL (14.0-18.0) L 05/24/19 22:45 Hct 33.3 % (42-52) L 05/24/19 22:45 MCV 95.7 fL (80-100) 05/24/19 22:45 MCH 30.7 pg (25-34) 05/24/19 22:45 MCHC 32.1 g/dL (32-36) 05/24/19 22:45 RDW Std Deviation 62.9 fL (36.4-46.3) H 05/24/19 22:45 RDW Coeff of Rocael 18.1 % (11.5-14.5) H 05/24/19 22:45 Plt Count 165 K/uL (130-400) 05/24/19 22:45 MPV 9.8 fL (7.4-10.4) 05/24/19 22:45 Immature Gran % (Auto) 0.4 % 05/24/19 22:45 Neut % (Auto) 72.0 % 05/24/19 22:45 Lymph % (Auto) 16.4 % 05/24/19 22:45 King % (Auto) 7.8 % 05/24/19 22:45 Eos % (Auto) 3.1 % 05/24/19 22:45 Baso % (Auto) 0.3 % 05/24/19 22:45 Immature Gran # (Auto) 0.04 K/uL (0.00-0.02) H 05/24/19 22:45 Neut # (Auto) 6.68 K/uL (1.4-6.5) H 05/24/19 22:45 Lymph # (Auto) 1.52 K/uL (1.2-3.4) 05/24/19 22:45 King # (Auto) 0.72 K/uL (0.11-0.59) H 05/24/19 22:45 Eos # (Auto) 0.29 K/uL (0-0.5) 05/24/19 22:45 Baso # (Auto) 0.03 K/uL (0-0.2) 05/24/19 22:45 PT 19.8 Seconds (9.0-12.0) H 05/24/19 22:45 INR 2.0 (0.9-1.1) H 05/24/19 22:45 APTT 33.7 Seconds (21.0-31.0) H 05/24/19 22:45 PTT Ratio 1.2 05/24/19 22:45 Sodium 143 mmol/L (136-145) 05/24/19 22:45 Potassium 3.5 mmol/L (3.5-5.1) 05/24/19 22:45 Chloride 104 mmol/L (98-107) 05/24/19 22:45 Carbon Dioxide 29 mmol/L (21-32) 05/24/19 22:45 Anion Gap 10.0 (3-11) 05/24/19 22:45 BUN 33 mg/dl (7-18) H 05/24/19 22:45 Creatinine 2.54 mg/dl (0.6-1.4) H 05/24/19 22:45 Est Cr Clr Drug Dosing Not Reportable 05/24/19 22:45 Est GFR ( Amer) 26.0 05/24/19 22:45 Est GFR (Non-Af Amer) 22.5 05/24/19 22:45 BUN/Creatinine Ratio 13.1 (10-20) 05/24/19 22:45 Glucose 118 mg/dl (70-99) H 05/24/19 22:45 Calcium 8.8 mg/dl (8.5-10.1) 05/24/19 22:45 Total Bilirubin 0.6 mg/dl (0.2-1) 05/24/19 22:45 AST 43 U/L (15-37) H 05/24/19 22:45 ALT 67 U/L (12-78) 05/24/19 22:45 Alkaline Phosphatase 105 U/L (45-117) 05/24/19 22:45 Troponin I < 0.015 ng/ml (0-0.045) 05/24/19 22:45 Total Protein 7.1 gm/dl (6.4-8.2) 05/24/19 22:45 Albumin 3.5 gm/dl (3.4-5.0) 05/24/19 22:45 Globulin 3.6 gm/dl (2.5-4.0) 05/24/19 22:45 Albumin/Globulin Ratio 1.0 (0.9-2) 05/24/19 22:45 Diagnostic Findings Chest x-ray : 1. Stable to slight increase in mid to basilar patchy bilateral pulmonary infiltrates, which could represent edema or multifocal pneumonia. 2. Cardiomegaly and volume overload persists. 3. Pulmonary artery hypertension. EKG as per my interpretation : Rate 75, paced rhythm (1) CHF (congestive heart failure) Heart failure chronicity: acute on chronic Heart failure type: unspecified Qualified Code(s): I50.9 - Heart failure, unspecified
[2019-05-25 01:34] LABS: Magnesium 2.7 mg/dl (1.8-2.4)
[2019-05-25] MEDS ORDERED: FUROSEMIDE 40 MG/4 ML VIAL IV ONE (01:54)
[2019-05-25] MEDS ORDERED: ALBUT/IPRATROP 3MG/0.5MG NEB 3 ML VIAL NEB STA (01:54)
[2019-05-25] MEDS ORDERED: ONDANSETRON 4 MG OD TAB PO PRN (02:58)
[2019-05-25] MEDS ORDERED: ACETAMINOPHEN 325 MG TAB PO PRN (02:58)
[2019-05-25] MEDS ORDERED: XOPENEX/ATROVENT 1.25mg/0.5MG NEB COMBO NEB PRN (02:58)
[2019-05-25] MEDS ORDERED: MECLIZINE 12.5 MG TAB PO PRN (02:58)
[2019-05-25] MEDS ORDERED: NITROGLYCERIN SL 0.4 MG/TAB TAB SL PRN (02:58)
[2019-05-25] MEDS ORDERED: PROMETHAZINE HCL 12.5 MG in SODIUM CHLORIDE 0.9% 50 ML IV STA (02:58)
--- NOTE | 2019-05-25 04:12 | Emergency Department Note ---
Entered by Dana Nation acting as a scribe for History of Present Illness General Chief complaint: Cardiac Assessment Stated complaint: SOB,CHEST IS HEAVY Source: patient and family () History of Present Illness Provider complaint: chest pain Onset (ago): day(s) 1 Location: chest Radiation: other (shoulder) Pain Consistency: + other (worsening) Maximum Pain Intensity: 3 Quality: + other (chest pain) Exacerbated By: + movement Associated symptoms: + shortness of breath Treatments prior to arrival: other (Aspirin) The patient, who is a 83 year old male with a medical history of COPD, hypothyroidism and CVA, presents to the Emergency Room with complaints of chest pain that started one day ago. The patient states that today pain has gotten worse. The patient admits that he has shortness of breath that is exacerbated when he is active. The patient expresses that this chest pain is in the center of his chest and radiates to his shoulders. The patient's states that the patient is on blood thinners and takes torsemide. The patient's states that the patient gained some weight a couple of days ago but then lost a 3 pounds in the past 3 days after taking metolazone. The patient aspirin 81 mg earlier toda y. The patient's states that he has a history of heart failure. The patient's states that the patient is on blood thinners. Home Medications Home Medications Medication Instructions Recorded Confirmed Type amiodarone 200 mg PO BID 08/22/18 05/24/19 History aspirin [Aspir-81] 81 mg PO QAM 08/22/18 05/24/19 History carvedilol [Coreg] 12.5 mg PO BID 08/22/18 05/24/19 History isosorbide dinitrate 10 mg PO BID 08/22/18 05/24/19 History levothyroxine 12.5 mcg PO QAM 08/22/18 05/24/19 History nitroglycerin [Nitrostat] 1 tab SUBLINGUAL UD PRN 08/22/18 05/24/19 History omeprazole 20 mg PO AMHS 08/22/18 05/24/19 History potassium chloride 10 meq PO BID 08/22/18 05/24/19 History Vitron-C 1 tab PO BID 01/25/19 05/24/19 History magnesium 500 mg PO HS 01/25/19 05/24/19 History cholecalciferol (vitamin D3) 2,000 unit PO QAM 01/31/19 05/24/19 History [Vitamin D3] Trelegy Ellipta 1 inh INHALATION QAM 02/26/19 05/24/19 History hydrocodone-acetaminophen 1 tab PO Q4 PRN 02/26/19 05/24/19 History acetaminophen [Tylenol Extra 1,000 mg PO Q6H PRN 05/08/19 05/24/19 History Strength] colchicine 0.3 mg PO DAILY PRN 05/08/19 05/24/19 History gabapentin 100 mg PO QDL 05/08/19 05/24/19 History meclizine 12.5 mg PO TID PRN 05/08/19 05/24/19 History ondansetron 4 mg PO Q8H PRN 05/08/19 05/24/19 History sucralfate [Carafate] 1 g PO BID 05/08/19 05/24/19 History allopurinol 300 mg PO DAILY 05/24/19 05/24/19 History atorvastatin 40 mg PO QPM 05/24/19 05/24/19 History cholecalciferol (vitamin D3) 2,000 unit PO DAILY 05/24/19 05/24/19 History [Vitamin D3] eoglrjtlomj-utpklztfr-vrzionmy 1 inh INHALATION DAILY 05/24/19 05/24/19 History [Trelegy Ellipta] gabapentin 200 mg PO HS 05/24/19 05/24/19 History ipratropium-albuterol 3 ml INHALATION Q6 PRN 05/24/19 05/24/19 History ropinirole 2 mg PO HS 05/24/19 05/24/19 History torsemide 10 mg PO 4XWK 05/24/19 05/24/19 History torsemide 20 mg PO 3XWK 05/24/19 05/24/19 History warfarin 2 mg PO 3XWK 05/24/19 05/24/19 History warfarin 3 mg PO 4XWK 05/24/19 05/24/19 History Allergies Allergy/AdvReac Type Severity Reaction Status Date / Time blue dye Allergy Mild SHORTNESS Verified 05/24/19 23:35 OF BREATH naproxen Allergy Mild SWELLING Verified 05/24/19 23:35 OF HANDS sumatriptan Allergy Mild SHORTNESS Verified 05/24/19 23:35 OF BREATH diphenhydramine AdvReac Intermediate MADE Verified 05/24/19 23:35 DEFIBRILLATOR FIRE pseudoephedrine AdvReac Intermediate MADE HIS Verified 05/24/19 23:35 DEFIB GARY Past Med/Surg History Medical History Acute on chronic respiratory failure with hypoxemia BiPAP now weaned to [place] oxygen. Acute kidney injury superimposed on chronic kidney disease (Acute) Left hip pain (Acute) History of CVA (cerebrovascular accident) (Chronic) 2016 S/P TKA Chronic atrial fibrillation (Chronic) CKD (chronic kidney disease), stage IV (Chronic) F/U DR STEPHENSON? Sciatica (Chronic) Hyperlipidemia (Chronic) Hypertension (Chronic) CAD (coronary artery disease) (Chronic) ASCVD with [place] 2000, angioplasty of LAD and Dx, and PCI of PDA. Resultant severe ischemic CM. History of lung cancer (Chronic) ~2014 S/P RADIATION THERAPY History of stomach cancer (Chronic) [id number]. EXCISED WITH EGD. Hypothyroidism (Chronic) GERD (gastroesophageal reflux disease) (Chronic) Ischemic cardiomyopathy (Chronic) 2/2 [place] 2000. S/P dual chamber ICD following presentation with syncope and LBBB. BiV pacer upgrade 2011, generator change 11/2017. Osteoarthritis (Chronic) Sleep apnea treated with nocturnal BiPAP (Chronic) "COMPLEX SLEEP APNEA SYNDROME"-2L/MIN WITH BIPAP HS Renal artery stenosis (Chronic) Anemia of chronic disease (Chronic) On anticoagulant therapy (Chronic) Restless leg syndrome (Chronic) Carotid stenosis, bilateral (Chronic) MGUS (monoclonal gammopathy of unknown significance) (Chronic) COPD (chronic obstructive pulmonary disease) COPD exacerbation currently. On 50mg PO prednisone. SOB (shortness of breath) on exertion Systolic heart failure NYHA Class 3. Per cardiology 03/01/2019 symptoms slowly improving with diuresis Surgical History Status post biventricular pacemaker History of cardiac cath (Resolved) 2000 WITH STENT PLACEMENT History of cardioversion (Resolved) History of appendectomy (Chronic) History of total knee replacement (Chronic) RIGHT (DR. NAIR) 2016 History of implantable cardioverter-defibrillator (ICD) placement (Chronic) 2006-LAST CHECK 03/2019?-F/U [facility]IDEL LELO History of tonsillectomy (Chronic) History of colonoscopy History of esophagogastroduodenoscopy (EGD) 12/28/2018. propofol/ketamine. no issues. Family History Brother Family history of diabetes mellitus Social History Preferred Language: Malay Communication Ability: Effective Legal Activity Adjudicator Required: No Beliefs That Will Affect Care: None Current Living Situation: Spouse Current Living Situation Comment: CURRENTLY AT [facility] Feels Safe at Home: Yes Safety Concerns: Feels Safe At This Time Smoking Status: Light tobacco smoker Tobacco Type: cigarettes ; Cigarettes Per Day: USED TO SMOKE 1 PPD X 50 YRS-DOWN TO 3 CIGS A DAY ; Second Hand Exposure: No ; Hx Alcohol Use: No Hx Substance Use: No Review of Systems See HPI for pertinent positives & negatives. and A total of 10 systems reviewed and were otherwise negative Physical Exam Vital Signs Vital Signs - 24 hr 05/24/19 21:46 05/24/19 22:50 05/24/19 23:43 Temperature 36.4 C L Temperature Source Oral Sepsis Recent Fever Within 48 Hours No Sepsis New/Unexplained Change in Mental Status No Sepsis Action Taken by Nursing No Action Required Pulse Rate 74 Pulse Rate [Apical] 68 Respiratory Rate 28 H 22 Respiratory Effort / Characteristics Non-Labored Respiratory Depth Normal Respiratory Pattern Blood Pressure 135/63 Blood Pressure [Left Arm] 121/58 L Blood Pressure Mean 87 Blood Pressure Mean [Left Arm] 79 Pulse Oximetry 98 95 96 Oxygen Delivery Method Room Air Room Air Room Air 05/25/19 01:00 Temperature Temperature Source Sepsis Recent Fever Within 48 Hours Sepsis New/Unexplained Change in Mental Status Sepsis Action Taken by Nursing Pulse Rate Pulse Rate [Apical] 72 Respiratory Rate 18 Respiratory Effort / Characteristics Non-Labored Respiratory Depth Normal Respiratory Pattern Regular Blood Pressure Blood Pressure [Left Arm] 125/63 Blood Pressure Mean Blood Pressure Mean [Left Arm] 83 Pulse Oximetry 95 Oxygen Delivery Method Room Air Vital signs reviewed. General: Elderly, chronically-appearing, in no significant distress. HEENT: No scleral icterus, PERRLA, neck supple. Atraumatic. Cardiovascular: Regular rate and rhythm, no extra sounds. Pulmonary: Coarse breath sounds bilaterally, normal work of breathing. Abdomen: Soft, tender to palpation to the left lower quadrant, positive guarding, minimal tympanic to percussion, nondistended, positive bowel sounds. Musculoskeletal: Atraumatic, no peripheral edema. Neurologic: Patient awake alert and oriented x 3. Skin: Warm, dry, no rash Course 2310: Past medical records reviewed. The patient was evaluated in room C7. A complete history and physical exam was performed. 0201: [facility] will evaluate the patient for further management. Consultations Consultation #1: [facility] He will evaluate the patient for further management. Time: 02:01 Administered Medications Discontinued Medications Albuterol (Duoneb) 3 ml NEB NOW STA Stop: 05/25/19 01:55 Last Admin: 05/25/19 02:47 Dose: 3 ml Documented by: [id number] Aspirin (Aspirin) 243 mg PO NOW STA Stop: 05/24/19 23:14 Last Admin: 05/24/19 23:20 Dose: 243 mg Documented by: [id number] Furosemide (Lasix) 40 mg IV NOW STA Stop: 05/24/19 23:14 Last Admin: 05/24/19 23:20 Dose: 40 mg Documented by: [id number] Furosemide (Lasix) Confirm Administered Dose 40 mg IV .STK-MED ONE Stop: 05/25/19 01:55 Last Admin: 05/25/19 01:55 Dose: 20 mg Documented by: [id number] Promethazine HCl 12.5 mg/ (Sodium Chloride) 50.5 mls @ 202 mls/hr IV NOW STA Stop: 05/25/19 03:12 Last Infusion: 05/25/19 03:25 Dose: 0 mls/hr Documented by: [id number] Admin: 05/25/19 03:10 Dose: 202 mls/hr Documented by: [id number] Potassium Chloride (Klor-Con M20) 50 meq PO NOW STA Stop: 05/25/19 01:20 Last Admin: 05/25/19 01:54 Dose: 50 meq Documented by: [id number] Medical Decision Making Differential Diagnosis DDx: Acute coronary syndrome, CHF, pulmonary embolus, aortic dissection, musculoskeletal pain, pneumonia, pleural effusion, pneumothorax Medical Records Attestation: I reviewed the patient's medical records. Home Medications Current Medication List: was personally reviewed by or Laboratory Data Attestation: I reviewed the patient's lab results. Result diagrams: 05/25/19 04:24 05/25/19 04:24 Lab Results 05/24/19 05/24/19 05/24/19 Range/Units 22:45 22:45 22:45 WBC 9.28 (4.8-10.8) K/uL RBC 3.48 L (4.7-6.1) M/uL Hgb 10.7 L (14.0-18.0) g/dL Hct 33.3 L (42-52) % MCV 95.7 (80-100) fL MCH 30.7 (25-34) pg MCHC 32.1 (32-36) g/dL RDW Std Deviation 62.9 H (36.4-46.3) fL RDW Coeff of Rocael 18.1 H (11.5-14.5) % Plt Count 165 (130-400) K/uL MPV 9.8 (7.4-10.4) fL Immature Gran % (Auto) 0.4 % Neut % (Auto) 72.0 % Lymph % (Auto) 16.4 % [place] % (Auto) 7.8 % Eos % (Auto) 3.1 % Baso % (Auto) 0.3 % Immature Gran # (Auto) 0.04 H (0.00-0.02) K/uL Neut # (Auto) 6.68 H (1.4-6.5) K/uL Lymph # (Auto) 1.52 (1.2-3.4) K/uL [place] # (Auto) 0.72 H (0.11-0.59) K/uL Eos # (Auto) 0.29 (0-0.5) K/uL Baso # (Auto) 0.03 (0-0.2) K/uL PT 19.8 H (9.0-12.0) Seconds INR 2.0 H (0.9-1.1) APTT 33.7 H (21.0-31.0) Seconds PTT Ratio 1.2 Sodium 143 (136-145) mmol/L Potassium 3.5 (3.5-5.1) mmol/L Chloride 104 (98-107) mmol/L Carbon Dioxide 29 (21-32) mmol/L Anion Gap 10.0 (3-11) BUN 33 H (7-18) mg/dl Creatinine 2.54 H (0.6-1.4) mg/dl Est Cr Clr Drug Dosing Not Reportable Est GFR ( Amer) 26.0 Est GFR (Non-Af Amer) 22.5 BUN/Creatinine Ratio 13.1 (10-20) Glucose 118 H (70-99) mg/dl Calcium 8.8 (8.5-10.1) mg/dl Magnesium 2.7 H (1.8-2.4) mg/dl Total Bilirubin 0.6 (0.2-1) mg/dl AST 43 H (15-37) U/L ALT 67 (12-78) U/L Alkaline Phosphatase 105 (45-117) U/L Troponin I < 0.015 (0-0.045) ng/ml Total Protein 7.1 (6.4-8.2) gm/dl Albumin 3.5 (3.4-5.0) gm/dl Globulin 3.6 (2.5-4.0) gm/dl Albumin/Globulin Ratio 1.0 (0.9-2) Imaging Data Radiologist's Impression: Radiology results as stated below per my review and the radiologist's interpretation: XR chest 1V portable CLINICAL HISTORY: 83 years-old Male presenting with Chest Pain. TECHNIQUE: Portable upright AP view of the chest was obtained. COMPARISON: 03/03/2019. FINDINGS: Left subclavian implanted cardiac defibrillator with leads in the right atrium, coronary sinus, right ventricular apex. Atherosclerosis of the aortic arch. Main pulmonary artery appears enlarged. Cardiac silhouette moderately enlarged as on prior. Mild pulmonary vascular prominence. Patchy mid to basilar opacities similar to prior exam on the right though possibly increased in the retrocardiac region on the left. No large effusion or pneumothorax. Degenerative changes of the thoracic spine. Upper abdomen normal. IMPRESSION: 1. Stable to slight increase in mid to basilar patchy bilateral pulmonary infiltrates, which could represent edema or multifocal pneumonia. 2. Cardiomegaly and volume overload persists. 3. Pulmonary artery hypertension. Electronically signed by: Jai Nascimento M.D. 05/24/2019 10:56 PM ECG Data Attestation: I personally reviewed and interpreted this ECG as follows: Indication: chest pain Rate (beats per minute): 75 Rhythm: v-tach Findings: + other (QTC of 603; Biventricular pacer detected) Blood Pressure Blood Pressure Findings: Normal blood pressure MDM Narrative This patient was evaluated and appeared to be in no significant distress. Chest x-ray was performed and reveals pulmonary vascular congestion. Laboratory work reveals an elevated creatinine at 2.54 and a troponin of less than 0.015. EKG reveals a ventricularly paced rhythm. Patient was given 40 mg of IV Lasix. Given the patient's chest discomfort and complicated medical history, elevated creatinine and pulmonary vascular congestion, the patient will be evaluated by the hospitalist service for further management. He and his are aware of the plan and agree. Impression & Plan Chest pain, CHF (congestive heart failure) Discharge Plan Visit Data *Final* Discharge Date/Time: 05/25/19 02:46 Chief Complaint: Cardiac Assessment Stated Complaint: SOB,CHEST IS HEAVY ED Provider: Janey Nicole Discharge Problem: Chest pain, CHF (congestive heart failure) Patient Disposition: Admitted As Inpatient Discharge Instructions Interventions: ED Discharge Assessment Last Done: 05/25/19 02:46 Discharge Problem: Chest pain Qualifiers: Chest pain type: precordial pain Qualified Code(s): R07.2 - Precordial pain CHF (congestive heart failure) Qualifiers: Heart failure type: unspecified Heart failure chronicity: acute on chronic Qualified Code(s): I50.9 - Heart failure, unspecified The scribe's documentation has been prepared under my direction and personally reviewed by me in its entirety. I confirm that the note above accurately reflects all work, treatment, procedures, and medical decision making performed by me.
[2019-05-25 04:49] LABS: Basophils # (auto) 0.02 K/uL (0-0.2); Basophils % (auto) 0.3 %; Eosinophils # (auto) 0.28 K/uL (0-0.5); Eosinophils % (auto) 3.5 %; Hematocrit (blood only) 30.8 % (42-52); Hemoglobin 9.8 g/dL (14.0-18.0); Immature Granulocytes # (auto) 0.03 K/uL (0.00-0.02); Immature Granulocytes % (auto) 0.4 %; Lymphocytes # (auto) 1.43 K/uL (1.2-3.4); Lymphocytes % (auto) 17.9 %; Mean Corpuscular Hemoglobin 30.2 pg (25-34); Mean Corpuscular Hgb Conc 31.8 g/dL (32-36); Mean Corpuscular Volume 94.8 fL (80-100); Mean Platelet Volume 10.4 fL (7.4-10.4); Monocytes # (auto) 0.63 K/uL (0.11-0.59); Monocytes % (auto) 7.9 %; Neutrophils # (auto) 5.58 K/uL (1.4-6.5); Platelet Count 157 K/uL (130-400); RDW Coefficient of Variation 17.9 % (11.5-14.5); RDW Standard Deviation 62.9 fL (36.4-46.3); Red Blood Count 3.25 M/uL (4.7-6.1); White Blood Count 7.97 K/uL (4.8-10.8)
[2019-05-25 05:03] LABS: Prothrombin Time 19.7 Seconds (9.0-12.0)
[2019-05-25 05:08] LABS: BUN Creatinine Ratio 13.9 (10-20); Blood Urea Nitrogen 32 mg/dl (7-18); Calcium 8.6 mg/dl (8.5-10.1); Carbon Dioxide 30 mmol/L (21-32); Chloride 105 mmol/L (98-107); Creatinine Clr Calc Pharmacy 25.7 ml/min; Est GFR (African American) 28.7; Est GFR (Non-African American) 24.8; Glucose 109 mg/dl (70-99); Magnesium 2.5 mg/dl (1.8-2.4); Potassium 3.7 mmol/L (3.5-5.1); Sodium 142 mmol/L (136-145)
[2019-05-25 05:13] LABS: Troponin I < 0.015 ng/ml (0-0.045)
[2019-05-25] MEDS: LEVOTHYROXINE SODIUM 25 MCG TABLET PO SCH (06:07)
[2019-05-25 06:21] LABS: Estimated Average Glucose 128 mg/dl; Hemoglobin A1C 6.1 % (4.5-5.6)
[2019-05-25] MEDS: PANTOprazole 40 MG TAB PO SCH ×2 (07:55→20:22)
[2019-05-25] MEDS: SUCRALFATE 1 GM TAB PO SCH ×2 (07:55→20:17)
[2019-05-25] MEDS: AMIODARONE 200 MG TAB PO SCH ×2 (07:55→20:21)
[2019-05-25] MEDS: ASPIRIN 81 MG ECTAB PO SCH (07:55)
[2019-05-25] MEDS: carvediloL 12.5 MG TAB PO SCH ×2 (07:56→20:17)
[2019-05-25] MEDS: POTASSIUM CHLORIDE 10 MEQ TABCR PO SCH ×2 (07:56→20:18)
[2019-05-25] MEDS: allopurinoL 300 MG TAB PO SCH (07:57)
[2019-05-25] MEDS: ISOSORBIDE DINITRATE 10 MG TAB PO SCH ×2 (07:57→11:52)
[2019-05-25] MEDS ORDERED: FUROSEMIDE 60 MG in SYRINGE 0 ML IV ONE (08:00)
[2019-05-25] MEDS: guaiFENesin 600 MG TABCR PO SCH ×2 (08:08→20:20)
--- NOTE | 2019-05-25 08:32 | Cardiology Consultation ---
Date of Consultation May 25, 2019 Assessment & Plan (1) Acute respiratory failure with hypoxia: Likey combined COPD exacerbation and CHF exacerbation on arrival Diuresed overnight with improvement in volume status. On exam this AM, patient with signfiant wheezing, labored breathing and chest tightness, consistent with possible bronchitis vs COPD exacerbation. discussed with hospitalist. Start nebulizer, steroids Chest tightness likely non cardiac with normal enzymes. (2) Acute systolic HF (heart failure): Continue IV lasix today Monitor I+O's (3) Ischemic cardiomyopathy: Symptoms not consistent with angina cardiac enzymes unremarkable continue home medications including ASA, statin, carvedilol, isoosorbide (4) Paroxysmal atrial fibrillation: Currently ventricular paced. continue amiodarone, beta lindsey, and coumadin Device interrogation ordered to evaluate recurrent afib burden. Prior episode of acute CHF in February was partially caused by recurrent afib with reduced BIV pacing. Case discussed with Dr. Denis. Will follow Supervising Physician Co-Signing Physician Notes Patient seen and examined with Lynnette العلي PA-C. Agree with findings and assessment as above. States that he's feeling much better this PM after receiving nebs. Continues to diurese well and overall feeling well. Device interrogation did reveal that he's been in afib since late April. At this point, believe it would be prudent to follow a rate control strategy rather than rhythm given recurrences of afib with amio on board. Will change coreg to metoprolol succinate in AM for greater beta specific blockade. Pt in agreement with plan. General: Awake, alert and oriented x 3. No acute distress. HEENT: Normocephalic, atraumatic. Pupils equal, round and reactive to light and accommodation. Extraocular muscles are intact. Anicteric sclera. Moist mucous membranes. Neck: No JVD. No bruit. Cardiovascular: irregularly irregular, unable to appreciate murmur, rub or gallop. Pulmonary: Clear to auscultation bilaterally. No rales, rhonchi, or wheezing. Abdomen: Bowel sounds x 4, soft. No rebound, guarding or tenderness. No organomegaly. Extremities: No clubbing, cyanosis or edema. +2 pedal pulses bilaterally. Skin: Warm and dry. History of Present Illness Reason for Consultation: CHF; respiratory failure Requesting Physician: Dr. Mishra Attending Physician: Dr. Denis History of Present Illness History of Present Illness: Jesus Silva is a markedly complex 83 year old male well known to [facility]. Patient reports last week he developed worsening SOB, weight gain of about 8 lbs and worsening LE edema. he contacted his case work aide appropriately and one time use of metolazone and addtiional torsemide were prescribed. He reports weight and edema mildly improved. Yesterday patient reported worsening cough, SOB, and chest tightness, making it difficult for him to breath. He came to the ER for evaluation. He was treated with one dose IV lasix. BNP mildly elevated. Cardiac enzymes unremarkalbe. EKG dmeonstrating ventricular paced rhythm. He diuresed overnight. Notes edema improved. Unfortunatley this morning he continues to report chest heaviness with shortness of breath. diffuse weheezing noted. difficulty taking a deep breath. Edema improved. Remains ventricular paced on telemetry. repeat cardiac enzymes this morning are negative. Problem List: 1. ASCVD and previous FL, angioplasty of the LAD and diagonal, and PCI of the PDA in 2000. Resultant severe ischemic cardiomyopathy. 2. Status post dual chamber ICD implantation following presentation with syncope and a LBBB. Functional status was previously NYHA Class I-II and thus no Bi-V device was implanted. Procedures performed at [facility]. 3. Change in functional status lead to the abnormal nuclear stress testing and ultimately 06/06/2012 cardiac catheterization which demonstrated obstructive branch vessel coronary artery disease including a 100% RPLB stenosis and a 100% first diagonal branch stenosis. Left ventricular end diastolic pressure was noted to be moderately elevated. 4. Status post [place] [facility] 5. Status post November 30, [address] Freeman 6. Hospitalization at [facility] in May 2013 with shortness of breath, new onset symptomatic atrial fibrillation with a RVR with resultant acute decompensated biventricular CHF exacerbation. Oral amiodarone and Coumadin anticoagulation initiated at that time. Post discharge he spontaneously converted back to since rhythm with device interrogation revealing increased biventricular pacing, resultant improvement in symptoms. 7. Recurrent atrial fibrillation with significant reduction in biventricular pacing, ultimately undergoing March 02, 2019 synchronized electrical cardioversion with successful return to sinus rhythm/AV sequential pacing. 8. 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 9. Carotid occlusive disease, followed by Vascular - managed medically. 10. Emphysema. 11. Adenocarcinoma of the lung status post radiation. 12. December 2017 EGD, gastric nodule - adenocarcinoma. 13. Severe complex sleep apnea, BiPAP therapy 14. Restless leg syndrome 15. Lumbar disc disease 16. Hypertension 17. Hyperlipidemia 18. Stage IV chronic kidney disease 19. Migraine headaches 20. Positional vertigo. Allergies Allergy/AdvReac Type Severity Reaction Status Date / Time blue dye Allergy Mild SHORTNESS Verified 05/24/19 23:35 OF BREATH naproxen Allergy Mild SWELLING Verified 05/24/19 23:35 OF HANDS sumatriptan Allergy Mild SHORTNESS Verified 05/24/19 23:35 OF BREATH diphenhydramine AdvReac Intermediate MADE Verified 05/24/19 23:35 DEFIBRILLATOR FIRE pseudoephedrine AdvReac Intermediate MADE HIS Verified 05/24/19 23:35 DEFIB FIRE Home Medications Home Medications Medication Instructions Recorded Confirmed Type amiodarone 200 mg PO BID 08/22/18 05/24/19 History aspirin [Aspir-81] 81 mg PO QAM 08/22/18 05/24/19 History carvedilol [Coreg] 12.5 mg PO BID 08/22/18 05/24/19 History isosorbide dinitrate 10 mg PO BID 08/22/18 05/24/19 History levothyroxine 12.5 mcg PO QAM 08/22/18 05/24/19 History nitroglycerin [Nitrostat] 1 tab SUBLINGUAL UD PRN 08/22/18 05/24/19 History omeprazole 20 mg PO AMHS 08/22/18 05/24/19 History potassium chloride 10 meq PO BID 08/22/18 05/24/19 History Vitron-C 1 tab PO BID 01/25/19 05/24/19 History magnesium 500 mg PO HS 01/25/19 05/24/19 History cholecalciferol (vitamin D3) 2,000 unit PO QAM 01/31/19 05/24/19 History [Vitamin D3] Trelegy Ellipta 1 inh INHALATION QAM 02/26/19 05/24/19 History hydrocodone-acetaminophen 1 tab PO Q4 PRN 02/26/19 05/24/19 History acetaminophen [Tylenol Extra 1,000 mg PO Q6H PRN 05/08/19 05/24/19 History Strength] colchicine 0.3 mg PO DAILY PRN 05/08/19 05/24/19 History gabapentin 100 mg PO QDL 05/08/19 05/24/19 History meclizine 12.5 mg PO TID PRN 05/08/19 05/24/19 History ondansetron 4 mg PO Q8H PRN 05/08/19 05/24/19 History sucralfate [Carafate] 1 g PO BID 05/08/19 05/24/19 History allopurinol 300 mg PO DAILY 05/24/19 05/24/19 History atorvastatin 40 mg PO QPM 05/24/19 05/24/19 History cholecalciferol (vitamin D3) 2,000 unit PO DAILY 05/24/19 05/24/19 History [Vitamin D3] [id number]-[id number] 1 inh INHALATION DAILY 05/24/19 05/24/19 History [Trelegy Ellipta] gabapentin 200 mg PO HS 05/24/19 05/24/19 History ipratropium-albuterol 3 ml INHALATION Q6 PRN 05/24/19 05/24/19 History ropinirole 2 mg PO HS 05/24/19 05/24/19 History torsemide 10 mg PO 4XWK 05/24/19 05/24/19 History torsemide 20 mg PO 3XWK 05/24/19 05/24/19 History warfarin 2 mg PO 3XWK 05/24/19 05/24/19 History warfarin 3 mg PO 4XWK 05/24/19 05/24/19 History Patient History Medical History Acute on chronic respiratory failure with hypoxemia BiPAP now weaned to NC oxygen. Acute kidney injury superimposed on chronic kidney disease (Acute) Left hip pain (Acute) History of CVA (cerebrovascular accident) (Chronic) 2016 S/P TKA Chronic atrial fibrillation (Chronic) CKD (chronic kidney disease), stage IV (Chronic) F/U DR STEPHENSON? Sciatica (Chronic) Hyperlipidemia (Chronic) Hypertension (Chronic) CAD (coronary artery disease) (Chronic) ASCVD with FL 2000, angioplasty of LAD and Dx, and PCI of PDA. Resultant severe ischemic CM. History of lung cancer (Chronic) ~2014 S/P RADIATION THERAPY History of stomach cancer (Chronic) [id number]. EXCISED WITH EGD. Hypothyroidism (Chronic) GERD (gastroesophageal reflux disease) (Chronic) Ischemic cardiomyopathy (Chronic) 2/2 FL 2000. S/P dual chamber ICD following presentation with syncope and LBBB. BiV pacer upgrade 2011, generator change 11/2017. Osteoarthritis (Chronic) Sleep apnea treated with nocturnal BiPAP (Chronic) "COMPLEX SLEEP APNEA SYNDROME"-2L/MIN WITH BIPAP HS Renal artery stenosis (Chronic) Anemia of chronic disease (Chronic) On anticoagulant therapy (Chronic) Restless leg syndrome (Chronic) Carotid stenosis, bilateral (Chronic) MGUS (monoclonal gammopathy of unknown significance) (Chronic) COPD (chronic obstructive pulmonary disease) COPD exacerbation currently. On 50mg PO prednisone. SOB (shortness of breath) on exertion Systolic heart failure NYHA Class 3. Per cardiology 03/01/2019 symptoms slowly improving with diuresis Surgical History Status post biventricular pacemaker History of cardiac cath (Resolved) 2000 WITH STENT PLACEMENT History of cardioversion (Resolved) History of appendectomy (Chronic) History of total knee replacement (Chronic) RIGHT (DR. NAIR) 2016 History of implantable cardioverter-defibrillator (ICD) placement (Chronic) 2006-LAST CHECK 03/2019?-F/U [facility] History of tonsillectomy (Chronic) History of colonoscopy History of esophagogastroduodenoscopy (EGD) 12/28/2018. propofol/ketamine. no issues. Family History Brother Family history of diabetes mellitus Social History Preferred Language: Turkmen Communication Ability: Effective Courtesy Clerk Required: No Beliefs That Will Affect Care: None Current Living Situation: Spouse Current Living Situation Comment: CURRENTLY AT [facility] Feels Safe at Home: Yes Safety Concerns: Feels Safe At This Time Smoking Status: Light tobacco smoker Tobacco Type: cigarettes ; Cigarettes Per Day: USED TO SMOKE 1 PPD X 50 YRS-DOWN TO 3 CIGS A DAY ; Second Hand Exposure: No ; Hx Alcohol Use: No Hx Substance Use: No Review of Systems Review of Systems: All systems reviewed & are unremarkable except as noted in HPI & below Physical Exam Constitutional: + ill appearing Respiratory: + respiratory distress and + labored breathing Auscultation: + diminished lung sounds and + wheezes Cardiovascular: Rate/Rhythm: regular rate and regular rhythm Heart Sounds: no murmur Extremities: + edema (trace pedal and pretibial edema) Gastrointestinal (Abdomen): normal bowel sounds, soft, nontender, no hepatosplenomegaly Psychiatric: A+Ox3, euthymic affect Results & Data Vital Signs (Past 12 Hours) Vital Signs Temp Pulse Pulse Resp BP BP Pulse Ox 05/25/19 03:07 67 05/25/19 02:46 75 22 127/67 92 05/25/19 02:04 36.3 C L 76 24 123/68 98 05/25/19 01:00 72 18 125/63 95 05/24/19 23:43 68 22 121/58 L 96 05/24/19 22:50 95 05/24/19 21:46 36.4 C L 74 28 H 135/63 98 Laboratory Results 05/25/19 05/25/19 05/25/19 Range/Units 04:24 04:24 04:24 WBC 7.97 (4.8-10.8) K/uL RBC 3.25 L (4.7-6.1) M/uL Hgb 9.8 L (14.0-18.0) g/dL Hct 30.8 L (42-52) % MCV 94.8 (80-100) fL MCH 30.2 (25-34) pg MCHC 31.8 L (32-36) g/dL RDW Std Deviation 62.9 H (36.4-46.3) fL RDW Coeff of Rocael 17.9 H (11.5-14.5) % Plt Count 157 (130-400) K/uL MPV 10.4 (7.4-10.4) fL Immature Gran % (Auto) 0.4 % Neut % (Auto) 70.0 % Lymph % (Auto) 17.9 % [place] % (Auto) 7.9 % Eos % (Auto) 3.5 % Baso % (Auto) 0.3 % Immature Gran # (Auto) 0.03 H (0.00-0.02) K/uL Neut # (Auto) 5.58 (1.4-6.5) K/uL Lymph # (Auto) 1.43 (1.2-3.4) K/uL [place] # (Auto) 0.63 H (0.11-0.59) K/uL Eos # (Auto) 0.28 (0-0.5) K/uL Baso # (Auto) 0.02 (0-0.2) K/uL PT 19.7 H (9.0-12.0) Seconds INR 2.0 H (0.9-1.1) APTT (21.0-31.0) Seconds PTT Ratio Sodium 142 (136-145) mmol/L Potassium 3.7 (3.5-5.1) mmol/L Chloride 105 (98-107) mmol/L Carbon Dioxide 30 (21-32) mmol/L Anion Gap 7.0 (3-11) BUN 32 H (7-18) mg/dl Creatinine 2.34 H (0.6-1.4) mg/dl Est Cr Clr Drug Dosing 25.7 Est GFR ( Amer) 28.7 Est GFR (Non-Af Amer) 24.8 BUN/Creatinine Ratio 13.9 (10-20) Glucose 109 H (70-99) mg/dl Estimat Average Glucose mg/dl Hemoglobin A1c (4.5-5.6) % Calcium 8.6 (8.5-10.1) mg/dl Magnesium 2.5 H (1.8-2.4) mg/dl Total Bilirubin (0.2-1) mg/dl AST (15-37) U/L ALT (12-78) U/L Alkaline Phosphatase (45-117) U/L Troponin I < 0.015 (0-0.045) ng/ml Total Protein (6.4-8.2) gm/dl Albumin (3.4-5.0) gm/dl Globulin (2.5-4.0) gm/dl Albumin/Globulin Ratio (0.9-2) 05/25/19 05/24/19 05/24/19 Range/Units 04:24 22:45 22:45 WBC (4.8-10.8) K/uL RBC (4.7-6.1) M/uL Hgb (14.0-18.0) g/dL Hct (42-52) % MCV (80-100) fL MCH (25-34) pg MCHC (32-36) g/dL RDW Std Deviation (36.4-46.3) fL RDW Coeff of Rocael (11.5-14.5) % Plt Count (130-400) K/uL MPV (7.4-10.4) fL Immature Gran % (Auto) % Neut % (Auto) % Lymph % (Auto) % [place] % (Auto) % Eos % (Auto) % Baso % (Auto) % Immature Gran # (Auto) (0.00-0.02) K/uL Neut # (Auto) (1.4-6.5) K/uL Lymph # (Auto) (1.2-3.4) K/uL [place] # (Auto) (0.11-0.59) K/uL Eos # (Auto) (0-0.5) K/uL Baso # (Auto) (0-0.2) K/uL PT 19.8 H (9.0-12.0) Seconds INR 2.0 H (0.9-1.1) APTT 33.7 H (21.0-31.0) Seconds PTT Ratio 1.2 Sodium 143 (136-145) mmol/L Potassium 3.5 (3.5-5.1) mmol/L Chloride 104 (98-107) mmol/L Carbon Dioxide 29 (21-32) mmol/L Anion Gap 10.0 (3-11) BUN 33 H (7-18) mg/dl Creatinine 2.54 H (0.6-1.4) mg/dl Est Cr Clr Drug Dosing Not Reportable Est GFR ( Amer) 26.0 Est GFR (Non-Af Amer) 22.5 BUN/Creatinine Ratio 13.1 (10-20) Glucose 118 H (70-99) mg/dl Estimat Average Glucose 128 mg/dl Hemoglobin A1c 6.1 H (4.5-5.6) % Calcium 8.8 (8.5-10.1) mg/dl Magnesium 2.7 H (1.8-2.4) mg/dl Total Bilirubin 0.6 (0.2-1) mg/dl AST 43 H (15-37) U/L ALT 67 (12-78) U/L Alkaline Phosphatase 105 (45-117) U/L Troponin I < 0.015 (0-0.045) ng/ml Total Protein 7.1 (6.4-8.2) gm/dl Albumin 3.5 (3.4-5.0) gm/dl Globulin 3.6 (2.5-4.0) gm/dl Albumin/Globulin Ratio 1.0 (0.9-2) 05/24/19 Range/Units 22:45 WBC 9.28 (4.8-10.8) K/uL RBC 3.48 L (4.7-6.1) M/uL Hgb 10.7 L (14.0-18.0) g/dL Hct 33.3 L (42-52) % MCV 95.7 (80-100) fL MCH 30.7 (25-34) pg MCHC 32.1 (32-36) g/dL RDW Std Deviation 62.9 H (36.4-46.3) fL RDW Coeff of Rocael 18.1 H (11.5-14.5) % Plt Count 165 (130-400) K/uL MPV 9.8 (7.4-10.4) fL Immature Gran % (Auto) 0.4 % Neut % (Auto) 72.0 % Lymph % (Auto) 16.4 % [place] % (Auto) 7.8 % Eos % (Auto) 3.1 % Baso % (Auto) 0.3 % Immature Gran # (Auto) 0.04 H (0.00-0.02) K/uL Neut # (Auto) 6.68 H (1.4-6.5) K/uL Lymph # (Auto) 1.52 (1.2-3.4) K/uL [place] # (Auto) 0.72 H (0.11-0.59) K/uL Eos # (Auto) 0.29 (0-0.5) K/uL Baso # (Auto) 0.03 (0-0.2) K/uL PT (9.0-12.0) Seconds INR (0.9-1.1) APTT (21.0-31.0) Seconds PTT Ratio Sodium (136-145) mmol/L Potassium (3.5-5.1) mmol/L Chloride (98-107) mmol/L Carbon Dioxide (21-32) mmol/L Anion Gap (3-11) BUN (7-18) mg/dl Creatinine (0.6-1.4) mg/dl Est Cr Clr Drug Dosing Est GFR ( Amer) Est GFR (Non-Af Amer) BUN/Creatinine Ratio (10-20) Glucose (70-99) mg/dl Estimat Average Glucose mg/dl Hemoglobin A1c (4.5-5.6) % Calcium (8.5-10.1) mg/dl Magnesium (1.8-2.4) mg/dl Total Bilirubin (0.2-1) mg/dl AST (15-37) U/L ALT (12-78) U/L Alkaline Phosphatase (45-117) U/L Troponin I (0-0.045) ng/ml Total Protein (6.4-8.2) gm/dl Albumin (3.4-5.0) gm/dl Globulin (2.5-4.0) gm/dl Albumin/Globulin Ratio (0.9-2) Diagnostic Findings EKG on admission: biventricular paced rhythm compared with prior EKG in February 2019, PVC's no longer present chest xray report reviewed, on admission: 1. Stable to slight increase in mid to basilar patchy bilateral pulmonary infiltrates, which could represent edema or multifocal pneumonia. 2. Cardiomegaly and volume overload persists. 3. Pulmonary artery hypertension. Device interrogation last completed on 04/10/2019: Appropriate function and battery longevity. 0 mode switches, 0 episodes of VT/VF 0 shocks. Occasional PVCs. 99% atrial paced, 99.8% biventricular paced 2D echo report reviewed, dated 11/01/18: Interpretation Summary The examination is adequate to evaluate the referral indication. The left ventricular cavity size is normal. The wall thickness is moderately increased in segments with normal wall motion. There is a large sized septal, inferior, posterior, and lateral wall motion abnormality with mild hypokinesis to akinesis of the segments. There is a small sized inferior scar. The septal motion is abnormal consistent with right ventricular pacemaker. The qualitative LV ejection fraction is 35-39% (moderately reduced). The left atrium is moderately enlarged (42-48 ml/m^2). There is [id number] mitral insufficiency There is no evidence of pulmonary hypertension. No pericardial effusion is noted. In comparison to prior study of August 09, 2017, degree of mitral insufficiency is less Medications Administered Current Inpatient Medications Acetaminophen (Tylenol) 650 mg PO Q4H PRN PRN Reason: Pain or Fever Stop: 06/24/19 02:57 Hydrocodone Bitart/Acetaminophen ([place] 5/325) 1 tab PO Q4 PRN PRN Reason: Pain Stop: 06/08/19 02:57 Allopurinol (Zyloprim) 300 mg PO DAILY ARNULFO Stop: 06/24/19 08:59 Last Admin: 05/25/19 07:57 Dose: 300 mg Documented by: Amiodarone HCl (Cordarone) 200 mg PO BID ARNULFO Stop: 06/24/19 08:59 Last Admin: 05/25/19 07:55 Dose: 200 mg Documented by: Aspirin (Ecotrin Ectab) 81 mg PO QAM ARNULFO Stop: 06/24/19 08:59 Last Admin: 05/25/19 07:55 Dose: 81 mg Documented by: Atorvastatin Calcium (Lipitor) 40 mg PO QPM ARNULFO Stop: 06/24/19 20:59 Carvedilol (Coreg) 12.5 mg PO BID ARNULFO Stop: 06/24/19 08:59 Last Admin: 05/25/19 07:56 Dose: 12.5 mg Documented by: Gabapentin (Neurontin) 100 mg PO QDL ARNULFO Stop: 06/24/19 11:29 Gabapentin (Neurontin) 200 mg PO HS ARNULFO Stop: 06/24/19 20:59 Guaifenesin (Mucinex) 600 mg PO Q12 ARNULFO Stop: 06/24/19 02:59 Last Admin: 05/25/19 08:08 Dose: 600 mg Documented by: Ipratropium [place] (Atrovent 0.02% 0.5mg/2.5ml) 0.5 mg INH Q4H PRN PRN Reason: Shortness Of Breath Or Wheezing Stop: 06/24/19 02:57 Isosorbide Dinitrate (Isordil) 10 mg PO BID@0700,1200 ARNULFO Stop: 06/24/19 06:59 Last Admin: 05/25/19 07:57 Dose: 10 mg Documented by: Levalbuterol HCl (Xopenex 1.25mg/0.5ml Neb) 1.25 mg INH Q4H PRN PRN Reason: Shortness Of Breath Or Wheezing Stop: 06/24/19 02:57 Levothyroxine Sodium (Synthroid) 12.5 mcg PO DAILYBB ARNULFO Stop: 06/24/19 06:29 Last Admin: 05/25/19 06:07 Dose: 12.5 mcg Documented by: Meclizine HCl (Antivert) 12.5 mg PO TID PRN PRN Reason: Vertigo Stop: 06/24/19 02:57 Miscellaneous (Order Awaiting Action) 1 ea N/A QS [facility] Stop: 06/24/19 07:59 Nitroglycerin (Nitrostat) 0.4 mg SL UD PRN PRN Reason: Chest Pain Stop: 06/24/19 02:57 Ondansetron HCl (Zofran Odt) 4 mg PO Q8H PRN PRN Reason: Nausea Stop: 06/24/19 02:57 Pantoprazole Sodium (Protonix) 40 mg PO AMHS [facility] Stop: 06/24/19 08:59 Last Admin: 05/25/19 07:55 Dose: 40 mg Documented by: Potassium Chloride (Klor-Con M10) 20 meq PO BID [facility] Stop: 06/24/19 08:59 Last Admin: 05/25/19 07:56 Dose: 20 meq Documented by: Ropinirole HCl (Requip) 2 mg PO HS [facility] Stop: 06/24/19 20:59 Sucralfate (Carafate Tab) 1 gm PO BID [facility] Stop: 06/24/19 08:59 Last Admin: 05/25/19 07:55 Dose: 1 gm Documented by: Warfarin Sodium (Coumadin) 3 mg PO SuTuThSa@1600 [facility] Stop: 06/24/19 15:59 Warfarin Sodium (Coumadin) 2 mg PO MoWeFr@1600 [facility] Stop: 06/25/19 15:59
[2019-05-25] MEDS ORDERED: NON-FORMULARY MEDICATION (Fluticasone-Umeclidin-Vilanter [Trelegy Ellipta] 1 PUFFS) INH SCH (09:00)
[2019-05-25] MEDS ORDERED: POLYETHYLENE (MIRALAX) 17 GM PACK PO PRN (09:44)
--- NOTE | 2019-05-25 10:06 | XRay Report ---
XR KUB/Abdomen 1 view CLINICAL HISTORY: Constipation COMPARISON STUDY: No previous studies for comparison. FINDINGS: Moderate increase in fecal load within the ascending and transverse colonic region. No evid ence of for fecal impaction. No evidence of for sigmoid distention. Several calcifications overlying the right kidney. Degenerative change lumbar spine. IMPRESSION: Moderate increase in fecal load of the proximal colon. No obstructive characteristics. The above report was generated using voice recognition software. It may contain grammatical, syntax or spelling errors. Electronically signed by: Carmine Aleman M.D. 05/25/2019 10:05 AM
[2019-05-25] MEDS: methylPREDNISolone 40 MG in SYRINGE 0 ML IV SCH (10:36)
[2019-05-25] MEDS: GABAPENTIN 100 MG CAP PO SCH ×2 (10:41→20:22)
[2019-05-25] MEDS: ALBUT/IPRATROP 3MG/0.5MG NEB 3 ML VIAL NEB SCH ×3 (11:15→19:24)
[2019-05-25] MEDS: SENNA 8.6 MG TAB PO SCH (11:53)
[2019-05-25] MEDS: DOCUSATE SODIUM 100 MG CAP PO SCH ×2 (11:54→20:25)
--- NOTE | 2019-05-25 14:44 | Hospitalist Progress Note ---
Date of Service May 25, 2019 Assessment & Plan (1) CHF (congestive heart failure): Acute on chronic respiratory failure with hypoxia Likely secondary to COPD and CHF exacerbation On BiPAP nightly with 2 L of oxygen at baseline History of ischemic cardiomyopathy Chest x-ray: Cardiomegaly and volume overload, Pulmonary hypertension Last EF: 35 to 39% TTE October 2018 Volume status improved with IV diuresis Resume p.o. diuretics as able Continue duo nebs, Solu-Medrol Cardiac enzymes negative Appreciate cardiology input Monitor I's and O's, daily weight, electrolytes and renal function Continue fluid restriction Continue BiPAP with Oxygen QHS CAD S/P Stent H/O ICD, Chronic LBBB H/O PVD Continue aspirin, statin, carvedilol, isosorbide Constipation KUB: Moderate increase in fecal load of the proximal colon. No obstructive characteristics. Continue bowel regimen Hypertension stable Continue Coreg A. 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 CKD IV: Baseline creatinine 2.5-2.9 Monitor renal function Avoid nephrotoxic agents as able Chronic anemia secondary to CKD Hb at baseline DVT Px: On Coumadin Code Status Full Code Disposition: PT/OT prior to discharge Subjective Patient is seen and examined at bedside Complains of chest tightness, intermittent cough and shortness of breath Also reports constipation and abdominal discomfort Family at bedside Offers no other complaints Discussed with cardiology today Review of Systems Review of Systems: All systems reviewed & are unremarkable except as noted in HPI & below Physical Exam Physical Exam: Physical Exam: Vitals signs as noted above General Appearance:Moderately built and nourished, mild respiratory distress Head: normocephalic, Atraumatic Eyes: normal inspection, EOMI Neck: supple, Trachea midline Respiratory/Chest: Decreased breath sounds, B/L wheezes Cardiovascular: S1, S2, No murmur Abdomen/GI:Soft, Left sided tender, Bowel sounds present Extremities/Musculoskelatal:normal inspection, 1+ B/L LE edema Neurologic/Psych:AAOX3, grossly no focal neurological deficits Skin: normal color, warm Results & Data Vital Signs (Past 12 Hours) Vital Signs Temp Pulse Pulse Resp BP Pulse Ox 05/25/19 11:36 61 24 97 05/25/19 11:32 36.3 C L 70 26 H 120/62 96 05/25/19 11:00 69 24 05/25/19 10:00 69 23 05/25/19 09:00 67 17 05/25/19 08:00 36.4 C L 72 23 05/25/19 07:31 67 23 122/64 97 05/25/19 07:00 71 17 05/25/19 03:07 67 05/25/19 02:46 75 22 127/67 92 Laboratory Results Short CBC 05/24/19 05/25/19 Range/Units 22:45 04:24 WBC 9.28 7.97 (4.8-10.8) K/uL Hgb 10.7 L 9.8 L (14.0-18.0) g/dL Hct 33.3 L 30.8 L (42-52) % Plt Count 165 157 (130-400) K/uL BMP 05/24/19 05/25/19 22:45 04:24 Sodium 143 142 Potassium 3.5 3.7 Chloride 104 105 Carbon Dioxide 29 30 BUN 33 H 32 H Creatinine 2.54 H 2.34 H Glucose 118 H 109 H Calcium 8.8 8.6 Cardiac Enzymes 05/24/19 05/25/19 Range/Units 22:45 04:24 Troponin I < 0.015 < 0.015 (0-0.045) ng/ml Liver Function 05/24/19 Range/Units 22:45 Total Bilirubin 0.6 (0.2-1) mg/dl AST 43 H (15-37) U/L ALT 67 (12-78) U/L Alkaline Phosphatase 105 (45-117) U/L Albumin 3.5 (3.4-5.0) gm/dl (1) CHF (congestive heart failure) Heart failure chronicity: acute on chronic Heart failure type: unspecified Qualified Code(s): I50.9 - Heart failure, unspecified
[2019-05-25] MEDS: WARFARIN SOD 3 MG TAB PO SCH (16:34)
[2019-05-25] MEDS: POLYETHYLENE (MIRALAX) 17 GM PACK PO SCH (16:34)
[2019-05-25] MEDS: ATORVASTATIN 40 MG TAB PO SCH (20:18)
[2019-05-25] MEDS: ROPINIROLE HCL 1 MG TABLET PO SCH (20:20)
[2019-05-25] MEDS: HYDROCODONE/ACETAMOPHEN 5/325MG TAB PO PRN (22:07)
[2019-05-25] MEDS ORDERED: HYDROmorphone INJ 0.5 MG/0.5 ML SYR IV PRN (22:32)
[2019-05-26] MEDS: LEVOTHYROXINE SODIUM 25 MCG TABLET PO SCH (05:45)
[2019-05-26] MEDS: ALBUT/IPRATROP 3MG/0.5MG NEB 3 ML VIAL NEB SCH ×4 (07:22→18:45)
[2019-05-26 07:24] LABS: Hemoglobin 9.9 g/dL (14.0-18.0); Mean Corpuscular Hemoglobin 30.5 pg (25-34); Mean Corpuscular Hgb Conc 31.9 g/dL (32-36); Mean Corpuscular Volume 95.4 fL (80-100); Mean Platelet Volume 10.5 fL (7.4-10.4); Platelet Count 159 K/uL (130-400); RDW Coefficient of Variation 17.6 % (11.5-14.5); Red Blood Count 3.25 M/uL (4.7-6.1); White Blood Count 7.52 K/uL (4.8-10.8)
[2019-05-26 07:32] LABS: INR 1.9 (0.9-1.1); Prothrombin Time 18.7 Seconds (9.0-12.0)
[2019-05-26 08:00] LABS: BUN Creatinine Ratio 14.7 (10-20); Calcium 8.7 mg/dl (8.5-10.1); Creatinine Clr Calc Pharmacy 23.7 ml/min; Est GFR (African American) 26.3; Est GFR (Non-African American) 22.7; Magnesium 2.5 mg/dl (1.8-2.4); Potassium 4.1 mmol/L (3.5-5.1)
[2019-05-26] MEDS: allopurinoL 300 MG TAB PO SCH (08:55)
[2019-05-26] MEDS: PANTOprazole 40 MG TAB PO SCH ×2 (08:55→20:11)
[2019-05-26] MEDS: SUCRALFATE 1 GM TAB PO SCH ×2 (08:55→20:11)
[2019-05-26] MEDS: METOPROLOL SUCC 25MG EXT REL TAB PO SCH (08:56)
[2019-05-26] MEDS: AMIODARONE 200 MG TAB PO SCH (08:56)
[2019-05-26] MEDS: ISOSORBIDE DINITRATE 10 MG TAB PO SCH ×2 (08:57→12:35)
[2019-05-26] MEDS: SENNA 8.6 MG TAB PO SCH (08:58)
[2019-05-26] MEDS: POTASSIUM CHLORIDE 10 MEQ TABCR PO SCH ×2 (08:58→20:09)
[2019-05-26] MEDS: guaiFENesin 600 MG TABCR PO SCH ×2 (08:58→20:08)
[2019-05-26] MEDS: POLYETHYLENE (MIRALAX) 17 GM PACK PO SCH (08:59)
[2019-05-26] MEDS: ASPIRIN 81 MG ECTAB PO SCH (09:00)
[2019-05-26] MEDS: DOCUSATE SODIUM 100 MG CAP PO SCH (09:06)
[2019-05-26] MEDS ORDERED: WARFARIN SOD 1 MG TAB PO ONE (10:00)
[2019-05-26] MEDS ORDERED: AMIODARONE 200 MG TAB PO ONE (10:41)
[2019-05-26] MEDS: methylPREDNISolone 40 MG in SYRINGE 0 ML IV SCH (11:05)
[2019-05-26] MEDS: GABAPENTIN 100 MG CAP PO SCH ×2 (12:35→20:09)
[2019-05-26] MEDS ORDERED: Nursing to Pharmacy Communication ONE (13:02)
--- NOTE | 2019-05-26 13:30 | Cardiology Progress Note ---
Date of Service May 26, 2019 Assessment & Plan (1) Acute respiratory failure with hypoxia: Likey combined COPD exacerbation and CHF exacerbation on arrival Diuresed overnight with improvement in volume status. Appears euvolemic. Mild rise in creatinine this AM. Hold additional diuretics today. Continue steroids, nebs for likely COPD exacerbation. Chest tightness likely non cardiac with normal enzymes. (2) Acute systolic HF (heart failure): Apears euvolemic today. Hold additional IV lasix today given rise in creatinine. Low threshold to resume oral dose tomorrow (3) Ischemic cardiomyopathy: Symptoms not consistent with angina cardiac enzymes unremarkable continue home medications including ASA, statin, carvedilol, isoosorbide (4) Paroxysmal atrial fibrillation: Pacemaker interrogation reveals persistent atrial fibrillation since 05/10/19 despite amiodarone and beta lindsey. Prolonged QT on EKG on amiodarone Need to consider AV aziza ablation as patient has recurrent afib which leads to acute CHF exacerbation. Case discussed with Dr. Denis. Will follow Supervising Physician Co-Signing Physician Notes Patient seen and examined with Lynnette العلي PA-C. Agree with findings and assessment as above. at bedside. Unfortunately, at this point, I do not believe we'll be able to restore NSR given mitral regurgitation and severe left atrial enlargement. From a CHF standpoint he would greatly benefit from more frequent BiV pacing. So, I believe it would be prudent to proceed with AV aziza ablation. The procedure along with the reasoning was discussed with patient and at great lengths, both in agreement with plan. Spoke with Dr. Freeman, she is ok with him remaining on coumadin for procedure. Tentatively plan to perform Wednesday, cont to follow volume status closely at this time. Restart torsemide po in AM. General: Awake, alert and oriented x 3. No acute distress. HEENT: Normocephalic, atraumatic. Pupils equal, round and reactive to light and accommodation. Extraocular muscles are intact. Anicteric sclera. Moist mucous membranes. Neck: No JVD. No bruit. Cardiovascular: irregularly irregular, unable to appreciate murmur, rub or gallop. Pulmonary: Clear to auscultation bilaterally. No rales, rhonchi, or wheezing. Abdomen: Bowel sounds x 4, soft. No rebound, guarding or tenderness. No organomegaly. Extremities: No clubbing, cyanosis or edema. +2 pedal pulses bilaterally. Skin: Warm and dry. Subjective Patient reports feeling better this morning. He continues to report mild chest tightness with coughing but improved from yesterday. Reports ongoing wheezing. Overall shortness of breath has improved. No dizziness. No syncope or near- syncope. he was ambulating in the hallway earlier this morning without exertional chest pain. Pacemaker interrogation yesterday revealed persistent atrial fibrillation with variable rates and reduced biventricular pacing since May 10, 2019. Review of Systems Review of Systems: All systems reviewed & are unremarkable except as noted in HPI & below Physical Exam Constitutional: + ill appearing Respiratory: + respiratory distress and + labored breathing Auscultation: + diminished lung sounds and + wheezes Cardiovascular: Rate/Rhythm: regular rate and regular rhythm Heart Sounds: no murmur Extremities: no edema Gastrointestinal (Abdomen): normal bowel sounds, soft, nontender, no hepatosplenomegaly Psychiatric: A+Ox3, euthymic affect Results & Data Vital Signs (Past 12 Hours) Vital Signs Temp Pulse Pulse Resp BP BP Pulse Ox 05/26/19 11:44 36.6 C 87 20 122/73 97 05/26/19 11:29 72 16 98 05/26/19 07:40 36.7 C 80 16 124/71 97 05/26/19 07:38 79 05/26/19 07:22 66 20 98 05/26/19 04:20 36.5 C 78 20 112/62 91
[2019-05-26] MEDS ORDERED: WARFARIN SOD 2 MG TAB PO SCH (16:00)
--- NOTE | 2019-05-26 17:21 | Hospitalist Progress Note ---
Date of Service May 26, 2019 Assessment & Plan (1) CHF (congestive heart failure): Acute on chronic respiratory failure with hypoxia Likely secondary to COPD and acute systolic CHF exacerbation On BiPAP nightly with 2 L of oxygen at baseline History of ischemic cardiomyopathy Chest x-ray: Cardiomegaly and volume overload, Pulmonary hypertension Last EF: 35 to 39% TTE October 2018 Volume status improved with IV diuresis Resume p.o. diuretics as able Continue duo nebs, Solu-Medrol Cardiac enzymes negative Appreciate cardiology input Monitor I's and O's, daily weight, electrolytes and renal function Continue fluid restriction Continue BiPAP with Oxygen QHS Creatinine slightly up, hold diuretics today Plan to transition to prednisone tomorrow CAD S/P Stent H/O ICD, Chronic LBBB H/O PVD Continue aspirin, statin, carvedilol, isosorbide Constipation KUB: Moderate increase in fecal load of the proximal colon. No obstructive characteristics. Continue bowel regimen Hypertension stable Continue Coreg A. fib S/P cardioversion, PPM Pacemaker interrogation: Revealed persistent atrial fibrillation since May 10, 2019 Continue amiodarone, carvedilol Amiodarone dose increased to 400 mg twice daily Continue Coumadin for anticoagulation Monitor PT/INR: 2.0 Needs AV aziza ablation for recurrent A. 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 CKD IV: Baseline creatinine 2.5-2.9 Monitor renal function Avoid nephrotoxic agents as able Chronic anemia secondary to CKD Hb at baseline DVT Px: On Coumadin Code Status Full Code Disposition: PT/OT prior to discharge Subjective Patient is seen and examined at bedside Subjectively feels much better Still has mild chest tightness with coughing Denies shortness of breath Discussed with cardiology today Family at bedside Pacemaker interrogation suggestive of persistent atrial fibrillation with variable rates Review of Systems Review of Systems: All systems reviewed & are unremarkable except as noted in HPI & below Physical Exam Physical Exam: Physical Exam: Vitals signs as noted above General Appearance:Moderately built and nourished, no distress Head: normocephalic, Atraumatic Eyes: normal inspection, EOMI Neck: supple, Trachea midline Respiratory/Chest: Decreased breath sounds, CTA Cardiovascular: S1, S2, No murmur Abdomen/GI:Soft, Left sided tender, Bowel sounds present Extremities/Musculoskelatal:normal inspection, 1+ B/L LE edema Neurologic/Psych:AAOX3, grossly no focal neurological deficits Skin: normal color, warm Results & Data Vital Signs (Past 12 Hours) Vital Signs Temp Pulse Pulse Resp BP Pulse Ox 05/26/19 16:00 84 05/26/19 15:08 71 16 96 05/26/19 13:48 94 05/26/19 11:44 36.6 C 87 20 122/73 97 05/26/19 11:29 72 16 98 05/26/19 07:40 36.7 C 80 16 124/71 97 05/26/19 07:38 79 05/26/19 07:22 66 20 98 Laboratory Results Short CBC 05/26/19 Range/Units 06:46 WBC 7.52 (4.8-10.8) K/uL Hgb 9.9 L (14.0-18.0) g/dL Hct 31.0 L (42-52) % Plt Count 159 (130-400) K/uL BMP 05/26/19 06:46 Sodium 140 Potassium 4.1 Chloride 105 Carbon Dioxide 28 BUN 37 H Creatinine 2.52 H Glucose 139 H Calcium 8.7 (1) CHF (congestive heart failure) Heart failure chronicity: acute on chronic Heart failure type: unspecified Qualified Code(s): I50.9 - Heart failure, unspecified
[2019-05-26] MEDS ORDERED: LACTULOSE SYRUP 30 GM/45 ML UDP PO STA (19:56)
[2019-05-26] MEDS: ATORVASTATIN 40 MG TAB PO SCH (20:08)
[2019-05-26] MEDS: ROPINIROLE HCL 1 MG TABLET PO SCH (20:10)
[2019-05-26] MEDS: DOCUSATE SODIUM/SENNA 50/8.6MG TAB PO SCH (20:43)
[2019-05-26] MEDS ORDERED: AMIODARONE 200 MG TAB PO SCH (21:00)
[2019-05-26] MEDS ORDERED: LACTULOSE SYRUP 20 GM/30 ML UDC PO STA (21:52)
[2019-05-27] MEDS ORDERED: LACTULOSE SYRUP 20 GM/30 ML UDC PO STA (00:14)
[2019-05-27] MEDS ORDERED: DOCUSATE SODIUM/SENNA 50/8.6MG TAB PO STA (00:14)
[2019-05-27] MEDS ORDERED: POLYETHYLENE (MIRALAX) 17 GM PACK PO SCH (00:15)
[2019-05-27] MEDS ORDERED: bisacodyL 10 MG SUPP PR STA (02:19)
[2019-05-27] MEDS: LEVOTHYROXINE SODIUM 25 MCG TABLET PO SCH (06:11)
[2019-05-27] MEDS: DOCUSATE SODIUM/SENNA 50/8.6MG TAB PO SCH (06:12)
[2019-05-27 07:03] LABS: INR 2.3 (0.9-1.1); Prothrombin Time 22.4 Seconds (9.0-12.0)
[2019-05-27] MEDS: ALBUT/IPRATROP 3MG/0.5MG NEB 3 ML VIAL NEB SCH ×4 (07:16→19:30)
[2019-05-27 07:17] LABS: BUN Creatinine Ratio 15.8 (10-20); Calcium 9.1 mg/dl (8.5-10.1); Creatinine Clr Calc Pharmacy 20.6 ml/min; Est GFR (African American) 22.3; Est GFR (Non-African American) 19.2; Potassium 4.3 mmol/L (3.5-5.1)
[2019-05-27] MEDS: ISOSORBIDE DINITRATE 10 MG TAB PO SCH ×2 (08:00→11:26)
[2019-05-27] MEDS: ASPIRIN 81 MG ECTAB PO SCH (08:01)
[2019-05-27] MEDS: SUCRALFATE 1 GM TAB PO SCH ×2 (08:01→20:27)
[2019-05-27] MEDS: POTASSIUM CHLORIDE 10 MEQ TABCR PO SCH ×2 (08:01→20:25)
[2019-05-27] MEDS: guaiFENesin 600 MG TABCR PO SCH ×2 (08:01→20:29)
[2019-05-27] MEDS: allopurinoL 300 MG TAB PO SCH (08:02)
[2019-05-27] MEDS: PANTOprazole 40 MG TAB PO SCH ×2 (08:02→20:29)
[2019-05-27] MEDS: METOPROLOL SUCC 25MG EXT REL TAB PO SCH (08:02)
[2019-05-27] MEDS ORDERED: predniSONE 20 MG TAB PO SCH (09:15)
[2019-05-27] MEDS ORDERED: DOCUSATE SODIUM/SENNA 50/8.6MG TAB PO PRN (10:40)
[2019-05-27] MEDS: GABAPENTIN 100 MG CAP PO SCH ×2 (11:26→20:26)
--- NOTE | 2019-05-27 12:34 | Cardiology Progress Note ---
Date of Service May 27, 2019 Assessment & Plan (1) Acute respiratory failure with hypoxia: (2) Acute systolic HF (heart failure): (3) Ischemic cardiomyopathy: (4) Paroxysmal atrial fibrillation: The patient is currently stable. As previously outlined, consideration is being given for a His bundle ablation for control of his atrial fibrillation. Currently I would continue his current medications. Subjective Patient sitting in a chair without complaints. Currently his rhythm is paced Review of Systems Review of Systems: All systems reviewed & are unremarkable except as noted in HPI & below Nothing additional to add Physical Exam 2 Physical Exam: General: no acute distress and stated age Head: normocephalic, no masses, lesions, tenderness or abnormalities Eyes: conjunctiva are pink and non-injected, sclera clear Neck: supple, no adenopathy, no bruits, normal jugular venous pulse, no hepatojugular reflux Chest: normal shape and normal respiratory effort Lungs: clear to auscultation and percussion Cardiac Exam: - regular rate & rhythm, no murmurs gallops or rubs - normal S1, normal S2 Pulses: 2(+) throughout Abdomen: abdomen soft, non-tender, no abnormal masses and no hepatosplenomegaly Musculoskeletal: no gait disturbance, no joint inflammation, no deforming arthritis Extremities: no edema and no cyanosis Neuro: grossly normal exam Results & Data Vital Signs (Past 12 Hours) Vital Signs Temp Pulse Resp BP Pulse Ox 05/27/19 11:53 36.7 C 76 18 135/69 94 05/27/19 11:03 74 16 96 05/27/19 07:21 36.3 C L 80 20 153/89 H 94 05/27/19 07:17 60 16 95 05/27/19 03:29 36.4 C L 82 19 149/79 H 95
[2019-05-27] MEDS: WARFARIN SOD 3 MG TAB PO SCH (16:28)
[2019-05-27] MEDS: HYDROCODONE/ACETAMOPHEN 5/325MG TAB PO PRN (16:31)
--- NOTE | 2019-05-27 17:10 | Hospitalist Progress Note ---
Date of Service May 27, 2019 Assessment & Plan (1) CHF (congestive heart failure): Acute on chronic respiratory failure with hypoxia Likely secondary to COPD and acute systolic CHF exacerbation On BiPAP nightly with 2 L of oxygen at baseline History of ischemic cardiomyopathy Chest x-ray: Cardiomegaly and volume overload, Pulmonary hypertension Last EF: 35 to 39% TTE October 2018 Volume status improved with IV diuresis Resume p.o. diuretics as able Continue DuoNeb IV Solu-Medrol transition to prednisone Day # 3/5 Cardiac enzymes negative Appreciate cardiology input Monitor I's and O's, daily weight, electrolytes and renal function Continue fluid restriction Continue BiPAP with Oxygen QHS Creatinine slightly up, continue to hold diuretics CAD S/P Stent H/O ICD, Chronic LBBB H/O PVD Continue aspirin, statin, carvedilol, isosorbide Constipation KUB: Moderate increase in fecal load of the proximal colon. No obstructive characteristics. Resolved Continue bowel regimen PRN Hypertension stable Continue Coreg A. fib S/P cardioversion, PPM Pacemaker interrogation: Revealed persistent atrial fibrillation since May 10, 2019 Amiodarone,Carvedilol discontinued Started on metoprolol Continue Coumadin for anticoagulation Monitor PT/INR: 2.3 Needs AV aziza ablation for recurrent A. 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 CKD IV: Baseline creatinine 2.5-2.9 Monitor renal function Avoid nephrotoxic agents as able Chronic anemia secondary to CKD Hb at baseline DVT Px: On Coumadin Code Status Full Code Disposition: PT/OT prior to discharge Subjective Patient is seen and examined at bedside Constipation resolved Chest tightness continues to improve No new complaints Denies SOB, dizziness, nausea, abdominal pain Family at bedside Review of Systems Review of Systems: All systems reviewed & are unremarkable except as noted in HPI & below Physical Exam Physical Exam: Physical Exam: Vitals signs as noted above General Appearance:Moderately built and nourished, no distress Head: normocephalic, Atraumatic Eyes: normal inspection, EOMI Neck: supple, Trachea midline Respiratory/Chest: Decreased breath sounds, scattered wheezes Cardiovascular: S1, S2, No murmur Abdomen/GI:Soft, Left sided tender, Bowel sounds present Extremities/Musculoskelatal:normal inspection, 1+ B/L LE edema Neurologic/Psych:AAOX3, grossly no focal neurological deficits Skin: normal color, warm Results & Data Vital Signs (Past 12 Hours) Vital Signs Temp Pulse Resp BP BP Pulse Ox 05/27/19 15:52 36.4 C L 85 18 134/73 97 05/27/19 15:16 76 18 95 05/27/19 11:53 36.7 C 76 18 135/69 94 05/27/19 11:03 74 16 96 05/27/19 07:21 36.3 C L 80 20 153/89 H 94 05/27/19 07:17 60 16 95 Laboratory Results [facility] 05/27/19 06:35 Sodium 141 Potassium 4.3 Chloride 106 Carbon Dioxide 29 BUN 46 H Creatinine 2.89 H D Glucose 171 H Calcium 9.1 (1) CHF (congestive heart failure) Heart failure chronicity: acute on chronic Heart failure type: unspecified Qualified Code(s): I50.9 - Heart failure, unspecified
[2019-05-27] MEDS: ATORVASTATIN 40 MG TAB PO SCH (20:27)
[2019-05-27] MEDS: ROPINIROLE HCL 1 MG TABLET PO SCH (20:28)
[2019-05-28] MEDS ORDERED: XOPENEX/ATROVENT 1.25mg/0.5MG NEB COMBO NEB STA (02:46)
[2019-05-28] MEDS ORDERED: LEVALBUTEROL 1.25MG/0.5ML NEB INH STA (02:51)
[2019-05-28] MEDS ORDERED: IPRATROPIUM BROMIDE NEB SOLN 0.02% 2.5 ML VIAL INH STA (02:51)
[2019-05-28] MEDS ORDERED: DOXYCYCLINE HYCLATE 100 MG in DEXTROSE 5% 100 ML IV STA (03:14)
--- NOTE | 2019-05-28 03:15 | Hospitalist Progress Note ---
Date of Service May 28, 2019 Subjective Made aware by RN of increased moist cough symptoms with shortness of breath. Increased expiratory wheezing and coarse breath sounds as per RN. Patient denies chest pain. CXR as per my interpretation : Increased congestion, infiltrate RLL from 05/24 CXR AP Shortness of breath Multifactorial : COPD exacerbation from CAP (possibly present from admission) CHF Add Doxycycline to ongoing steroid Rx, nebs RTC Lasix 1 dose Will relay to AM provider. Results & Data Vital Signs (Past 12 Hours) Vital Signs Temp Pulse Pulse Resp BP BP Pulse Ox 05/28/19 02:54 82 24 95 05/28/19 00:00 71 05/27/19 23:06 36.4 C L 79 20 136/73 97 05/27/19 19:30 71 16 94 05/27/19 19:22 37.1 C 88 19 148/75 H 94 05/27/19 15:52 36.4 C L 85 18 134/73 97 05/27/19 15:16 76 18 95
[2019-05-28] MEDS ORDERED: FUROSEMIDE 80 MG in SYRINGE 0 ML IV ONE (03:30)
[2019-05-28 03:49] LABS: Hematocrit (blood only) 31.6 % (42-52); Hemoglobin 10.1 g/dL (14.0-18.0); Immature Granulocytes # (auto) 0.03 K/uL (0.00-0.02); Immature Granulocytes % (auto) 0.2 %; Lymphocytes % (auto) 8.8 %; Mean Corpuscular Hemoglobin 30.7 pg (25-34); Mean Platelet Volume 10.3 fL (7.4-10.4); Monocytes # (auto) 1.05 K/uL (0.11-0.59); Monocytes % (auto) 7.7 %; Neutrophils # (auto) 11.42 K/uL (1.4-6.5); Neutrophils % (auto) 83.3 %; Platelet Count 165 K/uL (130-400); RDW Coefficient of Variation 17.9 % (11.5-14.5); RDW Standard Deviation 62.5 fL (36.4-46.3); Red Blood Count 3.29 M/uL (4.7-6.1)
[2019-05-28 03:58] LABS: INR 2.8 (0.9-1.1); Prothrombin Time 26.5 Seconds (9.0-12.0)
[2019-05-28 04:12] LABS: BUN Creatinine Ratio 18.3 (10-20); Calcium 8.5 mg/dl (8.5-10.1); Creatinine Clr Calc Pharmacy 22.8 ml/min; Est GFR (African American) 25.3; Est GFR (Non-African American) 21.8; Magnesium 2.7 mg/dl (1.8-2.4); Potassium 4.4 mmol/L (3.5-5.1)
[2019-05-28] MEDS: LEVOTHYROXINE SODIUM 25 MCG TABLET PO SCH (05:46)
[2019-05-28] MEDS: ALBUT/IPRATROP 3MG/0.5MG NEB 3 ML VIAL NEB SCH (07:14)
[2019-05-28] MEDS: PANTOprazole 40 MG TAB PO SCH ×2 (08:03→21:12)
[2019-05-28] MEDS: allopurinoL 300 MG TAB PO SCH (08:03)
[2019-05-28] MEDS: guaiFENesin 600 MG TABCR PO SCH ×2 (08:03→21:13)
[2019-05-28] MEDS: ISOSORBIDE DINITRATE 10 MG TAB PO SCH ×2 (08:03→13:06)
[2019-05-28] MEDS: METOPROLOL SUCC 25MG EXT REL TAB PO SCH (08:03)
[2019-05-28] MEDS: ASPIRIN 81 MG ECTAB PO SCH (08:04)
[2019-05-28] MEDS: SUCRALFATE 1 GM TAB PO SCH ×2 (08:04→21:15)
[2019-05-28] MEDS: POTASSIUM CHLORIDE 10 MEQ TABCR PO SCH ×2 (08:05→21:14)
--- NOTE | 2019-05-28 08:18 | XRay Report ---
XR chest 1V portable CLINICAL HISTORY: sob wheeze COMPARISON STUDY: Chest radiograph May 24, 2019. FINDINGS: Left subclavian pacer/AICD is in place. There is moderate cardiomegaly. There is no pneumot horax. Small bilateral pleural effusions are noted. Pulmonary edema persists. This is slightly increa sed. There are mild bilateral airspace opacities. IMPRESSION: 1. Slight increase in pulmonary edema. 2. Small bilateral pleural effusions. Electronically signed by: Sherwin Douglas M.D. 05/28/2019 8:16 AM
[2019-05-28] MEDS: IPRATROPIUM BROMIDE NEB SOLN 0.02% 2.5 ML VIAL INH SCH ×3 (08:51→18:43)
[2019-05-28] MEDS: LEVALBUTEROL 1.25MG/0.5ML NEB INH SCH ×3 (08:51→18:43)
--- NOTE | 2019-05-28 12:42 | Cardiology Progress Note ---
Date of Service May 28, 2019 Assessment & Plan (1) Ischemic cardiomyopathy: (2) Paroxysmal atrial fibrillation: (3) Acute respiratory failure with hypoxia: (4) CHF (congestive heart failure): (5) COPD, moderate: Patient is currently clinically stable. He has had no significant arr hythmias over 24 hours and is currently in a paced rhythm. He most likely has underlying atrial fibrillation with a ventricular paced rhythm. Rates however, are controlled. He still has some wheezing which may be related to COPD. Do not believe that we are dealing with heart failure at this time. Subjective Patient appears comfortable sitting in a chair. He has had a paced rhythm since yesterday with no high heart rates. Review of Systems Review of Systems: All systems reviewed & are unremarkable except as noted in HPI & below Nothing additional to add Physical Exam Physical Exam: General: no acute distress and stated age Head: normocephalic, no masses, lesions, tenderness or abnormalities Eyes: conjunctiva are pink and non-injected, sclera clear Neck: supple, no adenopathy, no bruits, normal jugular venous pulse, no hepatojugular reflux Chest: normal shape and normal respiratory effort Lungs: Minimal wheezing Cardiac Exam: - irregular rate & rhythm, no murmurs gallops or rubs - normal S1, normal S2 Pulses: 2(+) throughout Abdomen: abdomen soft, non-tender, no abnormal masses and no hepatosplenomegaly Musculoskeletal: no gait disturbance, no joint inflammation, no deforming arthritis Extremities: no edema and no cyanosis Neuro: grossly normal exam Results & Data Vital Signs (Past 12 Hours) Vital Signs Temp Pulse Resp BP BP Pulse Ox 05/28/19 11:20 36.1 C L 87 20 134/68 94 05/28/19 08:51 75 16 98 05/28/19 07:14 79 18 97 05/28/19 07:05 89 20 147/80 H 97 05/28/19 04:56 36.5 C 88 16 151/83 H 97 05/28/19 02:54 82 24 95 05/28/19 02:44 36.6 C 95 H 24 134/72 95 Laboratory Results Laboratory Results - last 24 hr 05/28/19 05/28/19 05/28/19 03:39 03:39 03:39 WBC 13.70 H RBC 3.29 L Hgb 10.1 L Hct 31.6 L MCV 96.0 MCH 30.7 MCHC 32.0 RDW Std Deviation 62.5 H RDW Coeff of Rocael 17.9 H Plt Count 165 MPV 10.3 Immature Gran % (Auto) 0.2 Neut % (Auto) 83.3 Lymph % (Auto) 8.8 [place] % (Auto) 7.7 Eos % (Auto) 0.0 Baso % (Auto) 0.0 Immature Gran # (Auto) 0.03 H Neut # (Auto) 11.42 H Lymph # (Auto) 1.20 [place] # (Auto) 1.05 H Eos # (Auto) 0.00 Baso # (Auto) 0.00 PT 26.5 H INR 2.8 H Sodium 140 Potassium 4.4 Chloride 106 Carbon Dioxide 28 Anion Gap 6.0 BUN 48 H Creatinine 2.60 H Est Cr Clr Drug Dosing 22.8 Est GFR ( Amer) 25.3 Est GFR (Non-Af Amer) 21.8 BUN/Creatinine Ratio 18.3 Glucose 131 H Calcium 8.5 Magnesium 2.7 H Medications Administered Current Inpatient Medications Acetaminophen (Tylenol) 650 mg PO Q4H PRN PRN Reason: Pain or Fever Stop: 06/24/19 02:57 Hydrocodone Bitart/Acetaminophen ([place] 5/325) 1 tab PO Q4 PRN PRN Reason: Pain Stop: 06/08/19 02:57 Last Admin: 05/27/19 16:31 Dose: 1 tab Documented by: Allopurinol (Zyloprim) 300 mg PO DAILY [facility] Stop: 06/24/19 08:59 Last Admin: 05/28/19 08:03 Dose: 300 mg Documented by: Aspirin (Ecotrin Ectab) 81 mg PO QAM ARNULFO Stop: 06/24/19 08:59 Last Admin: 05/28/19 08:04 Dose: 81 mg Documented by: Atorvastatin Calcium (Lipitor) 40 mg PO QPM ARNULFO Stop: 06/24/19 20:59 Last Admin: 05/27/19 20:27 Dose: 40 mg Documented by: Doxycycline Hyclate (Vibramycin) 100 mg PO Q12H [facility] Stop: 06/04/19 17:59 Gabapentin (Neurontin) 100 mg PO QDL [facility] Stop: 06/24/19 11:29 Last Admin: 05/27/19 11:26 Dose: 100 mg Documented by: Gabapentin (Neurontin) 200 mg PO HS [facility] Stop: 06/24/19 20:59 Last Admin: 05/27/19 20:26 Dose: 200 mg Documented by: Guaifenesin (Mucinex) 600 mg PO Q12 ARNULFO Stop: 06/24/19 02:59 Last Admin: 05/28/19 08:03 Dose: 600 mg Documented by: Hydromorphone HCl (Dilaudid) 0.25 mg IV Q3H PRN PRN Reason: Pain Stop: 06/08/19 22:31 Last Admin: 05/25/19 23:49 Dose: 0.25 mg Documented by: Ipratropium Mode (Atrovent 0.02% 0.5mg/2.5ml) 0.5 mg INH Q4H PRN PRN Reason: Shortness Of Breath Or Wheezing Stop: 06/24/19 02:57 Ipratropium Mode (Atrovent 0.02% 0.5mg/2.5ml) 0.5 mg INH Q6R [facility] Stop: 06/27/19 08:14 Last Admin: 05/28/19 08:51 Dose: 0.5 mg Documented by: Isosorbide Dinitrate (Isordil) 10 mg PO BID@0700,1200 [facility] Stop: 06/24/19 06:59 Last Admin: 05/28/19 08:03 Dose: 10 mg Documented by: Levalbuterol HCl (Xopenex 1.25mg/0.5ml Neb) 1.25 mg INH Q4H PRN PRN Reason: Shortness Of Breath Or Wheezing Stop: 06/24/19 02:57 Levalbuterol HCl (Xopenex 1.25mg/0.5ml Neb) 1.25 mg INH Q6R [facility] Stop: 06/27/19 08:14 Last Admin: 05/28/19 08:51 Dose: 1.25 mg Documented by: Levothyroxine Sodium (Synthroid) 12.5 mcg PO DAILYBB [facility] Stop: 06/24/19 06:29 Last Admin: 05/28/19 05:46 Dose: 12.5 mcg Documented by: Meclizine HCl (Antivert) 12.5 mg PO TID PRN PRN Reason: Vertigo Stop: 06/24/19 02:57 Last Admin: 05/26/19 08:56 Dose: 12.5 mg Documented by: Metoprolol Succinate (Toprol Xl) 25 mg PO QAM [facility] Stop: 06/25/19 08:59 Last Admin: 05/28/19 08:03 Dose: 25 mg Documented by: Miscellaneous (Order Awaiting Action) 1 ea N/A QS [facility] Stop: 06/24/19 07:59 Last Admin: 05/28/19 09:26 Dose: Not Given Documented by: Nitroglycerin (Nitrostat) 0.4 mg SL UD PRN PRN Reason: Chest Pain Stop: 06/24/19 02:57 Ondansetron HCl (Zofran Odt) 4 mg PO Q8H PRN PRN Reason: Nausea Stop: 06/24/19 02:57 Pantoprazole Sodium (Protonix) 40 mg PO [facility] Stop: 06/24/19 08:59 Last Admin: 05/28/19 08:03 Dose: 40 mg Documented by: Polyethylene Glycol (Miralax Powder Packet) 17 gm PO DAILY PRN PRN Reason: Constipation Stop: 06/26/19 00:14 Potassium Chloride (Klor-Con M10) 20 meq PO BID [facility] Stop: 06/24/19 08:59 Last Admin: 05/28/19 08:05 Dose: 20 meq Documented by: Prednisone (Prednisone) 40 mg PO DAILY [facility] Stop: 06/01/19 08:59 Ropinirole HCl (Requip) 2 mg PO HS [facility] Stop: 06/24/19 20:59 Last Admin: 05/27/19 20:28 Dose: 2 mg Documented by: Senna/Docusate Sodium (Senokot S) 1 tab PO BID PRN PRN Reason: Constipation Stop: 06/25/19 19:59 Sucralfate (Carafate Tab) 1 gm PO BID [facility] Stop: 06/24/19 08:59 Last Admin: 05/28/19 08:04 Dose: 1 gm Documented by: Warfarin Sodium (Coumadin) 2 mg PO MoWeFr@1600 [facility] Stop: 06/25/19 15:59 Warfarin Sodium (Coumadin) 3 mg PO SuTuThSa@1600 [facility] Stop: 06/29/19 15:59 (1) CHF (congestive heart failure) Heart failure chronicity: acute on chronic Heart failure type: unspecified Qualified Code(s): I50.9 - Heart failure, unspecified
[2019-05-28] MEDS ORDERED: XOPENEX/ATROVENT 1.25mg/0.5MG NEB COMBO NEB SCH (13:00)
[2019-05-28] MEDS: GABAPENTIN 100 MG CAP PO SCH ×2 (13:06→21:14)
[2019-05-28] MEDS: DOXYCYCLINE HYCLATE 100 MG CAP PO SCH (18:04)
--- NOTE | 2019-05-28 18:51 | Hospitalist Progress Note ---
Date of Service May 28, 2019 Assessment & Plan (1) CHF (congestive heart failure): Acute on chronic respiratory failure with hypoxia Likely secondary to COPD and acute systolic CHF exacerbation On BiPAP nightly with 2 L of oxygen at baseline History of ischemic cardiomyopathy Chest x-ray: Cardiomegaly and volume overload, Pulmonary hypertension Last EF: 35 to 39% TTE October 2018 Volume status managed with diuretics Resume p.o. diuretics as able Continue DuoNeb IV Solu-Medrol transition to prednisone Day # 4 Added Doxycycline Cardiac enzymes negative Appreciate cardiology input Monitor I's and O's, daily weight, electrolytes and renal function Continue fluid restriction Continue BiPAP with Oxygen QHS CAD S/P Stent H/O ICD, Chronic LBBB H/O PVD Continue aspirin, statin, carvedilol, isosorbide Constipation KUB: Moderate increase in fecal load of the proximal colon. No obstructive characteristics. Resolved Continue bowel regimen PRN Hypertension stable Continue Coreg A. fib S/P cardioversion, PPM Pacemaker interrogation: Revealed persistent atrial fibrillation since May 10, 2019 Amiodarone,Carvedilol discontinued Started on metoprolol Continue Coumadin for anticoagulation Monitor PT/INR: 2.8 Needs AV aziza ablation for recurrent A. 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 CKD IV: Baseline creatinine 2.5-2.9 Monitor renal function Avoid nephrotoxic agents as able Chronic anemia secondary to CKD Hb at baseline DVT Px: On Coumadin Code Status Full Code Disposition: PT/OT prior to discharge Subjective Patient is seen and examined at bedside States having cough nonproductive Chest x-ray today suggestive of increased volume overload Chest tightness better Denies SOB, dizziness, nausea, abdominal pain Review of Systems Review of Systems: All systems reviewed & are unremarkable except as noted in HPI & below Physical Exam Physical Exam: Physical Exam: Vitals signs as noted above General Appearance:Moderately built and nourished, no distress Head: normocephalic, Atraumatic Eyes: normal inspection, EOMI Neck: supple, Trachea midline Respiratory/Chest: Decreased breath sounds, scattered wheezes Cardiovascular: S1, S2, No murmur Abdomen/GI:Soft, Left sided tender, Bowel sounds present Extremities/Musculoskelatal:normal inspection, 1+ B/L LE edema Neurologic/Psych:AAOX3, grossly no focal neurological deficits Skin: normal color, warm Results & Data Vital Signs (Past 12 Hours) Vital Signs Temp Pulse Resp BP Pulse Ox 05/28/19 15:47 36.5 C 82 16 131/67 99 05/28/19 13:12 87 16 93 05/28/19 11:20 36.1 C L 87 20 134/68 94 05/28/19 08:51 75 16 98 05/28/19 07:14 79 18 97 05/28/19 07:05 89 20 147/80 H 97 Laboratory Results Short CBC 05/28/19 Range/Units 03:39 WBC 13.70 H (4.8-10.8) K/uL Hgb 10.1 L (14.0-18.0) g/dL Hct 31.6 L (42-52) % Plt Count 165 (130-400) K/uL BMP 05/28/19 03:39 Sodium 140 Potassium 4.4 Chloride 106 Carbon Dioxide 28 BUN 48 H Creatinine 2.60 H Glucose 131 H Calcium 8.5 (1) CHF (congestive heart failure) Heart failure chronicity: acute on chronic Heart failure type: unspecified Qualified Code(s): I50.9 - Heart failure, unspecified
[2019-05-28] MEDS ORDERED: FUROSEMIDE 20 MG in SYRINGE 0 ML IV ONE (19:15)
[2019-05-28] MEDS: ROPINIROLE HCL 1 MG TABLET PO SCH (21:13)
[2019-05-28] MEDS: ATORVASTATIN 40 MG TAB PO SCH (21:15)
[2019-05-29] MEDS: IPRATROPIUM BROMIDE NEB SOLN 0.02% 2.5 ML VIAL INH SCH ×4 (00:52→18:58)
[2019-05-29] MEDS: LEVALBUTEROL 1.25MG/0.5ML NEB INH SCH ×4 (00:52→18:58)
[2019-05-29] MEDS: LEVOTHYROXINE SODIUM 25 MCG TABLET PO SCH (05:34)
[2019-05-29] MEDS: DOXYCYCLINE HYCLATE 100 MG CAP PO SCH ×2 (05:35→17:09)
[2019-05-29 06:53] LABS: Hematocrit (blood only) 32.6 % (42-52); Hemoglobin 10.3 g/dL (14.0-18.0); Mean Corpuscular Hemoglobin 30.1 pg (25-34); Mean Corpuscular Hgb Conc 31.6 g/dL (32-36); Mean Corpuscular Volume 95.3 fL (80-100); Mean Platelet Volume 10.3 fL (7.4-10.4); Nucleated RBC # (auto) 0.02 K/uL (0-0); Nucleated RBC % (auto) 0.2 %; Platelet Count 159 K/uL (130-400); RDW Coefficient of Variation 17.9 % (11.5-14.5); RDW Standard Deviation 62.4 fL (36.4-46.3); Red Blood Count 3.42 M/uL (4.7-6.1); White Blood Count 13.04 K/uL (4.8-10.8)
[2019-05-29 07:32] LABS: Creatinine Clr Calc Pharmacy 24.7 ml/min; Est GFR (African American) 27.7; Est GFR (Non-African American) 23.9
[2019-05-29] MEDS: ISOSORBIDE DINITRATE 10 MG TAB PO SCH ×2 (07:32→11:33)
[2019-05-29 08:32] LABS: INR 2.5 (0.9-1.1); Prothrombin Time 24.1 Seconds (9.0-12.0)
[2019-05-29] MEDS: guaiFENesin 600 MG TABCR PO SCH ×2 (08:40→19:46)
[2019-05-29] MEDS: methylPREDNISolone 40 MG in SYRINGE 0 ML IV SCH ×3 (08:41→23:35)
[2019-05-29] MEDS: POTASSIUM CHLORIDE 10 MEQ TABCR PO SCH ×2 (08:42→19:45)
[2019-05-29] MEDS: ASPIRIN 81 MG ECTAB PO SCH (08:42)
[2019-05-29] MEDS: SUCRALFATE 1 GM TAB PO SCH ×2 (08:43→19:46)
[2019-05-29] MEDS: METOPROLOL SUCC 25MG EXT REL TAB PO SCH (08:45)
[2019-05-29] MEDS: allopurinoL 300 MG TAB PO SCH (08:47)
[2019-05-29] MEDS: PANTOprazole 40 MG TAB PO SCH ×2 (08:48→19:46)
[2019-05-29] MEDS ORDERED: predniSONE 20 MG TAB PO SCH (09:00)
[2019-05-29] MEDS: LEVALBUTEROL 1.25MG/0.5ML NEB INH PRN (10:59)
[2019-05-29] MEDS: IPRATROPIUM BROMIDE NEB SOLN 0.02% 2.5 ML VIAL INH PRN (10:59)
[2019-05-29] MEDS: GABAPENTIN 100 MG CAP PO SCH ×2 (11:33→19:46)
[2019-05-29] MEDS: FUROSEMIDE 80 MG in SYRINGE 0 ML IV SCH ×2 (11:33→16:02)
[2019-05-29] MEDS: carvediloL 3.125 MG TAB PO SCH ×2 (11:42→19:45)
[2019-05-29] MEDS: WARFARIN SOD 2 MG TAB PO SCH (16:02)
--- NOTE | 2019-05-29 16:14 | Pulmonary Consultation ---
Date of Consultation May 29, 2019 Assessment & Plan (1) COPD, moderate: All work-up completed [facility] This point will continue with steroids and nebulizer treatments Continue with diuretics as tolerated Maintain SaO2 between 88 and 92% Ambulate as tolerated Check a proBNP Check ABG Check a procalcitonin (2) Paroxysmal atrial fibrillation: Cardiology following Patient interrogation shows chronic paroxysmal atrial fibrillation since 05/11/2019 Scheduled for aziza ablation Troponins negative Continue management per cardiology (3) CHF (congestive heart failure): Echocardiogram as listed above Decreased left ventricular ejection fraction but no significant valvular abnormality Positive for wall motion abnormality Patient with history of MN Continue diuretics as tolerated Patient currently with acute kidney injury secondary diuresis Continue to treat for underlying COPD Further management by cardiology Heart failure chronicity: acute on chronic Heart failure type: unspecified Qualified Code(s): I50.9 - Heart failure, unspecified (4) Obstructive sleep apnea: Continue home CPAP Check ABG Patient apparently was on BiPAP at one time but converted over to CPAP All work-up and management completed at [facility] Follows with [facility] Thank you very much for including us in the care of this patient. Please refer to Dr. Haque's addendum for further recommendations. Supervising Physician Co-Signing Physician Notes Patient seen and examined with Amari Evans PA-C. I agree with assessment and plan aside for the exceptions/additions noted: Patient reports a history of COPD. He does have expiratory wheezes noted on exam, but these can be due to pulmonary edema related to heart failure. However, in light of his history that he gives, continue IV Solu-Medrol for today and switch to p.o. prednisone tomorrow. Recommended total 5-day course of steroids. He needs outpatient pulmonary function test to be completed. Agree with the blood gas, procalcitonin level and BNP. His echo was reviewed and demonstrates an EF of 25 to 30%. He has moderate to severe mitral regurgitation. His heart function is severely compromised and I suspect is playing a larger role in his overall dyspnea than his possible COPD. I do agree with cardiology at present given that he does appear fairly euvolemic and I do not think it is unreasonable to treat him for a possible COPD exacerbation. History of Present Illness Attending Physician: Aniket Larose MD History of Present Illness Attending: Dr. Mirza Is an 83-year-old male that was admitted on 05/25/2019 for shortness of breath. He appeared to be combination of COPD exacerbation CHF. Imaging showed significant volume overload but proBNP was not evaluated. Patient did receive diuretics and had significant improvement. Patient began to have a bump in his creatinine and diuretics were held. Patient does have a history of paroxysmal atrial fibrillation and has a pacemaker in place. Interrogation of the pacemaker shows persistent atrial fibrillation since 05/02/2019. Patient was on amiodarone as well as beta-lindsey and demonstrated prolonged QT on EKG with amiodarone. At this point patient is being considered for AV aziza ablation as it is felt that his CHF exacerbation is in large part due to recurrent atrial fibrillation. Patient reports that he has a history of sleep apnea and is initially on BiPAP but has been converted over to CPAP and bleeds in 2 L of supplemental O2 at bedtime. He reports that all of his studies have been done at [facility]. Patient indicates that he has had ambulatory dysfunction limited by shortness of breath. Patient has not had any history of pulmonary or cardiac rehab although he does have a history of MN in the past. He does have history of CVA and indicates that he went for inpatient therapy at that time. The patient is retired at this time. 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 He smokes 2 cigarettes/day. Past tobacco abuse history includes no more than half a pack since age 20. Patient did have a an echocardiogram 05/29/2019 which showed left ventricle to be moderately dilated. The patient's ejection fraction was estimated 25 to 30%. There were regional wall motion abnormalities. Left atrium was severely dilated. There is moderate to severe mitral regurgitation. Evaluation of the aortic valve shows no significant aortic stenosis. There is also no significant aortic regurgitation. Patient states that his shortness of breath is improved since yesterday. He has no fever, chills, sweats, rigors. He denies any night sweats. Edema of his lower extremities is significantly improved. He has no leg pain. He has been ambulating in his room but no ambulation in hallway. He has no evidence of claudication. Patient denies any history of aspiration and has no difficulty with ingestion. The patient has no other acute complaints at this time. Allergies Allergy/AdvReac Type Severity Reaction Status Date / Time blue dye Allergy Mild SHORTNESS Verified 05/24/19 23:35 OF BREATH naproxen Allergy Mild SWELLING Verified 05/24/19 23:35 OF HANDS sumatriptan Allergy Mild SHORTNESS Verified 05/24/19 23:35 OF BREATH diphenhydramine AdvReac Intermediate MADE Verified 05/24/19 23:35 DEFIBRILLATOR FIRE pseudoephedrine AdvReac Intermediate MADE HIS Verified 05/24/19 23:35 DEFIB FIRE Patient History Medical History Acute on chronic respiratory failure with hypoxemia BiPAP now weaned to [place] oxygen. Acute kidney injury superimposed on chronic kidney disease (Acute) Left hip pain (Acute) History of CVA (cerebrovascular accident) (Chronic) 2016 S/P TKA Chronic atrial fibrillation (Chronic) CKD (chronic kidney disease), stage IV (Chronic) F/U DR STEPHENSON? Sciatica (Chronic) Hyperlipidemia (Chronic) Hypertension (Chronic) CAD (coronary artery disease) (Chronic) ASCVD with MN 2000, angioplasty of LAD and Dx, and PCI of PDA. Resultant severe ischemic CM. History of lung cancer (Chronic) ~2014 S/P RADIATION THERAPY History of stomach cancer (Chronic) [id number]. EXCISED WITH EGD. Hypothyroidism (Chronic) GERD (gastroesophageal reflux disease) (Chronic) Ischemic cardiomyopathy (Chronic) 2/2 [place] 2000. S/P dual chamber ICD following presentation with syncope and LBBB. BiV pacer upgrade 2011, generator change 11/2017. Osteoarthritis (Chronic) Sleep apnea treated with nocturnal BiPAP (Chronic) "COMPLEX SLEEP APNEA SYNDROME"-2L/MIN WITH BIPAP HS Renal artery stenosis (Chronic) Anemia of chronic disease (Chronic) On anticoagulant therapy (Chronic) Restless leg syndrome (Chronic) Carotid stenosis, bilateral (Chronic) MGUS (monoclonal gammopathy of unknown significance) (Chronic) COPD (chronic obstructive pulmonary disease) COPD exacerbation currently. On 50mg PO prednisone. SOB (shortness of breath) on exertion Systolic heart failure NYHA Class 3. Per cardiology 03/01/2019 symptoms slowly improving with diuresis Surgical History Status post biventricular pacemaker History of cardiac cath (Resolved) 2000 WITH STENT PLACEMENT History of cardioversion (Resolved) History of appendectomy (Chronic) History of total knee replacement (Chronic) RIGHT (DR. NAIR) 2016 History of implantable cardioverter-defibrillator (ICD) placement (Chronic) 2006-LAST CHECK 03/2019?-F/U FIDEL LIND History of tonsillectomy (Chronic) History of colonoscopy History of esophagogastroduodenoscopy (EGD) 12/28/2018. propofol/ketamine. no issues. Family History Brother Family history of diabetes mellitus Social History Preferred Language: Romanian Communication Ability: Effective Appellate Court Judge Required: No Beliefs That Will Affect Care: None Current Living Situation: Spouse Current Living Situation Comment: CURRENTLY AT [facility] Feels Safe at Home: Yes Safety Concerns: Feels Safe At This Time Smoking Status: Light tobacco smoker Tobacco Type: cigarettes ; Cigarettes Per Day: USED TO SMOKE 1 PPD X 50 YRS-DOWN TO 3 CIGS A DAY ; Second Hand Exposure: No ; Hx Alcohol Use: No Hx Substance Use: No Review of Systems Review of Systems: All systems reviewed & are unremarkable except as noted in HPI & below Physical Exam Physical Exam: GENERAL : No acute distress. Sitting in bedside chair. Pleasant. Talking in full sentences without difficulty. SaO2 on room air 97% EYES: No icterus, gaze conjugate NOSE: No evidence of epistaxis MOUTH: No lesions or candidiasis. Tongue is midline NECK: Supple. LUNGS: Scattered bronchospasm. No rales or rhonchi HEART: Regular, rate controlled. ABDOMEN: Soft, NT, ND, BS Present EXTREMITIES: No significant bilateral LE edema, pedal pulses intact and equal bilaterally. NEURO: A&OX3. No facial droop. Tongue midline. Pupils equal. No slurred speech. No apparent focal deficits. Results & Data Vital Signs (Past 12 Hours) Vital Signs Temp Pulse Resp BP BP Pulse Ox 05/29/19 15:32 36.9 C 75 21 130/69 95 05/29/19 13:23 78 18 97 05/29/19 11:38 36.4 C L 84 20 148/83 H 96 05/29/19 11:00 80 18 97 05/29/19 07:24 36.5 C 83 136/88 98 05/29/19 07:04 75 18 99 05/29/19 06:55 36.4 C L 79 21 130/77 98 PG Care Time/CCT Total # of Minutes Spent Total Time Spent with Patient: Total time spent is greater than 50% in coordination of care (as documented) at patient's floor/unit and/or counseling patient: 45 including discussion with patient and patient's at bedside
[2019-05-29 17:00] LABS: Allen Test Pos (Pos); Base Excess ABG 1.4 mEq/L (-9-1.8); HCO3 ABG 25 mmol/L (19-24); Oxygen Saturation ABG 96.2 % (90-95); PCO2 ABG 35 mmHg (35-46); PO2 ABG 82 mm/Hg (80-95); pH ABG 7.47 (7.35-7.45)
--- NOTE | 2019-05-29 18:05 | Hospitalist Progress Note ---
Date of Service May 29, 2019 Assessment & Plan (1) CHF (congestive heart failure): Acute on chronic respiratory failure with hypoxia Likely secondary to COPD and acute systolic CHF exacerbation On BiPAP nightly with 2 L of oxygen at baseline History of ischemic cardiomyopathy Chest x-ray: Cardiomegaly and volume overload, Pulmonary hypertension Last EF: 35 to 39% TTE October 2018 Updated ECHO: EF-25-30%, Regional wall motion abnormality, moderate to severe MR, left atrium is severely dilated, left ventricular moderately dilated Volume status managed with diuretics--IV Lasix 60 mg twice daily Continue DuoNeb, IV Solu-Medrol Continue Doxycycline Normal procalcitonin Pulmonary hygiene Cardiac enzymes negative Appreciate cardiology/Pulmonology input Monitor I's and O's, daily weight, electrolytes and renal function Continue fluid restriction Continue BiPAP with Oxygen QHS CAD S/P Stent H/O ICD, Chronic LBBB H/O PVD Continue aspirin, statin, carvedilol, isosorbide Constipation KUB: Moderate increase in fecal load of the proximal colon. No obstructive characteristics. Resolved Continue bowel regimen PRN Hypertension stable Continue Coreg A. fib S/P cardioversion, PPM Pacemaker interrogation: Revealed persistent atrial fibrillation since April Amiodarone,Carvedilol discontinued Started on metoprolol Continue Coumadin for anticoagulation Monitor PT/INR: 2.5 Needs AV aziza ablation for recurrent A. 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 CKD IV: Baseline creatinine 2.5-2.9 Monitor renal function Avoid nephrotoxic agents as able Chronic anemia secondary to CKD Hb at baseline DVT Px: On Coumadin Code Status Full Code Disposition: PT/OT prior to discharge Subjective Patient is seen and examined at bedside States having dyspnea on exertion, dry cough Bilateral wheezing on exam ECHO: Regional wall motion abnormality, EF 25 to 30% Chest tightness better Denies SOB, dizziness, nausea, abdominal pain Review of Systems Review of Systems: All systems reviewed & are unremarkable except as noted in HPI & below Physical Exam Physical Exam: Physical Exam: Vitals signs as noted above General Appearance:Moderately built and nourished, no distress Head: normocephalic, Atraumatic Eyes: normal inspection, EOMI Neck: supple, Trachea midline Respiratory/Chest: Decreased coarse breath sounds, b/l wheezes Cardiovascular: S1, S2, No murmur Abdomen/GI:Soft, Left sided tender, Bowel sounds present Extremities/Musculoskelatal:normal inspection, 1+ B/L LE edema Neurologic/Psych:AAOX3, grossly no focal neurological deficits Skin: normal color, warm Results & Data Vital Signs (Past 12 Hours) Vital Signs Temp Pulse Resp BP BP Pulse Ox 05/29/19 15:32 36.9 C 75 21 130/69 95 05/29/19 13:23 78 18 97 05/29/19 11:38 36.4 C L 84 20 148/83 H 96 05/29/19 11:00 80 18 97 05/29/19 07:24 36.5 C 83 136/88 98 05/29/19 07:04 75 18 99 05/29/19 06:55 36.4 C L 79 21 130/77 98 Laboratory Results Short CBC 05/29/19 Range/Units 06:33 WBC 13.04 H (4.8-10.8) K/uL Hgb 10.3 L (14.0-18.0) g/dL Hct 32.6 L (42-52) % Plt Count 159 (130-400) K/uL BMP 05/29/19 06:33 Creatinine 2.41 H (1) CHF (congestive heart failure) Heart failure chronicity: acute on chronic Heart failure type: unspecified Qualified Code(s): I50.9 - Heart failure, unspecified
[2019-05-29] MEDS: ROPINIROLE HCL 1 MG TABLET PO SCH (19:44)
[2019-05-29] MEDS: ATORVASTATIN 40 MG TAB PO SCH (19:45)
[2019-05-30] MEDS: IPRATROPIUM BROMIDE NEB SOLN 0.02% 2.5 ML VIAL INH SCH ×4 (01:11→19:58)
[2019-05-30] MEDS: LEVALBUTEROL 1.25MG/0.5ML NEB INH SCH ×4 (01:12→19:58)
[2019-05-30] MEDS: LEVOTHYROXINE SODIUM 25 MCG TABLET PO SCH (05:31)
[2019-05-30] MEDS: DOXYCYCLINE HYCLATE 100 MG CAP PO SCH ×2 (05:32→16:45)
[2019-05-30 06:57] LABS: Hematocrit (blood only) 32.7 % (42-52); Hemoglobin 10.6 g/dL (14.0-18.0)
[2019-05-30 07:05] LABS: INR 2.2 (0.9-1.1); Prothrombin Time 20.9 Seconds (9.0-12.0)
[2019-05-30] MEDS: ISOSORBIDE DINITRATE 10 MG TAB PO SCH ×2 (07:41→12:09)
[2019-05-30 07:42] LABS: BUN Creatinine Ratio 23.3 (10-20); Calcium 8.4 mg/dl (8.5-10.1); Creatinine Clr Calc Pharmacy 24.2 ml/min; Est GFR (African American) 27.5; Est GFR (Non-African American) 23.7; Magnesium 2.2 mg/dl (1.8-2.4); Potassium 3.6 mmol/L (3.5-5.1)
[2019-05-30] MEDS: methylPREDNISolone 40 MG in SYRINGE 0 ML IV SCH ×2 (07:47→16:14)
[2019-05-30] MEDS: FUROSEMIDE 80 MG in SYRINGE 0 ML IV SCH ×2 (09:36→16:14)
[2019-05-30] MEDS: PANTOprazole 40 MG TAB PO SCH ×2 (09:36→20:32)
[2019-05-30] MEDS: ASPIRIN 81 MG ECTAB PO SCH (09:37)
[2019-05-30] MEDS: guaiFENesin 600 MG TABCR PO SCH ×2 (09:37→20:32)
[2019-05-30] MEDS: SUCRALFATE 1 GM TAB PO SCH ×2 (09:37→20:34)
[2019-05-30] MEDS: POTASSIUM CHLORIDE 10 MEQ TABCR PO SCH ×2 (09:37→20:33)
[2019-05-30] MEDS: allopurinoL 300 MG TAB PO SCH (09:37)
[2019-05-30] MEDS: carvediloL 3.125 MG TAB PO SCH (09:37)
[2019-05-30] MEDS: FLUTICASONE/UMECLIDIN/VILANTER INH SCH (09:38)
[2019-05-30] MEDS: METOPROLOL SUCC 25MG EXT REL TAB PO SCH (09:38)
[2019-05-30] MEDS ORDERED: AMIODARONE 200 MG TAB PO SCH (10:30)
--- NOTE | 2019-05-30 10:33 | Cardiology Progress Note ---
Date of Service May 30, 2019 Assessment & Plan (1) Ischemic cardiomyopathy: (2) Paroxysmal atrial fibrillation: (3) Acute respiratory failure with hypoxia: (4) CHF (congestive heart failure): (5) COPD, moderate: The patient is 100% paced and I think we have accomplished what we set out to do without him having to have the His bundle ablation. His heart failure has improved with IV diuretics and they should be continued through today. I have added hydralazine to his nitrate as his renal function limits our use of an EKTA inhibitor or ARB. I am not sure why his amiodarone was discontinued on admission but I will restart this medication. I will reassess the patient tomorrow. Subjective The patient had an uneventful night. He is still 100% paced. He had a large diuresis yesterday and his weight is down to 83 kg. In general he is feeling better. Review of Systems Review of Systems: All systems reviewed & are unremarkable except as noted in HPI & below Nothing additional to add. Physical Exam Physical Exam: General: no acute distress and stated age Head: normocephalic, no masses, lesions, tenderness or abnormalities Eyes: conjunctiva are pink and non-injected, sclera clear Neck: supple, no adenopathy, no bruits, normal jugular venous pulse, no hepatojugular reflux Chest: normal shape and normal respiratory effort Lungs: Crackles at the left lung base Cardiac Exam: - regular rate & rhythm, no murmurs gallops or rubs - normal S1, normal S2 Pulses: 2(+) throughout Abdomen: abdomen soft, non-tender, no abnormal masses and no hepatosplenomegaly Musculoskeletal: no gait disturbance, no joint inflammation, no deforming arthritis Extremities: no edema and no cyanosis Neuro: grossly normal exam Results & Data Vital Signs (Past 12 Hours) Vital Signs Temp Pulse Resp BP BP Pulse Ox 05/30/19 07:53 36.4 C L 80 18 143/68 H 96 05/30/19 07:02 80 16 97 05/30/19 03:13 36.6 C 77 20 131/77 96 05/30/19 01:13 78 20 98 05/29/19 23:39 36.5 C 74 20 142/73 H 98 Laboratory Results Laboratory Results - last 24 hr 05/29/19 05/29/19 05/29/19 16:47 16:47 16:47 Hgb Hct PT INR ABG pH 7.47 H ABG pCO2 35 ABG pO2 82 ABG HCO3 25 H ABG O2 Saturation 96.2 H ABG Base Excess 1.4 [place]row Test Pos Barometric Pressure 732.4 Oxygen Given Room Air Sodium Potassium Chloride Carbon Dioxide Anion Gap BUN Creatinine Est Cr Clr Drug Dosing Est GFR ( Amer) Est GFR (Non-Af Amer) BUN/Creatinine Ratio Glucose Calcium Magnesium NT-Pro-B Natriuret Pep 2398 H Procalcitonin < 0.05 05/30/19 05/30/19 05/30/19 06:41 06:41 06:41 Hgb 10.6 L Hct 32.7 L PT 20.9 H INR 2.2 H ABG pH ABG pCO2 ABG pO2 ABG HCO3 ABG O2 Saturation ABG Base Excess [place]row Test Barometric Pressure Oxygen Given Sodium 140 Potassium 3.6 Chloride 102 Carbon Dioxide 27 Anion Gap 11.0 BUN 57 H Creatinine 2.43 H Est Cr Clr Drug Dosing 24.2 Est GFR ( Amer) 27.5 Est GFR (Non-Af Amer) 23.7 BUN/Creatinine Ratio 23.3 H Glucose 189 H Calcium 8.4 L Magnesium 2.2 NT-Pro-B Natriuret Pep Procalcitonin Medications Administered Current Inpatient Medications Acetaminophen (Tylenol) 650 mg PO Q4H PRN PRN Reason: Pain or Fever Stop: 06/24/19 02:57 Hydrocodone Bitart/Acetaminophen ([place] 5/325) 1 tab PO Q4 PRN PRN Reason: Pain Stop: 06/08/19 02:57 Last Admin: 05/27/19 16:31 Dose: 1 tab Documented by: Allopurinol (Zyloprim) 300 mg PO DAILY [facility] Stop: 06/24/19 08:59 Last Admin: 05/30/19 09:37 Dose: 300 mg Documented by: Amiodarone HCl (Cordarone) 200 mg PO QAM [facility] Stop: 06/29/19 10:29 Aspirin (Ecotrin Ectab) 81 mg PO QAM [facility] Stop: 06/24/19 08:59 Last Admin: 05/30/19 09:37 Dose: 81 mg Documented by: Atorvastatin Calcium (Lipitor) 40 mg PO QPM [facility] Stop: 06/24/19 20:59 Last Admin: 05/29/19 19:45 Dose: 40 mg Documented by: Carvedilol (Coreg) 3.125 mg PO BID [facility] Stop: 06/28/19 10:59 Last Admin: 05/30/19 09:37 Dose: 3.125 mg Documented by: Docusate Sodium (Colace) 100 mg PO BID [facility] Stop: 06/29/19 09:44 Doxycycline Hyclate (Vibramycin) 100 mg PO Q12H [facility] Stop: 06/04/19 17:59 Last Admin: 05/30/19 05:32 Dose: 100 mg Documented by: Fluticasone/Umeclidinium/Vilanterol (Trelegy Ellipta 100-62.5-25) 1 ea INH DAILY [facility] Stop: 06/29/19 08:59 Last Admin: 05/30/19 09:38 Dose: 1 ea Documented by: Gabapentin (Neurontin) 100 mg PO QDL [facility] Stop: 06/24/19 11:29 Last Admin: 05/29/19 11:33 Dose: 100 mg Documented by: Gabapentin (Neurontin) 200 mg PO HS [facility] Stop: 06/24/19 20:59 Last Admin: 05/29/19 19:46 Dose: 200 mg Documented by: Guaifenesin (Mucinex) 600 mg PO Q12 [facility] Stop: 06/24/19 02:59 Last Admin: 05/30/19 09:37 Dose: 600 mg Documented by: Hydralazine HCl (Apresoline) 10 mg PO BID [facility] Stop: 06/29/19 10:29 Hydromorphone HCl (Dilaudid) 0.25 mg IV Q3H PRN PRN Reason: Pain Stop: 06/08/19 22:31 Last Admin: 05/25/19 23:49 Dose: 0.25 mg Documented by: Methylprednisolone 40 mg/ (Syringe) 0.64 mls @ 1.5 mls/min IV Q8H [facility] Stop: 06/28/19 07:59 Last Admin: 05/30/19 07:47 Dose: 1.5 mls/min Documented by: Furosemide 80 mg/ Syringe 8 mls @ 4 mls/min IV BID17 [facility] Stop: 06/28/19 10:59 Last Admin: 05/30/19 09:36 Dose: 4 mls/min Documented by: Ipratropium [place] (Atrovent 0.02% 0.5mg/2.5ml) 0.5 mg INH Q4H PRN PRN Reason: Shortness Of Breath Or Wheezing Stop: 06/24/19 02:57 Last Admin: 05/29/19 10:59 Dose: 0.5 mg Documented by: Ipratropium [place] (Atrovent 0.02% 0.5mg/2.5ml) 0.5 mg INH Q6R [facility] Stop: 06/27/19 08:14 Last Admin: 05/30/19 01:11 Dose: 0.5 mg Documented by: Isosorbide Dinitrate (Isordil) 10 mg PO BID@0700,1200 [facility] Stop: 06/24/19 06:59 Last Admin: 05/30/19 07:41 Dose: 10 mg Documented by: Levalbuterol HCl (Xopenex 1.25mg/0.5ml Neb) 1.25 mg INH Q4H PRN PRN Reason: Shortness Of Breath Or Wheezing Stop: 06/24/19 02:57 Last Admin: 05/29/19 10:59 Dose: 1.25 mg Documented by: Levalbuterol HCl (Xopenex 1.25mg/0.5ml Neb) 1.25 mg INH Q6R [facility] Stop: 06/27/19 08:14 Last Admin: 05/30/19 07:02 Dose: 1.25 mg Documented by: Levothyroxine Sodium (Synthroid) 12.5 mcg PO DAILYBB [facility] Stop: 06/24/19 06:29 Last Admin: 05/30/19 05:31 Dose: 12.5 mcg Documented by: Meclizine HCl (Antivert) 12.5 mg PO TID PRN PRN Reason: Vertigo Stop: 06/24/19 02:57 Last Admin: 05/26/19 08:56 Dose: 12.5 mg Documented by: Metoprolol Succinate (Toprol Xl) 25 mg PO QAM [facility] Stop: 06/25/19 08:59 Last Admin: 05/30/19 09:38 Dose: 25 mg Documented by: Nitroglycerin (Nitrostat) 0.4 mg SL UD PRN PRN Reason: Chest Pain Stop: 06/24/19 02:57 Ondansetron HCl (Zofran Odt) 4 mg PO Q8H PRN PRN Reason: Nausea Stop: 06/24/19 02:57 Pantoprazole Sodium (Protonix) 40 mg PO AMHS [facility] Stop: 06/24/19 08:59 Last Admin: 05/30/19 09:36 Dose: 40 mg Documented by: Polyethylene Glycol (Miralax Powder Packet) 17 gm PO DAILY PRN PRN Reason: Constipation Stop: 06/26/19 00:14 Potassium Chloride (Klor-Con M10) 20 meq PO BID [facility] Stop: 06/24/19 08:59 Last Admin: 05/30/19 09:37 Dose: 20 meq Documented by: Ropinirole HCl (Requip) 2 mg PO HS [facility] Stop: 06/24/19 20:59 Last Admin: 05/29/19 19:44 Dose: 2 mg Documented by: Sucralfate (Carafate Tab) 1 gm PO BID [facility] Stop: 06/24/19 08:59 Last Admin: 05/30/19 09:37 Dose: 1 gm Documented by: Warfarin Sodium (Coumadin) 2 mg PO MoWeFr@1600 [facility] Stop: 06/25/19 15:59 Last Admin: 05/29/19 16:02 Dose: 2 mg Documented by: Warfarin Sodium (Coumadin) 3 mg PO SuTuThSa@1600 [facility] Stop: 06/29/19 15:59 (1) CHF (congestive heart failure) Heart failure chronicity: acute on chronic Heart failure type: unspecified Qualified Code(s): I50.9 - Heart failure, unspecified
[2019-05-30] MEDS: DOCUSATE SODIUM 100 MG CAP PO SCH ×2 (10:38→20:33)
[2019-05-30] MEDS: HydrALAZINE 10 MG TAB PO SCH ×2 (11:37→20:33)
[2019-05-30] MEDS: GABAPENTIN 100 MG CAP PO SCH ×2 (11:39→20:33)
[2019-05-30] MEDS: POLYETHYLENE (MIRALAX) 17 GM PACK PO PRN (11:43)
--- NOTE | 2019-05-30 15:10 | Pulmonology Progress Note ---
Date of Service May 30, 2019 Assessment & Plan (1) COPD, moderate: All work-up completed [facility] Patient seems to be responding to steroids and nebulizer treatments Continue a total of 5 days of steroids then stop Continue with diuretics as tolerated Maintain SaO2 between 88 and 92% Ambulate as tolerated Elevated proBNP ABG revealed slight alkalosis to 7.47 PCO2 35, PaO2 82, P HCO3 25, SaO2 96.2% on room air Procalcitonin is negative Continue current treatment plan for CHF and ischemic cardiomyopathy (2) Paroxysmal atrial fibrillation: Cardiology following Patient interrogation shows chronic paroxysmal atrial fibrillation since 05/11/2019 Continue management per cardiology Cardiology note reviewed (3) CHF (congestive heart failure): Echocardiogram as listed above Decreased left ventricular ejection fraction but no significant valvular abnormality Positive for wall motion abnormality Patient with history of ID Continue diuretics as tolerated Patient currently with acute kidney injury secondary diuresis Continue to treat for underlying COPD Further management by cardiology Heart failure chronicity: acute on chronic Heart failure type: unspecified Qualified Code(s): I50.9 - Heart failure, unspecified (4) Bilateral carotid bruits: Patient with history of CVA Patient unclear as if he ever had carotid ultrasound completed Carotid bruit should not be confused with transmitted pulmonary wheezes No evidence of stridor on exam Further management per primary team (5) Obstructive sleep apnea: Continue home CPAP ABG with no hypercapnia All work-up and management completed at [facility] Follows with [facility] Thank you very much for including us in the care of this patient. We will sign off at this time. Please feel free to reconsult as needed. Please refer to Dr. Mirza's addendum for further recommendations. Subjective Attending: Dr. Mirza Is a 83-year-old male that was admitted for shortness of breath. He has moderate COPD. All of his work-up has been on at [facility]. Patient was seen yesterday by the pulmonary service and and comparison is much better today. Patient reports that his breathing is better. He has some minimal cough with no significant sputum production. He denies fever cough chills sweats or night sweats. Procalcitonin was negative. ABG shows compensated respiratory failure. Patient is on CPAP at home and is using his home device here in the hospital and tolerating well. Patient has no other acute complaints. Review of Systems Review of Systems: All systems reviewed & are unremarkable except as noted in HPI & below Physical Exam Physical Exam: GENERAL : No acute distress EYES: No icterus, gaze conjugate NOSE: No evidence of epistaxis MOUTH: No lesions or candidiasis NECK: Supple. Bilateral carotid bruits LUNGS: CTA B/L, no wheezes, rales or rhonchi. Good inspirational effort HEART: Regular, rate controlled. No evidence of murmurs on today's exam ABDOMEN: Soft, NT, ND, BS Present EXTREMITIES: +1 bilateral LE edema, pedal pulses intact. NEURO: A&OX3 Results & Data Vital Signs (Past 12 Hours) Vital Signs Temp Pulse Resp BP BP Pulse Ox 05/30/19 13:44 73 16 97 05/30/19 10:44 36.5 C 77 20 129/71 95 05/30/19 07:53 36.4 C L 80 18 143/68 H 96 05/30/19 07:02 80 16 97 05/30/19 03:13 36.6 C 77 20 131/77 96 Laboratory Results 05/30/19 06:41 05/30/19 06:41 Diagnostic Findings No further diagnostic imaging since 05/28/2019 PG Care Time/CCT Total # of Minutes Spent Total Time Spent with Patient: Total time spent is greater than 50% in coordination of care (as documented) at patient's floor/unit and/or counseling patient:
[2019-05-30] MEDS: WARFARIN SOD 3 MG TAB PO SCH (16:14)
--- NOTE | 2019-05-30 17:35 | Hospitalist Progress Note ---
Date of Service May 30, 2019 Assessment & Plan (1) CHF (congestive heart failure): Acute on chronic respiratory failure with hypoxia Likely secondary to COPD and acute systolic CHF exacerbation On BiPAP nightly with 2 L of oxygen at baseline History of ischemic cardiomyopathy Chest x-ray: Cardiomegaly and volume overload, Pulmonary hypertension Last EF: 35 to 39% TTE October 2018 Updated ECHO: EF-25-30%, Regional wall motion abnormality, moderate to severe MR, left atrium is severely dilated, left ventricular moderately dilated Volume status managed with diuretics--IV Lasix 60 mg twice daily Continue DuoNeb, IV Solu-Medrol Taper down steroids as able Continue Doxycycline Normal procalcitonin Pulmonary hygiene Cardiac enzymes negative Appreciate cardiology/Pulmonology input Monitor I's and O's, daily weight, electrolytes and renal function Continue fluid restriction Continue BiPAP with Oxygen QHS Volume status improved Added hydralazine Continue IV diuresis as per cardiology CAD S/P Stent H/O ICD, Chronic LBBB H/O PVD Continue aspirin, statin, carvedilol, isosorbide, hydralazine Constipation KUB: Moderate increase in fecal load of the proximal colon. No obstructive characteristics. Continue bowel regimen Hypertension stable Continue Coreg Also started on hydralazine A. 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 Monitor renal function while on IV Diuretics Avoid nephrotoxic agents as able Cr at baseline Chronic anemia secondary to CKD Hb at baseline DVT Px: On Coumadin Code Status Full Code Disposition: PT/OT prior to discharge Subjective Patient is seen and examined at bedside States feeling much better today SOB much improved cough improving Denies chest pain, dizziness, nausea, abdominal pain Discussed with Cardiology Today Review of Systems Review of Systems: All systems reviewed & are unremarkable except as noted in HPI & below Physical Exam Physical Exam: Physical Exam: Vitals signs as noted above General Appearance:Moderately built and nourished, no distress Head: normocephalic, Atraumatic Eyes: normal inspection, EOMI Neck: supple, Trachea midline Respiratory/Chest: Decreased coarse breath sounds, CTA Cardiovascular: S1, S2, No murmur Abdomen/GI:Soft, Left sided tender, Bowel sounds present Extremities/Musculoskelatal:normal inspection, 1+ B/L LE edema Neurologic/Psych:AAOX3, grossly no focal neurological deficits Skin: normal color, warm Results & Data Vital Signs (Past 12 Hours) Vital Signs Temp Pulse Resp BP Pulse Ox 05/30/19 15:20 36.5 C 77 19 127/66 96 05/30/19 13:44 73 16 97 05/30/19 10:44 36.5 C 77 20 129/71 95 05/30/19 07:53 36.4 C L 80 18 143/68 H 96 05/30/19 07:02 80 16 97 Laboratory Results Short CBC 05/30/19 Range/Units 06:41 Hgb 10.6 L (14.0-18.0) g/dL Hct 32.7 L (42-52) % BMP 05/30/19 06:41 Sodium 140 Potassium 3.6 Chloride 102 Carbon Dioxide 27 BUN 57 H Creatinine 2.43 H Glucose 189 H Calcium 8.4 L (1) CHF (congestive heart failure) Heart failure chronicity: acute on chronic Heart failure type: unspecified Qualified Code(s): I50.9 - Heart failure, unspecified
[2019-05-30] MEDS: ATORVASTATIN 40 MG TAB PO SCH (20:32)
[2019-05-30] MEDS: ROPINIROLE HCL 1 MG TABLET PO SCH (20:32)
[2019-05-31] MEDS: LEVALBUTEROL 1.25MG/0.5ML NEB INH SCH ×4 (01:27→19:12)
[2019-05-31] MEDS: IPRATROPIUM BROMIDE NEB SOLN 0.02% 2.5 ML VIAL INH SCH ×4 (01:28→19:12)
[2019-05-31] MEDS: LEVOTHYROXINE SODIUM 25 MCG TABLET PO SCH (05:20)
[2019-05-31] MEDS: methylPREDNISolone 40 MG in SYRINGE 0 ML IV SCH ×2 (05:21→15:39)
[2019-05-31] MEDS: DOXYCYCLINE HYCLATE 100 MG CAP PO SCH ×2 (05:21→17:48)
[2019-05-31 07:46] LABS: Hematocrit (blood only) 34.6 % (42-52); Hemoglobin 11.3 g/dL (14.0-18.0); Mean Corpuscular Hemoglobin 30.1 pg (25-34); Mean Corpuscular Hgb Conc 32.7 g/dL (32-36); Mean Corpuscular Volume 92.3 fL (80-100); Mean Platelet Volume 10.5 fL (7.4-10.4); Nucleated RBC # (auto) 0.02 K/uL (0-0); Nucleated RBC % (auto) 0.2 %; Platelet Count 203 K/uL (130-400); RDW Coefficient of Variation 17.4 % (11.5-14.5); RDW Standard Deviation 59.2 fL (36.4-46.3); Red Blood Count 3.75 M/uL (4.7-6.1); White Blood Count 12.41 K/uL (4.8-10.8)
[2019-05-31 08:16] LABS: INR 2.2 (0.9-1.1); Prothrombin Time 21.7 Seconds (9.0-12.0)
[2019-05-31 08:20] LABS: BUN Creatinine Ratio 25.3 (10-20); Calcium 8.7 mg/dl (8.5-10.1); Creatinine Clr Calc Pharmacy 23.2 ml/min; Est GFR (African American) 26.3; Est GFR (Non-African American) 22.7; Potassium 3.3 mmol/L (3.5-5.1)
[2019-05-31] MEDS: METOPROLOL SUCC 25MG EXT REL TAB PO SCH (08:28)
[2019-05-31] MEDS: PANTOprazole 40 MG TAB PO SCH ×2 (08:28→20:21)
[2019-05-31] MEDS: ISOSORBIDE DINITRATE 10 MG TAB PO SCH ×2 (08:28→11:31)
[2019-05-31] MEDS: FUROSEMIDE 80 MG in SYRINGE 0 ML IV SCH (08:28)
[2019-05-31] MEDS: HydrALAZINE 10 MG TAB PO SCH (08:29)
[2019-05-31] MEDS: SUCRALFATE 1 GM TAB PO SCH ×2 (08:29→20:24)
[2019-05-31] MEDS: ASPIRIN 81 MG ECTAB PO SCH (08:29)
[2019-05-31] MEDS: allopurinoL 300 MG TAB PO SCH (08:29)
[2019-05-31] MEDS: FLUTICASONE/UMECLIDIN/VILANTER INH SCH (08:30)
[2019-05-31] MEDS: DOCUSATE SODIUM 100 MG CAP PO SCH ×2 (08:30→20:27)
[2019-05-31] MEDS: POTASSIUM CHLORIDE 10 MEQ TABCR PO SCH ×2 (08:30→20:25)
[2019-05-31] MEDS: guaiFENesin 600 MG TABCR PO SCH ×2 (08:30→20:21)
--- NOTE | 2019-05-31 09:48 | Cardiology Progress Note ---
Date of Service May 31, 2019 Assessment & Plan (1) Ischemic cardiomyopathy: (2) Paroxysmal atrial fibrillation: (3) Acute respiratory failure with hypoxia: (4) CHF (congestive heart failure): (5) COPD, moderate: (6) Lung cancer: I am going to have a patient's pacemaker interrogated today. If he is in atrial fibrillation the plan is to hold his amiodarone. If he is not 100% paced, then I will increase his metoprolol. Today I increased his hydralazine to 25 mg twice daily. I also reduced his diuretics to 80 mg of Lasix p.o. twice daily. At present I believe that he is euvolemic. So far his creatinine is holding at 2.52. He has a follow-up appointment with nephrology on June 06. Subjective The patient continues to feel improved. No new cardiac complaints today. Review of Systems Review of Systems: All systems reviewed & are unremarkable except as noted in HPI & below Nothing additional. Physical Exam Physical Exam: General: no acute distress and stated age Head: normocephalic, no masses, lesions, tenderness or abnormalities Eyes: conjunctiva are pink and non-injected, sclera clear Neck: supple, no adenopathy, no bruits, normal jugular venous pulse, no hepatojugular reflux Chest: normal shape and normal respiratory effort Lungs: clear to auscultation and percussion Cardiac Exam: - regular rate & rhythm, no murmurs gallops or rubs - normal S1, normal S2 Pulses: 2(+) throughout Abdomen: abdomen soft, non-tender, no abnormal masses and no hepatosplenomegaly Musculoskeletal: no gait disturbance, no joint inflammation, no deforming arthritis Extremities: no edema and no cyanosis Neuro: grossly normal exam Results & Data Vital Signs (Past 12 Hours) Vital Signs Temp Pulse Resp BP BP Pulse Ox 05/31/19 08:12 36.4 C L 75 18 148/77 H 97 05/31/19 07:00 77 16 98 05/31/19 05:17 36.7 C 76 19 131/71 96 05/31/19 01:29 80 18 96 05/30/19 23:53 36.5 C 74 18 147/76 H 96 Laboratory Results Laboratory Results - last 24 hr 05/31/19 05/31/19 05/31/19 07:18 07:18 07:18 WBC 12.41 H RBC 3.75 L Hgb 11.3 L Hct 34.6 L MCV 92.3 MCH 30.1 MCHC 32.7 RDW Std Deviation 59.2 H RDW Coeff of [place]ael 17.4 H Plt Count 203 MPV 10.5 H Absolute Nucleated RBC 0.02 H Nucleated RBC % (auto) 0.2 PT 21.7 H INR 2.2 H Sodium 140 Potassium 3.3 L Chloride 102 Carbon Dioxide 27 Anion Gap 11.0 BUN 64 H Creatinine 2.52 H Est Cr Clr Drug Dosing 23.2 Est GFR ( Amer) 26.3 Est GFR (Non-Af Amer) 22.7 BUN/Creatinine Ratio 25.3 H Glucose 195 H Calcium 8.7 Medications Administered Current Inpatient Medications Acetaminophen (Tylenol) 650 mg PO Q4H PRN PRN Reason: Pain or Fever Stop: 06/24/19 02:57 Hydrocodone Bitart/Acetaminophen ([place] 5/325) 1 tab PO Q4 PRN PRN Reason: Pain Stop: 06/08/19 02:57 Last Admin: 05/27/19 16:31 Dose: 1 tab Documented by: Allopurinol (Zyloprim) 300 mg PO DAILY [facility] Stop: 06/24/19 08:59 Last Admin: 05/31/19 08:29 Dose: 300 mg Documented by: Amiodarone HCl (Cordarone) 200 mg PO QAM [facility] Stop: 06/29/19 10:29 Last Admin: 05/30/19 11:37 Dose: 200 mg Documented by: Aspirin (Ecotrin Ectab) 81 mg PO QAM [facility] Stop: 06/24/19 08:59 Last Admin: 05/31/19 08:29 Dose: 81 mg Documented by: Atorvastatin Calcium (Lipitor) 40 mg PO QPM [facility] Stop: 06/24/19 20:59 Last Admin: 05/30/19 20:32 Dose: 40 mg Documented by: Docusate Sodium (Colace) 100 mg PO BID [facility] Stop: 06/29/19 09:44 Last Admin: 05/31/19 08:30 Dose: 100 mg Documented by: Doxycycline Hyclate (Vibramycin) 100 mg PO Q12H [facility] Stop: 06/04/19 17:59 Last Admin: 05/31/19 05:21 Dose: 100 mg Documented by: Fluticasone/Umeclidinium/Vilanterol (Trelegy Ellipta 100-62.5-25) 1 ea INH DAILY [facility] Stop: 06/29/19 08:59 Last Admin: 05/31/19 08:30 Dose: 1 ea Documented by: Furosemide (Lasix) 80 mg PO BID17 [facility] Stop: 06/30/19 16:59 Gabapentin (Neurontin) 100 mg PO QDL [facility] Stop: 06/24/19 11:29 Last Admin: 05/30/19 11:39 Dose: 100 mg Documented by: Gabapentin (Neurontin) 200 mg PO HS [facility] Stop: 06/24/19 20:59 Last Admin: 05/30/19 20:33 Dose: 200 mg Documented by: Guaifenesin (Mucinex) 600 mg PO Q12 [facility] Stop: 06/24/19 02:59 Last Admin: 05/31/19 08:30 Dose: 600 mg Documented by: Hydralazine HCl (Apresoline) 25 mg PO BID [facility] Stop: 06/30/19 20:59 Hydromorphone HCl (Dilaudid) 0.25 mg IV Q3H PRN PRN Reason: Pain Stop: 06/08/19 22:31 Last Admin: 05/25/19 23:49 Dose: 0.25 mg Documented by: Methylprednisolone 40 mg/ (Syringe) 0.64 mls @ 1.5 mls/min IV Q12H [facility] Stop: 06/30/19 03:59 Last Admin: 05/31/19 05:21 Dose: 1.5 mls/min Documented by: Ipratropium [place] (Atrovent 0.02% 0.5mg/2.5ml) 0.5 mg INH Q4H PRN PRN Reason: Shortness Of Breath Or Wheezing Stop: 06/24/19 02:57 Last Admin: 05/29/19 10:59 Dose: 0.5 mg Documented by: Ipratropium [place] (Atrovent 0.02% 0.5mg/2.5ml) 0.5 mg INH Q6R [facility] Stop: 06/27/19 08:14 Last Admin: 05/31/19 06:58 Dose: 0.5 mg Documented by: Isosorbide Dinitrate (Isordil) 10 mg PO BID@0700,1200 [facility] Stop: 06/24/19 06:59 Last Admin: 05/31/19 08:28 Dose: 10 mg Documented by: Levalbuterol HCl (Xopenex 1.25mg/0.5ml Neb) 1.25 mg INH Q4H PRN PRN Reason: Shortness Of Breath Or Wheezing Stop: 06/24/19 02:57 Last Admin: 05/29/19 10:59 Dose: 1.25 mg Documented by: Levalbuterol HCl (Xopenex 1.25mg/0.5ml Neb) 1.25 mg INH Q6R [facility] Stop: 06/27/19 08:14 Last Admin: 05/31/19 06:58 Dose: 1.25 mg Documented by: Levothyroxine Sodium (Synthroid) 12.5 mcg PO DAILYBB [facility] Stop: 06/24/19 06:29 Last Admin: 05/31/19 05:20 Dose: 12.5 mcg Documented by: Meclizine HCl (Antivert) 12.5 mg PO TID PRN PRN Reason: Vertigo Stop: 06/24/19 02:57 Last Admin: 05/26/19 08:56 Dose: 12.5 mg Documented by: Metoprolol Succinate (Toprol Xl) 25 mg PO QAM [facility] Stop: 06/25/19 08:59 Last Admin: 05/31/19 08:28 Dose: 25 mg Documented by: Nitroglycerin (Nitrostat) 0.4 mg SL UD PRN PRN Reason: Chest Pain Stop: 06/24/19 02:57 Ondansetron HCl (Zofran Odt) 4 mg PO Q8H PRN PRN Reason: Nausea Stop: 06/24/19 02:57 Pantoprazole Sodium (Protonix) 40 mg PO AMHS [facility] Stop: 06/24/19 08:59 Last Admin: 05/31/19 08:28 Dose: 40 mg Documented by: Polyethylene Glycol (Miralax Powder Packet) 17 gm PO DAILY PRN PRN Reason: Constipation Stop: 06/26/19 00:14 Last Admin: 05/30/19 11:43 Dose: 17 gm Documented by: Potassium Chloride (Klor-Con M10) 20 meq PO BID [facility] Stop: 06/24/19 08:59 Last Admin: 05/31/19 08:30 Dose: 20 meq Documented by: Ropinirole HCl (Requip) 2 mg PO HS [facility] Stop: 06/24/19 20:59 Last Admin: 05/30/19 20:32 Dose: 2 mg Documented by: Sucralfate (Carafate Tab) 1 gm PO BID [facility] Stop: 06/24/19 08:59 Last Admin: 05/31/19 08:29 Dose: 1 gm Documented by: Warfarin Sodium (Coumadin) 2 mg PO MoWeFr@1600 [facility] Stop: 06/25/19 15:59 Last Admin: 05/29/19 16:02 Dose: 2 mg Documented by: Warfarin Sodium (Coumadin) 3 mg PO SuTuThSa@1600 [facility] Stop: 06/29/19 15:59 Last Admin: 05/30/19 16:14 Dose: 3 mg Documented by: (1) CHF (congestive heart failure) Heart failure chronicity: acute on chronic Heart failure type: unspecified Qualified Code(s): I50.9 - Heart failure, unspecified
[2019-05-31] MEDS: GABAPENTIN 100 MG CAP PO SCH ×2 (12:10→20:23)
[2019-05-31] MEDS: WARFARIN SOD 2 MG TAB PO SCH (15:40)
--- NOTE | 2019-05-31 16:21 | Hospitalist Progress Note ---
Date of Service May 31, 2019 Assessment & Plan (1) Paroxysmal atrial fibrillation: (2) Ischemic cardiomyopathy: (3) Acute systolic HF (heart failure): acute on chronic respiratory failure with hypoxia Likely secondary to COPD and acute systolic CHF exacerbation On BiPAP nightly with 2 L of oxygen at baseline History of ischemic cardiomyopathy Chest x-ray: Cardiomegaly and volume overload, Pulmonary hypertension Last EF: 35 to 39% TTE October 2018 Updated ECHO: EF-25-30%, Regional wall motion abnormality, moderate to severe MR, left atrium is severely dilated, left ventricular moderately dilated Volume status managed with diuretics--IV Lasix 60 mg twice daily Continue DuoNeb, IV Solu-Medrol Taper down steroids as able Continue Doxycycline Normal procalcitonin Pulmonary hygiene Cardiac enzymes negative Appreciate cardiology/Pulmonology input Monitor I's and O's, daily weight, electrolytes and renal function Continue fluid restriction Continue BiPAP with Oxygen QHS Volume status improved Added hydralazine Continue IV diuresis as per cardiology CAD S/P Stent H/O ICD, Chronic LBBB H/O PVD Continue aspirin, statin, carvedilol, isosorbide, hydralazine Constipation KUB: Moderate increase in fecal load of the proximal colon. No obstructive characteristics. Continue bowel regimen Hypertension stable Continue Coreg /hydralazine (4) Acute respiratory failure with hypoxia: presented with acute on chronic respiratory failure with hypoxia Likely secondary to COPD and acute systolic CHF exacerbation symptom has improved with diuresis hypoxia resolved , remains in room air pt treated with iV solu Medrol for COPD exacerbation cont neb tx Pulm consulted, apperciate input (5) COPD, moderate: (6) HTN (hypertension): Subjective pt reports of " feeling fine " no audible wheeze , no cough or SOB no hypoxia denies of any chest heaviness , no palpitation or dizzy spell walked on the [address] earlier denies of any PANCHAL Review of Systems Review of Systems: All systems reviewed & are unremarkable except as noted in HPI & below Physical Exam Constitutional: WD/WN, vitals as above no acute distress Eyes: PERRL, conjunctivae normal, anicteric sclerae ENMT: external ear and nose normal, oropharynx normal Neck: trachea midline, no thyromegaly Respiratory: no respiratory distress, no hyperresonance to percussion, no tactile fremitus and no cough Auscultation: + rales and + wheezes Cardiovascular: Rate/Rhythm: + abnormal rhythm Vessels: no JVD Extremities: normal capillary refill; no pedal edema Gastrointestinal (Abdomen): normal bowel sounds, soft, nontender, no hepatosplenomegaly Musculoskeletal: no cyanosis or clubbing, extremities motor strength 5/5 Skin: no rashes, warm and dry Neurologic: PERRL, EOMI, accommodation nl, no face palsy, no dysarthria Psychiatric: A+Ox3, euthymic affect Results & Data Vital Signs (Past 12 Hours) Vital Signs Temp Pulse Pulse Resp BP BP Pulse Ox 05/31/19 16:00 82 05/31/19 15:26 36.4 C L 78 20 130/68 95 05/31/19 13:27 77 16 97 05/31/19 11:49 36.4 C L 75 17 143/75 H 95 05/31/19 08:12 36.4 C L 75 18 148/77 H 97 05/31/19 07:00 77 16 98 05/31/19 05:17 36.7 C 76 19 131/71 96
[2019-05-31] MEDS: FUROSEMIDE 80 MG TAB PO SCH (16:48)
[2019-05-31] MEDS: POLYETHYLENE (MIRALAX) 17 GM PACK PO PRN (18:08)
[2019-05-31] MEDS: ROPINIROLE HCL 1 MG TABLET PO SCH (20:23)
[2019-05-31] MEDS: ATORVASTATIN 40 MG TAB PO SCH (20:24)
[2019-06-01] MEDS: LEVALBUTEROL 1.25MG/0.5ML NEB INH SCH ×3 (00:50→13:24)
[2019-06-01] MEDS: IPRATROPIUM BROMIDE NEB SOLN 0.02% 2.5 ML VIAL INH SCH ×3 (00:50→13:24)
[2019-06-01] MEDS: methylPREDNISolone 40 MG in SYRINGE 0 ML IV SCH ×2 (04:01→16:08)
[2019-06-01] MEDS: DOXYCYCLINE HYCLATE 100 MG CAP PO SCH ×2 (05:55→18:56)
[2019-06-01] MEDS: LEVOTHYROXINE SODIUM 25 MCG TABLET PO SCH (05:55)
[2019-06-01] MEDS: ISOSORBIDE DINITRATE 10 MG TAB PO SCH ×2 (05:55→12:49)
[2019-06-01 07:16] LABS: INR 2.7 (0.9-1.1); Prothrombin Time 26.1 Seconds (9.0-12.0)
[2019-06-01] MEDS: SUCRALFATE 1 GM TAB PO SCH ×2 (07:20→21:06)
[2019-06-01] MEDS: allopurinoL 300 MG TAB PO SCH (07:20)
[2019-06-01] MEDS: POTASSIUM CHLORIDE 10 MEQ TABCR PO SCH ×2 (07:20→21:05)
[2019-06-01] MEDS: ASPIRIN 81 MG ECTAB PO SCH (07:20)
[2019-06-01] MEDS: guaiFENesin 600 MG TABCR PO SCH ×2 (07:20→21:06)
[2019-06-01] MEDS: FUROSEMIDE 80 MG TAB PO SCH (07:21)
[2019-06-01] MEDS: PANTOprazole 40 MG TAB PO SCH ×2 (07:21→21:06)
[2019-06-01] MEDS: FLUTICASONE/UMECLIDIN/VILANTER INH SCH (07:21)
[2019-06-01] MEDS: METOPROLOL SUCC 25MG EXT REL TAB PO SCH (07:21)
[2019-06-01] MEDS: DOCUSATE SODIUM 100 MG CAP PO SCH ×2 (07:29→21:08)
[2019-06-01] MEDS: POLYETHYLENE (MIRALAX) 17 GM PACK PO PRN (07:30)
[2019-06-01 07:37] LABS: BUN Creatinine Ratio 27.1 (10-20); Calcium 8.4 mg/dl (8.5-10.1); Creatinine Clr Calc Pharmacy 22.7 ml/min; Est GFR (African American) 25.5; Potassium 3.5 mmol/L (3.5-5.1)
[2019-06-01] MEDS: GABAPENTIN 100 MG CAP PO SCH ×2 (12:49→21:05)
--- NOTE | 2019-06-01 14:34 | Cardiology Progress Note ---
Date of Service June 01, 2019 Assessment & Plan (1) Ischemic cardiomyopathy: (2) Paroxysmal atrial fibrillation: (3) Acute respiratory failure with hypoxia: (4) CHF (congestive heart failure): (5) COPD, moderate: (6) Lung cancer: The patient is clinically stable. I believe that he is now euvolemic. He was taking torsemide at home and I will switch him to 20 mg of torsemide twice daily and discontinue the Lasix. He has [facility] at home and they should be notified of his discharge. He is now almost 100% paced and I would continue off of amiodarone as he is now in persistent atrial fibrillation. I would continue the metoprolol at its current dosage. Possible discharge for tomorrow. Subjective No new cardiac complaints today. The patient's pacemaker was interrogated and he is near 100% paced. Review of Systems Review of Systems: All systems reviewed & are unremarkable except as noted in HPI & below Nothing additional. Physical Exam Physical Exam: General: no acute distress and stated age Head: normocephalic, no masses, lesions, tenderness or abnormalities Eyes: conjunctiva are pink and non-injected, sclera clear Neck: supple, no adenopathy, no bruits, normal jugular venous pulse, no hepatojugular reflux Chest: normal shape and normal respiratory effort Lungs: clear to auscultation and percussion Cardiac Exam: - regular rate & rhythm, no murmurs gallops or rubs - normal S1, normal S2 Pulses: 2(+) throughout Abdomen: abdomen soft, non-tender, no abnormal masses and no hepatosplenomegaly Musculoskeletal: no gait disturbance, no joint inflammation, no deforming arthritis Extremities: no edema and no cyanosis Neuro: grossly normal exam Results & Data Vital Signs (Past 12 Hours) Vital Signs Temp Pulse Pulse Resp BP Pulse Ox 06/01/19 13:24 71 16 98 06/01/19 12:09 36.6 C 78 17 129/58 L 95 06/01/19 07:31 80 17 97 06/01/19 07:14 36.4 C L 78 18 150/75 H 98 06/01/19 04:00 36.5 C 76 16 117/72 95 Laboratory Results Laboratory Results - last 24 hr 06/01/19 06/01/19 06:24 06:24 PT 26.1 H INR 2.7 H Sodium 138 Potassium 3.5 Chloride 101 Carbon Dioxide 29 Anion Gap 8.0 BUN 70 H Creatinine 2.58 H Est Cr Clr Drug Dosing 22.7 Est GFR ( Amer) 25.5 Est GFR (Non-Af Amer) 22.0 BUN/Creatinine Ratio 27.1 H Glucose 234 H Calcium 8.4 L Medications Administered Current Inpatient Medications Acetaminophen (Tylenol) 650 mg PO Q4H PRN PRN Reason: Pain or Fever Stop: 06/24/19 02:57 Hydrocodone Bitart/Acetaminophen ([place] 5/325) 1 tab PO Q4 PRN PRN Reason: Pain Stop: 06/08/19 02:57 Last Admin: 05/27/19 16:31 Dose: 1 tab Documented by: Allopurinol (Zyloprim) 300 mg PO DAILY ARNULFO Stop: 06/24/19 08:59 Last Admin: 06/01/19 07:20 Dose: 300 mg Documented by: Aspirin (Ecotrin Ectab) 81 mg PO QAM [facility]ULFO Stop: 06/24/19 08:59 Last Admin: 06/01/19 07:20 Dose: 81 mg Documented by: Atorvastatin Calcium (Lipitor) 40 mg PO QPM [facility] Stop: 06/24/19 20:59 Last Admin: 05/31/19 20:24 Dose: 40 mg Documented by: Docusate Sodium (Colace) 100 mg PO BID [facility] Stop: 06/29/19 09:44 Last Admin: 06/01/19 07:29 Dose: 100 mg Documented by: Doxycycline Hyclate (Vibramycin) 100 mg PO Q12H [facility]FO Stop: 06/04/19 17:59 Last Admin: 06/01/19 05:55 Dose: 100 mg Documented by: Fluticasone/Umeclidinium/Vilanterol (Trelegy Ellipta 100-62.5-25) 1 ea INH DAILY [facility] Stop: 06/29/19 08:59 Last Admin: 06/01/19 07:21 Dose: 1 ea Documented by: Gabapentin (Neurontin) 100 mg PO QDL [facility]FO Stop: 06/24/19 11:29 Last Admin: 06/01/19 12:49 Dose: 100 mg Documented by: Gabapentin (Neurontin) 200 mg PO HS [facility] Stop: 06/24/19 20:59 Last Admin: 05/31/19 20:23 Dose: 200 mg Documented by: Guaifenesin (Mucinex) 600 mg PO Q12 [facility] Stop: 06/24/19 02:59 Last Admin: 06/01/19 07:20 Dose: 600 mg Documented by: Hydralazine HCl (Apresoline) 25 mg PO BID [facility] Stop: 06/30/19 20:59 Last Admin: 06/01/19 07:21 Dose: 25 mg Documented by: Hydromorphone HCl (Dilaudid) 0.25 mg IV Q3H PRN PRN Reason: Pain Stop: 06/08/19 22:31 Last Admin: 05/25/19 23:49 Dose: 0.25 mg Documented by: Methylprednisolone 40 mg/ (Syringe) 0.64 mls @ 1.5 mls/min IV Q12H [facility] Stop: 06/30/19 03:59 Last Admin: 06/01/19 04:01 Dose: 1.5 mls/min Documented by: Ipratropium [place] (Atrovent 0.02% 0.5mg/2.5ml) 0.5 mg INH Q4H PRN PRN Reason: Shortness Of Breath Or Wheezing Stop: 06/24/19 02:57 Last Admin: 05/29/19 10:59 Dose: 0.5 mg Documented by: Ipratropium [place] (Atrovent 0.02% 0.5mg/2.5ml) 0.5 mg INH Q6R [facility] Stop: 06/27/19 08:14 Last Admin: 06/01/19 13:24 Dose: 0.5 mg Documented by: Isosorbide Dinitrate (Isordil) 10 mg PO BID@0700,1200 [facility] Stop: 06/24/19 06:59 Last Admin: 06/01/19 12:49 Dose: 10 mg Documented by: Levalbuterol HCl (Xopenex 1.25mg/0.5ml Neb) 1.25 mg INH Q4H PRN PRN Reason: Shortness Of Breath Or Wheezing Stop: 06/24/19 02:57 Last Admin: 05/29/19 10:59 Dose: 1.25 mg Documented by: Levalbuterol HCl (Xopenex 1.25mg/0.5ml Neb) 1.25 mg INH Q6R [facility] Stop: 06/27/19 08:14 Last Admin: 06/01/19 13:24 Dose: 1.25 mg Documented by: Levothyroxine Sodium (Synthroid) 12.5 mcg PO DAILYBB [facility] Stop: 06/24/19 06:29 Last Admin: 06/01/19 05:55 Dose: 12.5 mcg Documented by: Meclizine HCl (Antivert) 12.5 mg PO TID PRN PRN Reason: Vertigo Stop: 06/24/19 02:57 Last Admin: 05/26/19 08:56 Dose: 12.5 mg Documented by: Metoprolol Succinate (Toprol Xl) 25 mg PO QAM [facility] Stop: 06/25/19 08:59 Last Admin: 06/01/19 07:21 Dose: 25 mg Documented by: Nitroglycerin (Nitrostat) 0.4 mg SL UD PRN PRN Reason: Chest Pain Stop: 06/24/19 02:57 Ondansetron HCl (Zofran Odt) 4 mg PO Q8H PRN PRN Reason: Nausea Stop: 06/24/19 02:57 Pantoprazole Sodium (Protonix) 40 mg PO AMHS [facility] Stop: 06/24/19 08:59 Last Admin: 06/01/19 07:21 Dose: 40 mg Documented by: Polyethylene Glycol (Miralax Powder Packet) 17 gm PO DAILY PRN PRN Reason: Constipation Stop: 06/26/19 00:14 Last Admin: 06/01/19 07:30 Dose: 17 gm Documented by: Potassium Chloride (Klor-Con M10) 20 meq PO BID [facility] Stop: 06/24/19 08:59 Last Admin: 06/01/19 07:20 Dose: 20 meq Documented by: Ropinirole HCl (Requip) 2 mg PO HS [facility] Stop: 06/24/19 20:59 Last Admin: 05/31/19 20:23 Dose: 2 mg Documented by: Sucralfate (Carafate Tab) 1 gm PO BID [facility] Stop: 06/24/19 08:59 Last Admin: 06/01/19 07:20 Dose: 1 gm Documented by: Torsemide (Demadex) 20 mg PO BID17 [facility] Stop: 07/01/19 16:59 Warfarin Sodium (Coumadin) 2 mg PO MoWeFr@1600 [facility] Stop: 06/25/19 15:59 Last Admin: 05/31/19 15:40 Dose: 2 mg Documented by: Warfarin Sodium (Coumadin) 3 mg PO Terrie@1600 [facility] Stop: 06/29/19 15:59 Last Admin: 05/30/19 16:14 Dose: 3 mg Documented by: (1) CHF (congestive heart failure) Heart failure chronicity: acute on chronic Heart failure type: unspecified Qualified Code(s): I50.9 - Heart failure, unspecified
[2019-06-01] MEDS: WARFARIN SOD 3 MG TAB PO SCH (16:09)
[2019-06-01] MEDS: TORSEMIDE 10 MG TAB PO SCH (16:09)
--- NOTE | 2019-06-01 17:47 | Hospitalist Progress Note ---
Date of Service June 01, 2019 Assessment & Plan (1) Paroxysmal atrial fibrillation: Paroxysmal A. fib: Now almost 100% paced with persistent A. fib Appreciate input from cardiology: Continue metoprolol, has been taken off amiodarone Coumadin for anticoagulation INR 2.7 (2) Ischemic cardiomyopathy: Severe ischemic cardiomyopathy status post AICD, presented with volume overload, appropriate diuresis by patient's diuretics dose will be adjusted to torsemide 20 mg twice daily and discontinue Lasix, volume status stable (3) Acute systolic HF (heart failure): Presented with acute on chronic respiratory failure with hypoxia Likely secondary to COPD and acute systolic CHF exacerbation On BiPAP nightly with 2 L of oxygen at baseline History of ischemic cardiomyopathy Chest x-ray: Cardiomegaly and volume overload, Pulmonary hypertension Last EF: 35 to 39% TTE October 2018 Updated ECHO: EF-25-30%, Regional wall motion abnormality, moderate to severe MR, left atrium is severely dilated, left ventricular moderately dilated Patient was diuresed adequately, with IV Lasix At present no wheeze or shortness of breath, will DC IV Solu-Medrol changed to p.o. prednisone Continue Doxycycline for bronchitis Cardiac enzymes negative Appreciate cardiology/Pulmonology input Largest dose adjusted to 20 mg twice daily by cardiology Continue BiPAP with Oxygen QHS CAD S/P Stent H/O ICD, Chronic LBBB H/O PVD No complaint of angina, Continue aspirin, statin, carvedilol, isosorbide, hydralazine Constipation KUB: Moderate increase in fecal load of the proximal colon. No obstructive characteristics. Continue bowel regimen Hypertension stable Continue Coreg /hydralazine (4) Acute respiratory failure with hypoxia: Resolved, respite status improved to baseline presented with acute on chronic respiratory failure with hypoxia Likely secondary to COPD and acute systolic CHF exacerbation symptom has improved with diuresis hypoxia resolved , remains in room air pt was treated with iV solu Medrol for COPD exacerbation cont neb tx IV Solu-Medrol discontinued, started on p.o. prednisone will do slow taper Pulm consulted, apperciate input (5) COPD, moderate: Baseline moderate COPD Presented with acute exacerbation, improved/resolution of respiratory symptoms with steroids nebulizer treatment, (6) HTN (hypertension): Pressure remains stable (7) CKD (chronic kidney disease), stage IV: Creatinine remains in approximate baseline, Diuretics dose adjusted CODE STATUS: Full code DVT prophylaxis:On Coumadin Disposition: Possible discharge home tomorrow if remains medically stable Subjective Needs to feel fine, no shortness of breath orthopnea no hypoxia no chest pain or cough Physical Exam Constitutional: WD/WN, vitals as above no acute distress Eyes: PERRL, conjunctivae normal, anicteric sclerae ENMT: external ear and nose normal, oropharynx normal Neck: trachea midline, no thyromegaly Respiratory: no respiratory distress, no hyperresonance to percussion, no tactile fremitus and no cough Auscultation: + rales and + wheezes Cardiovascular: Rate/Rhythm: + abnormal rhythm Vessels: no JVD Extremities: normal capillary refill; no pedal edema Gastrointestinal (Abdomen): normal bowel sounds, soft, nontender, no hepatosplenomegaly Musculoskeletal: no cyanosis or clubbing, extremities motor strength 5/5 Skin: no rashes, warm and dry Neurologic: PERRL, EOMI, accommodation nl, no face palsy, no dysarthria Psychiatric: A+Ox3, euthymic affect Results & Data Vital Signs (Past 12 Hours) Vital Signs Temp Pulse Pulse Resp BP BP Pulse Ox 06/01/19 15:55 36.4 C L 79 19 143/73 H 98 06/01/19 13:24 71 16 98 06/01/19 12:09 36.6 C 78 17 129/58 L 95 06/01/19 07:31 80 17 97 06/01/19 07:14 36.4 C L 78 18 150/75 H 98
[2019-06-01] MEDS: ROPINIROLE HCL 1 MG TABLET PO SCH (21:03)
[2019-06-01] MEDS: ATORVASTATIN 40 MG TAB PO SCH (21:06)
[2019-06-01] MEDS: IPRATROPIUM BROMIDE NEB SOLN 0.02% 2.5 ML VIAL INH PRN (21:56)
[2019-06-01] MEDS: LEVALBUTEROL 1.25MG/0.5ML NEB INH PRN (21:56)
[2019-06-02] MEDS: DOXYCYCLINE HYCLATE 100 MG CAP PO SCH (05:54)
[2019-06-02] MEDS: LEVOTHYROXINE SODIUM 25 MCG TABLET PO SCH (05:54)
[2019-06-02 07:08] LABS: INR 3.4 (0.9-1.1); Prothrombin Time 32.1 Seconds (9.0-12.0)
[2019-06-02] MEDS: allopurinoL 300 MG TAB PO SCH (07:31)
[2019-06-02] MEDS: TORSEMIDE 10 MG TAB PO SCH ×2 (07:31→15:57)
[2019-06-02] MEDS: PANTOprazole 40 MG TAB PO SCH (07:31)
[2019-06-02] MEDS: SUCRALFATE 1 GM TAB PO SCH (07:31)
[2019-06-02] MEDS: POTASSIUM CHLORIDE 10 MEQ TABCR PO SCH (07:31)
[2019-06-02] MEDS: ISOSORBIDE DINITRATE 10 MG TAB PO SCH ×2 (07:31→12:25)
[2019-06-02] MEDS: METOPROLOL SUCC 25MG EXT REL TAB PO SCH (07:31)
[2019-06-02] MEDS: guaiFENesin 600 MG TABCR PO SCH (07:32)
[2019-06-02] MEDS: FLUTICASONE/UMECLIDIN/VILANTER INH SCH (07:33)
[2019-06-02] MEDS: DOCUSATE SODIUM 100 MG CAP PO SCH (07:39)
[2019-06-02] MEDS: ASPIRIN 81 MG ECTAB PO SCH (07:40)
[2019-06-02] MEDS ORDERED: predniSONE 20 MG TAB PO SCH (09:00)
--- NOTE | 2019-06-02 10:42 | Cardiology Progress Note ---
Date of Service June 02, 2019 Assessment & Plan (1) Ischemic cardiomyopathy: (2) Paroxysmal atrial fibrillation: (3) Acute respiratory failure with hypoxia: (4) CHF (congestive heart failure): (5) COPD, moderate: (6) Lung cancer: The patient is currently doing well and I believe he can be discharged to outpatient follow-up. His INR today is a little elevated and you could hold today's warfarin and have him connect with the [facility] next week. I will arrange follow-up with our clinic next week. He should continue his current medications including the increased dose of metoprolol that I wrote for today. Subjective The patient had an uneventful night. No new cardiac complaints. Review of Systems Review of Systems: All systems reviewed & are unremarkable except as noted in HPI & below Nothing additional. Physical Exam Physical Exam: General: no acute distress and stated age Head: normocephalic, no masses, lesions, tenderness or abnormalities Eyes: conjunctiva are pink and non-injected, sclera clear Neck: supple, no adenopathy, no bruits, normal jugular venous pulse, no hepatojugular reflux Chest: normal shape and normal respiratory effort Lungs: clear to auscultation and percussion Cardiac Exam: - regular rate & rhythm, no murmurs gallops or rubs - normal S1, normal S2 Pulses: 2(+) throughout Abdomen: abdomen soft, non-tender, no abnormal masses and no hepatosplenomegaly Musculoskeletal: no gait disturbance, no joint inflammation, no deforming arthritis Extremities: no edema and no cyanosis Neuro: grossly normal exam Results & Data Vital Signs (Past 12 Hours) Vital Signs Temp Pulse Pulse Resp BP BP Pulse Ox 06/02/19 07:29 36.4 C L 86 17 152/81 H 97 06/02/19 04:11 36.5 C 79 16 136/80 97 06/02/19 00:27 36.3 C L 74 20 137/73 98 06/01/19 23:22 77 Laboratory Results Laboratory Results - last 24 hr 06/02/19 06:21 PT 32.1 H INR 3.4 H Medications Administered Current Inpatient Medications Acetaminophen (Tylenol) 650 mg PO Q4H PRN PRN Reason: Pain or Fever Stop: 06/24/19 02:57 Hydrocodone Bitart/Acetaminophen ([place] 5/325) 1 tab PO Q4 PRN PRN Reason: Pain Stop: 06/08/19 02:57 Last Admin: 05/27/19 16:31 Dose: 1 tab Documented by: Allopurinol (Zyloprim) 300 mg PO DAILY ARNULFO Stop: 06/24/19 08:59 Last Admin: 06/02/19 07:31 Dose: 300 mg Documented by: Aspirin (Ecotrin Ectab) 81 mg PO QAM [facility]FO Stop: 06/24/19 08:59 Last Admin: 06/02/19 07:40 Dose: 81 mg Documented by: Atorvastatin Calcium (Lipitor) 40 mg PO QPM [facility] Stop: 06/24/19 20:59 Last Admin: 06/01/19 21:06 Dose: 40 mg Documented by: Docusate Sodium (Colace) 100 mg PO BID [facility] Stop: 06/29/19 09:44 Last Admin: 06/02/19 07:39 Dose: 100 mg Documented by: Doxycycline Hyclate (Vibramycin) 100 mg PO Q12H [facility] Stop: 06/04/19 17:59 Last Admin: 06/02/19 05:54 Dose: 100 mg Documented by: Fluticasone/Umeclidinium/Vilanterol (Trelegy Ellipta 100-62.5-25) 1 ea INH DAILY [facility] Stop: 06/29/19 08:59 Last Admin: 06/02/19 07:33 Dose: 1 ea Documented by: Gabapentin (Neurontin) 100 mg PO QDL [facility] Stop: 06/24/19 11:29 Last Admin: 06/01/19 12:49 Dose: 100 mg Documented by: Gabapentin (Neurontin) 200 mg PO HS [facility]FO Stop: 06/24/19 20:59 Last Admin: 06/01/19 21:05 Dose: 200 mg Documented by: Guaifenesin (Mucinex) 600 mg PO Q12 [facility] Stop: 06/24/19 02:59 Last Admin: 06/02/19 07:32 Dose: 600 mg Documented by: Hydralazine HCl (Apresoline) 25 mg PO BID [facility] Stop: 06/30/19 20:59 Last Admin: 06/02/19 07:31 Dose: 25 mg Documented by: Ipratropium [place] (Atrovent 0.02% 0.5mg/2.5ml) 0.5 mg INH Q4H PRN PRN Reason: Shortness Of Breath Or Wheezing Stop: 06/24/19 02:57 Last Admin: 06/01/19 21:56 Dose: 0.5 mg Documented by: Isosorbide Dinitrate (Isordil) 10 mg PO BID@0700,1200 [facility] Stop: 06/24/19 06:59 Last Admin: 06/02/19 07:31 Dose: 10 mg Documented by: Levalbuterol HCl (Xopenex 1.25mg/0.5ml Neb) 1.25 mg INH Q4H PRN PRN Reason: Shortness Of Breath Or Wheezing Stop: 06/24/19 02:57 Last Admin: 06/01/19 21:56 Dose: 1.25 mg Documented by: Levothyroxine Sodium (Synthroid) 12.5 mcg PO DAILYBB [facility] Stop: 06/24/19 06:29 Last Admin: 06/02/19 05:54 Dose: 12.5 mcg Documented by: Meclizine HCl (Antivert) 12.5 mg PO TID PRN PRN Reason: Vertigo Stop: 06/24/19 02:57 Last Admin: 05/26/19 08:56 Dose: 12.5 mg Documented by: Metoprolol Succinate (Toprol Xl) 25 mg PO BID [facility] Stop: 07/02/19 20:59 Nitroglycerin (Nitrostat) 0.4 mg SL UD PRN PRN Reason: Chest Pain Stop: 06/24/19 02:57 Ondansetron HCl (Zofran Odt) 4 mg PO Q8H PRN PRN Reason: Nausea Stop: 06/24/19 02:57 Pantoprazole Sodium (Protonix) 40 mg PO AMHS [facility] Stop: 06/24/19 08:59 Last Admin: 06/02/19 07:31 Dose: 40 mg Documented by: Polyethylene Glycol (Miralax Powder Packet) 17 gm PO DAILY PRN PRN Reason: Constipation Stop: 06/26/19 00:14 Last Admin: 06/01/19 07:30 Dose: 17 gm Documented by: Potassium Chloride (Klor-Con M10) 20 meq PO BID [facility] Stop: 06/24/19 08:59 Last Admin: 06/02/19 07:31 Dose: 20 meq Documented by: Prednisone (Prednisone) 40 mg PO DAILY [facility] Stop: 07/02/19 08:59 Last Admin: 06/02/19 07:31 Dose: 40 mg Documented by: Ropinirole HCl (Requip) 2 mg PO HS [facility] Stop: 06/24/19 20:59 Last Admin: 06/01/19 21:03 Dose: 2 mg Documented by: Sucralfate (Carafate Tab) 1 gm PO BID [facility] Stop: 06/24/19 08:59 Last Admin: 06/02/19 07:31 Dose: 1 gm Documented by: Torsemide (Demadex) 20 mg PO BID17 [facility] Stop: 07/01/19 16:59 Last Admin: 06/02/19 07:31 Dose: 20 mg Documented by: Warfarin Sodium (Coumadin) 2 mg PO MoWeFr@1600 [facility] Stop: 06/25/19 15:59 Last Admin: 05/31/19 15:40 Dose: 2 mg Documented by: Warfarin Sodium (Coumadin) 3 mg PO SuTuThSa@1600 [facility] Stop: 06/29/19 15:59 Last Admin: 06/01/19 16:09 Dose: 3 mg Documented by: (1) CHF (congestive heart failure) Heart failure chronicity: acute on chronic Heart failure type: unspecified Qualified Code(s): I50.9 - Heart failure, unspecified
[2019-06-02] MEDS: GABAPENTIN 100 MG CAP PO SCH (12:25)
--- NOTE | 2019-06-02 16:04 | Discharge Summary ---
Date of Service June 02, 2019 Admission HPI Per Admitting Provider History obtained from patient, family, and records. Medical history significant for chronic systolic HF 2 to ischemic cardiomyopathy EF 35 to 39% TTE, 2019), hx ICD, chronic LBBB, CAD status post stent, hx PVD as per records, HTN. A. fib status post cardioversion sp PPM on Coumadin, hx CVA,COPD/ARMANDO on CPAP, CRI (baseline creatinine 2-3), chronic anemia (baseline hemoglobin of 10), gastric cancer as per records, past tobacco abuse. Recent confinement February 2019 for decompensated heart failure. This afternoon patient noted substernal heaviness with shortness of breath, chronic dry cough symptoms. Weight gain the last week necessitating extra diuretic Rx. Legs noted to be more swollen. Denies flulike symptoms. Patient compliant with 48 oz daily fluid restriction. Denies NSAID intake, dietary indiscretion. Patient received Lasix at the ER for CHF. 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, lives with Principal Diagnosis Acute on chronic respiratory failure, acute decompensated CHF with severe cardiomyopathy systolic dysfunction, COPD exacerbation Discharge Exam Constitutional WD/WN, vitals as above no acute distress Eyes PERRL, conjunctivae normal, anicteric sclerae ENMT external ear and nose normal, oropharynx normal Neck trachea midline, no thyromegaly Respiratory no respiratory distress, no hyperresonance to percussion, no tactile fremitus and no cough Auscultation: + rales and + wheezes Cardiovascular Rate/Rhythm: + abnormal rhythm Vessels: no JVD Extremities: normal capillary refill; no pedal edema Gastrointestinal (Abdomen) normal bowel sounds, soft, nontender, no hepatosplenomegaly Musculoskeletal no cyanosis or clubbing, extremities motor strength 5/5 Skin no rashes, warm and dry Neurologic PERRL, EOMI, accommodation nl, no face palsy, no dysarthria Psychiatric A+Ox3, euthymic affect Discharge Data Allergies Allergy/AdvReac Type Severity Reaction Status Date / Time blue dye Allergy Mild SHORTNESS Verified 05/24/19 23:35 OF BREATH naproxen Allergy Mild SWELLING Verified 05/24/19 23:35 OF HANDS sumatriptan Allergy Mild SHORTNESS Verified 05/24/19 23:35 OF BREATH diphenhydramine AdvReac Intermediate MADE Verified 05/24/19 23:35 DEFIBRILLATOR FIRE pseudoephedrine AdvReac Intermediate MADE HIS Verified 05/24/19 23:35 DEFIB FIRE Consultations 05/25/19 01:44 ED Decision to Admit Stat 05/25/19 02:58 Consult Cardiology Routine 05/29/19 11:17 Consult Pulmonology Routine Hospital Course (1) Paroxysmal atrial fibrillation: Paroxysmal A. fib: Now almost 100% paced with persistent A. fib Appreciate input from cardiology: Continue metoprolol, has been taken off amiodarone Patient is on Coumadin for chronic anticoagulation INR 3.4 today He is advised not to take Coumadin today, On home dose of Coumadin tomorrow repeat PT/INR on Wednesday (2) Ischemic cardiomyopathy: Severe ischemic cardiomyopathy status post AICD, presented with volume overload, appropriate diuresis with IV Lasix, appreciate input from cardiology patient's diuretics dose is adjusted to torsemide 20 mg twice daily and discontinue Lasix, (3) Acute systolic HF (heart failure): Presented with acute on chronic respiratory failure with hypoxia Likely secondary to COPD and acute systolic CHF exacerbation On BiPAP nightly with 2 L of oxygen at baseline History of ischemic cardiomyopathy Chest x-ray: Cardiomegaly and volume overload, Pulmonary hypertension Last EF: 35 to 39% TTE October 2018 Updated ECHO: EF-25-30%, Regional wall motion abnormality, moderate to severe MR, left atrium is severely dilated, left ventricular moderately dilated Patient was diuresed adequately, with IV Lasix At present no wheeze or shortness of breath, will DC IV Solu-Medrol changed to p.o. prednisone will be discharged with very short p.o. prednisone taper Cardiac enzymes negative Appreciate cardiology/Pulmonology input Takes dose adjusted to torsemide 20 mg twice daily by cardiology, Continue BiPAP with Oxygen QHS CAD S/P Stent H/O ICD, Chronic LBBB H/O PVD No complaint of angina, Continue aspirin, statin, carvedilol, isosorbide, hydralazine Constipation KUB: Moderate increase in fecal load of the proximal colon. No obstructive characteristics. Continue bowel regimen Hypertension stable Continue Coreg /hydralazine (4) Acute respiratory failure with hypoxia: Resolved, respite status improved to baseline presented with acute on chronic respiratory failure with hypoxia Likely secondary to COPD and acute systolic CHF exacerbation symptom has improved with diuresis hypoxia resolved , remains in room air pt was treated with iV solu Medrol for COPD exacerbation cont neb tx IV Solu-Medrol discontinued, started on p.o. prednisone discharged with 4 days of tapering dose Pulm consulted, apperciate input (5) COPD, moderate: Baseline moderate COPD Presented with acute exacerbation, improved/resolution of respiratory symptoms with steroids nebulizer treatment, (6) HTN (hypertension): Pressure remains stable (7) CKD (chronic kidney disease), stage IV: Creatinine remains in approximate baseline, Diuretics dose adjusted CODE STATUS: Full code DVT prophylaxis: Therapy Disposition: Stable to be discharged home today Patient is active with [facility] updated He will follow-up with family physician in a week as hospital follow-up Neurology follow-up scheduled for 1 week Total Time Total Time Spent Total Time Spent (In Minutes): Approximately 40 minutes Total Time Includes: Examination of the Patient, Discharge Planning, Medication Reconciliation and Communication With Other Providers Discharge Plan Discharge Items Patient Disposition: Home - Home Health Services Reason For Visit: CHF Discharge Diagnosis: Acute on chronic respiratory failure, acute decompensated CHF with severe cardiomyopathy systolic dysfunction, COPD exacerbation Activity: Resume your previous activity Non-emergency contact: Primary Care Provider Call non-emergency contact if: you have any medication questions Follow-up/Referrals: Soren Loja MD [Primary Care Provider] - 06/06/19 11:10 am Diet: Heart Healthy Fluids: 2000ml (8 cups) Ambulatory Orders: Prothrombin Time INR (Routine) Timeframe: [id number] Location: Determined by Patient Ordered By: Bere Henderson Attending Provider Instructions: Hospital follow-up with Dr. crawford on 06/06/2019 at 11:10 AM Hospital follow-up with cardiology Carmine Betancur PA-C on 06/09/2019 at 3 PM at [facility] cardiology clinic DO NOT TAKE COUMADIN TODAY(your INR elevated 3.4 today) PT/INR check on 06/05/2019 Please follow-up with anticoagulation/Coumadin clinic for further adjustment of Coumadin dose, PT/INR check NEW MEDICATIONS: Hydralazine 25 mg by mouth twice daily: For high blood pressure Metoprolol succinate 25 mg 1 tablet twice daily for high blood pressure and heart rate controlled Torsemide 20 mg 1 tablet twice daily: For heart failure/fluid overload Prednisone: 20 mg tablet: Take 1 tablet daily for 2 days, then half tablet daily for 2 days then stop-for COPD/wheezing STOP TAKING THESE MEDICATIONS 1.Amiodarone 200 mg twice daily 2.Coreg 12.5 mg twice daily 3. torsemide 10 mg 4 times a week/20 mg 3 times a week New dose of torsemide as outlined above Call your Primary Care doctor if any of the following symptoms or problems start or get worse: * Shortness of breath or difficulty breathing * Wake up at night short of breath * Chest pain * Cough * Swelling of your hands, feet, or legs * More fatigued or tired with your normal activity * Palpitations - sudden fast heart beats WEIGHT * Weigh yourself every morning after using the bathroom. * Use the same scale. * Wear the same amount of clothing. * Write your weight down on a chart. * Call your Primary Care doctor if you gain more than 2-3 pounds in 1-2 days. MEDICATIONS * Use this discharge instruction sheet for medication instructions. * Take your medications at the time your doctor ordered. * Do not skip a dose of your medicines. * If you miss a dose of medicine, take it as soon as possible, but DO NOT DOUBLE A DOSE. * Read your medicine information when you get home. * Know all of the side effects of your medicine. If in doubt, ask your pharmacist * Call your Primary Care doctor's office if you have any side effects. * Be sure all of your doctors know what medicine and herbs you take (including cold, flu, and herbal medicine). Take the following with you to your follow-up doctor appointments: * Weight Chart * Medication List * List of questions Do not drink excessive alcohol, beer or wine. Pending Studies at Discharge: No Stand-Alone Forms: [facility] Medications and DC Order Prescriptions: New torsemide 10 mg Tablet 20 mg PO [id number] 30 Days Qty: 60 RF: 3 metoprolol succinate 25 mg Tablet Extended Release 24 Hr 25 mg PO BID 30 Days Qty: 60 RF: 0 hydralazine 25 mg Tablet 25 mg PO BID 30 Days Qty: 60 RF: 0 prednisone 20 mg tablet 20 mg PO DAILY 4 Days Qty: 3 RF: 0 Continued acetaminophen [Tylenol Extra Strength] 500 mg Tablet 1,000 mg PO Q6H PRN (Reason: Pain) RF: 0 gabapentin 100 mg Capsule 100 mg PO QDL RF: 0 colchicine 0.6 mg Capsule 0.3 mg PO DAILY PRN (Reason: GOUT) RF: 0 sucralfate [Carafate] 1 gram Tablet 1 g PO BID RF: 0 ondansetron 4 mg Tablet,Disintegrating 4 mg PO Q8H PRN (Reason: Nausea) RF: 0 meclizine 12.5 mg Tablet 12.5 mg PO TID PRN (Reason: Vertigo) RF: 0 atorvastatin 40 mg Tablet 40 mg PO QPM RF: 0 ipratropium-albuterol 0.5 mg-3 mg(2.5 mg base)/3 mL Solution For Nebulization 3 ml INHALATION Q6 PRN (Reason: Shortness Of Breath Or Wheezing) RF: 0 warfarin 3 mg Tablet 3 mg PO 4XWK RF: 0 ropinirole 2 mg Tablet 2 mg PO HS RF: 0 warfarin 2 mg Tablet 2 mg PO 3XWK RF: 0 allopurinol 300 mg Tablet 300 mg PO DAILY RF: 0 gabapentin 100 mg Capsule 200 mg PO HS RF: 0 cholecalciferol (vitamin D3) [Vitamin D3] 2,000 unit Capsule 2,000 unit PO DAILY RF: 0 Trelegy Ellipta 100-62.5-25 mcg Blister With Device 1 inh INHALATION DAILY RF: 0 isosorbide dinitrate 10 mg Tablet 10 mg PO BID RF: 0 potassium chloride 10 mEq Capsule, Extended Release 10 meq PO BID RF: 0 aspirin [Aspir-81] 81 mg Tablet,Delayed Release (Dr/Ec) 81 mg PO QAM RF: 0 levothyroxine 25 mcg Tablet 12.5 mcg PO QAM RF: 0 nitroglycerin [Nitrostat] 0.4 mg Tablet, Sublingual 1 tab Sublingual UD PRN (Reason: Chest Pain) RF: 0 omeprazole 20 mg Capsule,Delayed Release(Dr/Ec) 20 mg PO AMHS RF: 0 cholecalciferol (vitamin D3) [Vitamin D3] 2,000 unit Tablet 2,000 unit PO QAM RF: 0 Vitron-C 65 mg iron- 125 mg Tablet,Delayed Release (Dr/Ec) 1 tab PO BID RF: 0 magnesium 250 mg Tablet 500 mg PO HS RF: 0 hydrocodone-acetaminophen 5-325 mg tablet 1 tab PO Q4 PRN (Reason: Pain) RF: 0 Trelegy Ellipta 100-62.5-25 mcg Blister With Device 1 inh INHALATION QAM RF: 0 Discontinued torsemide 10 mg Tablet 20 mg PO 3XWK RF: 0 torsemide 10 mg tablet 10 mg PO 4XWK RF: 0 carvedilol [Coreg] 12.5 mg Tablet 12.5 mg PO BID RF: 0 amiodarone 200 mg Tablet 200 mg PO BID RF: 0 Discharge Orders: Discharge Order (Routine); Ordered 06/02/19 Ordered By: Bere Bolanos Admission Data Admit Date/Time: 05/25/19 01:30 Attending Provider: Bere Bolanos Admit Provider: Leonidas Mishra Primary Care Provider: Soern Loja Other Providers: Leonidas Mishra ; Bryan Walsh ; Vishal Mirza Other Interventions: Discharge Summary Assessment (RN) Last Done: 06/02/19 15:10 DC Date/Time DO NOT enter until pt leaves facility: 06/02/19 16:17
[2019-06-02] MEDS ORDERED: METOPROLOL SUCC 25MG EXT REL TAB PO SCH (21:00)
== END 2019-06-02 16:17 | disposition home health service (06) | DRG 291 ==
LOC: ED 21:42 → SUATTDRO 05-25 01:30 → 1E 05-25 01:30 → 2S 05-25 19:03

== ENCOUNTER 2020-03-06 15:01 | Inpatient (IN) ==
--- NOTE | 2020-03-06 15:06 | Emergency Department Note ---
Impression & Plan Acute renal failure (ARF), CHF (congestive heart failure), Acute hyperkalemia, SOB (shortness of breath) ED Provider Note NAME: PAMELA CARIAS AGE: 84 SEX: M : 1935 ARRIVES VIA: Ambulance INFORMANT: Patient, ED PROVIDER(S): Saman Gunn MD Chief Complaint: Shortness of breath HPI: Patient does present with worsening shortness of breath over the last 3 to 4 days. Patient states is gotten progressively worse. The patient does believe he has had some weight gain but does not complain of worsening lower extremity edema. The patient has had mild diffuse abdominal pain associated with this but without nausea. The patient denies chest pains. The patient does have a history of COPD and CHF. The patient is followed Dr. Lugo. Patient states that exertion and lying flat do make his symptoms worse. The patient states he has been taking an increased dose of his diuretic and did attempt to take his inhaler today but this did not improve his symptoms. The patient has complained of a productive thick whitish sputum. Patient denies fevers or chills. Patient reportedly is on hospice and does have a history of cancer as well. The patient reports that he does not want any major procedures operations or interventions completed. Patient is DNR/DNI. ROS: See HPI for pertinent positives and negatives. A total of 10 systems were reviewed and otherwise negative. Past medical history: See below Surgical history: See below Social history: See below Physical Exam: GENERAL: Nasal cannula and a mask. No acute distress. EYE EXAM: Normal conjunctiva. PERRL, no anisocoria and EOM's grossly intact w/o pain. NECK: Supple, no nuchal rigidity, no adenopathy, non-tender. No signs of meningismus. LUNGS: Basilar crackles noted. Normal chest wall mechanics. Chest: Device in left chest. HEART: NSR, no MRG. ABDOMEN: Abdomen soft, non-tender, normo-active bowel sounds, no masses, no rebound or guarding. BACK: No CVA TTP. SKIN: No rashes and no bruising. UPPER EXTREMITIES: Upper extremities are grossly normal. LOWER EXTREMITIES: Grossly normal, no edema. No calf pain. NEURO EXAM: A&O x3, cranial nerves II-XII grossly intact, normal speech, moves all 4 extremities on command w/o issue. Differential diagnoses: Reactive airway disease, pneumonia, pneumothorax, COPD, CHF, infections, cardiac ischemia, pulmonary embolism, musculoskeletal, gastrointestinal, as well as other pathologies. Course: Patient was seen and evaluated the bedside. Full history physical exam was performed. EKG: Imaging Studies: Radiology results as stated below per my review in the radiologist's interp retation: XR chest 1V portable CLINICAL HISTORY: Dyspnea COMPARISON STUDY: 08/13/2019 FINDINGS: The heart remains enlarged. There is a left subclavian pacer/defibrillator present. There is a partially loculated right pleural effusion. There are persistent right mid and lower lung zone airspace opacities, likely representing asymmetric edema.. There is fluid tracking into the fissure on the right. There is improved aeration of the left lung base. There is persistent pulmonary vascular congestion.[There are subacute right-sided rib fractures with associated pleural reaction IMPRESSION: 1. Persistent pulmonary vascular congestion 2. Bilateral pleural effusions larger on the right and smaller on the left as compared the prior study 3. Subacute right-sided rib fractures with associated pleural reaction. ACT 112: Negative or not required by law. Electronically signed by: Magnus Lutz M.D. 03/06/2020 4:52 PM Dictated: 03/06/20 1645 Transcribed: 03/06/[address] SCAN OF THE ABDOMEN AND PELVIS WITHOUT CONTRAST CLINICAL HISTORY: Abdominal pain. History of chronic renal disease. Shortness of breath. COMPARISON STUDY: 09/20/2019 TECHNIQUE: CT scan of the abdomen and pelvis was performed from the lung bases to the proximal femurs. Images are reviewed in the axial, sagittal, and coronal planes. IV contrast was not administered for this examination. A dose lowering technique was utilized adhering to the principles of ALARA. CT DOSE: 331.70 mGy.cm FINDINGS: Lower chest: There is a moderate right pleural effusion and small left pleural effusion. There is lower lobe bronchial wall thickening. There are right basilar atelectatic changes. Liver: The unenhanced liver is normal in size, contour, and attenuation. There is no intrahepatic biliary ductal dilatation. Gallbladder: Cholelithiasis. No significant wall thickening. Spleen: Normal in size and attenuation. Pancreas: Unremarkable. Adrenal glands: There is low-density left adrenal gland thickening likely s econdary to adenomatous hyperplasia Kidneys: There is a 7 mm right renal calculus. Additional renal calcifications are likely vascular. There is a 3.5 cm lower pole right renal cyst. Is a 15 mm hyperdense exophytic left renal lesion, unchanged from the prior study and likely representing a hyperdense cyst. Bowel: There are no transition zones to indicate bowel obstruction. There is no evidence of acute diverticulitis. By history the appendix is surgically absent. Peritoneum: There is trace perihepatic fluid present. There is no free intraperitoneal air. Vasculature: There are moderately extensive aorta iliac and mesenteric vascular calcifications. Adenopathy: None. Pelvic viscera: The bladder, and pelvic viscera are unremarkable. Skeletal structures: No destructive lesions are visualized. Arthritic changes are present within the hips and spine. IMPRESSION: 1. No acute intra-abdominal or pelvic findings. 2. No evidence of bowel obstruction. No evidence of free air 3. Surgically absent appendix. No evidence of acute diverticulitis 4. Right-sided nephrolithiasis. No ureteral calculi identified 5. Moderate right pleural effusion and small left pleural effusion. Lower lobe bronchial wall thickening. Cardiomegaly. Clinical correlation regards to congestive failure is recommended. ACT 112: Negative or not required by law. Electronically signed by: Magnus Lutz M.D. 03/06/2020 4:04 PM Dictated: 03/06/20 155 Transcribed: 03/06/20 155 Cardiac monitoring: An order was placed for continuous cardiac monitoring. The monitor shows a rate of 85 with paced rhythm. MDM: He does present with concern for shortness of breath and abdominal pain. Patient does have mild white count of 11 with anemia of 10. Kidney function is grossly changed with an elevated creatinine of 4.8 BUN of 85. Potassium 6.5. CT of the abdomen pelvis is fairly unremarkable with the patient does have pleural effusions and chest x-ray is consistent with some vascular congestion which may be contributory. After further discussion with the patient the patient's at the bedside they were considering additional options but I did speak with the on-call loft worker who stated that given the patient's history of being on hospice would not recommend dialysis. The patient was medically treated and was given additional medications as recommended by the loft worker Dr. Chávez. I did speak the on-call hospitalist agreed to further evaluate treat the patient. Patient was subsequently admitted to the medicine service under Dr. Bolanos Critical Care: I have personally spent 45 minutes of critical care time in direct management of this patient. This includes bedside care, interpretation of diagnostic studies, and testing, discussion with consultants, patient, and family members, and other require inpatient management activities. This 45 minutes is in excess of all separately billable procedures.. Past Med/Surg History Medical History Acute kidney injury superimposed on chronic kidney disease (Acute) Acute on chronic respiratory failure with hypoxemia BiPAP now weaned to NC oxygen. Anemia of chronic disease (Chronic) CAD (coronary artery disease) (Chronic) ASCVD with DE 2000, angioplasty of LAD and Dx, and PCI of PDA. Resultant severe ischemic CM. Carotid stenosis, bilateral (Chronic) Chronic atrial fibrillation (Chronic) CKD (chronic kidney disease), stage IV (Chronic) F/U DR STEPHENSON? COPD (chronic obstructive pulmonary disease) COPD exacerbation currently. On 50mg PO prednisone. GERD (gastroesophageal reflux disease) (Chronic) History of CVA (cerebrovascular accident) (Chronic) 2015 S/P TKA History of lung cancer (Chronic) ~2014 S/P RADIATION THERAPY History of stomach cancer (Chronic) [id number]. EXCISED WITH EGD. Hyperlipidemia (Chronic) Hypertension (Chronic) Hypothyroidism (Chronic) Ischemic cardiomyopathy (Chronic) 2/2 DE 2000. S/P dual chamber ICD following presentation with syncope and LBBB. BiV pacer upgrade 2011, generator change 11/2017. Left hip pain (Acute) MGUS (monoclonal gammopathy of unknown significance) (Chronic) On anticoagulant therapy (Chronic) Osteoarthritis (Chronic) Renal artery stenosis (Chronic) Restless leg syndrome (Chronic) Sciatica (Chronic) Sleep apnea treated with nocturnal BiPAP (Chronic) "COMPLEX SLEEP APNEA SYNDROME"-2L/MIN WITH BIPAP HS SOB (shortness of breath) on exertion Systolic heart failure NYHA Class 3. Per cardiology 03/01/2019 symptoms slowly improving with d iuresis Surgical History History of appendectomy (Chronic) History of cardiac cath (Resolved) 2000 WITH STENT PLACEMENT History of cardioversion (Resolved) History of colonoscopy History of esophagogastroduodenoscopy (EGD) 12/28/2018. propofol/ketamine. no issues. History of implantable cardioverter-defibrillator (ICD) placement (Chronic) 2006-LAST CHECK 03/2019?-F/U [facility] History of tonsillectomy (Chronic) History of total knee replacement (Chronic) RIGHT (DR. NAIR) 2016 Status post biventricular pacemaker Family History Brother Family history of diabetes mellitus Social History Preferred Language: Stateless Communication Ability: Effective Armature Bander Required: No Beliefs That Will Affect Care: None Current Living Situation: Spouse Current Living Situation Comment: CURRENTLY AT [facility] Other Information That Helps Us Care for You: No Feels Safe at Home: Yes Safety Concerns: Feels Safe At This Time Smoking Status: Former smoker Tobacco Type: cigarettes ; Cigarettes Per Day: USED TO SMOKE 1 PPD X 50 YRS-DOWN TO 3 CIGS A DAY ; Do You Dip or Chew Tobacco: No ; Smoking End Date: 2017 ; Second Hand Exposure: No ; Tobacco Cessation Education Requested by Patient: No Hx Alcohol Use: No Hx Substance Use: No Allergies Allergies Allergy/AdvReac Type Severity Reaction Status Date / Time blue dye Allergy Severe SHORTNESS Verified 03/06/20 16:08 OF BREATH sumatriptan Allergy Severe SHORTNESS Verified 03/06/20 16:08 OF BREATH naproxen Allergy Mild SWELLING Verified 03/06/20 16:08 OF HANDS diphenhydramine AdvReac Intermediate MADE Verified 03/06/20 16:08 DEFIBRILLATOR FIRE pseudoephedrine AdvReac Intermediate MADE HIS Verified 03/06/20 16:08 DEFIB FIRE Home Meds Home Medications Medication Instructions Recorded Confirmed aspirin [Aspir-81] 81 mg PO QAM 08/22/18 03/06/20 isosorbide dinitrate 10 mg PO BID 08/22/18 03/06/20 nitroglycerin [Nitrostat] 1 tab SUBLINGUAL UD PRN 08/22/18 03/06/20 Trelegy Ellipta 1 inh INHALATION QAM 02/26/19 03/06/20 acetaminophen [Tylenol Extra 1,000 mg PO Q6H PRN 05/08/19 03/06/20 Strength] meclizine 12.5 mg PO TID PRN 05/08/19 03/06/20 ondansetron 4 mg PO Q8H PRN 05/08/19 03/06/20 allopurinol 300 mg PO DAILY 05/24/19 03/06/20 ipratropium-albuterol 3 ml INHALATION Q6 PRN 05/24/19 03/06/20 warfarin 2 mg PO UD 05/24/19 03/06/20 warfarin 3 mg PO UD 05/24/19 03/06/20 hydralazine 25 mg PO BID 08/13/19 03/06/20 metoprolol succinate 50 mg PO DAILY 08/13/19 03/06/20 docusate sodium 100 mg PO DAILY 09/20/19 03/06/20 temazepam 15 mg PO HS PRN 09/20/19 03/06/20 [id number]-[id number]-[id number] 1 inh INHALATION BID 03/06/20 03/06/20 [Trelegy Ellipta] potassium chloride 10 meq PO BID 03/06/20 03/06/20 pregabalin 25 mg PO DAILY 03/06/20 03/06/20 torsemide 20 mg PO BID 03/06/20 03/06/20 Results & Data (ED) Vital Signs Vital Signs - 24 hr 03/06/20 15:12 03/06/20 15:43 03/06/20 16:00 Temperature 36.5 C Temperature Source Oral Pulse Rate 82 82 Pulse Rate [Left Finger] Pulse Rate from SpO2 Sensor 88 Respiratory Rate 18 22 Respiratory Effort / Characteristics Blood Pressure 137/74 141/74 H Blood Pressure Mean 95 91 Pulse Oximetry 100 100 98 Oxygen Delivery Method Nasal Cannula Nasal Cannula Nasal Cannula Oxygen Flow Rate 3.5 3 3 Sepsis Recent Fever Within 48 Hours No Sepsis Action Taken by Nursing No Action Required 03/06/20 16:31 03/06/20 17:01 03/06/20 17:09 Temperature Temperature Source Pulse Rate 83 86 Pulse Rate [Left Finger] 88 Pulse Rate from SpO2 Sensor 93 H 86 Respiratory Rate 18 17 22 Respiratory Effort / Characteristics Spontaneous Blood Pressure 109/77 126/80 Blood Pressure Mean 91 89 Pulse Oximetry 95 98 99 Oxygen Delivery Method Nasal Cannula Nasal Cannula Nasal Cannula Oxygen Flow Rate 3 3 3 Sepsis Recent Fever Within 48 Hours Sepsis Action Taken by Nursing 03/06/20 17:31 03/06/20 18:00 Temperature Temperature Source Pulse Rate 81 85 Pulse Rate [Left Finger] Pulse Rate from SpO2 Sensor 82 84 Respiratory Rate 26 H 22 Respiratory Effort / Characteristics Blood Pressure 122/74 138/76 Blood Pressure Mean 78 92 Pulse Oximetry 94 95 Oxygen Delivery Method Nebulizer Nebulizer Oxygen Flow Rate Sepsis Recent Fever Within 48 Hours Sepsis Action Taken by Fpc Medications Current Medication List: was personally reviewed by me Laboratory Data Attestation: I reviewed the patient's lab results. Result diagrams: 03/06/20 15:38 03/06/20 15:39 Lab Results 03/06/20 03/06/20 03/06/20 Range/Units 15:38 15:38 15:39 WBC 11.21 H (4.8-10.8) K/uL RBC 3.68 L (4.7-6.1) M/uL Hgb 10.3 L (14.0-18.0) g/dL Hct 33.7 L (42-52) % MCV 91.6 (80-100) fL MCH 28.0 (25-34) pg MCHC 30.6 L (32-36) g/dL RDW Std Deviation 58.6 H (36.4-46.3) fL RDW Coeff of Rocael 17.5 H (11.5-14.5) % Plt Count 164 (130-400) K/uL MPV 12.1 H (7.4-10.4) fL Immature Gran % (Auto) 0.8 % Neut % (Auto) 80.6 % Lymph % (Auto) 8.7 % [place] % (Auto) 9.1 % Eos % (Auto) 0.7 % Baso % (Auto) 0.1 % Neut # (Auto) 9.04 H (1.4-6.5) K/uL Lymph # (Auto) 0.97 L (1.2-3.4) K/uL [place] # (Auto) 1.02 H (0.11-0.59) K/uL Eos # (Auto) 0.08 (0-0.5) K/uL Baso # (Auto) 0.01 (0-0.2) K/uL Immature Gran # (Auto) 0.09 H (0.00-0.02) K/uL PT 23.7 H (9.0-12.0) Seconds INR 2.4 H (0.9-1.1) APTT 39.5 H (21.0-31.0) Seconds PTT Ratio 1.4 Sodium 131 L (136-145) mmol/L Potassium 6.5 H* (3.5-5.1) mmol/L Chloride 97 L (98-107) mmol/L Carbon Dioxide 30 (21-32) mmol/L Anion Gap 5.0 (3-11) BUN 85 H (7-18) mg/dl Creatinine 4.82 H* (0.6-1.4) mg/dl Est Cr Clr Drug Dosing 11.0 ml/min Est GFR ( Amer) 11.9 Est GFR (Non-Af Amer) 10.3 BUN/Creatinine Ratio 17.5 (10-20) Glucose 135 H (70-99) mg/dl Calcium 8.8 (8.5-10.1) mg/dl Magnesium 3.1 H (1.8-2.4) mg/dl Total Bilirubin 1.2 H (0.2-1) mg/dl AST 20 (15-37) U/L ALT 50 (12-78) U/L Alkaline Phosphatase 120 H (45-117) U/L Troponin I 0.027 (0-0.045) ng/ml NT-Pro-B Natriuret Pep 83873 H (0-1800) pg/ml Total Protein 7.3 (6.4-8.2) gm/dl Albumin 3.4 (3.4-5.0) gm/dl Globulin 3.9 (2.5-4.0) gm/dl Albumin/Globulin Ratio 0.9 (0.9-2) Administered Medications Bumetanide 1 mg/ Syringe 4 mls @ 4 mls/min IV NOW ARNULFO Stop: 04/05/20 16:29 Last Admin: 03/06/20 17:10 Dose: 4 mls/min Documented by: [id number] Patiromer (Veltassa) 8.4 gm PO DAILY ARNULFO Stop: 04/05/20 17:29 Last Admin: 03/06/20 18:04 Dose: 8.4 gm Documented by: [id number] Discontinued Medications Albuterol (Ventolin 0.083% 2.5mg/3ml) 10 mg NEB NOW STA Stop: 03/06/20 16:56 Last Admin: 03/06/20 17:09 Dose: 10 mg Documented by: [id number] Calcium Gluconate (Calcium Gluconate 10%) 2,000 mg IV NOW STA Stop: 03/06/20 16:56 Last Admin: 03/06/20 17:25 Dose: 2,000 mg Documented by: [id number] Dextrose (Dextrose 50%) 50 ml IV NOW ONE Stop: 03/06/20 16:56 Last Admin: 03/06/20 17:20 Dose: 50 ml Documented by: [id number] Furosemide (Lasix) 20 mg IV NOW ONE Stop: 03/06/20 19:01 Last Admin: 03/06/20 19:25 Dose: 20 mg Documented by: [id number] Insulin Human Regular (Novolin R U-100 Per Unit) 10 units IV NOW STA Stop: 03/06/20 16:56 Last Admin: 03/06/20 17:20 Dose: 10 units Documented by: [id number] Cosigned by: [id number] Morphine Sulfate (Morphine Sulfate) 4 mg IV NOW STA Stop: 03/06/20 15:19 Last Admin: 03/06/20 15:44 Dose: 4 mg Documented by: [id number] Sodium Polystyrene Sulfonate (Kayexalate) 30 gm PO NOW STA Stop: 03/06/20 17:20 Last Admin: 03/06/20 18:00 Dose: 30 gm Documented by: [id number] Discharge Plan Visit Data *Final* Discharge Date/Time: 03/06/20 20:09 Chief Complaint: Shortness of Breath/Dyspnea Stated Complaint: SOB, AB PAIN ED Provider: Saman Gunn Discharge Problem: Acute renal failure (ARF), CHF (congestive heart failure), Acute hyperkalemia, SOB (shortness of breath) Patient Disposition: Admitted As Inpatient Discharge Instructions Interventions: ED Discharge Assessment Last Done: 03/06/20 20:09 Discharge Problem: Acute renal failure (ARF) Qualifiers: Acute renal failure type: unspecified Qualified Code(s): N17.9 - Acute kidney failure, unspecified CHF (congestive heart failure) Qualifiers: Heart failure type: unspecified Heart failure chronicity: acute on chronic Qualified Code(s): I50.9 - Heart failure, unspecified
[2020-03-06] MEDS ORDERED: MoRPHine SULFATE 4 MG/ML 1 ML CARP\\VIAL IV STA (15:18)
[2020-03-06 15:48] LABS: Basophils # (auto) 0.01 K/uL (0-0.2); Basophils % (auto) 0.1 %; Eosinophils # (auto) 0.08 K/uL (0-0.5); Eosinophils % (auto) 0.7 %; Hematocrit (blood only) 33.7 % (42-52); Hemoglobin 10.3 g/dL (14.0-18.0); Immature Granulocytes # (auto) 0.09 K/uL (0.00-0.02); Immature Granulocytes % (auto) 0.8 %; Lymphocytes # (auto) 0.97 K/uL (1.2-3.4); Lymphocytes % (auto) 8.7 %; Mean Corpuscular Hgb Conc 30.6 g/dL (32-36); Mean Corpuscular Volume 91.6 fL (80-100); Mean Platelet Volume 12.1 fL (7.4-10.4); Monocytes # (auto) 1.02 K/uL (0.11-0.59); Monocytes % (auto) 9.1 %; Neutrophils # (auto) 9.04 K/uL (1.4-6.5); Neutrophils % (auto) 80.6 %; Platelet Count 164 K/uL (130-400); RDW Coefficient of Variation 17.5 % (11.5-14.5); RDW Standard Deviation 58.6 fL (36.4-46.3); Red Blood Count 3.68 M/uL (4.7-6.1); White Blood Count 11.21 K/uL (4.8-10.8)
[2020-03-06 15:59] LABS: INR 2.4 (0.9-1.1); Partial Thromboplastin Ratio 1.4; Partial Thromboplastin Time 39.5 Seconds (21.0-31.0); Prothrombin Time 23.7 Seconds (9.0-12.0)
--- NOTE | 2020-03-06 16:05 | CT Scan Report ---
CT SCAN OF THE ABDOMEN AND PELVIS WITHOUT CONTRAST CLINICAL HISTORY: Abdominal pain. History of chronic renal disease. Shortness of breath. COMPARISON STUDY: 09/20/2019 TECHNIQUE: CT scan of the abdomen and pelvis was performed from the lung bases to the proximal femurs . Images are reviewed in the axial, sagittal, and coronal planes. IV contrast was not administered fo r this examination. A dose lowering technique was utilized adhering to the principles of ALARA. CT DOSE: 331.70 mGy.cm FINDINGS: Lower chest: There is a moderate right pleural effusion and small left pleural effusion. There is low er lobe bronchial wall thickening. There are right basilar atelectatic changes. Liver: The unenhanced liver is normal in size, contour, and attenuation. There is no intrahepatic margarita iary ductal dilatation. Gallbladder: Cholelithiasis. No significant wall thickening. Spleen: Normal in size and attenuation. Pancreas: Unremarkable. Adrenal glands: There is low-density left adrenal gland thickening likely secondary to adenomatous hy perplasia Kidneys: There is a 7 mm right renal calculus. Additional renal calcifications are likely vascular. T here is a 3.5 cm lower pole right renal cyst. Is a 15 mm hyperdense exophytic left renal lesion, unch anged from the prior study and likely representing a hyperdense cyst. Bowel: There are no transition zones to indicate bowel obstruction. There is no evidence of acute div erticulitis. By history the appendix is surgically absent. Peritoneum: There is trace perihepatic fluid present. There is no free intraperitoneal air. Vasculature: There are moderately extensive aorta iliac and mesenteric vascular calcifications. Adenopathy: None. Pelvic viscera: The bladder, and pelvic viscera are unremarkable. Skeletal structures: No destructive lesions are visualized. Arthritic changes are present within the hips and spine. IMPRESSION: 1. No acute intra-abdominal or pelvic findings. 2. No evidence of bowel obstruction. No evidence of free air 3. Surgically absent appendix. No evidence of acute diverticulitis 4. Right-sided nephrolithiasis. No ureteral calculi identified 5. Moderate right pleural effusion and small left pleural effusion. Lower lobe bronchial wall thicken ing. Cardiomegaly. Clinical correlation regards to congestive failure is recommended. ACT 112: Negative or not required by law. Electronically signed by: Magnus Lutz M.D. 03/06/2020 4:04 PM
--- NOTE | 2020-03-06 16:11 | Electrocardiogram Report ---
Test Reason : Blood Pressure : / mmHG Vent. Rate : 085 BPM Atrial Rate : 110 BPM P-R Int : 000 ms QRS Dur : 154 ms QT Int : 440 ms P-R-T Axes : 000 057 -60 degrees QTc Int : 523 ms Ventricular-paced rhythm Biventricular pacemaker detected Abnormal ECG When compared with ECG of 20-SEP-2019 15:29, Vent. rate has increased BY 2 BPM Confirmed by Wilfrido Saunders ([id number]) on 03/06/2020 4:11:27 PM Referred By: REFERRED SELF Confirmed By:Wilfrido Saunders
[2020-03-06] MEDS ORDERED: BUMETANIDE 1 MG in SYRINGE 0 ML IV SCH ×2 (16:30→18:00)
[2020-03-06 16:51] LABS: Albumin Globulin Ratio 0.9 (0.9-2); Albumin Level 3.4 gm/dl (3.4-5.0); BUN Creatinine Ratio 17.5 (10-20); Bilirubin,Total 1.2 mg/dl (0.2-1); Calcium 8.8 mg/dl (8.5-10.1); Est GFR (African American) 11.9; Est GFR (Non-African American) 10.3; Globulin 3.9 gm/dl (2.5-4.0); Magnesium 3.1 mg/dl (1.8-2.4); Potassium 6.5 mmol/L (3.5-5.1); Total Protein 7.3 gm/dl (6.4-8.2); Troponin I 0.027 ng/ml (0-0.045)
--- NOTE | 2020-03-06 16:53 | XRay Report ---
XR chest 1V portable CLINICAL HISTORY: Dyspnea COMPARISON STUDY: 08/13/2019 FINDINGS: The heart remains enlarged. There is a left subclavian pacer/defibrillator present. There i s a partially loculated right pleural effusion. There are persistent right mid and lower lung zone ai rspace opacities, likely representing asymmetric edema.. There is fluid tracking into the fissure on the right. There is improved aeration of the left lung base. There is persistent pulmonary vascular c ongestion.[There are subacute right-sided rib fractures with associated pleural reaction IMPRESSION: 1. Persistent pulmonary vascular congestion 2. Bilateral pleural effusions larger on the right and smaller on the left as compared the prior stud y 3. Subacute right-sided rib fractures with associated pleural reaction. ACT 112: Negative or not required by law. Electronically signed by: Magnus Lutz M.D. 03/06/2020 4:52 PM
[2020-03-06] MEDS ORDERED: CALCIUM GLUCONATE 10% 10 ML VIAL IV STA (16:55)
[2020-03-06] MEDS ORDERED: DEXTROSE 50% 50 ML SYRINGE IV ONE (16:55)
[2020-03-06] MEDS ORDERED: NovoLIN-R INSULIN PER UNIT CHARGE IV STA (16:55)
[2020-03-06] MEDS ORDERED: ALBUTEROL 0.083% NEBU SOLN 3 ML VIAL NEB STA (16:55)
[2020-03-06] MEDS ORDERED: SODIUM POLYSTYRENE SULFONATE 15G/60ML SUSP PO STA ×2 (17:19→22:33)
--- NOTE | 2020-03-06 17:59 | History & Physical Report ---
Date of Service March 06, 2020 Assessment & Plan Admission and Anticipated Discharge Date Admission Date: ACUTE ON CHRONIC CHF WITH ISCHEMIC CARDIOMYOPATHY : Patient admitted with shortness of breath worsening in the last 3-4 days, with worsening of lower extremity edema, increased abdominal girth Last echo done in 2019 showed EF of 30% with global hypokinesis, baseline heart failure with NYHA class IV proBNP more than 16,000, chest x-ray shows pallor bilateral pleural effusion right worse than left, patient was given IV Bumex, discussed with nephrology, patient will be started with low-dose Lasix drip Has been on home hospice for past several months Patient and his is revoking hospice, for the acute illness Once as much as a medical treatment possible Admitted to [facility] cardiology consulted Patient is started on IV Lasix drip Acute renal failure: On CKD stage IV Possible secondary to decompensated CHF? Presents with volume overload Case discussed with [facility] nephrology, patient is going to be started on IV Lasix drip Javier inserted for accurate measurement of intake and output Patient does not require emergent dialysis at this point Hyperkalemia Due to above given Kayexalate calcium gluconate insulin with dextrose in ER Was on potassium supplements at home which is discontinued With BMP in 6 hours Discussed with nephrology Kayexalate dose can be repeated if needed Started on IV Lasix drip Coronary artery disease: hx ASCVD and previous [place], angioplasty of the LAD and diagonal, and PCI of the PDA in 2000. Resultant severe ischemic cardiomyopathy. Presents with decompensated CHF with severe underlying systolic dysfunction Continue aspirin, beta-lindsey with holding parameters, No complaint of chest pain or chest heaviness We will hold Imdur-to prevent hypotension, patient started on IV Lasix drip Cardiology consulted Sleep apnea: Ordered for BiPAP at night History of paroxysmal A. fib: Continue beta-lindsey Coumadin INR therapeutic CODE STATUS: DNR/DNI: Discussed with patient and his DVT prophylaxis: On Coumadin Disposition: Lives at home with , progressive decline in functional status noted in last 2-3 days due to decompensated CHF PT OT evaluation will be needed when patient is medically stable History of Present Illness Chief Complaint: shortness of breath Primary Care Provider: Soren Loja MD Medical history significant for chronic systolic HF 2 to ischemic cardiomyopathy EF 35 to 39% TTE, 2019), NYHA class IV Status post ICD, chronic LBBB, CAD status post stent, hx PVD as per records, HTN. A. fib status post cardioversion sp PPM on Coumadin, hx CVA,COPD/ARMANDO on CPAP, CRI (baseline creatinine 2-3), chronic anemia (baseline hemoglobin of 10), Has been on home hospice for end-stage heart failure/cardiomyopathy since last June He has been doing well at home, was able to do his ADLs, able to go out and do yard work, Because of his clinical improvement was considering getting discharged from hospice. For the past 3 days patient started to experience increasing shortness of breath, severe orthopnea, worsening of lower extremity edema, increased abdominal girth at baseline patient sleeps on recliner, Patient complains of none getting short of breath at night while on recliner, worse with any movement or activity Had whitish cough, no fever or chills, no known COVID-19 contacted In the ER labs shows acute renal failure with creatinine around 5, with hyperkalemia potassium more than 6, Per patient's , patient has been taking all his meds as directed, denies of any poor p.o. intake, episode of diarrhea 2 days back secondary to taking extra dose of milk of magnesia, no further loose bowel movement since Patient and his , decided to revoke hospice Want to have all the treatment that is needed for his renal failure which includes dialysis if needed Patient remains DNR/DNI, does not want to be of life support in the setting of cardiorespiratory failure Allergies Allergy/AdvReac Type Severity Reaction Status Date / Time blue dye Allergy Severe SHORTNESS Verified 03/06/20 16:08 OF BREATH sumatriptan Allergy Severe SHORTNESS Verified 03/06/20 16:08 OF BREATH naproxen Allergy Mild SWELLING Verified 03/06/20 16:08 OF HANDS diphenhydramine AdvReac Intermediate MADE Verified 03/06/20 16:08 DEFIBRILLATOR FIRE pseudoephedrine AdvReac Intermediate MADE HIS Verified 03/06/20 16:08 DEFIB FIRE Home Medications Home Medications Medication Instructions Recorded Confirmed Type aspirin [Aspir-81] 81 mg PO QAM 08/22/18 03/06/20 History isosorbide dinitrate 10 mg PO BID 08/22/18 03/06/20 History nitroglycerin [Nitrostat] 1 tab SUBLINGUAL UD PRN 08/22/18 03/06/20 History Trelegy Ellipta 1 inh INHALATION QAM 02/26/19 03/06/20 History acetaminophen [Tylenol Extra 1,000 mg PO Q6H PRN 05/08/19 03/06/20 History Strength] meclizine 12.5 mg PO TID PRN 05/08/19 03/06/20 History ondansetron 4 mg PO Q8H PRN 05/08/19 03/06/20 History allopurinol 300 mg PO DAILY 05/24/19 03/06/20 History ipratropium-albuterol 3 ml INHALATION Q6 PRN 05/24/19 03/06/20 History warfarin 2 mg PO UD 05/24/19 03/06/20 History warfarin 3 mg PO UD 05/24/19 03/06/20 History hydralazine 25 mg PO BID 08/13/19 03/06/20 History metoprolol succinate 50 mg PO DAILY 08/13/19 03/06/20 History docusate sodium 100 mg PO DAILY 09/20/19 03/06/20 History temazepam 15 mg PO HS PRN 09/20/19 03/06/20 History qxwoepxzekv-qbzdiksbe-nbrgexhq 1 inh INHALATION BID 03/06/20 03/06/20 History [Trelegy Ellipta] potassium chloride 10 meq PO BID 03/06/20 03/06/20 History pregabalin 25 mg PO DAILY 03/06/20 03/06/20 History torsemide 20 mg PO BID 03/06/20 03/06/20 History Past Med/Surg History Medical History Acute kidney injury superimposed on chronic kidney disease (Acute) Acute on chronic respiratory failure with hypoxemia BiPAP now weaned to [place] oxygen. Anemia of chronic disease (Chronic) CAD (coronary artery disease) (Chronic) ASCVD with [place] 2000, angioplasty of LAD and Dx, and PCI of PDA. Resultant severe ischemic CM. Carotid stenosis, bilateral (Chronic) Chronic atrial fibrillation (Chronic) CKD (chronic kidney disease), stage IV (Chronic) F/U DR STEPHENSON? COPD (chronic obstructive pulmonary disease) COPD exacerbation currently. On 50mg PO prednisone. GERD (gastroesophageal reflux disease) (Chronic) History of CVA (cerebrovascular accident) (Chronic) 2016 S/P TKA History of lung cancer (Chronic) ~2015 S/P RADIATION THERAPY History of stomach cancer (Chronic) [id number]. EXCISED WITH EGD. Hyperlipidemia (Chronic) Hypertension (Chronic) Hypothyroidism (Chronic) Ischemic cardiomyopathy (Chronic) 2/2 [place] 2000. S/P dual chamber ICD following presentation with syncope and LBBB. BiV pacer upgrade 2011, generator change 11/2017. Left hip pain (Acute) MGUS (monoclonal gammopathy of unknown significance) (Chronic) On anticoagulant therapy (Chronic) Osteoarthritis (Chronic) Renal artery stenosis (Chronic) Restless leg syndrome (Chronic) Sciatica (Chronic) Sleep apnea treated with nocturnal BiPAP (Chronic) "COMPLEX SLEEP APNEA SYNDROME"-2L/MIN WITH BIPAP HS SOB (shortness of breath) on exertion Systolic heart failure NYHA Class 3. Per cardiology 03/01/2019 symptoms slowly improving with diuresis Surgical History History of appendectomy (Chronic) History of cardiac cath (Resolved) 2000 WITH STENT PLACEMENT History of cardioversion (Resolved) History of colonoscopy History of esophagogastroduodenoscopy (EGD) 12/28/2018. propofol/ketamine. no issues. History of implantable cardioverter-defibrillator (ICD) placement (Chronic) 2006-LAST CHECK 03/2019?-F/U FIDEL LIND History of tonsillectomy (Chronic) History of total knee replacement (Chronic) RIGHT (DR. NAIR) 2016 Status post biventricular pacemaker Family History Brother Family history of diabetes mellitus Social History Preferred Language: Ukrainian Communication Ability: Effective Cadd Technician Required: No Beliefs That Will Affect Care: None Current Living Situation: Spouse Current Living Situation Comment: CURRENTLY AT [facility] FOR [facility] Other Information That Helps Us Care for You: No Feels Safe at Home: Yes Safety Concerns: Feels Safe At This Time Smoking Status: Former smoker Tobacco Type: cigarettes ; Cigarettes Per Day: USED TO SMOKE 1 PPD X 50 YRS-DOWN TO 3 CIGS A DAY ; Do You Dip or Chew Tobacco: No ; Smoking End Date: 2017 ; Second Hand Exposure: No ; Tobacco Cessation Education Requested by Patient: No Hx Alcohol Use: No Hx Substance Use: No Review of Systems Review of Systems: All systems reviewed & are unremarkable except as noted in HPI & below Constitutional: + fatigue, + malaise, + weakness and + weight gain Respiratory: + cough, + dyspnea, + dyspnea on exertion and + problem reported (worsenig of orthopnea ) Cardiovascular: + dyspnea, + dyspnea at rest, + dyspnea on exertion, + orthopnea and + edema Gastrointestinal: + diarrhea/loose stools (2 days back ); no abdominal pain, no nausea and no vomiting Physical Exam Constitutional: WD/WN, vitals as above + acute distress (due to shortness of breath ) and + ill appearing Eyes: PERRL, conjunctivae normal, anicteric sclerae ENMT: external ear and nose normal, oropharynx normal Neck: trachea midline, no thyromegaly Respiratory: + respiratory distress and + cough Auscultation: + crackles and + rales Cardiovascular: Rate/Rhythm: regular rate and regular rhythm Vessels: + JVD Extremities: + pedal edema and + edema Gastrointestinal (Abdomen): Inspection/Auscultation: normal bowel sounds Percussion/Palpation: abdomen soft; abdomen nontender Musculoskeletal: Extremities: + abnormal strength (generalized weakness ) Neurologic: PERRL, EOMI, accommodation nl, no face palsy, no dysarthria Psychiatric: Affect: + flat affect lethergic , able to answer questions Results & Data Results & Data ([facility]) Vital Signs (Past 12 Hours) Vital Signs Temp Pulse Pulse Resp BP Pulse Ox 03/06/20 17:31 81 26 H 122/74 94 03/06/20 17:09 88 22 99 03/06/20 17:01 86 17 126/80 98 03/06/20 16:31 83 18 109/77 95 03/06/20 16:00 82 22 141/74 H 98 03/06/20 15:43 100 03/06/20 15:12 36.5 C 82 18 137/74 100 Diagnostic Findings CHEST XRAY : IMPRESSION: 1. Persistent pulmonary vascular congestion 2. Bilateral pleural effusions larger on the right and smaller on the left as compared the prior study 3. Subacute right-sided rib fractures with associated pleural reaction. CT ABDOMEN/PELVIS NON CONTRAST: IMPRESSION: 1. No acute intra-abdominal or pelvic findings. 2. No evidence of bowel obstruction. No evidence of free air 3. Surgically absent appendix. No evidence of acute diverticulitis 4. Right-sided nephrolithiasis. No ureteral calculi identified 5. Moderate right pleural effusion and small left pleural effusion. Lower lobe bronchial wall thickening. Cardiomegaly. Clinical correlation regards to congestive failure is recommended.
[2020-03-06] MEDS: PATIROMER CALCIUM SORBITEX 8.4 GM PACK PO SCH (18:04)
[2020-03-06] MEDS ORDERED: FUROSEMIDE 40 MG/4 ML VIAL IV ONE (19:00)
[2020-03-06] MEDS ORDERED: ACETAMINOPHEN 500 MG TAB PO PRN (20:06)
[2020-03-06] MEDS ORDERED: NITROGLYCERIN SL 0.4 MG/TAB TAB SL PRN (20:06)
[2020-03-06] MEDS ORDERED: POLYETHYLENE (MIRALAX) 17 GM PACK PO PRN (20:06)
[2020-03-06] MEDS ORDERED: ALBUT/IPRATROP 3MG/0.5MG NEB 3 ML VIAL INH PRN (20:06)
[2020-03-06] MEDS ORDERED: FUROSEMIDE 20 MG in SYRINGE 0 ML IV ONE (20:45)
[2020-03-06] MEDS ORDERED: HEPARIN SOD 5,000 UNIT/0.5 ML VIAL SQ SCH (21:00)
[2020-03-06] MEDS: FUROSEMIDE 100 MG in DEXTROSE 5% 90 ML IV SCH (21:42)
[2020-03-06 21:54] LABS: BUN Creatinine Ratio 18.4 (10-20); Calcium 9.1 mg/dl (8.5-10.1); Creatinine Clr Calc Pharmacy 11.6 ml/min; Est GFR (African American) 12.6; Est GFR (Non-African American) 10.9; Potassium 5.5 mmol/L (3.5-5.1)
[2020-03-07] MEDS: FUROSEMIDE 100 MG in DEXTROSE 5% 90 ML IV SCH ×2 (05:41→12:19)
[2020-03-07 08:05] LABS: INR 2.2 (0.9-1.1); Prothrombin Time 22.7 Seconds (9.0-12.0)
[2020-03-07] MEDS: DOCUSATE SODIUM 100 MG CAP PO SCH (08:12)
[2020-03-07] MEDS: METOPROLOL SUCC 50MG EXT REL TAB PO SCH (08:12)
[2020-03-07] MEDS: UMECLIDINIUM/VILANTEROL 62.5/25MCG 7 PUFFS/INHALER INH SCH (08:13)
[2020-03-07] MEDS: ASPIRIN 81 MG ECTAB PO SCH (08:13)
[2020-03-07] MEDS: FLUTICASONE FUROATE 100MCG 14 PUFFS/INHALER INH SCH (08:13)
[2020-03-07 08:26] LABS: BUN Creatinine Ratio 18.2 (10-20); Est GFR (African American) 13.1; Est GFR (Non-African American) 11.3; Magnesium 2.7 mg/dl (1.8-2.4); Potassium 3.9 mmol/L (3.5-5.1)
--- NOTE | 2020-03-07 09:37 | XRay Report ---
TWO VIEW CHEST CLINICAL HISTORY: Pleural effusion. FINDINGS: AP and lateral chest radiographs are compared to study dated 03/06/2020. Correlation is made with chest CT dated 08/17/2017. The AP view is degraded by patient rotation. A 3-lead cardiac AICD is unchanged in position and partially obscures the left mid chest. The heart is enlarged noting athero sclerotic calcification of the thoracic aorta. There is pulmonary vascular congestion. There are smal l bilateral pleural effusions with bibasilar consolidation. Pleural-based density along the right lat eral chest wall likely represents loculated pleural fluid. Parenchymal scarring is noted in the right midlung. There is no pneumothorax. The skeletal structures are osteopenic. Right-sided rib fractures are again noted. IMPRESSION: 1. Cardiomegaly and AICD with evidence of congestive failure. 2. Pleural effusions with bibasilar consolidation. This likely represents atelectasis. Correlate clin ically for evidence of a superimposed infectious/inflammatory pneumonitis. 3. Chronic parenchymal changes as above. ACT 112: Negative or not required by law. Electronically signed by: Amari Reyes M.D. 03/07/2020 9:36 AM
--- NOTE | 2020-03-07 10:22 | Cardiology Consultation ---
Date of Consultation March 07, 2020 Assessment & Plan (1) Acute on chronic heart failure with reduced ejection fraction and diastolic dysfunction: (2) Paroxysmal atrial fibrillation: (3) Acute renal failure (ARF): Echocardiogram performed this am reveals severe LV systolic dysfunction LVEF 25%. Moderate to severe mitral regurgitation is present, with noted leaflet malcoaptation due to dilated cardiomyopathy and tethering of the mitral valve apparatus. It is noted patient has been on hospice due to his advanced heart failure, however, patient has reversed this decision. Chemistry panel performed as outpatient on 02/09/20 revealed creatinine of 3.7, est. GFR of 14 ml/m/m2 at that time, as compared to 4.45, est GFR 12 ml/m/m2 at present. Potassium has improved from 6.5 to 3.9 mmol / L. At present agree with holding diuretics pending nephrology input. Pt's cardiac condition makes him a poor candidate for dialysis. Agree with plans to have pulmonary medicine assess the patient for possible palliative right thoracentesis. Coumadin on hold at present. He is in SR. Case discussed with Dr Yoo. History of Present Illness Attending Physician: Quincy Yoo MD History of Present Illness Jesus Silva is an 84 year old male seen in cardiology consultation per the request of Dr Bolanos for the evaluation of acute on chronic systolic heart failure. Patient is well-known to our service, and typically follows closely with Fidel Lind PA-C of our practice. Progressive shortness of breath over the last 1 week. In the emergency room he received 1 mg of IV Bumex onset at 17: 10, and was then placed on a furosemide infusion receiving a bolus at 2140 infusion persisted at a rate of 10 mg an hour until he was stopped late this morning. Patient also received Kayexalate for high potassium. 2.1 L of urine output noted overnight last night, and the patient is feeling somewhat subjectively improved. Problem List: 1.ASCVD and previous [place], angioplasty of the LAD and diagonal, and PCI of the PDA in 2000. 2.Severe ischemic cardiomyopathy. 3.Status post dual chamber ICD implantation following presentation with syncope and a LBBB. Functional status was previously NYHA Class I-II and thus no Bi-V device was implanted. Procedures performed at [facility]. 4.Change in functional status lead to the abnormal nuclear stress testing and ultimately 06/06/2012 cardiac catheterization which demonstrated obstructive branch vessel coronary artery disease including a 100% RPLB stenosis and a 100% first diagonal branch stenosis. Left ventricular end diastolic pressure was noted to be moderately elevated. 5.Status post biventricular pacemake upgrade at [facility] on 07/22/2012 6.Status post November 30, [address] Freeman 7.Hospitalization at [facility] in May 2013 with shortness of breath, new onset symptomatic atrial fibrillation with a RVR with resultant acute decompensated biventricular CHF exacerbation. Oral amiodarone and Coumadin anticoagulation initiated at that time. Post discharge he spontaneously converted back to since rhythm with device interrogation revealing increased biventricular pacing, resultant improvement in symptoms. 1.Recurrent atrial fibrillation with significant reduction in biventricular pacing, ultimately undergoing March 02, 2019 synchronized electrical cardio version with successful return to sinus rhythm/AV sequential pacing. 2.Recurrent atrial fibrillation on May 10, 2019 with resultant decreased percentage of biventricular pacing, acute on chronic systolic congestive heart failure. Muslim of sinus rhythm was felt to be unlikely. Amiodarone and carvedilol discontinued with Toprol XL and hydralazine prescribed. 8.August 2016 CVA attributed to small vessel disease per report. 9.Carotid occlusive disease, followed by Vascular - managed medically. 10.Emphysema. 11.Adenocarcinoma of the lung status post radiation. 12.December 2017 EGD, gastric nodule - adenocarcinoma. 13.Severe complex sleep apnea, BiPAP therapy 14. Stage IV-V CKD Allergies Allergy/AdvReac Type Severity Reaction Status Date / Time blue dye Allergy Severe SHORTNESS Verified 03/06/20 16:08 OF BREATH sumatriptan Allergy Severe SHORTNESS Verified 03/06/20 16:08 OF BREATH naproxen Allergy Mild SWELLING Verified 03/06/20 16:08 OF HANDS diphenhydramine AdvReac Intermediate MADE Verified 03/06/20 16:08 DEFIBRILLATOR FIRE pseudoephedrine AdvReac Intermediate MADE HIS Verified 03/06/20 16:08 DEFIB FIRE Home Medications Home Medications Medication Instructions Recorded Confirmed Type aspirin [Aspir-81] 81 mg PO QAM 08/22/18 03/06/20 History isosorbide dinitrate 10 mg PO BID 08/22/18 03/06/20 History nitroglycerin [Nitrostat] 1 tab SUBLINGUAL UD PRN 08/22/18 03/06/20 History Trelegy Ellipta 1 inh INHALATION QAM 02/26/19 03/06/20 History acetaminophen [Tylenol Extra 1,000 mg PO Q6H PRN 05/08/19 03/06/20 History Strength] meclizine 12.5 mg PO TID PRN 05/08/19 03/06/20 History ondansetron 4 mg PO Q8H PRN 05/08/19 03/06/20 History allopurinol 300 mg PO DAILY 05/24/19 03/06/20 History ipratropium-albuterol 3 ml INHALATION Q6 PRN 05/24/19 03/06/20 History warfarin 2 mg PO UD 05/24/19 03/06/20 History warfarin 3 mg PO UD 05/24/19 03/06/20 History hydralazine 25 mg PO BID 08/13/19 03/06/20 History metoprolol succinate 50 mg PO DAILY 08/13/19 03/06/20 History docusate sodium 100 mg PO DAILY 09/20/19 03/06/20 History temazepam 15 mg PO HS PRN 09/20/19 03/06/20 History tpjqknouenu-xtyjqklkr-tspetidt 1 inh INHALATION BID 03/06/20 03/06/20 History [Trelegy Ellipta] potassium chloride 10 meq PO BID 03/06/20 03/06/20 History pregabalin 25 mg PO DAILY 03/06/20 03/06/20 History torsemide 20 mg PO BID 03/06/20 03/06/20 History Patient History Medical History Acute kidney injury superimposed on chronic kidney disease (Acute) Acute on chronic respiratory failure with hypoxemia BiPAP now weaned to [place] oxygen. Anemia of chronic disease (Chronic) CAD (coronary artery disease) (Chronic) ASCVD with [place] 2000, angioplasty of LAD and Dx, and PCI of PDA. Resultant severe ischemic CM. Carotid stenosis, bilateral (Chronic) Chronic atrial fibrillation (Chronic) CKD (chronic kidney disease), stage IV (Chronic) F/U DR STEPHENSON? COPD (chronic obstructive pulmonary disease) COPD exacerbation currently. On 50mg PO prednisone. GERD (gastroesophageal reflux disease) (Chronic) History of CVA (cerebrovascular accident) (Chronic) 2016 S/P TKA History of lung cancer (Chronic) ~2014 S/P RADIATION THERAPY History of stomach cancer (Chronic) [id number]. EXCISED WITH EGD. Hyperlipidemia (Chronic) Hypertension (Chronic) Hypothyroidism (Chronic) Ischemic cardiomyopathy (Chronic) 2/2 [place] 2000. S/P dual chamber ICD following presentation with syncope and LBBB. BiV pacer upgrade 2011, generator change 11/2017. Left hip pain (Acute) MGUS (monoclonal gammopathy of unknown significance) (Chronic) On anticoagulant therapy (Chronic) Osteoarthritis (Chronic) Renal artery stenosis (Chronic) Restless leg syndrome (Chronic) Sciatica (Chronic) Sleep apnea treated with nocturnal BiPAP (Chronic) "COMPLEX SLEEP APNEA SYNDROME"-2L/MIN WITH BIPAP HS SOB (shortness of breath) on exertion Systolic heart failure NYHA Class 3. Per cardiology 03/01/2019 symptoms slowly improving with diuresis Surgical History History of appendectomy (Chronic) History of cardiac cath (Resolved) 2000 WITH STENT PLACEMENT History of cardioversion (Resolved) History of colonoscopy History of esophagogastroduodenoscopy (EGD) 12/28/2018. propofol/ketamine. no issues. History of implantable cardioverter-defibrillator (ICD) placement (Chronic) 2006-LAST CHECK 03/2019?-F/U FIDEL LIND History of tonsillectomy (Chronic) History of total knee replacement (Chronic) RIGHT (DR. NAIR) 2016 Status post biventricular pacemaker Family History Brother Family history of diabetes mellitus Social History Preferred Language: Tajik Communication Ability: Effective Real Estate Officer Required: No Beliefs That Will Affect Care: None Current Living Situation: Spouse Current Living Situation Comment: CURRENTLY AT [facility] FOR [facility] Other Information That Helps Us Care for You: No Feels Safe at Home: Yes Safety Concerns: Feels Safe At This Time Smoking Status: Former smoker Tobacco Type: cigarettes ; Cigarettes Per Day: USED TO SMOKE 1 PPD X 50 YRS-DOWN TO 3 CIGS A DAY ; Do You Dip or Chew Tobacco: No ; Smoking End Date: 2017 ; Second Hand Exposure: No ; Tobacco Cessation Education Requested by Patient: No Hx Alcohol Use: No Hx Substance Use: No Review of Systems Review of Systems: All systems reviewed & are unremarkable except as noted in HPI & below Physical Exam Physical Exam: Temp Pulse Resp BP Pulse Ox 36.5 C 77 19 129/71 95 03/07/20 08:00 03/07/20 08:00 03/07/20 08:00 03/07/20 08:00 03/07/20 08:00 Constitutional: Chronically ill in appearance Respiratory: Diminished breath sounds lower lung and midlung multani no rales rhonchi or wheezing Cardiovascular: Rate/Rhythm: regular rate Heart Sounds: + murmur (2/6 SM at apex ) Vessels: + JVD Extremities: + edema (trace ) Gastrointestinal (Abdomen): normal bowel sounds, soft, nontender, no hepatosplenomegaly Skin: Right arm ecchymosis noted Results & Data ([facility]) Vital Signs (Past 12 Hours) Vital Signs Temp Pulse Resp BP BP Pulse Ox 03/07/20 08:00 36.5 C 77 19 129/71 95 03/07/20 04:47 36.3 C L 85 20 114/69 97 03/07/20 00:00 83 18 127/77 99 Laboratory Results Cardiac Enzymes 03/06/20 Range/Units 15:39 AST 20 (15-37) U/L Troponin I 0.027 (0-0.045) ng/ml Coagulation 03/06/20 03/07/20 Range/Units 15:38 07:30 PT 23.7 H 22.7 H (9.0-12.0) Seconds APTT 39.5 H (21.0-31.0) Seconds CBC 03/06/20 Range/Units 15:38 WBC 11.21 H (4.8-10.8) K/uL RBC 3.68 L (4.7-6.1) M/uL Hgb 10.3 L (14.0-18.0) g/dL Hct 33.7 L (42-52) % Plt Count 164 (130-400) K/uL Neut # (Auto) 9.04 H (1.4-6.5) K/uL Lymph # (Auto) 0.97 L (1.2-3.4) K/uL Payne # (Auto) 1.02 H (0.11-0.59) K/uL Eos # (Auto) 0.08 (0-0.5) K/uL Baso # (Auto) 0.01 (0-0.2) K/uL Comprehensive Metabolic Panel 03/06/20 03/06/20 03/07/20 Range/Units 15:39 21:05 07:30 Sodium 131 L 133 L 135 L (136-145) mmol/L Potassium 6.5 H* 5.5 H D 3.9 D (3.5-5.1) mmol/L Chloride 97 L 98 93 L (98-107) mmol/L Carbon Dioxide 30 28 35 H (21-32) mmol/L BUN 85 H 86 H 81 H (7-18) mg/dl Creatinine 4.82 H* 4.59 H* 4.45 H (0.6-1.4) mg/dl Glucose 135 H 108 H 96 (70-99) mg/dl Calcium 8.8 9.1 9.0 (8.5-10.1) mg/dl AST 20 (15-37) U/L ALT 50 (12-78) U/L Alkaline Phosphatase 120 H (45-117) U/L Total Protein 7.3 (6.4-8.2) gm/dl Albumin 3.4 (3.4-5.0) gm/dl Intake and Output 03/06/20 03/07/20 03/07/20 22:59 06:59 14:59 Intake Total 200 / 499.833 299.833 / 499.833 Output Total 600 / 2150 1550 / 2150 Balance -400 / -1650.167 -1250.167 / -1650.167 Intake: IV 79.833 / 79.833 Lasix 100 mg In D5 90 ml @ 10 79.833 / 79.833 MG/HR 10 mls/hr IV .Q10H [facility] Rx #:[id number] Oral 200 / 420 220 / 420 Output: Urine 600 / 1100 500 / 1100 Urine Amount (Catheter) 1050 / 1050 Javier/Indwelling 1050 / 1050 Other: Weight 76.7 kg 74.4 kg (1) Acute renal failure (ARF) Acute renal failure type: unspecified Qualified Code(s): N17.9 - Acute kidney failure, unspecified
[2020-03-07] MEDS: PATIROMER CALCIUM SORBITEX 8.4 GM PACK PO SCH (10:39)
--- NOTE | 2020-03-07 12:07 | Consultation Report ---
DATE OF CONSULTATION: 03/07/2020 NEPHROLOGY CONSULTATION NOTE REASON FOR CONSULT: [id number] renal failure with hyperkalemia. HISTORY OF PRESENT ILLNESS: The patient is an 84-year-old male with advanced ischemic cardiomyopathy with an EF of 25%, who has actually been on home hospice for the last few months. The patient was brought to the Emergency Department yesterday because of shortness of breath. He did have significant pleural effusion as well as crackles. Workup done in the Emergency Department showed acute renal failure with hyperkalemia. The patient got Lasix drip, and with that, he did diurese some and his symptoms are better today. Creatinine was 4.82 on admission with a potassium of 6.5. This morning labs are actually better with a creatinine down to 4.45 and potassium of 3.9. He does have chronic kidney disease with a baseline creatinine in the 2-3 range. ALLERGY LIST: REVIEWED IN DETAIL AND IS PER H AND P. MEDICATIONS: Home medication list was also reviewed in detail and is as per H and P. He takes torsemide 20 mg twice daily at home as well as potassium 10 twice daily. PAST MEDICAL AND SURGICAL HISTORY: List is very extensive and includes history of JYOTHI on CKD, history of chronic respiratory failure - on chronic oxygen, anemia of chronic disease, coronary artery disease, bilateral carotid stenosis, chronic AFib, CKD stage IV with a baseline creatinine of 2-3 range, COPD, GERD, history of stroke, history of lung cancer in 2014, status post radiation therapy, history of stomach cancer, hyperlipidemia, hypertension, hypothyroidism, ischemic cardiomyopathy, status post dual-chamber ICD with an EF of 25%, chronic sleep apnea, restless legs syndrome, history of renal artery stenosis. FAMILY HISTORY: Unremarkable for renal disease or dialysis. SOCIAL HISTORY: , lives with , but currently at [facility] for rehab. Former smoker, no alcohol. REVIEW OF SYSTEMS: He had fatigue, malaise, weakness, weight gain, cough, dyspnea, dyspnea on exertion; however, did not have any nausea, vomiting or abdominal pain. There was some mention of diarrhea. PHYSICAL EXAMINATION: GENERAL: Elderly white male who does appear to be in [id number] respiratory distress. HEENT: Mucous membrane moist. NECK: Supple. No jugular venous distention. CHEST: Bilateral crackles and decreased breath sounds. CARDIOVASCULAR: S1 and S2 regular. Systolic murmur heard. ABDOMEN: Soft, nontender. EXTREMITIES: Show trace edema. VITAL SIGNS: Blood pressure is 129/71, pulse rate 77, temperature 36.5, 95% on 2 liters nasal cannula. LABORATORY TEST: Reviewed in detail and already detailed in HPI. Labs from this morning show sodium trending up to 135, potassium trending down to 3.9, BUN stable at 81. Creatinine trending down to 4.45, magnesium 2.7, proBNP was 10,824. Chest x-ray showed congestive heart failure with cardiomegaly and pleural effusion. ASSESSMENT AND PLAN: An 84-year-old male with preexisting chronic kidney disease IV with a baseline creatinine in the 2-3 range as well as severe ischemic cardiomyopathy, admitted with shortness of breath. I have been consulted for [id number] renal failure with hyperkalemia. RECOMMENDATIONS: ARF--Acute part sec to cardiorenal Syndrome with some degree of ATN. With the use of Lasix drip, the patient actually feels better from breathing standpoint. His sodium as well as potassium have also improved with diuresis as expected. I would continue with the Lasix drip. It will be incredibly difficult to do dialysis on him if such need arise. However likely he has reached End stage cardiac and ESRD. I would do a urine dipstick. He did not have any hydronephrosis on the CAT scan. [facility]
--- NOTE | 2020-03-07 13:38 | Pulmonary Consultation ---
Date of Consultation March 07, 2020 Assessment & Plan (1) Acute on chronic heart failure with reduced ejection fraction and diastolic dysfunction: 84-year-old male with history of severe systolic heart failure, grade 3 diastolic dysfunction, JYOTHI and CKD, acute hypoxemic respiratory failure and chronic hypoxemic respiratory failure and bilateral effusions presenting to the hospital with increasing shortness of breath. Patient was previously in hospice care. Patient is notably symptomatically improving with the Lasix drip. Recommend continued diuretic therapy with close monitoring of his input and output. I think he is at a very elevated risk of bleed with an invasive procedure like a thoracentesis given his elevated INR and age. Given his improvement symptomatically with a Lasix drip, I am going to hold off on thoracentesis. The effusions do seem fairly small. I think that we could continue holding his warfarin and allow the INR to drift down naturally and if needed in the future, we can perform a thoracentesis at that time. I discussed this case with Dr. Wilfrido Gregory, rn dialysis, who is in agreement. I am also concerned of his overall bleeding risk on warfarin. He describes intermittent hemoptysis and notably he has a rib fracture. I suspect that he might be falling at home. He is also an increased fall risk due to his comorbidities and oxygen tubing. Consideration about the risks versus benefits of warfarin must be discussed with the patient. I did briefly discuss this with the patient today. Overall prognosis is very poor. Additionally, I recommend consulting palliative care to help straighten out his hospice situation. Pulmonary will continue to follow. Thank you for the consult. (2) SOB (shortness of breath): (3) Paroxysmal atrial fibrillation: (4) Hemoptysis: (5) Acute kidney injury superimposed on chronic kidney disease: (6) Acute hypoxemic respiratory failure: (7) Chronic bilateral pleural effusions: History of Present Illness Reason for Consultation: Pleural effusions and acute hypoxemic respiratory failure. Requesting Physician: Dr. Quincy Yoo Attending Physician: Quincy Yoo MD History of Present Illness 84-year-old male with a past medical history of severe systolic CHF wi th an EF of 20 to 25%, grade 3 diastolic dysfunction, paroxysmal atrial fibrillation on warfarin, CKD, obstructive sleep apnea, ischemic cardiomyopathy, chronic hypoxemic respiratory failure, hypertension and hyperlipidemia presenting to the hospital due to increasing shortness of breath for the last 2 to 3 days. Patient was apparently on hospice previously. Patient notes that he sleeps upright in a recliner due to chronic shortness of breath. He is only able to walk approximately 40 feet on a good day due to shortness of breath. He also notes increasing cough with occasional sputum. He noted that 2 weeks ago he had some hemoptysis. He notes that currently he feels "75% better". He has been on IV Lasix drip. He received IV Bumex in the ER. He is net -1.65 L since admission. His creatinine is currently 4.45. Sodium is improving to 135. It appears that his baseline creatinine is around 2.0. Chest x-ray on admission demonstrated persistent pulmonary vascular changes with bilateral effusions and a subacute right-sided fracture with associated pleural effusion. CT abdomen demonstrated right-sided nephrolithiasis and a moderate right pleural effusion and small left pleural effusion. Lower bronchial wall thickening was noted. Chest x-ray on 03/07/2020 demonstrated cardiomegaly with AICD placement. Pleural effusions were again demonstrated. Troponin was negative. proBNP is 10,824. Most recent proBNP prior to that was May 29, 2019 which was 2398. Of note, he did have some nausea upon arrival to the hospital. He notes that this has resolved. Allergies Allergy/AdvReac Type Severity Reaction Status Date / Time blue dye Allergy Severe SHORTNESS Verified 03/06/20 16:08 OF BREATH sumatriptan Allergy Severe SHORTNESS Verified 03/06/20 16:08 OF BREATH naproxen Allergy Mild SWELLING Verified 03/06/20 16:08 OF HANDS diphenhydramine AdvReac Intermediate MADE Verified 03/06/20 16:08 DEFIBRILLATOR FIRE pseudoephedrine AdvReac Intermediate MADE HIS Verified 03/06/20 16:08 DEFIB FIRE Home Medications Home Medications Medication Instructions Recorded Confirmed Type aspirin [Aspir-81] 81 mg PO QAM 08/22/18 03/06/20 History isosorbide dinitrate 10 mg PO BID 08/22/18 03/06/20 History nitroglycerin [Nitrostat] 1 tab SUBLINGUAL UD PRN 08/22/18 03/06/20 History Trelegy Ellipta 1 inh INHALATION QAM 02/26/19 03/06/20 History acetaminophen [Tylenol Extra 1,000 mg PO Q6H PRN 05/08/19 03/06/20 History Strength] meclizine 12.5 mg PO TID PRN 05/08/19 03/06/20 History ondansetron 4 mg PO Q8H PRN 05/08/19 03/06/20 History allopurinol 300 mg PO DAILY 05/24/19 03/06/20 History ipratropium-albuterol 3 ml INHALATION Q6 PRN 05/24/19 03/06/20 History warfarin 2 mg PO UD 05/24/19 03/06/20 History warfarin 3 mg PO UD 05/24/19 03/06/20 History hydralazine 25 mg PO BID 08/13/19 03/06/20 History metoprolol succinate 50 mg PO DAILY 08/13/19 03/06/20 History docusate sodium 100 mg PO DAILY 09/20/19 03/06/20 History temazepam 15 mg PO HS PRN 09/20/19 03/06/20 History [id number]-meqristc 1 inh INHALATION BID 03/06/20 03/06/20 History [Trelegy Ellipta] potassium chloride 10 meq PO BID 03/06/20 03/06/20 History pregabalin 25 mg PO DAILY 03/06/20 03/06/20 History torsemide 20 mg PO BID 03/06/20 03/06/20 History Patient History Medical History Acute kidney injury superimposed on chronic kidney disease (Acute) Acute on chronic respiratory failure with hypoxemia BiPAP now weaned to NC oxygen. Anemia of chronic disease (Chronic) CAD (coronary artery disease) (Chronic) ASCVD with NE 2000, angioplasty of LAD and Dx, and PCI of PDA. Resultant severe ischemic CM. Carotid stenosis, bilateral (Chronic) Chronic atrial fibrillation (Chronic) CKD (chronic kidney disease), stage IV (Chronic) F/U DR STEPHENSON? COPD (chronic obstructive pulmonary disease) COPD exacerbation currently. On 50mg PO prednisone. GERD (gastroesophageal reflux disease) (Chronic) History of CVA (cerebrovascular accident) (Chronic) 2016 S/P TKA History of lung cancer (Chronic) ~2015 S/P RADIATION THERAPY History of stomach cancer (Chronic) [id number]. EXCISED WITH EGD. Hyperlipidemia (Chronic) Hypertension (Chronic) Hypothyroidism (Chronic) Ischemic cardiomyopathy (Chronic) 2/2 NE 2000. S/P dual chamber ICD following presentation with syncope and LBBB. BiV pacer upgrade 2011, generator change 11/2017. Left hip pain (Acute) MGUS (monoclonal gammopathy of unknown significance) (Chronic) On anticoagulant therapy (Chronic) Osteoarthritis (Chronic) Renal artery stenosis (Chronic) Restless leg syndrome (Chronic) Sciatica (Chronic) Sleep apnea treated with nocturnal BiPAP (Chronic) "COMPLEX SLEEP APNEA SYNDROME"-2L/MIN WITH BIPAP HS SOB (shortness of breath) on exertion Systolic heart failure NYHA Class 3. Per cardiology 03/01/2019 symptoms slowly improving with diuresis Surgical History History of appendectomy (Chronic) History of cardiac cath (Resolved) 2000 WITH STENT PLACEMENT History of cardioversion (Resolved) History of colonoscopy History of esophagogastroduodenoscopy (EGD) 12/28/2018. propofol/ketamine. no issues. History of implantable cardioverter-defibrillator (ICD) placement (Chronic) 2006-LAST CHECK 03/2019?-F/U FIDEL LIND History of tonsillectomy (Chronic) History of total knee replacement (Chronic) RIGHT (DR. 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 Other Information That Helps Us Care for You: No Feels Safe at Home: Yes Safety Concerns: Feels Safe At This Time Smoking Status: Former smoker Tobacco Type: cigarettes ; Cigarettes Per Day: USED TO SMOKE 1 PPD X 50 YRS-DOWN TO 3 CIGS A DAY ; Do You Dip or Chew Tobacco: No ; Smoking End Date: 2017 ; Second Hand Exposure: No ; Tobacco Cessation Education Requested by Patient: No Hx Alcohol Use: No Hx Substance Use: No Review of Systems Review of Systems: All systems reviewed & are unremarkable except as noted in HPI & below Physical Exam Constitutional: Very elderly appearing male in no significant distress laying in bed. Nasal cannula in place. He appears generally weak. Eyes: PERRL, conjunctivae normal, anicteric sclerae ENMT: external ear and nose normal, oropharynx normal Neck: normal visual inspection Respiratory: Mild bibasilar crackles with diminishment noted. Mildly tachypneic. Cardiovascular: Irregularly irregular. Mild systolic flow murmur noted. No significant pitting edema in the lower extremities. Gastrointestinal (Abdomen): Nontender, nondistended. Normoactive bowel sounds. Musculoskeletal: Ecchymosis in all extremities noted. Diffusely weak. Barely able to sit up in bed. Skin: As noted in the musculoskeletal section Neurologic: PERRL, EOMI, accommodation nl, no face palsy, no dysarthria Psychiatric: A+Ox3, euthymic affect Results & Data Results & Data ([facility]) Vital Signs (Past 12 Hours) Vital Signs Temp Pulse Resp BP Pulse Ox 03/07/20 11:17 97.3 F L 78 19 129/72 98 03/07/20 08:00 97.7 F 77 19 129/71 95 03/07/20 04:47 97.3 F L 85 20 114/69 97 I personally reviewed his previous labs, chest imaging and notes. Echocardiogram reviewed which demonstrates severe lateral hypokinesis, severe posterior wall hypokinesis, severe inferior wall hypokinesis and an EF of 25%. PG Care Time/CCT Total # of Minutes Spent Total Time Spent with Patient: Total time spent is greater than 50% in coordination of care (as documented) at patient's floor/unit and/or counseling patient: Coding Level of Care Code 90863 Initial Inpt Care Lvl 3 Diagnoses Acute on chronic heart failure with reduced ejection fraction and diastolic dysfunction I50.43 SOB (shortness of breath) R06.02 Paroxysmal atrial fibrillation I48.0 Hemoptysis R04.2 Acute kidney injury superimposed on chronic kidney disease N17.9; N18.9 Acute hypoxemic respiratory failure J96.01 Chronic bilateral pleural effusions J90
[2020-03-07 14:15] LABS: Albumin Level 3.1 gm/dl (3.4-5.0); BUN Creatinine Ratio 18.8 (10-20); Calcium 8.7 mg/dl (8.5-10.1); Est GFR (African American) 13.1; Est GFR (Non-African American) 11.3; Potassium 3.8 mmol/L (3.5-5.1)
[2020-03-07 14:18] LABS: Albumin Globulin Ratio 0.9 (0.9-2); Bilirubin,Total 1.4 mg/dl (0.2-1); Globulin 3.4 gm/dl (2.5-4.0); Total Protein 6.5 gm/dl (6.4-8.2)
[2020-03-07] MEDS ORDERED: WARFARIN SOD 2 MG TAB PO SCH (16:00)
--- NOTE | 2020-03-07 16:06 | Hospitalist Progress Note ---
Date of Service March 07, 2020 Assessment & Plan (1) Acute on chronic heart failure with reduced ejection fraction and diastolic dysfunction: -as per admission notes" Patient admitted with shortness of breath worsening in the last 3-4 days, with worsening of lower extremity edema, increased abdominal girth Last echo done in 2019 showed EF of 30% with global hypokinesis, baseline heart failure with NYHA class IV. proBNP more than 16,000, chest x-ray shows pallor bilateral pleural effusion right worse than left, patient was given IV Bumex, discussed with nephrology, patient will be started with low-dose Lasix drip -Patient had IV Lasix drip from admission on 03/06/2020 and improving oxyg enation. The IV Lasix drip was held in the AM while patient still on some nasal cannula oxygen. The IV Lasix then resumed at the request of nephrology. Cardiology Dr. Andrade did not feel patient would benefit with concurrent dobutamine IV and this was not given. Patient seen again in afternoon and appears to be able to breath comfortably on room air. Will hold the IV Lasix for now. Pulmonary service with no acute plans to perform thoracentesis as patient making clinical improvements. Will continue to hold the home dose coumadin for now. -patient later complained to nurse of feeling subjective shortness of breath in evening of 03/07/2020 even though he was saturating above 91% on room air. switched Lasix to 20 mg IV TID for now. paroxysmal Atrial Fibrillation -currently normal sinus rhythm -hold the coumadin in case of bleed risks and if need of procedure Cardiomyopathy, severe history of coronary artery disease -Echocardiogram performed on 03/07/2020 reveals severe LV systolic dysfunction LVEF 25%. Moderate to severe mitral regurgitation is present, with noted leaflet malcoaptation due to dilated cardiomyopathy and tethering of the mitral valve apparatus. It is noted patient has been on hospice due to his advanced heart failure, however, patient has reversed this decision. -gas reverser reports he discussed with patient's family about overall poor cardiac prognosis -on home dose metoprolol 50 mg daily -still holding off home dose isosorbide and hydralazine while on the IV diuretics for now Acute renal failure with CKD stage IV -unclear as to cause on his admission but patient's creatinine has not worsened for IV diuretic for now Hyperkalemia, on admission -improved after Kayexalate calcium gluconate insulin with dextrose in ER on 03/06/2020 and then with diuretics -current serum potassium levels normal Sleep apnea Ordered for BiPAP at night DVT prophylaxis: currently with therapeutic INR Admission and Anticipated Discharge Date Admission Date: March 06, 2020 Subjective Patient had IV Lasix drip from admission on 03/06/2020 and improving oxygenation. The IV Lasix drip was held in the AM while patient still on some nasal cannula oxygen. The IV Lasix then resumed at the request of nephrology. Cardiology Dr. Andrade did not feel patient would benefit with concurrent dobutamine IV and this was not given. Patient seen again in afternoon and appears to be able to breath comfortably on room air. Will hold the IV Lasix for now. Pulmonary service with no acute plans to perform thoracentesis as patient making clinical improvements. Will continue to hold the home dose coumadin for now. Review of Systems Review of Systems: All systems reviewed & are unremarkable except as noted in Subjective Physical Exam Constitutional: cooperative Eyes: PERRL, conjunctivae normal, anicteric sclerae EOM intact bilaterally ENMT: external ear and nose normal, oropharynx normal Neck: normal visual inspection Respiratory: normal respiratory effort Cardiovascular: Rate/Rhythm: regular rate (pacing) Gastrointestinal (Abdomen): normal bowel sounds, soft, nontender, no hepatosplenomegaly Musculoskeletal: Head/Neck/Chest: normocephalic and head atraumatic Neurologic: PERRL, EOMI, accommodation nl, no face palsy, no dysarthria CN's II-XI intact bilaterally Psychiatric: A+Ox3, euthymic affect Results & Data Results & Data ([facility]) Vital Signs (Past 12 Hours) Vital Signs Temp Pulse Resp BP Pulse Ox 03/07/20 15:49 36.3 C L 70 20 126/69 91 03/07/20 11:17 36.3 C L 78 19 129/72 98 03/07/20 08:00 36.5 C 77 19 129/71 95 03/07/20 04:47 36.3 C L 85 20 114/69 97
[2020-03-07] MEDS: FUROSEMIDE 20 MG in SYRINGE 0 ML IV SCH (20:43)
[2020-03-07] MEDS: TEMAZEPAM 15 MG CAPSULE PO PRN (21:20)
[2020-03-08] MEDS: FUROSEMIDE 20 MG in SYRINGE 0 ML IV SCH (02:31)
[2020-03-08 06:33] LABS: Basophils # (auto) 0.01 K/uL (0-0.2); Basophils % (auto) 0.1 %; Eosinophils # (auto) 0.12 K/uL (0-0.5); Eosinophils % (auto) 1.4 %; Hematocrit (blood only) 29.6 % (42-52); Hemoglobin 8.8 g/dL (14.0-18.0); Immature Granulocytes # (auto) 0.03 K/uL (0.00-0.02); Immature Granulocytes % (auto) 0.3 %; Lymphocytes # (auto) 0.92 K/uL (1.2-3.4); Lymphocytes % (auto) 10.6 %; Mean Corpuscular Hemoglobin 27.4 pg (25-34); Mean Corpuscular Hgb Conc 29.7 g/dL (32-36); Mean Corpuscular Volume 92.2 fL (80-100); Mean Platelet Volume 10.9 fL (7.4-10.4); Monocytes # (auto) 1.13 K/uL (0.11-0.59); Neutrophils # (auto) 6.46 K/uL (1.4-6.5); Neutrophils % (auto) 74.6 %; Platelet Count 139 K/uL (130-400); RDW Coefficient of Variation 17.4 % (11.5-14.5); RDW Standard Deviation 58.4 fL (36.4-46.3); Red Blood Count 3.21 M/uL (4.7-6.1); White Blood Count 8.67 K/uL (4.8-10.8)
[2020-03-08 06:47] LABS: Prothrombin Time 19.9 Seconds (9.0-12.0)
[2020-03-08 07:13] LABS: Albumin Globulin Ratio 0.9 (0.9-2); Albumin Level 2.9 gm/dl (3.4-5.0); BUN Creatinine Ratio 17.1 (10-20); Bilirubin,Total 1.4 mg/dl (0.2-1); Calcium 8.3 mg/dl (8.5-10.1); Est GFR (African American) 11.8; Est GFR (Non-African American) 10.2; Globulin 3.4 gm/dl (2.5-4.0); Potassium 3.2 mmol/L (3.5-5.1); Total Protein 6.3 gm/dl (6.4-8.2)
[2020-03-08] MEDS ORDERED: POTASSIUM CHLORIDE 20 MEQ TABCR PO STA (07:22)
[2020-03-08] MEDS: DOCUSATE SODIUM 100 MG CAP PO SCH (08:07)
[2020-03-08] MEDS: FLUTICASONE FUROATE 100MCG 14 PUFFS/INHALER INH SCH (08:07)
[2020-03-08] MEDS: POTASSIUM CHLORIDE / WTR 10 MEQ/100 ML PLCT IV SCH ×2 (08:07→09:50)
[2020-03-08] MEDS: METOPROLOL SUCC 50MG EXT REL TAB PO SCH (08:07)
[2020-03-08] MEDS: ASPIRIN 81 MG ECTAB PO SCH (08:07)
[2020-03-08] MEDS: UMECLIDINIUM/VILANTEROL 62.5/25MCG 7 PUFFS/INHALER INH SCH (08:08)
[2020-03-08 08:30] LABS: Magnesium 2.5 mg/dl (1.8-2.4); Phosphorus 5.8 mg/dl (2.5-4.9)
--- NOTE | 2020-03-08 09:20 | XRay Report ---
XR chest 2V PA/lateral CLINICAL HISTORY: post diuresis dyspnea COMPARISON STUDY: 03/07/2020 FINDINGS: Mild stable cardiomegaly. Unchanged bilateral pleural effusions. Unchanged right lower lobe atelectatic change. Fibrotic change right upper lung with moderately improved pleural thickening lateral aspect right sera st. No evidence of pneumothorax. IMPRESSION: 1. Generally stable components of congestive failure. 2. Bilateral pleural effusions with right lower lobe atelectatic change considered similar 3. Improving pleural reactive change right lateral hemithorax. ACT 112: Negative or not required by law. The above report was generated using voice recognition software. It may contain grammatical, syntax or spelling errors. Electronically signed by: Carmine Aleman M.D. 03/08/2020 9:19 AM
[2020-03-08] MEDS: PATIROMER CALCIUM SORBITEX 8.4 GM PACK PO SCH (09:51)
--- NOTE | 2020-03-08 10:08 | Cardiology Progress Note ---
Date of Service March 08, 2020 Assessment & Plan (1) Acute on chronic heart failure with reduced ejection fraction and diastolic dysfunction: (2) Acute kidney injury superimposed on chronic kidney disease: Telemetry overnight revealed sinus rhythm with ventricular pacing. A 5 beat run of nonsustained ventricular tachycardia was observed. INR 2 today. Creatinine 4.85 from 4.45. 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 I recommend potassium replacement for potassium level of 3.2, and reinitiating low-dose furosemide infusion. With hesitation regarding placing him on inotropic therapy such as low-dose dopamine or dobutamine, as he has a risk of paroxysmal atrial fibrillation, and ventricular ectopy has been noted on telemetry. Nephrology input is noted and appreciated. I agree that he would be a poor candidate for dialysis, and that option that we will offer a change in his trajectory clinically. Chest x-ray is relatively unchanged today. We are holding Coumadin. If patient does not improve clinically with diuretic therapy, consider benefits and risks of palliative thoracentesis after his INR is normalized. Subjective Chief complaint: Follow-up shortness of breath Subjective: Patient feeling subjectively improved today compared to yesterday. He had been on and off furosemide yesterday. Fluid balance is negative by about a liter. Review of Systems Review of Systems: All systems reviewed & are unremarkable except as noted in HPI & below Physical Exam Physical Exam: Temp Pulse Resp BP Pulse Ox 36.4 C L 74 20 117/65 98 03/08/20 07:00 03/08/20 07:00 03/08/20 07:00 03/08/20 07:00 03/08/20 07:00 Constitutional: Chronically ill in appearance Respiratory: Decreased breath sounds bilaterally, especially at the right base Cardiovascular: Rate/Rhythm: regular rate Heart Sounds: + murmur (2/6 systolic murmur radiating to the left apex) Gastrointestinal (Abdomen): normal bowel sounds, soft, nontender, no hepatosplenomegaly Skin: Bilateral ecchymosis on the forearms Neurologic: PERRL, EOMI, accommodation nl, no face palsy, no dysarthria Results & Data Vital Signs (Past 12 Hours) Vital Signs Temp Pulse Resp BP BP Pulse Ox 03/08/20 07:00 36.4 C L 74 20 117/65 98 03/08/20 03:55 36.4 C L 81 16 136/69 100 03/07/20 23:15 36.5 C 78 18 142/75 H 100
--- NOTE | 2020-03-08 11:22 | Hospitalist Progress Note ---
Date of Service March 08, 2020 Assessment & Plan (1) Acute on chronic heart failure with reduced ejection fraction and diastolic dysfunction: -as per admission notes" Patient admitted with shortness of breath worsening in the last 3-4 days, with worsening of lower extremity edema, increased abdominal girth Last echo done in 2019 showed EF of 30% with global hypokinesis, baseline heart failure with NYHA class IV. proBNP more than 16,000, chest x-ray shows pallor bilateral pleural effusion right worse than left, patient was given IV Bumex, discussed with nephrology, patient will be started with low-dose Lasix drip -Patient had IV Lasix drip from admission on 03/06/2020 and improving oxyg enation. The IV Lasix drip was held in the AM while patient still on some nasal cannula oxygen. The IV Lasix then resumed at the request of nephrology. Cardiology Dr. Andrade did not feel patient would benefit with concurrent dobutamine IV and this was not given. Patient seen again in afternoon and appears to be able to breath comfortably on room air. Will hold the IV Lasix for now. Pulmonary service with no acute plans to perform thoracentesis as patient making clinical improvements. continue to hold the home dose coumadin for now. patient later complained to nurse of feeling subjective shortness of breath in evening of 03/07/2020 even though he was saturating above 91% on room air. switched Lasix to 20 mg IV TID for now. -03/08/2020 updates: Patient examined and currently on room air. patient reported he did not feel subjective need to take nasal cannula overnight. saturating above 90% on room air. hospitalist discussed care with cardiology Dr. Andrade who continues to advise IV Lasix drip because of patient's end stage congestive heart failure and he does not advise dobutamine at this time because of risk of ventricular tachycardia. patient agrees to remain in hospital for further IV Lasix and monitoring of the labs. paroxysmal Atrial Fibrillation -currently normal sinus rhythm -hold the coumadin in case of bleed risks and if need of procedure Cardiomyopathy, severe history of coronary artery disease -Echocardiogram performed on 03/07/2020 reveals severe LV systolic dysfunction LVEF 25%. Moderate to severe mitral regurgitation is present, with noted leaflet malcoaptation due to dilated cardiomyopathy and tethering of the mitral valve apparatus. It is noted patient has been on hospice due to his advanced heart failure, however, patient has reversed this decision. 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 normalized serum potassium levels up to 03/07/2020 -current serum potassium as 3.2 and additional potassium supplements given Sleep apnea BiPAP at night DVT prophylaxis: currently with therapeutic INR of 2 Admission and Anticipated Discharge Date Admission Date: March 06, 2020 Subjective Patient examined and currently on room air. patient reported he did not feel subjective need to take nasal cannula overnight. saturating above 90% on room air. hospitalist discussed care with cardiology Dr. Andrade who continues to advise IV Lasix drip because of patient's end stage congestive heart failure and he does not advise dobutamine at this time because of risk of ventricular tachycardia. patient agrees to remain in hospital for further IV Lasix and monitoring of the labs. no pain, no headache, no dizziness, no nausea, no vomiting, no chest pain, no palpitations. Review of Systems Review of Systems: All systems reviewed & are unremarkable except as noted in Subjective Physical Exam Constitutional: cooperative Eyes: PERRL, conjunctivae normal, anicteric sclerae EOM intact bilaterally ENMT: external ear and nose normal, oropharynx normal Neck: normal visual inspection Respiratory: normal respiratory effort Cardiovascular: Rate/Rhythm: regular rate (pacing) Gastrointestinal (Abdomen): normal bowel sounds, soft, nontender, no hepatosplenomegaly Musculoskeletal: Head/Neck/Chest: normocephalic and head atraumatic Neurologic: PERRL, EOMI, accommodation nl, no face palsy, no dysarthria CN's II-XI intact bilaterally Psychiatric: A+Ox3, euthymic affect Results & Data Results & Data ([facility]) Vital Signs (Past 12 Hours) Vital Signs Temp Pulse Resp BP BP Pulse Ox 03/08/20 07:00 36.4 C L 74 20 117/65 98 03/08/20 03:55 36.4 C L 81 16 136/69 100
--- NOTE | 2020-03-08 13:28 | Progress Notes ---
DATE: 03/08/2020 NEPHROLOGY PROGRESS NOTE SUBJECTIVE: The patient seems to be somewhat better breathing romo. He is not requiring any supplemental oxygen, but he is still complaining of some shortness of breath as well as pleuritic type lower chest pain. PHYSICAL EXAMINATION: VITAL SIGNS: Blood pressure 122/59, pulse rate 79, temperature 36.6, 96% on room air. HEENT: Mucous membrane is moist. NECK: Supple. Jugular venous distention is present. CHEST: Bilaterally decreased breath sounds, poor inspiratory effort secondary to pain. Occasional crackles. CARDIOVASCULAR: S1 and S2 regular. ABDOMEN: Soft, nontender. EXTREMITIES: Show no edema now. NEUROLOGIC: Awake, alert, oriented x3. No focal deficit. LABORATORY TESTS: Blood work from this morning shows sodium 135, potassium 3.2, BUN 83, creatinine 4.85. Phosphorus is 5.8, magnesium is 2.5. Urine dipstick showed lot of epithelial cells as well as hyaline cast with blood and protein. This is more consistent with ATN, but we should also do a urine culture. ASSESSMENT AND PLAN: An 84-year-old male with preexisting chronic kidney disease V with a baseline creatinine in the 2-3 range as well as severe ischemic cardiomyopathy, admitted with shortness of breath. I have been consulted for [id number] renal failure with hyperkalemia. Acute renal failure: Acute part secondary to cardiorenal syndrome with some degree of acute tubular necrosis. With the use of Lasix drip, the patient actually feels slightly better from breathing standpoint. Sodium is rising, potassium has now become low instead of high with the Lasix drip. I would continue with the Lasix drip for now. It will be incredibly difficult to do dialysis on him if such need arise. I do believe he has reached end-stage cardiac as well as end-stage renal disease. The patient was on hospice care just recently and the family has expressed a desire that they will be agreeable to do dialysis if such need arise. At this very moment, he does not need dialysis. I will monitor his renal function over the next few days with the Lasix drip. We will have a more detailed discussion whether he needs dialysis and whether he can tolerate dialysis in the next few days. Continue daily laboratories. Do give potassium, which is already done. I will stop the Veltassa.
[2020-03-08] MEDS: ACETAMINOPHEN 325 MG TAB PO PRN (15:43)
--- NOTE | 2020-03-08 15:50 | Pulmonology Progress Note ---
Date of Service March 08, 2020 Assessment & Plan (1) Acute on chronic heart failure with reduced ejection fraction and diastolic dysfunction: 84-year-old male with history of severe systolic heart failure, grade 3 diastolic dysfunction, JYOTHI and CKD, acute hypoxemic respiratory failure and chronic hypoxemic respiratory failure and bilateral effusions presenting to the hospital with increasing shortness of breath. Patient was previously in hospice care. He continues to symptomatically improve on a Lasix drip. Creatinine continues to be very elevated. Nephrology is following the patient and has brought up the topic of dialysis. I suspect that he would do very poorly with dialysis given his underlying comorbidities. Palliative care and hospice would be best suited for this patient. INR still elevated. I am going to hold off on a thoracentesis at this time given the elevated risk of bleeding and complications in this elderly male with significant comorbid conditions. Pulmonary will follow from the periphery. Please call us with questions. Thank you for the consult. (2) SOB (shortness of breath): (3) Paroxysmal atrial fibrillation: (4) Hemoptysis: (5) Acute kidney injury superimposed on chronic kidney disease: (6) Acute hypoxemic respiratory failure: (7) Chronic bilateral pleural effusions: Admission and Anticipated Discharge Date Admission Date: March 06, 2020 Subjective Patient notes that he had some trouble with his breathing earlier this morning. Now his breathing seems to have improved and he is currently on room air. He is lying in bed. Denies any chest pain, fevers, chills or nausea. Patient discussed with respiratory therapist. Physical Exam Constitutional: Very elderly appearing male in no significant distress laying in bed. He appears generally weak. Eyes: PERRL, conjunctivae normal, anicteric sclerae ENMT: external ear and nose normal, oropharynx normal Neck: normal visual inspection Respiratory: Mild bibasilar crackles with diminishment noted. Mildly tachypneic. Cardiovascular: Irregularly irregular. Mild systolic flow murmur noted. No significant pitting edema in the lower extremities. Gastrointestinal (Abdomen): Nontender, nondistended. Normoactive bowel sounds. Musculoskeletal: Ecchymosis in all extremities noted. Diffusely weak. Barely able to sit up in bed. Skin: As noted in the musculoskeletal section Neurologic: PERRL, EOMI, accommodation nl, no face palsy, no dysarthria Psychiatric: A+Ox3, euthymic affect Results & Data Results & Data ([facility]) Vital Signs (Past 12 Hours) Vital Signs Temp Pulse Resp BP BP Pulse Ox 03/08/20 15:38 97.9 F 79 19 133/66 95 03/08/20 11:53 97.9 F 79 18 122/59 L 96 03/08/20 07:00 97.5 F L 74 20 117/65 98 03/08/20 03:55 97.5 F L 81 16 136/69 100 PG Care Time/CCT Total # of Minutes Spent Total Time Spent with Patient: Total time spent is greater than 50% in coordination of care (as documented) at patient's floor/unit and/or counseling patient: Coding Level of Care Code 60806 Subseq Hosp Care Lvl 3 Diagnoses Acute on chronic heart failure with reduced ejection fraction and diastolic dysfunction I50.43 SOB (shortness of breath) R06.02 Paroxysmal atrial fibrillation I48.0 Hemoptysis R04.2 Acute kidney injury superimposed on chronic kidney disease N17.9; N18.9 Acute hypoxemic respiratory failure J96.01 Chronic bilateral pleural effusions J90
[2020-03-08] MEDS: TEMAZEPAM 15 MG CAPSULE PO PRN (19:58)
[2020-03-09] MEDS: ACETAMINOPHEN 325 MG TAB PO PRN ×3 (00:38→21:13)
[2020-03-09] MEDS: FUROSEMIDE 100 MG in DEXTROSE 5% 90 ML IV SCH (02:36)
[2020-03-09 06:03] LABS: INR 1.7 (0.9-1.1); Prothrombin Time 17.1 Seconds (9.0-12.0)
[2020-03-09] MEDS ORDERED: TRAMADOL HCL 50 MG TABLET PO STA (06:20)
[2020-03-09 06:47] LABS: BUN Creatinine Ratio 19.8 (10-20); Calcium 8.7 mg/dl (8.5-10.1); Creatinine Clr Calc Pharmacy 10.8 ml/min; Est GFR (African American) 11.6
[2020-03-09] MEDS ORDERED: POTASSIUM CHLORIDE 20 MEQ TABCR PO ONE ×2 (08:00→14:30)
--- NOTE | 2020-03-09 08:08 | Hospitalist Progress Note ---
Date of Service March 09, 2020 Assessment & Plan (1) Acute on chronic heart failure with reduced ejection fraction and diastolic dysfunction: -as per admission notes" Patient admitted with shortness of breath worsening in the last 3-4 days, with worsening of lower extremity edema, increased abdominal girth Last echo done in 2019 showed EF of 30% with global hypokinesis, baseline heart failure with NYHA class IV. proBNP more than 16,000, chest x-ray shows pallor bilateral pleural effusion right worse than left, patient was given IV Bumex, discussed with nephrology, patient will be started with low-dose Lasix drip -Patient had IV Lasix drip from admission on 03/06/2020 and improving oxyg enation. The IV Lasix drip was held in the AM while patient still on some nasal cannula oxygen. The IV Lasix then resumed at the request of nephrology. Cardiology Dr. Andrade did not feel patient would benefit with concurrent dobutamine IV and this was not given. Patient seen again in afternoon and appears to be able to breath comfortably on room air. Will hold the IV Lasix for now. Pulmonary service with no acute plans to perform thoracentesis as patient making clinical improvements. continue to hold the home dose coumadin for now. patient later complained to nurse of feeling subjective shortness of breath in evening of 03/07/2020 even though he was saturating above 91% on room air. switched Lasix to 20 mg IV TID for now. -03/08/2020 updates: Patient examined and currently on room air. patient reported he did not feel subjective need to take nasal cannula overnight. saturating above 90% on room air. hospitalist discussed care with cardiology Dr. Andrade who continues to advise IV Lasix drip because of patient's end stage congestive heart failure and he does not advise dobutamine at this time because of risk of ventricular tachycardia. patient agrees to remain in hospital for further IV Lasix and monitoring of the labs. 03/09/2020: IV Lasix drip held in AM after morning labs with again hypokalemia. serum potassium is 3 and additional oral and IV potassium ordered and will re-assess labs at 1 PM before determining today's diuretic regimen. Patient is on room air and feels like he is breathing well subjectively. right side lung multani continues to be diminished on posterior lung auscultation compared to the left side of the lungs paroxysmal Atrial Fibrillation -currently normal sinus rhythm -hold the coumadin in case of bleed risks and if need of procedure Cardiomyopathy, severe history of coronary artery disease -Echocardiogram performed on 03/07/2020 reveals severe LV systolic dysfunction LVEF 25%. Moderate to severe mitral regurgitation is present, with noted leaflet malcoaptation due to dilated cardiomyopathy and tethering of the mitral valve apparatus. It is noted patient has been on hospice due to his advanced heart failure, however, patient has reversed this decision. 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 normalized serum potassium levels up to 03/07/2020 -03/08/2020 serum potassium as 3.2 and additional potassium supplements given -03/09/2020 serum potassium is 3 and additional oral and IV potassium ordered, plan to check labs later at 1 PM Sleep apnea BiPAP at night DVT prophylaxis: currently with therapeutic INR of 2 Admission and Anticipated Discharge Date Admission Date: March 06, 2020 Subjective IV Lasix drip held in AM after morning labs with again hypokalemia. serum potassium is 3 and additional oral and IV potassium ordered and will re-assess labs at 1 PM before determining today's diuretic regimen. Patient is on room air and feels like he is breathing well subjectively. right side lung multani continues to be diminished on posterior lung auscultation compared to the left side of the lungs no dizziness. no nausea. no abdominal pain. no dizziness. no headache Review of Systems Review of Systems: All systems reviewed & are unremarkable except as noted in Subjective Physical Exam Constitutional: cooperative Eyes: PERRL, conjunctivae normal, anicteric sclerae EOM intact bilaterally ENMT: external ear and nose normal, oropharynx normal Neck: normal visual inspection Respiratory: normal respiratory effort (right sided lung multani continues to be diminshed compared to left side) Cardiovascular: Rate/Rhythm: regular rate (pacing) Gastrointestinal (Abdomen): normal bowel sounds, soft, nontender, no hepatosplenomegaly Musculoskeletal: Head/Neck/Chest: normocephalic and head atraumatic Neurologic: PERRL, EOMI, accommodation nl, no face palsy, no dysarthria CN's II-XI intact bilaterally Psychiatric: A+Ox3, euthymic affect Results & Data Results & Data ([facility]) Vital Signs (Past 12 Hours) Vital Signs Temp Pulse Pulse Resp BP Pulse Ox 03/09/20 07:47 78 03/09/20 03:28 36.4 C L 78 20 148/79 H 97 03/08/20 23:36 36.4 C L 82 20 138/63 96
[2020-03-09] MEDS: POTASSIUM CHLORIDE / WTR 10 MEQ/100 ML PLCT IV SCH ×2 (08:09→09:29)
[2020-03-09] MEDS: UMECLIDINIUM/VILANTEROL 62.5/25MCG 7 PUFFS/INHALER INH SCH (08:12)
[2020-03-09] MEDS: FLUTICASONE FUROATE 100MCG 14 PUFFS/INHALER INH SCH (08:12)
[2020-03-09] MEDS: METOPROLOL SUCC 50MG EXT REL TAB PO SCH (08:13)
[2020-03-09] MEDS: DOCUSATE SODIUM 100 MG CAP PO SCH (08:13)
[2020-03-09] MEDS: ASPIRIN 81 MG ECTAB PO SCH (08:13)
[2020-03-09 13:41] LABS: BUN Creatinine Ratio 20.5 (10-20); Calcium 8.8 mg/dl (8.5-10.1); Creatinine Clr Calc Pharmacy 11.5 ml/min; Est GFR (African American) 12.5; Est GFR (Non-African American) 10.8; Magnesium 2.3 mg/dl (1.8-2.4); Potassium 3.4 mmol/L (3.5-5.1)
--- NOTE | 2020-03-09 16:40 | Cardiology Progress Note ---
Date of Service March 09, 2020 Assessment & Plan (1) Acute on chronic heart failure with reduced ejection fraction and diastolic dysfunction: End-stage systolic heart failure, cardiorenal syndrome. My advice is to replace potassium orally and resume furosemide infusion in an effort to diurese much as possible to palliating pt's symptoms will he is inpatient. Subjective Patient seen in follow-up of shortness of breath. Ventricular pacing at 70 bpm is present with relatively irregular RR intervals, it is difficult to determine if the underlying rhythm is atrial fibrillation or sinus rhythm with ventricular pacing and long AV delay. Physical Exam Physical Exam: Temp Pulse Resp BP Pulse Ox 36.5 C 81 16 129/74 93 03/09/20 15:32 03/09/20 15:32 03/09/20 15:32 03/09/20 15:32 03/09/20 15:32 Respiratory: Auscultation: + diminished lung sounds (Diminished right lung sounds) Cardiovascular: Rate/Rhythm: regular rhythm Heart Sounds: + murmur (1/6 systolic murmur) Gastrointestinal (Abdomen): normal bowel sounds, soft, nontender, no hepatosplenomegaly Skin: Bilateral arm ecchymosis Neurologic: PERRL, EOMI, accommodation nl, no face palsy, no dysarthria Results & Data Vital Signs (Past 12 Hours) Vital Signs Temp Pulse Pulse Resp BP BP Pulse Ox 03/09/20 15:32 36.5 C 81 16 129/74 93 03/09/20 10:55 36.5 C 89 12 145/75 H 97 03/09/20 07:47 78 03/09/20 07:15 36.5 C 73 20 124/70 97 Laboratory Results Coagulation 03/09/20 Range/Units 04:23 PT 17.1 H (9.0-12.0) Seconds Comprehensive Metabolic Panel 03/09/20 03/09/20 Range/Units 04:23 12:38 Sodium 137 135 L (136-145) mmol/L Potassium 3.0 L 3.4 L (3.5-5.1) mmol/L Chloride 90 L 90 L (98-107) mmol/L Carbon Dioxide 34 H 36 H (21-32) mmol/L BUN 97 H 97 H (7-18) mg/dl Creatinine 4.91 H* 4.64 H* (0.6-1.4) mg/dl Glucose 99 107 H (70-99) mg/dl Calcium 8.7 8.8 (8.5-10.1) mg/dl Intake and Output 03/09/20 03/09/20 03/09/20 06:59 14:59 22:59 Intake Total 66.917 / 1286.917 504.333 / 504.333 Output Total 825 / 1850 375 / 375 Balance -758.083 / -563.083 129.333 / 129.333 Intake: IV 66.917 / 266.917 224.333 / 224.333 Lasix 100 mg In D5 90 ml @ 5 MG 66.917 / 66.917 24.333 / 24.333 /HR 5 mls/hr IV .Q20H ARNULFO Rx#: [id number] K RIDER / WTR 10 meq In 100 ml 200 / 200 @ 100 mls/hr IV Q1H ARNULFO Rx#: [id number] Oral 280 / 280 Output: Urine 825 / 1850 375 / 375 Other: Other Intake Source SIPS Weight 71.9 kg
[2020-03-09] MEDS ORDERED: TORSEMIDE 10 MG TAB PO SCH (17:00)
--- NOTE | 2020-03-09 18:23 | Progress Notes ---
DATE: 03/09/2020 SUBJECTIVE: The patient seems to be better breathing romo. He claims he is 80% better than when he came in. He is not requiring any supplemental oxygen. Making urine, but not massive amount. OBJECTIVE: VITAL SIGNS: Blood pressure 129/74, pulse rate 81, temperature 36.5, 93% on room air. HEENT: Mucous membranes moist. NECK: Supple. No jugular venous distention. CHEST: Bilateral decreased breath sounds. CARDIOVASCULAR: S1, S2, regular. ABDOMEN: Soft, nontender. EXTREMITIES: Shows trace edema. LABORATORY TESTS: From this morning reviewed. BUN is 97, creatinine is 4.64 which is slightly less than yesterday. In any case, creatinine really has not changed much in the last 3 days and is in a very tight range in the mid to high 4 range. ASSESSMENT AND PLAN: An 84-year-old male with preexisting chronic kidney disease stage IV with a baseline creatinine at 2-3 range as well as severe ischemic cardiomyopathy, admitted with shortness of breath. I have been consulted for acute on chronic renal failure with hyperkalemia. Acute renal failure, acute part secondary to cardiorenal syndrome with some degree of ATN. With the use of Lasix drip, he feels his breathing is better. I would continue the Lasix drip for today. I do believe he has reached end-stage cardiac as well as end-stage renal disease. The patient was on hospice care just recently and then the family revoked the hospice and said they would be agreeable to do dialysis if such need arise. At this very moment, he does not need dialysis as his creatinine has been fairly stable for 3 days. I will continue to monitor his renal function over the next few days with the Lasix drip. Continue daily labs.
[2020-03-09] MEDS: TEMAZEPAM 15 MG CAPSULE PO PRN (21:13)
[2020-03-10] MEDS: FUROSEMIDE 100 MG in DEXTROSE 5% 90 ML IV SCH (06:20)
[2020-03-10] MEDS: UMECLIDINIUM/VILANTEROL 62.5/25MCG 7 PUFFS/INHALER INH SCH (08:14)
[2020-03-10] MEDS: FLUTICASONE FUROATE 100MCG 14 PUFFS/INHALER INH SCH (08:14)
[2020-03-10] MEDS: ACETAMINOPHEN 325 MG TAB PO PRN ×2 (08:15→22:09)
[2020-03-10] MEDS: ASPIRIN 81 MG ECTAB PO SCH (08:16)
[2020-03-10] MEDS: POTASSIUM CHLORIDE 20 MEQ TABCR PO SCH ×2 (08:16→19:52)
[2020-03-10] MEDS: DOCUSATE SODIUM 100 MG CAP PO SCH (08:16)
[2020-03-10] MEDS: METOPROLOL SUCC 50MG EXT REL TAB PO SCH (08:16)
[2020-03-10 08:19] LABS: BUN Creatinine Ratio 20.7 (10-20); Calcium 9.2 mg/dl (8.5-10.1); Creatinine Clr Calc Pharmacy 11.8 ml/min; Est GFR (African American) 12.9; Est GFR (Non-African American) 11.1; Potassium 3.1 mmol/L (3.5-5.1)
--- NOTE | 2020-03-10 09:01 | Hospitalist Progress Note ---
Date of Service March 10, 2020 Assessment & Plan (1) Acute on chronic heart failure with reduced ejection fraction and diastolic dysfunction: -as per admission notes" Patient admitted with shortness of breath worsening in the last 3-4 days, with worsening of lower extremity edema, increased abdominal girth Last echo done in 2019 showed EF of 30% with global hypokinesis, baseline heart failure with NYHA class IV. proBNP more than 16,000, chest x-ray shows pallor bilateral pleural effusion right worse than left, patient was given IV Bumex, discussed with nephrology, patient will be started with low-dose Lasix drip -Patient had IV Lasix drip from admission on 03/06/2020 and improving oxyg enation. The IV Lasix drip was held in the AM while patient still on some nasal cannula oxygen. The IV Lasix then resumed at the request of nephrology. Cardiology Dr. Andrade did not feel patient would benefit with concurrent dobutamine IV and this was not given. Patient seen again in afternoon and appears to be able to breath comfortably on room air. Will hold the IV Lasix for now. Pulmonary service with no acute plans to perform thoracentesis as patient making clinical improvements. continue to hold the home dose coumadin for now. patient later complained to nurse of feeling subjective shortness of breath in evening of 03/07/2020 even though he was saturating above 91% on room air. switched Lasix to 20 mg IV TID for now. -03/08/2020 updates: Patient examined and currently on room air. patient reported he did not feel subjective need to take nasal cannula overnight. saturating above 90% on room air. hospitalist discussed care with cardiology Dr. Andrade who continues to advise IV Lasix drip because of patient's end stage congestive heart failure and he does not advise dobutamine at this time because of risk of ventricular tachycardia. patient agrees to remain in hospital for further IV Lasix and monitoring of the labs. -03/09/2020: IV Lasix drip held in AM after morning labs with again hypokalemia. serum potassium is 3 and additional oral and IV potassium ordered and serum pota ssium 3.4. resumed the IV Lasix drip at 5 PM. plan to continue potassium as 40 meq BID starting on 03/10/2020 (as he got potassium today). Discussed with Dr. Mainalli from nephrology that for when patient goes home he should be at minimum on increased torsemide beyond 20 mg BID -03/10/2020: serum potassium 3.1, additional IV Lasix 10 meq x2 to be given as tolerated, continue oral potassium as 40 meq BID Hyperkalemia, on admission Hypokalemia with IV Lasix drip -improved after Kayexalate calcium gluconate insulin with dextrose in ER on 03/06/2020 and then with diuretics. normalized serum potassium levels up to 03/07/2020 -requiring potassium supplementations since that time while on IV Lasix drip Acute renal failure with CKD stage IV -admission creatinine 4.82 -unclear as to cause on his admission but patient's creatinine has not worsened significantly while on IV diuretic for now -recent creatinine 4.51 paroxysmal Atrial Fibrillation -has pacemaker, sometimes with intermittent prolongation and being read as wide complex, heart rates stable -coumadin have been on this admission in case of bleed risks and if need of procedure such as thoracentesis, but at this time a thoracentesis is unlikely, defer to cardiology service on when to resume coumadin Cardiomyopathy, severe history of coronary artery disease -Echocardiogram performed on 03/07/2020 reveals severe LV systolic dysfunction LVEF 25%. Moderate to severe mitral regurgitation is present, with noted leaflet malcoaptation due to dilated cardiomyopathy and tethering of the mitral valve apparatus. It is noted patient has been on hospice due to his advanced heart failure, however, patient has reversed this decision. 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 On IV Lasix drip. no chest pain. no palpitations. no abdomen pain. no nausea. no vomiting. no dizziness. no headache. Review of Systems Review of Systems: All systems reviewed & are unremarkable except as noted in Subjective Physical Exam Constitutional: cooperative Eyes: PERRL, conjunctivae normal, anicteric sclerae EOM intact bilaterally ENMT: external ear and nose normal, oropharynx normal Neck: normal visual inspection Respiratory: normal respiratory effort (right sided lung multani continues to be diminshed compared to left side) Cardiovascular: Rate/Rhythm: regular rate (pacing) Gastrointestinal (Abdomen): normal bowel sounds, soft, nontender, no hepatosplenomegaly Musculoskeletal: Head/Neck/Chest: normocephalic and head atraumatic Neurologic: PERRL, EOMI, accommodation nl, no face palsy, no dysarthria CN's II-XI intact bilaterally Psychiatric: A+Ox3, euthymic affect Results & Data Results & Data ([facility]) Vital Signs (Past 12 Hours) Vital Signs Temp Pulse Resp BP BP Pulse Ox 03/10/20 07:01 36.6 C 83 18 134/75 90 03/10/20 05:00 36.6 C 77 18 143/79 H 98 03/10/20 00:18 36.5 C 82 18 130/74 99
[2020-03-10] MEDS: POTASSIUM CHLORIDE / WTR 10 MEQ/100 ML PLCT IV SCH ×2 (09:38→11:35)
--- NOTE | 2020-03-10 14:40 | Cardiology Progress Note ---
Date of Service March 10, 2020 Assessment & Plan (1) Acute on chronic heart failure with reduced ejection fraction and diastolic dysfunction: Acute on chronic systolic heart failure, ischemic cardiomyopathy, end-stage heart failure with cardiorenal syndrome. Continue furosemide for palliation of symptoms. We will reassess timing of starting Coumadin tomorrow, possible discharge to home then with palliative care. I had a long discussion with the patient's son, Carmine, yesterday by phone upd ating him regarding patient's clinical situation. Subjective Patient seen in follow-up. He notes feeling marginally improved. Telemetry reveals ventricular pacing. Physical Exam Physical Exam: Temp Pulse Resp BP Pulse Ox 37.1 C 91 H 18 123/76 92 03/10/20 11:52 03/10/20 11:52 03/10/20 11:52 03/10/20 11:52 03/10/20 11:52 Constitutional: Chronically ill in appearance Respiratory: Decreased breath sounds bilaterally at the bases, right worse than left Cardiovascular: Rate/Rhythm: regular rate Heart Sounds: + murmur (1/6 systolic murmur) Gastrointestinal (Abdomen): normal bowel sounds, soft, nontender, no hepatosplenomegaly Skin: Ecchymosis over the arms bilaterally Neurologic: PERRL, EOMI, accommodation nl, no face palsy, no dysarthria Results & Data Vital Signs (Past 12 Hours) Vital Signs Temp Pulse Pulse Resp BP Pulse Ox 03/10/20 11:52 37.1 C 91 H 18 123/76 92 03/10/20 07:30 84 03/10/20 07:01 36.6 C 83 18 134/75 90 03/10/20 05:00 36.6 C 77 18 143/79 H 98 Laboratory Results Comprehensive Metabolic Panel 03/10/20 Range/Units 06:51 Sodium 135 L (136-145) mmol/L Potassium 3.1 L (3.5-5.1) mmol/L Chloride 91 L (98-107) mmol/L Carbon Dioxide 33 H (21-32) mmol/L BUN 93 H (7-18) mg/dl Creatinine 4.51 H* (0.6-1.4) mg/dl Glucose 91 (70-99) mg/dl Calcium 9.2 (8.5-10.1) mg/dl Intake and Output 03/09/20 03/10/20 03/10/20 22:59 06:59 14:59 Intake Total 100 / 720.000 115.667 / 720.000 930 / 930 Output Total 250 / 1225 600 / 1225 350 / 350 Balance -150 / -505.000 -484.333 / -505.000 580 / 580 Intake: IV 0 / 290.000 65.667 / 290.000 200 / 200 Lasix 100 mg In D5 90 ml @ 5 MG 0 / 90.000 65.667 / 90.000 /HR 5 mls/hr IV .Q20H [facility] Rx#: [id number] K RIDER / WTR 10 meq In 100 ml 200 / 200 @ 100 mls/hr IV Q1H [facility] Rx#: [id number] Oral 100 / 430 50 / 430 730 / 730 Output: Urine 250 / 1225 600 / 1225 350 / 350 Other: Weight 70 kg
--- NOTE | 2020-03-10 16:04 | Progress Notes ---
DATE: 03/10/2020 SUBJECTIVE: The patient seems to be better. Breathing romo, he is not requiring any oxygen; making urine, but not massive amount, still on the Lasix drip. OBJECTIVE: VITAL SIGNS: Blood pressure is 123/76, pulse 91, temperature 37.1, 92% on room air. HEENT: Mucous membranes moist. LUNGS: Supple. Decreased breath sounds bilaterally, right worse than left. CARDIOVASCULAR: Regular rate and rhythm. Soft systolic murmur heard. ABDOMEN: Soft, nontender. EXTREMITIES: Shows no edema. LABORATORY TESTS: From this morning reviewed and appears with similar BUN and creatinine as yesterday. ASSESSMENT AND PLAN: An 84-year-old male with preexisting chronic kidney disease stage IV with a baseline creatinine at 2-3 range as well as severe ischemic cardiomyopathy, admitted with shortness of breath. Acute renal failure. The acute part is secondary to cardiorenal syndrome with some degree of acute tubular necrosis. With the use of Lasix drip, he feels his breathing is better. I would continue the Lasix drip for today. I do believe he has reached end-stage cardiac as well as end-stage renal disease. The patient was on hospice care just recently, but I believe it would be better for him to be on hospice. Doing dialysis is not my advice.
[2020-03-10] MEDS ORDERED: POTASSIUM CHLORIDE 20 MEQ/15 ML UDC PO ONE (17:00)
[2020-03-10] MEDS: TEMAZEPAM 15 MG CAPSULE PO PRN (19:52)
[2020-03-11] MEDS ORDERED: LORazepam 0.25 MG/0.5 ML VIAL IV STA (02:10)
[2020-03-11] MEDS: FUROSEMIDE 100 MG in DEXTROSE 5% 90 ML IV SCH (02:34)
[2020-03-11 06:27] LABS: Albumin Globulin Ratio 0.8 (0.9-2); BUN Creatinine Ratio 19.1 (10-20); Bilirubin,Total 1.1 mg/dl (0.2-1); Calcium 9.2 mg/dl (8.5-10.1); Creatinine Clr Calc Pharmacy 11.5 ml/min; Est GFR (African American) 12.5; Est GFR (Non-African American) 10.8; Magnesium 2.4 mg/dl (1.8-2.4); Potassium 4.5 mmol/L (3.5-5.1)
[2020-03-11] MEDS: FLUTICASONE FUROATE 100MCG 14 PUFFS/INHALER INH SCH (09:10)
[2020-03-11] MEDS: UMECLIDINIUM/VILANTEROL 62.5/25MCG 7 PUFFS/INHALER INH SCH (09:11)
[2020-03-11] MEDS: DOCUSATE SODIUM 100 MG CAP PO SCH (09:12)
[2020-03-11] MEDS: ASPIRIN 81 MG ECTAB PO SCH (09:12)
[2020-03-11] MEDS: METOPROLOL SUCC 50MG EXT REL TAB PO SCH (09:12)
--- NOTE | 2020-03-11 10:09 | Nephrology Progress Note ---
Date of Service March 11, 2020 Assessment & Plan (1) Acute kidney injury superimposed on chronic kidney disease: Patient with acute kidney injury on CKD. Etiology of acute kidney injury likely cardiorenal syndrome. Creatinine is stable at 4.6 today. He continues to make urine on Lasix drip. No indication for dialysis today. Patient likely going to be discharged home with hospice. We will continue to monitor daily BMP while in-house. (2) Acute on chronic heart failure with reduced ejection fraction and diastolic dysfunction: Patient with end-stage CHF with EF of 25%. He is on Lasix drip for palliation of symptoms. Continue to monitor input output and Lasix drip. Admission and Anticipated Discharge Date Admission Date: March 06, 2020 Subjective Patient with end-stage cardiac disease and CKD stage V. He complains of mild shortness of breath. He continues Lasix drip. He was given balance in the last 24 hours. Creatinine stable. Review of Systems Review of Systems: All systems reviewed & are unremarkable except as noted in HPI & below Physical Exam Physical Exam: General exam: Appears comfortable, no acute distress HEENT: Pupils are equal and reactive to light Neck: No JVD, neck is supple trachea is midline Respiratory system: Crackles bilaterally. Gastrointestinal: Abdomen is soft, non distended, non tender, bowel sounds are present CVS: Regular rate and rhythm. No murmurs, rubs or gallops Musculoskeletal: No joint or muscle tenderness Extremities: Non tender, no edema, peripheral pulses are present Neuro: Oriented, no tremors, no focal neurological deficits Skin: No rashes Results & Data ([facility]) Vital Signs (Past 12 Hours) Vital Signs Temp Pulse Pulse Resp BP Pulse Ox 03/11/20 07:58 36.5 C 79 17 125/76 90 03/11/20 07:19 77 03/11/20 02:59 36.5 C 80 19 134/77 97 03/11/20 00:09 36.7 C 92 H 19 130/92 94 Laboratory Results 03/11/20 05:30 03/11/20 05:30 Albumin 3.0 L
--- NOTE | 2020-03-11 11:30 | Cardiology Progress Note ---
Date of Service March 11, 2020 Assessment & Plan (1) Acute on chronic heart failure with reduced ejection fraction and diastolic dysfunction: End stage CHF , cardiorenal syndrome. Discontinue furosemide infusion. Discharge on torsemide 20 mg BID. Subjective Pt seen in follow up of acute on chronic systolic heart failure. He is eager for discharge is wants to go back on hospice. History of lung cancer clarified. RUL. Non-diagnostic EBUS & Navigational bronchoscopy for which he underwent empiric XRT. in 2014. Physical Exam Physical Exam: Temp Pulse Resp BP Pulse Ox 36.6 C 59 L 17 133/82 93 03/11/20 11:28 03/11/20 11:28 03/11/20 11:28 03/11/20 11:28 03/11/20 11:28 Respiratory: Decreased BS at bases Cardiovascular: RRR, no murmur, no edema Neurologic: PERRL, EOMI, accommodation nl, no face palsy, no dysarthria Results & Data Vital Signs (Past 12 Hours) Vital Signs Temp Pulse Pulse Resp BP BP Pulse Ox 03/11/20 11:28 36.6 C 59 L 17 133/82 93 03/11/20 07:58 36.5 C 79 17 125/76 90 03/11/20 07:19 77 03/11/20 02:59 36.5 C 80 19 134/77 97 03/11/20 00:09 36.7 C 92 H 19 130/92 94 Laboratory Results Cardiac Enzymes 03/11/20 Range/Units 05:30 AST 14 L (15-37) U/L Comprehensive Metabolic Panel 03/11/20 Range/Units 05:30 Sodium 137 (136-145) mmol/L Potassium 4.5 D (3.5-5.1) mmol/L Chloride 98 (98-107) mmol/L Carbon Dioxide 34 H (21-32) mmol/L BUN 89 H (7-18) mg/dl Creatinine 4.64 H* (0.6-1.4) mg/dl Glucose 95 (70-99) mg/dl Calcium 9.2 (8.5-10.1) mg/dl AST 14 L (15-37) U/L ALT 19 (12-78) U/L Alkaline Phosphatase 93 (45-117) U/L Total Protein 7.0 (6.4-8.2) gm/dl Albumin 3.0 L (3.4-5.0) gm/dl Intake and Output 03/10/20 03/11/20 03/11/20 22:59 06:59 14:59 Intake Total 350 / 1480 200 / 1480 Output Total 851 / 1576 375 / 1576 Balance -501 / -96 -175 / -96 Intake: IV 100 / 300 Lasix 100 mg In D5 90 ml @ 5 MG 100 / 100 /HR 5 mls/hr IV .Q20H [facility] Rx#: [id number] Oral 350 / 1180 100 / 1180 Output: Urine 850 / 1575 375 / 1575 # Bowel Movements Other: Weight 69.8 kg
--- NOTE | 2020-03-11 12:06 | Hospitalist Progress Note ---
Date of Service March 11, 2020 Assessment & Plan (1) Acute on chronic heart failure with reduced ejection fraction and diastolic dysfunction: -as per admission notes" Patient admitted with shortness of breath worsening in the last 3-4 days, with worsening of lower extremity edema, increased abdominal girth Last echo done in 2019 showed EF of 30% with global hypokinesis, baseline heart failure with NYHA class IV. proBNP more than 16,000, chest x-ray shows pallor bilateral pleural effusion right worse than left, patient was given IV Bumex, discussed with nephrology, patient will be started with low-dose Lasix drip -Patient had IV Lasix drip from admission on 03/06/2020 and improving oxyg enation. The IV Lasix drip was held in the AM while patient still on some nasal cannula oxygen. The IV Lasix then resumed at the request of nephrology. Cardiology Dr. Andrade did not feel patient would benefit with concurrent dobutamine IV and this was not given. Patient seen again in afternoon and appears to be able to breath comfortably on room air. Will hold the IV Lasix for now. Pulmonary service with no acute plans to perform thoracentesis as patient making clinical improvements. continue to hold the home dose coumadin for now. patient later complained to nurse of feeling subjective shortness of breath in evening of 03/07/2020 even though he was saturating above 91% on room air. switched Lasix to 20 mg IV TID for now. -03/08/2020 updates: Patient examined and currently on room air. patient reported he did not feel subjective need to take nasal cannula overnight. saturating above 90% on room air. hospitalist discussed care with cardiology Dr. Andraed who continues to advise IV Lasix drip because of patient's end stage congestive heart failure and he does not advise dobutamine at this time because of risk of ventricular tachycardia. patient agrees to remain in hospital for further IV Lasix and monitoring of the labs. -03/09/2020: IV Lasix drip held in AM after morning labs with again hypokalemia. serum potassium is 3 and additional oral and IV potassium ordered and serum pota ssium 3.4. resumed the IV Lasix drip at 5 PM. plan to continue potassium as 40 meq BID starting on 03/10/2020 (as he got potassium today). Discussed with Dr. Mainalli from nephrology that for when patient goes home he should be at minimum on increased torsemide beyond 20 mg BID -03/10/2020: serum potassium 3.1, additional IV Lasix 10 meq x2 to be given as tolerated, continue oral potassium as 40 meq BID -03/11/2020: discharge to home with hospice. cardiology advises that IV Lasix can be stopped and patient can be discharged on usual home dose torsemide 20 mg BID, isosorbide and hydralazine (which were held when patient was on IV lasix drip) Hyperkalemia, on admission Hypokalemia with IV Lasix drip -improved after Kayexalate calcium gluconate insulin with dextrose in ER on 03/06/2020 and then with diuretics. normalized serum potassium levels up to 03/07/2020 -requiring potassium supplementations since that time while on IV Lasix drip -serum potassium 4.5 on 03/11/2020 Acute renal failure with CKD stage IV -admission creatinine 4.82 -unclear as to cause on his admission but patient's creatinine has not worsened significantly while on IV diuretic for now -recent creatinine 4.6 paroxysmal Atrial Fibrillation -has pacemaker, sometimes with intermittent prolongation and being read as wide complex, heart rates stable -coumadin have been held on this admission in case of bleed risks and if need of procedure such as thoracentesis -cardiology service recommends to continue home dose coumadin on discharge as s troke prophylaxis Cardiomyopathy, severe history of coronary artery disease -Echocardiogram performed on 03/07/2020 reveals severe LV systolic dysfunction LVEF 25%. Moderate to severe mitral regurgitation is present, with noted leaflet malcoaptation due to dilated cardiomyopathy and tethering of the mitral valve apparatus. It is noted patient has been on hospice due to his advanced heart failure, however, patient has reversed this decision. 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 patient wants to be discharged to home with hospice services providing outpatient oxygen. no chest pain, no abdomen pain, no nausea, no vomiting, no dizziness, no headache. he is comfortable in appearance and not in distress Review of Systems Review of Systems: All systems reviewed & are unremarkable except as noted in Subjective Physical Exam Constitutional: cooperative Eyes: PERRL, conjunctivae normal, anicteric sclerae EOM intact bilaterally ENMT: external ear and nose normal, oropharynx normal Neck: normal visual inspection Respiratory: normal respiratory effort (right sided lung multani continues to be diminshed compared to left side) Cardiovascular: Rate/Rhythm: regular rate (pacing) Gastrointestinal (Abdomen): normal bowel sounds, soft, nontender, no hepatosplenomegaly Musculoskeletal: Head/Neck/Chest: normocephalic and head atraumatic Neurologic: PERRL, EOMI, accommodation nl, no face palsy, no dysarthria CN's II-XI intact bilaterally Psychiatric: A+Ox3, euthymic affect Results & Data Results & Data ([facility]) Vital Signs (Past 12 Hours) Vital Signs Temp Pulse Pulse Resp BP BP Pulse Ox 03/11/20 11:28 36.6 C 59 L 17 133/82 93 03/11/20 07:58 36.5 C 79 17 125/76 90 03/11/20 07:19 77 03/11/20 02:59 36.5 C 80 19 134/77 97 03/11/20 00:09 36.7 C 92 H 19 130/92 94
--- NOTE | 2020-03-11 12:19 | Discharge Summary ---
Date of Service March 11, 2020 Admission HPI Per Admitting Provider Medical history significant for chronic systolic HF 2 to ischemic cardiomyopathy EF 35 to 39% TTE, 2019), NYHA class IV Status post ICD, chronic LBBB, CAD status post stent, hx PVD as per records, HTN. A. fib status post cardioversion sp PPM on Coumadin, hx CVA,COPD/ARMANDO on CPAP, CRI (baseline creatinine 2-3), chronic anemia (baseline hemoglobin of 10), Has been on home hospice for end-stage heart failure/cardiomyopathy since last June He has been doing well at home, was able to do his ADLs, able to go out and do yard work, Because of his clinical improvement was considering getting discharged from hospice. For the past 3 days patient started to experience increasing shortness of breath, severe orthopnea, worsening of lower extremity edema, increased abdominal girth at baseline patient sleeps on recliner, Patient complains of none getting short of breath at night while on recliner, worse with any movement or activity Had whitish cough, no fever or chills, no known COVID-19 contacted In the ER labs shows acute renal failure with creatinine around 5, with hyperkalemia potassium more than 6, Per patient's , patient has been taking all his meds as directed, denies of any poor p.o. intake, episode of diarrhea 2 days back secondary to taking extra dose of milk of magnesia, no further loose bowel movement since Patient and his , decided to revoke hospice Want to have all the treatment that is needed for his renal failure which includes dialysis if needed Patient remains DNR/DNI, does not want to be of life support in the setting of cardiorespiratory failure Principal Diagnosis Acute on chronic heart failure with reduced ejection fraction and diastolic dysfunction Cardiomyopathy, severe Acute renal failure with CKD stage IV (end-stage heart failure with cardiorenal syndrome) paroxysmal Atrial Fibrillation Hyperkalemia, on admission; Hypokalemia with IV Lasix drip. serum potassium 4.5 on discharge Discharge Exam Constitutional cooperative Eyes PERRL, conjunctivae normal, anicteric sclerae EOM intact bilaterally ENMT external ear and nose normal, oropharynx normal Neck normal visual inspection Respiratory normal respiratory effort (right sided lung multani continues to be diminshed compared to left side) Cardiovascular Rate/Rhythm: regular rate (pacing) Gastrointestinal (Abdomen) normal bowel sounds, soft, nontender, no hepatosplenomegaly Musculoskeletal Head/Neck/Chest: normocephalic and head atraumatic Neurologic PERRL, EOMI, accommodation nl, no face palsy, no dysarthria CN's II-XI intact bilaterally Psychiatric A+Ox3, euthymic affect Discharge Data Allergies Allergy/AdvReac Type Severity Reaction Status Date / Time blue dye Allergy Severe SHORTNESS Verified 03/06/20 16:08 OF BREATH sumatriptan Allergy Severe SHORTNESS Verified 03/06/20 16:08 OF BREATH naproxen Allergy Mild SWELLING Verified 03/06/20 16:08 OF HANDS diphenhydramine AdvReac Intermediate MADE Verified 03/06/20 16:08 DEFIBRILLATOR FIRE pseudoephedrine AdvReac Intermediate MADE HIS Verified 03/06/20 16:08 DEFIB FIRE Consultations 03/06/20 17:48 ED Decision to Admit Stat 03/06/20 20:06 Consult Cardiology Routine Consult Case Management - Discharge Planning Routine Consult Nephrology Routine 03/07/20 07:23 Consult Pulmonology Routine 03/11/20 07:01 Consult Palliative Care Routine Ordered Studies 03/06/20 15:18 CT abd pelvis wo con Stat Hospital Course (1) Acute on chronic heart failure with reduced ejection fraction and diastolic dysfunction: -as per admission notes" Patient admitted with shortness of breath worsening in the last 3-4 days, with worsening of lower extremity edema, increased abdominal girth Last echo done in 2018 showed EF of 30% with global hypokinesis, baseline heart failure with NYHA class IV. proBNP more than 16,000, chest x-ray shows pallor bilateral pleural effusion right worse than left, patient was given IV Bumex, discussed with nephrology, patient will be started with low-dose Lasix drip -Patient had IV Lasix drip from admission on 03/06/2020 and improving oxygenation. The IV Lasix drip was held in the AM while patient still on some nasal cannula oxygen. The IV Lasix then resumed at the request of nephrology. Cardiology Dr. Andrade did not feel patient would benefit with concurrent dobutamine IV and this was not given. Patient seen again in afternoon and appears to be able to breath comfortably on room air. Will hold the IV Lasix for now. Pulmonary service with no acute plans to perform thoracentesis as patient making clinical improvements. continue to hold the home dose coumadin for now. patient later complained to nurse of feeling subjective shortness of breath in evening of 03/07/2020 even though he was saturating above 91% on room air. switched Lasix to 20 mg IV TID for now. -03/08/2020 updates: Patient examined and currently on room air. patient reported he did not feel subjective need to take nasal cannula overnight. saturating above 90% on room air. hospitalist discussed care with cardiology Dr. Andrade who continues to advise IV Lasix drip because of patient's end stage congestive heart failure and he does not advise dobutamine at this time because of risk of ventricular tachycardia. patient agrees to remain in hospital for further IV Lasix and monitoring of the labs. -03/09/2020: IV Lasix drip held in AM after morning labs with again hypokalemia. serum potassium is 3 and additional oral and IV potassium ordered and serum potassium 3.4. resumed the IV Lasix drip at 5 PM. plan to continue potassium as 40 meq BID starting on 03/10/2020 (as he got potassium today). Discussed with Dr. Benjamin from nephrology that for when patient goes home he should be at minimum on increased torsemide beyond 20 mg BID -03/10/2020: serum potassium 3.1, additional IV Lasix 10 meq x2 to be given as tolerated, continue oral potassium as 40 meq BID -03/11/2020: discharge to home with hospice. cardiology advises that IV Lasix can be stopped and patient can be discharged on usual home dose torsemide 20 mg BID, isosorbide and hydralazine (which were held when patient was on IV lasix drip) Hyperkalemia, on admission Hypokalemia with IV Lasix drip -improved after Kayexalate calcium gluconate insulin with dextrose in ER on 03/06/2020 and then with diuretics. normalized serum potassium levels up to 03/07/2020 -requiring potassium supplementations since that time while on IV Lasix drip -serum potassium 4.5 on 03/11/2020 Acute renal failure with CKD stage IV -admission creatinine 4.82 -unclear as to cause on his admission but patient's creatinine has not worsened significantly while on IV diuretic for now -recent creatinine 4.6 paroxysmal Atrial Fibrillation -has pacemaker, sometimes with intermittent prolongation and being read as wide complex, heart rates stable -coumadin have been held on this admission in case of bleed risks and if need of procedure such as thoracentesis -cardiology service recommends to continue home dose coumadin on discharge as stroke prophylaxis Cardiomyopathy, severe history of coronary artery disease -Echocardiogram performed on 03/07/2020 reveals severe LV systolic dysfunction LVEF 25%. Moderate to severe mitral regurgitation is present, with noted leaflet mal coaptation due to dilated cardiomyopathy and tethering of the mitral valve apparatus. It is noted patient has been on hospice due to his advanced heart failure, however, patient has reversed this decision. 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 patient's family about overall poor cardiac prognosis -on home dose metoprolol 50 mg daily Sleep apnea -uses oxygen at night while in the hospital DVT prophylaxis: SCDs Total Time Total Time Spent Total Time Spent (In Minutes): 40 minutes Total Time Includes: Examination of the Patient, Discharge Planning, Medication Reconciliation and Communication With Other Providers Discharge Plan Discharge Items Patient Disposition: Hospice - Home Reason For Visit: SHORTNESS OF BREATH,RENAL FAILURE Discharge Diagnosis: Acute on chronic heart failure with reduced ejection fraction and diastolic dysfunction Cardiomyopathy, severe Acute renal failure with CKD stage IV (end-stage heart failure with cardiorenal syndrome) paroxysmal Atrial Fibrillation Hyperkalemia, on admission; Hypokalemia with IV Lasix drip. serum potassium 4.5 on discharge Condition on Discharge: Fair Activity: Resume your previous activity Non-emergency contact: Primary Care Provider, Shellfish Harvester and Drying Oven Attendant Call non-emergency contact if: you have any medication questions Follow-up/Referrals: Soren Loja MD [Primary Care Provider] - Diet: Heart Healthy Addtl Attending Provider Instructions: no new discharge medications sent to pharmacy [facility] [address] [place] [address] , [place], [place] [id number] patient should have repeat labs for renal function and serum potassium and INR drawn by primary care doctor. patient should avoid potassium supplements for now. discharge serum potassium is 4.5 and discharge creatinine is 4.6 upcoming appointments 03/13/2020 9:20 AM Provider Caleb Verde MD Department Vascular Surg [facility] 03/14/2020 11:20 AM Provider Ren Ayala MD Department Internal Medicine [facility] 04/02/2020 3:40 PM Provider Soren Loja MD Department Internal Medicine [facility] 05/03/2020 12:[address] [facility] Department Radiology, [place] 05/03/2020 1:00 PM Provider Andriy Manriquez MD Department Radiation Oncology, [place] 05/10/2020 10:00 AM Provider Carmine Betancur PA-C Department Cardiology, [facility] 05/15/2020 8:15 AM Provider Jamari Stein [facility] Department Cardiology, [facility] Add Senior Analysis Specialist Provider Instructions: Call your Primary Care doctor if any of the following symptoms or problems start or get worse: * Shortness of breath or difficulty breathing * Wake up at night short of breath * Chest pain * Cough * Swelling of your hands, feet, or legs * More fatigued or tired with your normal activity * Palpitations - sudden fast heart beats WEIGHT * Weigh yourself every morning after using the bathroom. * Use the same scale. * Wear the same amount of clothing. * Write your weight down on a chart. * Call your Primary Care doctor if you gain more than 2-3 pounds in 1-2 days. MEDICATIONS * Use this discharge instruction sheet for medication instructions. * Take your medications at the time your doctor ordered. * Do not skip a dose of your medicines. * If you miss a dose of medicine, take it as soon as possible, but DO NOT DOUBLE A DOSE. * Read your medicine information when you get home. * Know all of the side effects of your medicine. If in doubt, ask your pharmacist * Call your Primary Care doctor's office if you have any side effects. * Be sure all of your doctors know what medicine and herbs you take (including cold, flu, and herbal medicine). Take the following with you to your follow-up doctor appointments: * Weight Chart * Medication List * List of questions Do not drink excessive alcohol, beer or wine. Pending Studies at Discharge: No Stand-Alone Forms: My [employer] Medications and DC Order Prescriptions: Continued ondansetron 4 mg Tablet,Disintegrating 4 mg PO Q8H PRN (Reason: Nausea) RF: 0 meclizine 12.5 mg Tablet 12.5 mg PO TID PRN (Reason: Vertigo) RF: 0 ipratropium-albuterol 0.5 mg-3 mg(2.5 mg base)/3 mL Solution For Nebulization 3 ml INHALATION Q6 PRN (Reason: Shortness Of Breath Or Wheezing) RF: 0 warfarin 3 mg Tablet 3 mg PO UD RF: 0 warfarin 2 mg Tablet 2 mg PO UD RF: 0 allopurinol 300 mg Tablet 300 mg PO DAILY RF: 0 metoprolol succinate 50 mg Tablet Extended Release 24 Hr 50 mg PO DAILY RF: 0 hydralazine 25 mg Tablet 25 mg PO BID RF: 0 temazepam 15 mg Capsule 15 mg PO HS PRN (Reason: Sleep) RF: 0 docusate sodium 100 mg Capsule 100 mg PO DAILY RF: 0 torsemide 20 mg Tablet 20 mg PO BID RF: 0 pregabalin 25 mg capsule 25 mg PO DAILY RF: 0 Trelegy Ellipta 100-62.5-25 mcg blister with device 1 inh INHALATION BID RF: 0 isosorbide dinitrate 10 mg Tablet 10 mg PO BID RF: 0 aspirin [Aspir-81] 81 mg Tablet,Delayed Release (Dr/Ec) 81 mg PO QAM RF: 0 nitroglycerin [Nitrostat] 0.4 mg Tablet, Sublingual 1 tab Sublingual UD PRN (Reason: Chest Pain) RF: 0 Trelegy Ellipta 100-62.5-25 mcg Blister With Device 1 inh INHALATION QAM RF: 0 Discontinued acetaminophen [Tylenol Extra Strength] 500 mg Tablet 1,000 mg PO Q6H PRN (Reason: Pain) RF: 0 potassium chloride 10 mEq Tablet Extended Release 10 meq PO BID RF: 0 Discharge Orders: Discharge Order (Routine); Ordered 03/11/20 Ordered By: Quincy Yoo Admission Data Admit Date/Time: 03/06/20 18:16 Attending Provider: Quincy Yoo Admit Provider: Bere Bolanos Primary Care Provider: Soren Loja Other Providers: Bere Bolanos ; Anthony Denis ; David Andrade ; Bryan Walsh ; Italo Brito ; Seth Akers ; Carmine Betancur ; Lynnette العلي ; Luanne Freeman ; Satya Nixon ; Rosemary Hennessy ; Emir Carvajal ; Leann Bob ; Elma Boss ; Lisa Aponte ; Vishal Mirza ; Jessika Castle H
[2020-03-11] MEDS ORDERED: ISOSORBIDE DINITRATE 10 MG TAB PO SCH (12:30)
[2020-03-11] MEDS ORDERED: WARFARIN SOD 2 MG TAB PO SCH (16:00)
[2020-03-11] MEDS ORDERED: TORSEMIDE 10 MG TAB PO SCH (17:00)
[2020-03-15] MEDS ORDERED: WARFARIN SOD 3 MG TAB PO SCH (16:00)
== END 2020-03-11 15:55 | disposition hospice, home (50) | DRG 291 ==
LOC: ED 15:01 → SUATTDRO 18:16 → 2S 18:16